=== PATIENT | female | born 1940 | race Caucasian/White ===

== ENCOUNTER → 2017-02-21 | Outpatient (CLI) | payer MEDICARE ==
--- NOTE | 2017-02-24 07:50 | PE ---
EXAMINATION TYPE: PET CT fusion skull to thigh DATE OF EXAM: 02/21/2017 COMPARISON: Outside chest CT dated 01/26/2017 HISTORY: Solitary pulmonary nodule TECHNIQUE: Following the intravenous administration of 15.25 mCi of F-18 FDG, whole body images are performed from the skull base to the midthigh. Images are reviewed on the computer in the coronal, a xial, and sagittal planes. Reconstructed rotating images are created on independent workstation and reviewed on the computer. A localization and attenuation correction CT is performed in conjunction with the PET scan. SCAN: First FINDINGS: MEDIASTINAL BACKGROUND: 1.5. ABDOMINAL BACKGROUND: 2.1 SKULL BASE AND NECK: FDG avid 2.0 x 1.7 cm mass within the right parapharyngeal space abuts the righ t medial pterygoid musculature and right palantine tonsil demonstrates a maximum SUV of 3.58. Focal u ptake within the superficial roof of the tongue is also noted with a maximum SUV of 3.5. There is inc reased uptake within the right posterior oropharynx narrowing the right lateral oropharynx at the lev el of the uvula with a maximum SUV of 3.27. Soft tissue prominence in the prevertebral space at this location is not hypermetabolic and thought to represent adenopathy. No hypermetabolic supraclavicular adenopathy is identified. The thyroid gland is heterogenous. CHEST, MEDIASTINUM, AND HILAR REGION: The previously seen spiculated right upper lobe pulmonary nodul e measures 1.3 x 1.1 cm with a maximum SUV of 2.17. This is superimposed on a background of mild cent rilobular pulmonary emphysema greatest at the lung apices. Additional 3 mm left upper lobe pulmonary nodule on series 3 image 79 is present in the superior segment of the left lower lobe. This is below the threshold of PET CT and does not demonstrate hypermetabolic activity. Ill-defined right hilar lymph nodes without the utilization of intravenous contrast measure up to 9 m m in short axis and demonstrate a maximal SUV of 3.04. Precarinal lymph node measures 9 mm in short a xis and demonstrates a maximum SUV of 2.48. ABDOMEN AND PELVIS: No hypermetabolic uptake. A simple appearing left hepatic cyst measures 2.2 cm. P artially exophytic right renal cyst measures 3.9 cm from the upper pole and other smaller bilateral n on hypermetabolic renal cysts are seen measuring up to 3.8 cm on the left. No hydronephrosis. The une nhanced liver, gallbladder, spleen, and pancreas are unremarkable. The left adrenal gland demonstrate s mild uniform thickening but maintains its adreniform shape and there is atrophy of the right adrena l gland. Suspected left adrenal gland hyperplasia. Numerous loops of small bowel are contained within a ventral abdominal wall hernia and a right ventra l hernia. Surgical devices from prior hernia repair are noted. Numerous degenerative calcified fibroi ds are seen within the low pelvis. No gross evidence of adenopathy within the abdomen or pelvis. OSSEOUS STRUCTURES: Degenerative changes of the glenohumeral joints displayed symmetric bilateral upt eloy. Large ossified body is seen within the left subcoracoid bursa. OTHER CT: There is mild mucosal thickening within the right maxillary sinus and rightward nasal septa l deviation. There is mild dilatation of the ascending thoracic aorta measures 4.3 cm. Mild coronary artery calcifications are noted. A large hiatal hernia is present. IMPRESSION: 1. Hypermetabolic mass within the right parapharyngeal space is suspicious for neoplasm. Consideratio ns are for adenopathy, squamous cell carcinoma, and minor salivary gland tumors. Adenopathy is possib le given the increased focal avidity at the right lateral oropharynx and tongue that could represent neoplasm such as squamous cell carcinoma. Direct visualization is recommended. Enhanced MR may demons trate additional diagnostic characteristics of the parapharyngeal space mass. 2. Right upper lobe hypermetabolic pulmonary nodule, right hilar and pretracheal hypermetabolic lymph nodes suspicious for metastasis. Findings may represent primary pulmonary carcinoma or metastasis gi areli the above findings. 3. No hypermetabolic uptake within the abdomen or pelvis. 4. Redemonstration of multiple small bowel containing ventral abdominal hernias and a partial intrath oracic stomach.
== END | disposition home or self-care (01) ==
LOC: RADPETMAIN 11:22
PROVIDERS: ATTEND Nurse Practitioner Adult Health
DX: R91.1 Solitary pulmonary nodule (principal)
CPT/HCPCS: 78815; A9552

== ENCOUNTER → 2017-03-17 | Outpatient (CLI) | payer MEDICARE ==
[2017-03-17 12:45] LABS: Blood Urea Nitrogen 20 mg/dL (7-17)
--- NOTE | 2017-03-17 14:30 | CT ---
EXAMINATION TYPE: CT soft tissue neck w con DATE OF EXAM: 03/17/2017 HISTORY: Rt parapharangeal mass COMPARISON: PET/CT dated 02/21/2017 CT DLP: 239.3 mGycm. Automated Exposure Control for Dose Reduction was Utilized. TECHNIQUE: CT scan of the neck is performed with IV Contrast, patient injected with 100 mL of Omnipa que 300, axial images are obtained, coronal and sagittal reformatted images are reviewed. FINDINGS: Airway: No gross abnormality seen. No enhancing mass is seen at the tongue base to correlate to the r egion of uptake on the recent PET/CT. Again direct visualization is recommended to exclude mass. Parotid/submandibular glands: Parotid glands and submandibular glands are symmetric. Carotid/Vascular Structures: There is an apparent right subclavian artery coursing posterior to the e sophagus without impression on the esophagus. Minimal nonhemodynamically significant calcific atherom atous plaquing is seen of the right common carotid artery. There is approximately 50% stenosis at the right carotid bulb from calcific atheromatous plaquing. Visualized portions the right internal carot id artery are patent. Minimal nonhemodynamically significant atherosclerosis is seen of the cavernous and supraclinoid portions of the internal carotid arteries. Basilar ectasia versus basilar tip aneur ysm measures 4.7 cm. Left vertebral artery is dominant. Minimal nonhemodynamically significant plaqui ng (less than 50% stenosis) is seen of the left internal carotid artery just distal to the carotid bu lb. Of note the previously described prevertebral soft tissue prominence identified on the PET/CT yolanda t was not hypermetabolic in question to relate to adenopathy is likely related to a medial course of the right common carotid artery. Osseous Structures: The osseous structures are intact with moderate multilevel degenerative changes o f the cervical spine. Moderate mucosal thickening is seen within the right maxillary sinus and mild m ucosal thickening within the ethmoid sinuses. There is rightward nasal septal deviation. Other: The thyroid gland is heterogenous containing multiple subcentimeter hypoattenuated nodules in bilateral dystrophic calcifications. There is redemonstration of the known right parapharyngeal space soft tissue mass abutting the right medial pterygoid musculature and right palatine tonsil. This measures 1.8 x 2.1 x 2.2 cm. No surround ing adenopathy is seen. This does not impress upon the carotid artery. There is partial visualization of the known right upper lobe spiculated pulmonary nodule measuring at least 1.4 x 1.5 cm superimposed upon mild centrilobular pulmonary emphysema. IMPRESSION: 1. There is redemonstration of the known right parapharyngeal mass measuring 1.8 x 2.1 x 2.2 cm, naya lar in measurement to the prior PET/CT dated 02/21/2017 where this measured 1.7 x 2.0 cm. Differential is unchanged from the prior PET/CT and considerations are for adenopathy, squamous cell carcinoma, a nd minor salivary gland tumor. Again as discussed on the PET/CT MR may demonstrate additional diagnos tic characteristics. 2. No new adenopathy within the head or neck. 3. Partial visualization of the known right upper lobe spiculated pulmonary nodule without hypermetab olic on PET/CT and suspicious for neoplasm. 4. Apparent course of the right subclavian artery is incidentally noted. 4. Thyroid gland is diffusely heterogenous containing multiple subcentimeter hypoattenuated nodules m ost likely relating to a thyroid goiter. 5. Approximately 50% stenosis at the right carotid bulb.
== END | disposition home or self-care (01) ==
LOC: RADCTMAIN 12:13
PROVIDERS: ATTEND Otolaryngology
DX: J39.2 Other diseases of pharynx (principal)
CPT/HCPCS: 82565; 84520; 70491; 36415; Q9967

== ENCOUNTER 2017-10-08 08:46 | Day surgery (SDC) | payer MEDICARE ==
[2017-10-08] MEDS ORDERED: ALPRAZolam 0.25 MG TAB PO ONE (09:09)
[2017-10-08 09:35] LABS: INR 1.1 (<1.2); Prothrombin Time 10.5 sec (9.0-12.0)
[2017-10-08 09:38] LABS: Mean Platelet Volume 6.4; Platelet Count 380 k/uL (150-450)
[2017-10-08] MEDS ORDERED: LORATADINE 10 MG TAB PO STA (11:25)
--- NOTE | 2017-10-08 11:40 | XR ---
EXAMINATION TYPE: XR chest 1V portable DATE OF EXAM: 10/08/2017 Comparison: 12/17/[address] 08/27/2017 Clinical History: 76-year-old female with right lung biopsy, rule out pneumothorax Findings: Heart normal size. Retrocardiac lucency compatible with underlying moderate-sized hiatal hernia. Jv gation/ectasia of the thoracic aorta. Mild diffuse interstitial prominence as a chronic appearance. A dvanced degenerative changes of both shoulders. Known pulmonary nodule/mass peripheral right upper lo be. No appreciable pneumothorax. Impression: 1. Known right upper lobe pulmonary nodule/mass without appreciable pneumothorax. 2. Interstitial changes on the right seem to correspond to tree-in-bud opacities on patient's recent CT and could represent bronchitis/bronchiolitis or atypical pneumonias. 3. Moderate-sized hiatal hernia.
--- NOTE | 2017-10-08 11:42 | CT ---
EXAMINATION TYPE: CT biopsy lung RT DATE OF EXAM: 10/08/2017 COMPARISON: 08/27/2017 HISTORY: Lung mass CT DLP: 3150 mGycm The procedure is discussed with the patient, the risks, complications, benefits and alternatives, wer e discussed and any questions were answered. Informed consent was obtained. The patient is placed p azucena on the CT table, prepped and draped in the usual sterile fashion. Utilizing a 22-gauge Chiba needle access into the right upper lobe mass was achieved with 2 passes pe rformed. Pathology confirmed adequate sample. All elements of maximal barrier technique were utiliz ed. The patient remained stable throughout the procedure with no immediate postprocedural complicati on. IMPRESSION: 1. Successful CT guided fine needle aspiration of a right upper lobe lung mass
[2017-10-08] MEDS ORDERED: PSEUDOEPHEDRINE 30 MG TAB PO ONE (11:48)
[2017-10-08 12:35] VITALS: RESP 16
--- NOTE | 2017-10-08 13:30 | XR ---
EXAMINATION TYPE: XR chest 1V DATE OF EXAM: 10/08/2017 HISTORY: Status post biopsy rule out pneumothorax COMPARISON: October 08, 2017 TECHNIQUE: Single view of the chest is submitted. FINDINGS: Demonstrated are scattered senescent parenchymal change. I do not see evidence for pneumothorax at this time. Right upper lobe pulmonary mass noted. The heart is stable. Hilar and mediastinal structures are within normal limits. Degenerative changes are seen of the dorsal spine. Degenerative changes of the shoulders with loose b odies noted. Bone infarcts also identified. IMPRESSION: 1. No evidence for pneumothorax at this time patient is status post biopsy of the right lung.
[2017-10-08 14:18] VITALS: BP 146/90; PULSE 80; TEMP 98.7
== END 2017-10-08 14:00 | disposition home or self-care (01) ==
LOC: RADPROMAIN 08:46
PROVIDERS: ATTEND Internal Medicine Gastroenterology
DX: C34.11 Malignant neoplasm of upper lobe, right bronchus or lung (principal); Z88.0 Allergy status to penicillin
CPT/HCPCS: 71045; 77012; 85049; 85610; 88173; 88305; 88341; 88342

== ENCOUNTER → 2017-10-30 | Outpatient (CLI) | payer MEDICARE ==
[2017-10-30 09:31] LABS: Basophils % (A) 0 %; Eosinophils # (A) 0.1 k/uL (0-0.7); Eosinophils % (A) 1 %; HCT 45.8 % (34.0-46.0); HGB 14.5 gm/dL (11.4-16.0); Lymphocytes % (A) 7 %; MCH 29.9 pg (25.0-35.0); MCHC 31.6 g/dL (31.0-37.0); MCV 94.6 fL (80.0-100.0); Mean Platelet Volume 6.2; Monocytes # (A) 0.6 k/uL (0-1.0); Monocytes % (A) 4 %; Neutrophils # (A) 12.7 k/uL (1.3-7.7); Neutrophils % (A) 88 %; Platelet Count 325 k/uL (150-450); RBC 4.84 m/uL (3.80-5.40); RDW 13.6 % (11.5-15.5); WBC 14.5 k/uL (3.8-10.6)
[2017-10-30 09:40] LABS: Anion Gap 8 mmol/L; Blood Urea Nitrogen 23 mg/dL (7-17); Carbon Dioxide 30 mmol/L (22-30); Chloride 100 mmol/L (98-107); Glucose 88 mg/dL (74-99); Potassium 4.7 mmol/L (3.5-5.1); Prothrombin Time 9.9 sec (9.0-12.0); Sodium 138 mmol/L (137-145)
== END | disposition home or self-care (01) ==
LOC: LABPAT 08:36
PROVIDERS: ATTEND Family Medicine
DX: Z01.818 Encounter for other preprocedural examination (principal); Z01.812 Encounter for preprocedural laboratory examination; C34.11 Malignant neoplasm of upper lobe, right bronchus or lung; E16.2 Hypoglycemia, unspecified
CPT/HCPCS: 36415; 80051; 82565; 82947; 84520; 85025; 85610; 85730; 93005

== ENCOUNTER 2017-11-12 15:36 | Inpatient (IN) | payer MEDICARE ==
[2017-11-12] MEDS ORDERED: IPRATROPIUM-ALBUTEROL 3 ML NEB INHALATION STA ×2 (15:59→17:19)
[2017-11-12] MEDS ORDERED: SODIUM CHLORIDE 0.9% 1,000 ML IV STA ×3 (15:59→17:19)
[2017-11-12] MEDS ORDERED: methylPREDNISolone SOD SUCCI 125 MG/2 ML VIAL IV STA (15:59)
[2017-11-12] MEDS ORDERED: MAGNESIUM SULFATE-D5W PMX 1 GM in DEXTROSE/WATER 1 100ML.BAG IVPB STA (15:59)
--- NOTE | 2017-11-12 16:07 | ED ---
SOB HPI - General Source: patient, family, RN notes reviewed Mode of arrival: wheelchair Limitations: no limitations - History of Present Illness MD Complaint: shortness of breath, cough <Garry Perez - Last Filed: 11/12/17 17:03> <Jad Katz - Last Filed: 11/12/17 19:15> - General Chief Complaint: Shortness of Breath Stated Complaint: Sob Time Seen by Provider: 11/12/17 15:55 - History of Present Illness Initial Comments: This is a 76-year-old female history of a 60 year smoking history who believes she has COPD who states she's had shortness of breath for the past 3-4 weeks with 3 doctor visits so far not getting much better is had a cough with clear phlegm she had she believes a low-grade fever but no chills no chest pain no nausea vomiting diarrhea palpitations or other symptoms. She just not getting better still feels very dyspneic U with exertion. (Garry Perez) - Related Data Home Medications Medication Instructions Recorded Confirmed Diltiazem HCl [Cardizem] 120 mg PO DAILY 12/17/13 11/12/17 Omeprazole [PriLOSEC] 20 mg PO AC-BRKFST 12/17/13 11/12/17 Acetaminophen Tab [Tylenol Tab] 325 mg PO Q6H PRN 10/01/17 11/12/17 Ferrous Sulfate [Feosol] 325 mg PO DAILY 10/01/17 11/12/17 Albuterol Nebulized [Ventolin 0 mg INHALATION QID PRN 10/08/17 11/12/17 Nebulized] Albuterol Inhaler [Ventolin Hfa 1 - 2 puff INHALATION QID PRN 11/05/17 11/12/17 Inhaler] predniSONE 20 mg PO BID 11/05/17 11/12/17 Sulfamethox-Tmp 800-160Mg [Bactrim 1 tab PO Q12HR 11/12/17 11/12/17 DS 800-160 mg] Allergies Allergy/AdvReac Type Severity Reaction Status Date / Time Penicillins Allergy Severe Diarrhea Verified 11/12/17 16:31 Review of Systems ROS Other: All systems not noted in ROS Statement are negative. <Garry Perez - Last Filed: 11/12/17 17:03> ROS Other: All systems not noted in ROS Statement are negative. <Jad Katz - Last Filed: 11/12/17 19:15> ROS Statement: Those systems with pertinent positive or pertinent negative responses have been documented in the HPI. Past Medical History Past Medical History: Asthma, Cancer, GERD/Reflux, Hypertension, Osteoarthritis (OA) Additional Past Medical History / Comment(s): hx palpitations, sinus infections , current URI (on current rx for), lung cancer, hx deverticulitis History of Any Multi-Drug Resistant Organisms: None Reported Past Surgical History: Adenoidectomy, Bowel Resection, Heart Catheterization, Hernia Repair, Tonsillectomy Additional Past Surgical History / Comment(s): Per patient some type of clip surgery in the heart by Dr. Akers in 2011, bowel resection with colostomy/ later reversed, D&C, long cataracts, lung biopsy Past Anesthesia/Blood Transfusion Reactions: No Reported Reaction Past Psychological History: No Psychological Hx Reported Smoking Status: Current some day smoker Past Alcohol Use History: None Reported Past Drug Use History: None Reported - Past Family History Mother Family Medical History: No Reported History Son(s) Family Medical History: No Reported History <ChrisGarry - Last Filed: 11/12/17 17:03> General Exam Limitations: no limitations General appearance: alert, anxious, in distress Head exam: Present: atraumatic, normocephalic, normal inspection Eye exam: Present: normal appearance, PERRL, EOMI. Absent: scleral icterus, conjunctival injection, periorbital swelling ENT exam: Present: normal exam, mucous membranes moist Neck exam: Present: normal inspection. Absent: tenderness, meningismus, lymphadenopathy Respiratory exam: Present: wheezes, accessory muscle use, decreased breath sounds. Absent: respiratory distress, rales, rhonchi, stridor Cardiovascular Exam: Present: regular rate, normal rhythm, normal heart sounds. Absent: systolic murmur, diastolic murmur, rubs, gallop, clicks GI/Abdominal exam: Present: soft, normal bowel sounds. Absent: distended, tenderness, guarding, rebound, rigid Extremities exam: Present: normal inspection, full ROM, normal capillary refill. Absent: tenderness, pedal edema, joint swelling, calf tenderness Back exam: Present: normal inspection Neurological exam: Present: alert, oriented X3, CN II-XII intact Psychiatric exam: Present: normal affect, normal mood Skin exam: Present: warm, dry, intact, normal color. Absent: rash <Garry Perez - Last Filed: 11/12/17 17:03> General appearance: alert, in no apparent distress Head exam: Present: atraumatic, normocephalic, normal inspection Eye exam: Present: normal appearance, PERRL, EOMI. Absent: scleral icterus, conjunctival injection, periorbital swelling ENT exam: Present: normal exam, mucous membranes moist Neck exam: Present: normal inspection. Absent: tenderness, meningismus, lymphadenopathy Respiratory exam: Present: normal lung sounds bilaterally, wheezes, accessory muscle use, decreased breath sounds. Absent: respiratory distress, rales, rhonchi, stridor Cardiovascular Exam: Present: regular rate, normal rhythm, normal heart sounds. Absent: systolic murmur, diastolic murmur, rubs, gallop, clicks GI/Abdominal exam: Present: soft, normal bowel sounds. Absent: distended, tenderness, guarding, rebound, rigid Extremities exam: Present: normal inspection, full ROM, normal capillary refill. Absent: tenderness, pedal edema, joint swelling, calf tenderness Back exam: Present: normal inspection Neurological exam: Present: alert, oriented X3, CN II-XII intact Psychiatric exam: Present: normal affect, normal mood Skin exam: Present: warm, dry, intact, normal color. Absent: rash <Jad Katz - Last Filed: 11/12/17 19:15> - General Exam Comments Initial Comments: This is a well-developed well-nourished awake alert oriented 3 female (Garry Perez) Course <Garry Perez - Last Filed: 11/12/17 17:03> <Jad Katz - Last Filed: 11/12/17 19:15> Vital Signs 11/12/17 11/12/17 11/12/17 15:43 16:30 16:38 Temperature 98.4 F Pulse Rate 96 99 96 Respiratory 22 Rate Blood Pressure 133/89 O2 Sat by Pulse 87 L Oximetry 11/12/17 11/12/17 11/12/17 16:58 17:25 17:40 Temperature Pulse Rate 97 93 94 Respiratory 18 Rate Blood Pressure 121/76 O2 Sat by Pulse 93 L Oximetry 11/12/17 19:01 Temperature Pulse Rate 100 Respiratory 18 Rate Blood Pressure 131/73 O2 Sat by Pulse 93 L Oximetry - Reevaluation(s) Reevaluation #1: 11/12/17 17:03 The patient's care is endorsed to Dr. Katz at our shift change (Garry Perez) Reevaluation #2: 11/12/17 19:15 Patient has significant improvement on second breathing treatment (Jad Katz) Medical Decision Making - Lab Data Result diagrams: 11/12/17 16:16 11/12/17 16:16 - EKG Data -: EKG Interpreted by [facility] EKG shows normal: sinus rhythm (EKG with a ventricular rate of 102 QRS 82 QT since QTC 314/49. Undetermined rhythm) <Garry Perez - Last Filed: 11/12/17 17:03> - Lab Data Result diagrams: 11/12/17 16:16 11/12/17 16:16 - Radiology Data Radiology results: report reviewed (CTA chest shows positive), image reviewed <Jad Katz - Last Filed: 11/12/17 19:15> - Medical Decision Making 76 female the ER for evaluation shortness of breath. Patient has pleural effusion, stated by asthma COPD. Patient be admitted for continued breathing treatments and evaluation by pulmonology (Jad Katz) - Lab Data Lab Results 11/12/17 11/12/17 11/12/17 Range/Units 16:16 16:16 16:16 WBC 13.4 H (3.8-10.6) k/uL RBC 5.36 (3.80-5.40) m/uL Hgb 16.0 (11.4-16.0) gm/dL Hct 49.9 H (34.0-46.0) % MCV 93.1 (80.0-100.0) fL MCH 29.9 (25.0-35.0) pg MCHC 32.1 (31.0-37.0) g/dL RDW 13.4 (11.5-15.5) % Plt Count 322 (150-450) k/uL Neutrophils % 88 % Lymphocytes % 4 % Monocytes % 7 % Eosinophils % 1 % Basophils % 0 % Neutrophils # 11.8 H (1.3-7.7) k/uL Lymphocytes # 0.5 L (1.0-4.8) k/uL Monocytes # 0.9 (0-1.0) k/uL Eosinophils # 0.1 (0-0.7) k/uL Basophils # 0.0 (0-0.2) k/uL PT (9.0-12.0) sec INR (<1.2) APTT (22.0-30.0) sec Sodium 133 L (137-145) mmol/L Potassium 5.9 H (3.5-5.1) mmol/L Chloride 99 (98-107) mmol/L Carbon Dioxide 24 (22-30) mmol/L Anion Gap 10 mmol/L BUN 42 H (7-17) mg/dL Creatinine 0.52 (0.52-1.04) mg/dL Est GFR (CKD-EPI)AfAm >90 (>60 ml/min/1.73 sqM) Est GFR (CKD-EPI)NonAf >90 (>60 ml/min/1.73 sqM) Glucose 117 H (74-99) mg/dL Calcium 9.2 (8.4-10.2) mg/dL Magnesium 2.3 (1.6-2.3) mg/dL Total Bilirubin 1.0 (0.2-1.3) mg/dL AST 25 (14-36) U/L ALT 22 (9-52) U/L Alkaline Phosphatase 63 (38-126) U/L Total Creatine Kinase 32 (30-135) U/L CK-MB (CK-2) 2.4 (0.0-2.4) ng/mL CK-MB (CK-2) Rel Index 7.5 Troponin I 0.046 H* (0.000-0.034) ng/mL NT-Pro-B Natriuret Pep pg/mL Total Protein 6.6 (6.3-8.2) g/dL Albumin 3.8 (3.5-5.0) g/dL 11/12/17 11/12/17 Range/Units 16:16 16:16 WBC (3.8-10.6) k/uL RBC (3.80-5.40) m/uL Hgb (11.4-16.0) gm/dL Hct (34.0-46.0) % MCV (80.0-100.0) fL MCH (25.0-35.0) pg MCHC (31.0-37.0) g/dL RDW (11.5-15.5) % Plt Count (150-450) k/uL Neutrophils % % Lymphocytes % % Monocytes % % Eosinophils % % Basophils % % Neutrophils # (1.3-7.7) k/uL Lymphocytes # (1.0-4.8) k/uL Monocytes # (0-1.0) k/uL Eosinophils # (0-0.7) k/uL Basophils # (0-0.2) k/uL PT 10.2 (9.0-12.0) sec INR 1.0 (<1.2) APTT 20.6 L (22.0-30.0) sec Sodium (137-145) mmol/L Potassium (3.5-5.1) mmol/L Chloride (98-107) mmol/L Carbon Dioxide (22-30) mmol/L Anion Gap mmol/L BUN (7-17) mg/dL Creatinine (0.52-1.04) mg/dL Est GFR (CKD-EPI)AfAm (>60 ml/min/1.73 sqM) Est GFR (CKD-EPI)NonAf (>60 ml/min/1.73 sqM) Glucose (74-99) mg/dL Calcium (8.4-10.2) mg/dL Magnesium (1.6-2.3) mg/dL Total Bilirubin (0.2-1.3) mg/dL AST (14-36) U/L ALT (9-52) U/L Alkaline Phosphatase (38-126) U/L Total Creatine Kinase (30-135) U/L CK-MB (CK-2) (0.0-2.4) ng/mL CK-MB (CK-2) Rel Index Troponin I (0.000-0.034) ng/mL NT-Pro-B Natriuret Pep 2100 pg/mL Total Protein (6.3-8.2) g/dL Albumin (3.5-5.0) g/dL Critical Care Time Critical Care Time: Yes Total Critical Care Time: 31 <Jad Katz - Last Filed: 11/12/17 19:15> Disposition <Garry Perez - Last Filed: 11/12/17 17:03> Is patient prescribed a controlled substance at d/c from ED?: No <Jad Katz - Last Filed: 11/12/17 19:15> Clinical Impression: Acute exacerbation of chronic obstructive airways disease, Pleural effusion, Hypoxia Disposition: ADMITTED IP TO THIS HOSP Condition: Fair Referrals: Rekha Baptiste MD [Primary Care Provider] - 1-2 days
[2017-11-12 16:33] LABS: Basophils % (A) 0 %; Eosinophils # (A) 0.1 k/uL (0-0.7); Eosinophils % (A) 1 %; HCT 49.9 % (34.0-46.0); Lymphocytes # (A) 0.5 k/uL (1.0-4.8); Lymphocytes % (A) 4 %; MCH 29.9 pg (25.0-35.0); MCHC 32.1 g/dL (31.0-37.0); MCV 93.1 fL (80.0-100.0); Mean Platelet Volume 6.8; Monocytes # (A) 0.9 k/uL (0-1.0); Monocytes % (A) 7 %; Neutrophils # (A) 11.8 k/uL (1.3-7.7); Neutrophils % (A) 88 %; Platelet Count 322 k/uL (150-450); RBC 5.36 m/uL (3.80-5.40); RDW 13.4 % (11.5-15.5); WBC 13.4 k/uL (3.8-10.6)
[2017-11-12 16:47] LABS: Prothrombin Time 10.2 sec (9.0-12.0)
[2017-11-12 16:49] LABS: Albumin 3.8 g/dL (3.5-5.0); Anion Gap 10 mmol/L; Blood Urea Nitrogen 42 mg/dL (7-17); Calcium 9.2 mg/dL (8.4-10.2); Carbon Dioxide 24 mmol/L (22-30); Chloride 99 mmol/L (98-107); Glucose 117 mg/dL (74-99); Magnesium 2.3 mg/dL (1.6-2.3); Sodium 133 mmol/L (137-145); Total Protein 6.6 g/dL (6.3-8.2)
[2017-11-12 16:50] LABS: Partial Thromboplastin Time 20.6 sec (22.0-30.0)
[2017-11-12 16:54] LABS: AST 25 U/L (14-36); Potassium 5.9 mmol/L (3.5-5.1)
[2017-11-12 16:55] LABS: ALT 22 U/L (9-52); Alkaline Phosphatase 63 U/L (38-126)
--- NOTE | 2017-11-12 16:58 | XR ---
EXAMINATION TYPE: XR chest 2V DATE OF EXAM: 11/12/2017 COMPARISON: 10/08/2017 HISTORY: Right lung biopsy TECHNIQUE: Frontal and lateral views of the chest are obtained. FINDINGS: There is right pleural effusion. there is extensive consolidation in the right lower lobe. I see no pneumothorax. Left lung is fairly clear. There is no heart failure. There are chest leads. There is significant arthritic change in the shoulder joints. Thoracic aorta i s atheromatous. IMPRESSION: Extensive airspace consolidation and pleural fluid in the right lung increased compared to last exam. Right pleural effusion is increased or new.
[2017-11-12 17:00] LABS: Creatine Kinase MB 2.4 ng/mL (0.0-2.4)
[2017-11-12 17:05] LABS: Troponin I 0.046 ng/mL (0.000-0.034)
--- NOTE | 2017-11-12 18:23 | CT ---
EXAMINATION TYPE: CT angio chest DATE OF EXAM: 11/12/2017 6:07 PM COMPARISON: HISTORY: Shortness of breath. CT DLP: 245.3 mGycm Automated exposure control for dose reduction was used. CONTRAST: CTA scan of the thorax is performed with IV Contrast, patient injected with 61 mL of Isovue 370, pulm onary embolism protocol. There are 3-D post processed images.. FINDINGS: There is a large right pleural effusion. There is consolidation and atelectasis in the anterior right upper lobe. There is no left-sided pleural effusion. Left lung is clear of infiltrate. There is normal contrast opacification of the pulmonary arteries. I see no filling defects. There is no evidence of thoracic aortic dissection. BSN aorta measures 4.1 cm. There is small pericardial effu chau. There is 2.2 cm hypodense area in the anterior right lobe of the liver consistent with a cyst u nchanged compared to CT scan 01/26/2017. There is a large hiatal hernia. There is 2.2 cm area of roun ded consolidation in the lateral right upper lobe adjacent to the pleural fluid. There is no mediasti nal adenopathy. IMPRESSION: THERE IS NEW LARGE RIGHT PLEURAL EFFUSION COMPARED TO 08/27/2017. NO EVIDENCE OF PULMONARY EMBOLISM. N EW RIGHT UPPER LOBE CONSOLIDATION AND ATELECTASIS. RIGHT UPPER LOBE MASS UNCHANGED COMPARED TO 018. MILD THORACIC AORTIC ANEURYSM. SMALL PERICARDIAL EFFUSION.
[2017-11-12] MEDS: IPRATROPIUM-ALBUTEROL 3 ML NEB INHALATION SCH (20:14)
[2017-11-12] MEDS: SODIUM CHLORIDE 0.9% 1,000 ML IV SCH (20:59)
[2017-11-12] MEDS: methylPREDNISolone SOD SUCCI 125 MG/2 ML VIAL IV SCH (23:43)
[2017-11-13] MEDS: methylPREDNISolone SOD SUCCI 125 MG/2 ML VIAL IV SCH ×3 (06:12→17:05)
[2017-11-13] MEDS: IPRATROPIUM-ALBUTEROL 3 ML NEB INHALATION SCH ×4 (09:25→19:23)
--- NOTE | 2017-11-13 10:02 | P.HPIM ---
History of Present Illness H&P Date: 11/13/17 This is a 76-year-old female patient of Dr. Baptiste. Patient presented to the emergency room with complaints of increased shortness of breath. Patient states she has been treated outpatient for the past 4 weeks without improvement. Patient also states she's recently diagnosed with lung cancer and was supposed to undergo a biopsy of nodules in her right upper lobe with Dr. Bustamante yesterday but had to cancel due to increased shortness of breath. Patient states she has not seen an oncologist or has initiated any treatment. Per patient was awaiting biopsy results for further plan of care. Patient's medical history occluded 60 year plus smoker, asthma, GERD, hypertension, osteoarthritis, heart catheterization in bowel resection. Chest x-ray completed emergency room showing extensive airspace consolidation and pleural fluid in the right lung increased compared to last exam. Right pleural effusion increased or new. Chest CTA completed showing new large right pleural effusion compared to 2017. No evidence of pulmonary embolism. Right upper lobe consolidation and atelectasis. Right upper lobe mass unchanged compared to 08/27/2017. Mild thoracic aortic aneurysm. Small pericardial effusion. EKG completed showing undetermined rhythm. Dr. Armstrong per pulmonary services have been consulted. Patient started on DuoNeb breathing treatments and Solu- Medrol 60 mg every 6 hours. Troponin also slightly elevated at 0.046. Serial cardiac enzymes ordered.g and cardiac monitoring ordered for patient. Potassium also high at 5.9. Repeat labs have been ordered. At this time patient complains of shortness of breath. Patient denies chest pain. Patient denies nausea vomiting or diarrhea. Patient denies any urinary burning or frequency Review of Systems Please refer to HPI otherwise unremarkable Past Medical History Past Medical History: Asthma, Cancer, GERD/Reflux, Hypertension, Osteoarthritis (OA), Pneumonia Additional Past Medical History / Comment(s): hx palpitations, hemorroids , sinus infections, current URI (on current rx for), "lung cancer dx 3-4 weeks ago -no tx as of yet stated needs more bx done", hx diverticulitis, occ stress incont, shingles 2013, past sbo,hernia (sx) History of Any Multi-Drug Resistant Organisms: None Reported Past Surgical History: Adenoidectomy, Bowel Resection, Heart Catheterization, Hernia Repair, Tonsillectomy Additional Past Surgical History / Comment(s): Per patient some type of clip surgery in the heart by Dr. Akers in 2012, bowel resection with colostomy/ later reversed, D&C,1 ovary removed, long cataracts, "lung biopsy,pt stated still needs more bx" Past Anesthesia/Blood Transfusion Reactions: No Reported Reaction Smoking Status: Current every day smoker - Past Family History Mother Family Medical History: No Reported History Additional Family Medical History / Comment(s): heart problems, heart failure age 88 Father Family Medical History: Myocardial Infarction ([place]) Additional Family Medical History / Comment(s): tb when young, from [place] Son(s) Family Medical History: No Reported History Medications and Allergies Home Medications Medication Instructions Recorded Confirmed Type Diltiazem HCl [Cardizem] 120 mg PO DAILY 12/17/13 11/12/17 History Omeprazole [PriLOSEC] 20 mg PO AC-BRKFST 12/17/13 11/12/17 History Acetaminophen Tab [Tylenol Tab] 325 mg PO Q6H PRN 10/01/17 11/12/17 History Ferrous Sulfate [Feosol] 325 mg PO DAILY 10/01/17 11/12/17 History Albuterol Nebulized [Ventolin 0 mg INHALATION QID PRN 10/08/17 11/12/17 History Nebulized] Albuterol Inhaler [Ventolin Hfa 1 - 2 puff INHALATION QID PRN 11/05/17 11/12/17 History Inhaler] predniSONE 20 mg PO BID 11/05/17 11/12/17 History Sulfamethox-Tmp 800-160Mg [Bactrim 1 tab PO Q12HR 11/12/17 11/12/17 History DS 800-160 mg] Allergies Allergy/AdvReac Type Severity Reaction Status Date / Time Penicillins Allergy Severe Diarrhea Verified 11/12/17 16:31 Physical Exam Vitals: Vital Signs Temp Pulse Pulse Resp BP BP Pulse Ox 11/13/17 09:35 98 11/13/17 09:25 98 18 11/13/17 05:00 98.3 F 97 16 130/71 93 L 11/12/17 21:27 98.6 F 103 H 15 119/77 93 L 11/12/17 20:17 89 11/12/17 20:07 97.9 F 111 H 18 139/74 98 11/12/17 19:01 100 18 131/73 93 L 11/12/17 17:40 94 11/12/17 17:25 93 11/12/17 16:58 97 18 121/76 93 L 11/12/17 16:38 96 11/12/17 16:30 99 11/12/17 15:43 98.4 F 96 22 133/89 87 L Intake and Output 11/12/17 11/13/17 11/13/17 22:59 06:59 14:59 Intake Total 400 Balance 400 Intake: Intake, IV Titration 160 Amount Sodium Chloride 0.9% 1, 160 000 ml @ 20 mls/hr IV . Q24H [facility] Rx#:[id number] Oral 240 Other: Voiding Method Toilet Diaper Incontinent # Voids 2 Weight 63.503 kg Head normocephalic Neck supple Lungs bilateral expiratory wheezing. Diminished throughout Heart regular rate and rhythm S1-S2, no rub or gallop Abdomen is soft nontender nondistended positive bowel sounds no hepatosplenomegaly Extremities no edema Neuro alert and orientated to 3 Results CBC & Chem 7: 11/12/17 16:16 11/12/17 16:16 Labs: Abnormal Lab Results - Last 24 Hours (Table) 11/12/17 11/12/17 11/12/17 Range/Units 16:16 16:16 16:16 WBC 13.4 H (3.8-10.6) k/uL Hct 49.9 H (34.0-46.0) % Neutrophils # 11.8 H (1.3-7.7) k/uL Lymphocytes # 0.5 L (1.0-4.8) k/uL APTT (22.0-30.0) sec Sodium 133 L (137-145) mmol/L Potassium 5.9 H (3.5-5.1) mmol/L BUN 42 H (7-17) mg/dL Glucose 117 H (74-99) mg/dL Troponin I 0.046 H* (0.000-0.034) ng/mL 11/12/17 Range/Units 16:16 WBC (3.8-10.6) k/uL Hct (34.0-46.0) % Neutrophils # (1.3-7.7) k/uL Lymphocytes # (1.0-4.8) k/uL APTT 20.6 L (22.0-30.0) sec Sodium (137-145) mmol/L Potassium (3.5-5.1) mmol/L BUN (7-17) mg/dL Glucose (74-99) mg/dL Troponin I (0.000-0.034) ng/mL Thrombosis Risk Factor Assmnt - Choose All That Apply Each Risk Factor Represents 2 Points: Age 61-74 years Other congenital or acquired thrombophilia - If yes, enter type in comment: No Thrombosis Risk Factor Assessment Total Risk Factor Score: 2 Thrombosis Risk Factor Assessment Level: Low Risk Assessment and Plan Assessment: 1. Dyspnea. Chest x-ray completed showing extensive airspace consolidation and pleural fluid in the right lung increased compared to last exam. Right pleural effusion is increased or new. CTA completed showing new large right pleural effusion compared to 08/27/2017. No evidence of pulmonary embolism. Right upper lobe consolidation and atelectasis. Right upper lobe mass unchanged compared to 08/26/2017. Mild thoracic aortic aneurysm. Small pericardial effusion. Pulmonary services have been consulted. Patient started on Solu-Medrol 60 mg every 6 hours. 2. Recent diagnosis of lung cancer. Patient was supposed to undergo right upper lobe nodule biopsy with Dr. Bustamante yesterday but had to cancel due to increased shortness of breath. Patient has not started treatment or has been seen by oncologist. 3. Nicotine dependence. Patient has a 60+ year smoking history. Nicotine patches been ordered. Patient educated greater than 3 minutes on smoking sensation 4. History of asthma 5. History of iron deficiency anemia. Continue ferrous sulfate 6. History of essential hypertension 7. History of GERD 8. Elevated troponin. Troponin 0.046. Serial cardiac enzymes have been ordered. Patient placed on telemetry 9. Hyperkalemia. Initial potassium 5.9. Repeat lab has been ordered DVT prophylaxis Lovenox. GI prophylaxis Protonix Time with Patient: Greater than 30 (Greater than 60% of the total time spent in counseling and coordination of care. I performed an examination of the patient and discussed their management with the Nurse Practitioner. I have reviewed the Nurse Practitioner's notes and agree with the documented findings and plan of care)
[2017-11-13 10:33] LABS: Basophils % (A) 0 %; Eosinophils # (A) 0.1 k/uL (0-0.7); Eosinophils % (A) 1 %; HCT 46.6 % (34.0-46.0); HGB 14.9 gm/dL (11.4-16.0); Lymphocytes # (A) 0.3 k/uL (1.0-4.8); Lymphocytes % (A) 3 %; MCH 29.7 pg (25.0-35.0); MCHC 31.8 g/dL (31.0-37.0); MCV 93.2 fL (80.0-100.0); Mean Platelet Volume 6.7; Monocytes # (A) 0.3 k/uL (0-1.0); Monocytes % (A) 3 %; Neutrophils # (A) 8.1 k/uL (1.3-7.7); Neutrophils % (A) 92 %; Platelet Count 265 k/uL (150-450); RDW 13.5 % (11.5-15.5); WBC 8.8 k/uL (3.8-10.6)
[2017-11-13 10:41] LABS: ALT 23 U/L (9-52); AST 17 U/L (14-36); Albumin 3.4 g/dL (3.5-5.0); Alkaline Phosphatase 59 U/L (38-126); Anion Gap 7 mmol/L; Blood Urea Nitrogen 31 mg/dL (7-17); Carbon Dioxide 24 mmol/L (22-30); Chloride 104 mmol/L (98-107); Glucose 120 mg/dL (74-99); Sodium 135 mmol/L (137-145); Total Bilirubin 0.5 mg/dL (0.2-1.3); Total Protein 5.8 g/dL (6.3-8.2)
[2017-11-13 10:48] LABS: Appearance,Urine Clear (Clear); Bilirubin,Urine Negative (Negative); Blood,Urine Negative (Negative); Color,Urine Yellow; Glucose,Urine (UA) 3+ (Negative); Ketones,Urine Negative (Negative); Leukocyte Esterase,Urine Negative (Negative); Nitrite,Urine Negative (Negative); PH, Urine 5.5 (5.0-8.0); Protein,Urine Trace (Negative); Specific Gravity,Urine 1.034 (1.001-1.035); Urobilinogen,Urine <2.0 mg/dL (<2.0)
[2017-11-13] MEDS: ENOXAPARIN 40 MG/0.4 ML SYRINGE SQ SCH (11:07)
[2017-11-13 11:43] LABS: Glucose,Whole Blood 123 mg/dL (75-99)
--- NOTE | 2017-11-13 13:05 | P.CONS ---
History of Present Illness - Reason for Consult Consult date: 11/13/17 Lung Mass Requesting physician: Jo-Ann Garcia - Chief Complaint SOB, Hypoxia - History of Present Illness Ms. Cervantes is a 76-year-old female patient who originally presented to the emergency room with complaints of increased and persistent shortness of breath. Patient states she has been treated outpatient for the past 4 weeks without improvement. It appears she originally was found to have adenopathy and a parapharyngeal mass in February of this year. Under PET scan which revealed PET avid lesions. Next diagnostics through [facility] are not until September of this year. , she underwent CT FN biopsy which revealed positive adenocarcinoma consistent with pulmonary etiology, she was referred to Dr. Bustamante Cardiothoracic surgery and the plan was to biopsy the adeopathy which was revealed PET avid on PET to identify if metastatic or not, if was not deemed metastatic then possibilty of lobectomy was an option. She was scheduled for this procedural biopsy, although with her increased and persistent SOB she presented to the ED instead. She has not seen Medical Oncology until now. Imaging performed on arrival revealed right pleural effusion. Review of Systems A 14 point review of systems assessed and completed and all neg except HPI Past Medical History Past Medical History: Asthma, Cancer, GERD/Reflux, Hypertension, Osteoarthritis (OA), Pneumonia Additional Past Medical History / Comment(s): hx palpitations, hemorroids , sinus infections, current URI (on current rx for), "lung cancer dx 3-4 weeks ago -no tx as of yet stated needs more bx done", hx diverticulitis, occ stress incont, shingles 2013, past sbo,hernia (sx) History of Any Multi-Drug Resistant Organisms: None Reported Past Surgical History: Adenoidectomy, Bowel Resection, Heart Catheterization, Hernia Repair, Tonsillectomy Additional Past Surgical History / Comment(s): Per patient some type of clip surgery in the heart by Dr. Akers in 2011, bowel resection with colostomy/ later reversed, D&C,1 ovary removed, long cataracts, "lung biopsy,pt stated still needs more bx" Past Anesthesia/Blood Transfusion Reactions: No Reported Reaction Smoking Status: Current every day smoker - Past Family History Mother Family Medical History: No Reported History Additional Family Medical History / Comment(s): heart problems, heart failure age 88 Father Family Medical History: Myocardial Infarction ([place]) Additional Family Medical History / Comment(s): tb when young, from [place] Son(s) Family Medical History: No Reported History Medications and Allergies Home Medications Medication Instructions Recorded Confirmed Type Diltiazem HCl [Cardizem] 120 mg PO DAILY 12/17/13 11/12/17 History Omeprazole [PriLOSEC] 20 mg PO AC-BRKFST 12/17/13 11/12/17 History Acetaminophen Tab [Tylenol Tab] 325 mg PO Q6H PRN 10/01/17 11/12/17 History Ferrous Sulfate [Feosol] 325 mg PO DAILY 10/01/17 11/12/17 History Albuterol Nebulized [Ventolin 0 mg INHALATION QID PRN 10/08/17 11/12/17 History Nebulized] Albuterol Inhaler [Ventolin Hfa 1 - 2 puff INHALATION QID PRN 11/05/17 11/12/17 History Inhaler] predniSONE 20 mg PO BID 11/05/17 11/12/17 History Sulfamethox-Tmp 800-160Mg [Bactrim 1 tab PO Q12HR 11/12/17 11/12/17 History DS 800-160 mg] Allergies Allergy/AdvReac Type Severity Reaction Status Date / Time Penicillins Allergy Severe Diarrhea Verified 11/12/17 16:31 Physical Exam Vitals: Vital Signs Temp Pulse Pulse Resp BP BP Pulse Ox 11/13/17 12:19 92 11/13/17 12:09 92 18 11/13/17 12:03 98.6 F 104 H 20 140/83 91 L 11/13/17 09:35 98 11/13/17 09:25 98 18 11/13/17 08:00 97 18 11/13/17 05:00 98.3 F 97 16 130/71 93 L 11/12/17 21:27 98.6 F 103 H 15 119/77 93 L 11/12/17 20:17 89 11/12/17 20:07 97.9 F 111 H 18 139/74 98 11/12/17 19:01 100 18 131/73 93 L 11/12/17 17:40 94 11/12/17 17:25 93 11/12/17 16:58 97 18 121/76 93 L 11/12/17 16:38 96 11/12/17 16:30 99 11/12/17 15:43 98.4 F 96 22 133/89 87 L Intake and Output 11/12/17 11/13/17 11/13/17 22:59 06:59 14:59 Intake Total 400 Balance 400 Intake: Intake, IV Titration 160 Amount Sodium Chloride 0.9% 1, 160 000 ml @ 20 mls/hr IV . Q24H [facility] Rx#:[id number] Oral 240 Other: Voiding Method Toilet Toilet Diaper Diaper Incontinent Incontinent # Voids 2 Weight 63.503 kg Results CBC & Chem 7: 11/13/17 10:08 11/13/17 10:08 Labs: Abnormal Lab Results - Last 24 Hours (Table) 11/12/17 11/12/17 11/12/17 Range/Units 16:16 16:16 16:16 WBC 13.4 H (3.8-10.6) k/uL Hct 49.9 H (34.0-46.0) % Neutrophils # 11.8 H (1.3-7.7) k/uL Lymphocytes # 0.5 L (1.0-4.8) k/uL APTT (22.0-30.0) sec Sodium 133 L (137-145) mmol/L Potassium 5.9 H (3.5-5.1) mmol/L BUN 42 H (7-17) mg/dL Creatinine (0.52-1.04) mg/dL Glucose 117 H (74-99) mg/dL POC Glucose (mg/dL) (75-99) mg/dL Troponin I 0.046 H* (0.000-0.034) ng/mL Total Protein (6.3-8.2) g/dL Albumin (3.5-5.0) g/dL Urine Protein (Negative) Urine Glucose (UA) (Negative) 11/12/17 11/13/17 11/13/17 Range/Units 16:16 10:08 10:08 WBC (3.8-10.6) k/uL Hct 46.6 H (34.0-46.0) % Neutrophils # 8.1 H (1.3-7.7) k/uL Lymphocytes # 0.3 L (1.0-4.8) k/uL APTT 20.6 L (22.0-30.0) sec Sodium 135 L (137-145) mmol/L Potassium (3.5-5.1) mmol/L BUN 31 H (7-17) mg/dL Creatinine 0.47 L (0.52-1.04) mg/dL Glucose 120 H (74-99) mg/dL POC Glucose (mg/dL) (75-99) mg/dL Troponin I (0.000-0.034) ng/mL Total Protein 5.8 L (6.3-8.2) g/dL Albumin 3.4 L (3.5-5.0) g/dL Urine Protein (Negative) Urine Glucose (UA) (Negative) 11/13/17 11/13/17 11/13/17 Range/Units 10:08 10:25 11:42 WBC (3.8-10.6) k/uL Hct (34.0-46.0) % Neutrophils # (1.3-7.7) k/uL Lymphocytes # (1.0-4.8) k/uL APTT (22.0-30.0) sec Sodium (137-145) mmol/L Potassium (3.5-5.1) mmol/L BUN (7-17) mg/dL Creatinine (0.52-1.04) mg/dL Glucose (74-99) mg/dL POC Glucose (mg/dL) 123 H (75-99) mg/dL Troponin I 0.036 H* (0.000-0.034) ng/mL Total Protein (6.3-8.2) g/dL Albumin (3.5-5.0) g/dL Urine Protein Trace H (Negative) Urine Glucose (UA) 3+ H (Negative) Assessment and Plan Plan: Assessment and Recommendations: 1. New Diagnosis Pulmonary Adenocarcinoma: - Original full staging scans back in February, please restage with CT Neck, Abdomen and Pelvis - Will send Tissue Biospy for PDL1, ALk, ROS, RET, EGFR, BRAF, TMB - Will be made a follow-up appointment after discharge for systemic treatment options - Dr. Bustamante was scheduled to Biopsy adenopathy for possibility of patient being a surgical candidate 2. Right Pleural Effusion: - Thoracentesis please obtain fluid for cytology
--- NOTE | 2017-11-13 13:13 | XR ---
EXAMINATION TYPE: XR chest 1V portable DATE OF EXAM: 11/13/2017 COMPARISON: 11/12/2017 HISTORY: Difficulty breathing TECHNIQUE: Single frontal view of the chest is obtained. FINDINGS: Right-sided consolidation and small effusion is improved. Arthropathy of the shoulders. No pneumothorax. Calcifications in the left axilla could been the basis of calcified lymph nodes or syn ovial chondromatosis. Sclerotic change to the humeral head may been the basis of previous bone infarc t. Metastatic lesion less likely. Subsegmental changes at the left lung base is stable. Mild prominen ce of the thoracic aorta. Atherosclerotic change of the aorta noted. IMPRESSION: 1. Small right effusion with right-sided area of consolidation noted. There is interval reduction in amount pleural fluid with no pneumothorax post thoracentesis.
[2017-11-13] MEDS: IOPAMIDOL-300 CONTRAST 30 ML VIAL (ORAL USE) PO PRN ×2 (13:40→15:14)
[2017-11-13 13:45] LABS: Total Protein 5.8 g/dL (6.3-8.2)
[2017-11-13] MEDS: INSULIN ASPART 100 UNIT/ML 1 ML 10 ML VIAL SQ SCH ×3 (13:47→20:41)
--- NOTE | 2017-11-13 13:57 | P.CNPUL ---
History of Present Illness Consult date: 11/13/17 Reason for consult: dyspnea, COPD, pleural effusion History of present illness: 76-year-old female patient who presented to the hospital because of worsening shortness of breath. The patient is known to have COPD and she has seen us in the office also for COPD and a right upper lobe pulmonary nodule that was quite small. With this. Would some hilar and mediastinal lymphadenopathy. Within the workup on outpatient basis. This initially came to our attention back in February 2017. A PET scan that was done at that time showed uptake within the right parapharyngeal soft tissue, uptake within the right upper lobe lesion, and there was also uptake within the mediastinum specifically in the right hilar and paratracheal area. At that time, the patient was referred to ENT and ultimately the patient was seen at [facility] and the parapharyngeal abnormality was labeled to be benign. Subsequently she came in to us back in the office in September 2017 Time a fine-needle aspirate of the right upper lobe lesion was done and it showed adenocarcinoma of the lung. The patient was referred to oncology and subsequently she was referred to thoracic surgery for surgical evaluation. The patient was seen by Dr. Miguel Ángel Bustamante who recommended mediastinoscopy essentially for staging reasons. At that point, the patient was getting ready to undergo another medicine endoscopy, but, because of complicated by respiratory checked infection/pneumonia. I'm not aware of the details of this treatments however the patient felt that she has been treated with a round of antibiotics to her primary care physician without much improvement. She came into the hospital because of worsening shortness of breath and failed outpatient treatment and a CAT scan of the chest showed a large right-sided pleural effusion and is a new finding without evidence of any pulmonary embolism. No right upper lobe consolidation atelectatic changes were also seen. There was a small pericardial effusion. I met this patient in the oncology unit and I immediately performed a thoracentesis for a total of 1.5 L of pleural fluid was aspirated from the right lung successfully without any complications. A repeat CAT scan of the chest abdomen and pelvis is to follow. She felt better following the procedure. Review of Systems Constitutional: Reports fatigue, Reports poor appetite, Reports weakness, Reports weight loss Eyes: denies blurred vision, denies bulging eye, denies decreased vision Ears: deny: decreased hearing, ear discharge, earache, tinnitus Ears, nose, mouth and throat: Reports hoarseness, Reports voice changes Cardiovascular: Reports decreased exercise tolerance, Reports dyspnea on exertion Respiratory: Reports cough, Reports dyspnea, Reports wheezing Gastrointestinal: Denies abdominal pain, Denies diarrhea, Denies nausea, Denies vomiting Genitourinary: Reports as per HPI Menstruation: Reports as per HPI Musculoskeletal: Reports as per HPI Musculoskeletal: absent: ankle pain, ankle stiffness, ankle swelling Integumentary: Reports as per HPI Neurological: Reports as per HPI Psychiatric: Reports as per HPI Endocrine: Reports as per HPI Hematologic/Lymphatic: Reports as per HPI Allergic/Immunologic: Reports as per HPI Past Medical History Past Medical History: Cancer, COPD, GERD/Reflux, Hypertension, Osteoarthritis ( OA), Pneumonia Additional Past Medical History / Comment(s): Adenocarcinoma of the right upper lobe, COPD, chronic sinus infections, recent pneumonia treated on outpatient basis, diverticulosis/diverticulitis, stress urinary incontinence, history of shingles, history of bowel obstruction, History of Any Multi-Drug Resistant Organisms: None Reported Past Surgical History: Adenoidectomy, Bowel Resection, Heart Catheterization, Hernia Repair, Tonsillectomy Additional Past Surgical History / Comment(s): Per patient some type of clip surgery in the heart by Dr. Akers in 2012, bowel resection with colostomy/ later reversed, D&C,1 ovary removed, long cataracts, fine-needle aspirate of the right upper lobe Past Anesthesia/Blood Transfusion Reactions: No Reported Reaction Smoking Status: Current every day smoker - Past Family History Mother Family Medical History: No Reported History Additional Family Medical History / Comment(s): heart problems, heart failure age 88 Father Family Medical History: Myocardial Infarction ([place]) Additional Family Medical History / Comment(s): tb when young, from [place] Son(s) Family Medical History: No Reported History Medications and Allergies Home Medications Medication Instructions Recorded Confirmed Type Diltiazem HCl [Cardizem] 120 mg PO DAILY 12/17/13 11/12/17 History Omeprazole [PriLOSEC] 20 mg PO AC-BRKFST 12/17/13 11/12/17 History Acetaminophen Tab [Tylenol Tab] 325 mg PO Q6H PRN 10/01/17 11/12/17 History Ferrous Sulfate [Feosol] 325 mg PO DAILY 10/01/17 11/12/17 History Albuterol Nebulized [Ventolin 0 mg INHALATION QID PRN 10/08/17 11/12/17 History Nebulized] Albuterol Inhaler [Ventolin Hfa 1 - 2 puff INHALATION QID PRN 11/05/17 11/12/17 History Inhaler] predniSONE 20 mg PO BID 11/05/17 11/12/17 History Sulfamethox-Tmp 800-160Mg [Bactrim 1 tab PO Q12HR 11/12/17 11/12/17 History DS 800-160 mg] Allergies Allergy/AdvReac Type Severity Reaction Status Date / Time Penicillins Allergy Severe Diarrhea Verified 11/12/17 16:31 Physical Exam Vitals: Vital Signs Temp Pulse Pulse Resp BP BP Pulse Ox 11/13/17 12:19 92 11/13/17 12:09 92 18 11/13/17 12:03 98.6 F 104 H 20 140/83 91 L 11/13/17 09:35 98 11/13/17 09:25 98 18 11/13/17 08:00 97 18 11/13/17 05:00 98.3 F 97 16 130/71 93 L 11/12/17 21:27 98.6 F 103 H 15 119/77 93 L 11/12/17 20:17 89 11/12/17 20:07 97.9 F 111 H 18 139/74 98 11/12/17 19:01 100 18 131/73 93 L 11/12/17 17:40 94 11/12/17 17:25 93 11/12/17 16:58 97 18 121/76 93 L 11/12/17 16:38 96 11/12/17 16:30 99 11/12/17 15:43 98.4 F 96 22 133/89 87 L Intake and Output 11/12/17 11/13/17 11/13/17 22:59 06:59 14:59 Intake Total 400 Balance 400 Intake: Intake, IV Titration 160 Amount Sodium Chloride 0.9% 1, 160 000 ml @ 20 mls/hr IV . Q24H [facility] Rx#:[id number] Oral 240 Other: Voiding Method Toilet Toilet Diaper Diaper Incontinent Incontinent # Voids 2 Weight 63.503 kg Gen. appearance she is calm and comfortable likely distress Head exam was generally normal. There was no scleral icterus or corneal arcus. Mucous membranes were moist. Neck was supple and without jugular venous distension, thyromegaly, or carotid bruits. Carotids were easily palpable bilaterally. There was no adenopathy. Lungs sounds reveal marked diminished breath sounds in the right lung base along with dullness to percussion. Cardiac exam revealed the PMI to be normally situated and sized. The rhythm was regular and no extrasystoles were noted during several minutes of auscultation. The first and second heart sounds were normal and physiologic splitting of the second heart sound was noted. There were no murmurs, rubs, clicks, or gallops. Abdominal exam revealed normal bowel sounds. The abdomen was soft, non-tender, and without masses, organomegaly, or appreciable enlargement of the abdominal aorta. Examination of the extremities revealed easily palpable radial, femoral and pedal pulses. There was no cyanosis, clubbing or edema. Examination of the skin revealed no evidence of significant rashes, suspicious appearing nevi or other concerning lesions. Neurologically the patient is awake and alert 3 and the patient has no focal neurological deficits. Results - Laboratory Findings CBC and BMP: 11/13/17 10:11/13/17 10:08 PT/INR, D-dimer PT 10.2 sec (9.0-12.0) 11/12/17 16:16 INR 1.0 (<1.2) 11/12/17 16:16 Abnormal lab findings: Abnormal Labs 11/12/17 11/12/17 11/12/17 16:16 16:16 16:16 WBC 13.4 H Hct 49.9 H Neutrophils # 11.8 H Lymphocytes # 0.5 L APTT Sodium 133 L Potassium 5.9 H BUN 42 H Creatinine Glucose 117 H POC Glucose (mg/dL) Troponin I 0.046 H* Total Protein Albumin Urine Protein Urine Glucose (UA) 11/12/17 11/13/17 11/13/17 16:16 10:08 10:08 WBC Hct 46.6 H Neutrophils # 8.1 H Lymphocytes # 0.3 L APTT 20.6 L Sodium 135 L Potassium BUN 31 H Creatinine 0.47 L Glucose 120 H POC Glucose (mg/dL) Troponin I Total Protein 5.8 L Albumin 3.4 L Urine Protein Urine Glucose (UA) 11/13/17 11/13/17 11/13/17 10:08 10:25 11:42 WBC Hct Neutrophils # Lymphocytes # APTT Sodium Potassium BUN Creatinine Glucose POC Glucose (mg/dL) 123 H Troponin I 0.036 H* Total Protein Albumin Urine Protein Trace H Urine Glucose (UA) 3+ H - Diagnostic Findings CT scan - chest: image reviewed Assessment and Plan Plan: Assessment 1 large right-sided pleural effusion, along with a right upper lobe consolidation. Possibilities include right lung pneumonia with parapneumonic effusion. Cannot rule out malignant pleural effusion special with a recent history of adenocarcinoma of the right upper lobe 2 acute hypoxic respiratory failure secondary to above 3 COPD 4 non-small cell lung cancer. The patient presented with a right upper lobe lesion/nodule and fine-needle aspirate confirmed the diagnosis of adenocarcinoma. PET scan showed mediastinal involvement and the patient was supposed to have an outpatient with endoscopy for further staging purposes. 5 recurrent pneumonias 6 ex-smoker 7 hypertension 8 comorbidities all listed earlier in the medical records Plan A diagnostic and therapeutic thoracentesis of the right lung was done during which a total of 1.5 L of pleural fluid was aspirated from the right lung. The patient tolerated the procedure well without any complications. A follow-up CAT scan of the chest abdomen and pelvis will be done to assess the progression of her lung cancer. The pleural fluid will be sent for analysis including LDH protein and cytology. We'll continue to follow make further recommendations based on her progress. The patient will be seen by cardiothoracic surgery. COPD will be optimized by combination of bronchodilators and steroids. Smoking cessation counseling was done and nicotine patch was applied. We'll continue to follow.
--- NOTE | 2017-11-13 15:11 | PCN ---
PROCEDURE NOTE PROCEDURE PERFORMED: Right sided thoracentesis. INDICATION: Pleural effusion. PREOP DIAGNOSIS: Right-sided pleural effusion. POSTOP DIAGNOSIS: Right sided pleural effusion. A time-out was completed verifying correct patient, procedure, site, positioning , and implant (s) or special equipment if applicable. Ultrasound guidance was/was not used and appropriate fluid pocket was identified and marked. Patient was positioned, prepped and draped in usual sterile fashion. Lidocaine was used to anesthetize the area. A Thoracentesis catheter was introduced into the pleural space and fluid was removed. Blood loss was none. A chest x-ray was ordered to evaluate for pneumothorax. Total Fluid Removed 1.5 L Color of Fluid Turbid dark yellowish in color. Fluid @@was/was not sent for appropriate laboratory tests. Patient tolerated the procedure well and there were no complications. A chest x-ray to follow. CT scan of the chest to follow. MMODL / IJN: [id number] /
--- NOTE | 2017-11-13 16:05 | CT ---
EXAMINATION TYPE: CT ChestAbdPelvis w con DATE OF EXAM: 11/13/2017 COMPARISON: PET/CT dated 02/21/[address] soft tissue neck dated 03/17/2017 HISTORY: Lung CA CT DLP: 1119.1 mGycm. Automated Exposure Control for Dose Reduction was Utilized. CONTRAST: CT scan of the thorax, abdomen and pelvis is performed with IV Contrast, patient injected with 100 mL of Isovue 300. FINDINGS: LUNGS: The right upper lobe 1.3 x 1.1 cm mass identified on the PET/CT of 02/21/2017 has grown in the interim now measuring 2.2 x 1.8 cm. There is thickening along the interlobar fissure and extending to wards the hilum of peribronchial cuffing/thickening. There is also new segmental right middle lobe at electasis, possibly postobstructive. There is a small right pleural effusion, markedly decreased from the exam of 11/12/2017 therefore likely status post thoracentesis. Adjacent to the primary mass there is interlobular septal thickening radiating from the farheen that could represent fluid overload, less likely lymphangitic carcinoma ptosis, and more likely post radiation change if there has been prior r adiation. No new pulmonary masses seen. MEDIASTINUM: There is a normal variant aberrant right subclavian impressing upon the esophagus. This can create dysphasia [place]. Mediastinal adenopathy is present in the subcarinal space measuring 1.2 cm in short axis, in the right hilar region also measuring 1.2 cm in short axis, within the precarin al region measuring 1.0 cm in short axis, and medial to the aorticopulmonary window measuring 1.1 cm in short axis. Prominent right axillary lymph nodes are seen that are not greater than 1 cm short axi s. Small pericardial effusion is seen. There is a partial intrathoracic stomach. OTHER: There is advanced glenohumeral arthropathy bilaterally and numerous loose bodies that are part ially calcified on the left. LIVER/GB: Again there is a simple appearing hepatic cyst measuring approximately 2.2 cm. No new appre ciable hepatic lesions are seen. Gallbladder is surgically absent. PANCREAS: No significant abnormality is seen. SPLEEN: No significant abnormality is seen. ADRENALS: As seen on the prior PET/CT the left adrenal gland demonstrates uniform thickening, likely related to adrenal gland hyperplasia. KIDNEYS: There are numerous bilateral renal cysts redemonstrated. BOWEL: Bowel contained within the ventral hernia as described below. No dilated bowel. There appears to be a partial left hemicolectomy. GENITAL ORGANS: The uterus contains numerous dystrophic calcifications likely related to degenerative uterine leiomyomas. LYMPH NODES: No greater than 1cm abdominal or pelvic lymph nodes are appreciated. Scattered shotty me senteric lymph nodes are seen however these are nonenlarged. Attention on follow-up exams. OSSEOUS STRUCTURES: There are multilevel degenerative changes of the spine and advanced arthropathy o f shoulders as described above. OTHER: There is a wide necked ventral hernia with a neck measuring 4 cm however this contains numerou s loops of small bowel. Prior hernia repair is evident. No dilated loops of bowel to suggest current obstruction/incarceration.. IMPRESSION: 1. Interval enlargement of the right upper lobe pulmonary nodule nearly doubling in long axis in comp arison to the prior PET/CT of 02/21/2017. Adjacent interlobular septal thickening could represent sequ parker of post radiation treatment if radiation has been performed. Alternatively this could represent f luid overload or much less likely lymphangitic carcinomatosis in the setting of no prior radiation th erapy. 2. Near complete interval resolution of the right pleural effusion. 3. Segmental right middle lobe atelectasis, likely postobstructive. 4. Similar mediastinal adenopathy. 5. Small pericardial effusion, partial intrathoracic stomach, widening ventral hernia containing nume bonita loops of nondilated small bowel, simple appearing renal cysts and hepatic cysts, and probable le ft adrenal gland hyperplasia are stable from the prior.
--- NOTE | 2017-11-13 16:13 | CT ---
EXAMINATION TYPE: CT soft tissue neck w con DATE OF EXAM: 11/13/2017 HISTORY: Lung CA COMPARISON: PET/CT dated 02/21/[address] soft tissue neck dated 03/17/2017 CT DLP: 1119.1 mGycm. Automated Exposure Control for Dose Reduction was Utilized. TECHNIQUE: CT scan of the neck is performed with IV Contrast, patient injected with 100 mL of Isovue 300, axial images are obtained, coronal and sagittal reformatted images are reviewed. FINDINGS: No hypermetabolic supraclavicular adenopathy is identified. The thyroid gland is heterogenous. Airway: No gross abnormality seen. Parotid/submandibular glands: No gross abnormality seen. 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 Also redemonstrated is approximately 50% stenosis of the right carotid bulb from calcific atheromatous change. There is a lso medial course of the right common carotid artery posterior to the oropharynx. Osseous Structures: Visualized severe glenohumeral arthropathy and left loose joint bodies are better described on the CT chest abdomen pelvis dictation of the same date. There are moderate multilevel d egenerative changes of the cervical spine. Rightward nasal septal deviation is incidentally seen. Other: There is redemonstration of diffuse heterogeneity of the thyroid gland. Mild mucosal thickenin g is seen within the sphenoid sinus and ethmoid sinuses. There is a similar size of the known right parapharyngeal homogeneous mass measuring proximally 1.8 x 2.0 cm and previously measuring approximately 1.8 x 2.1 cm. Again this could represent adenopathy, s quamous cell carcinoma, or minor salivary gland tumor. Nonenlarged with prominent right supraclavicul ar lymph node measures 7 mm on series 2 image 37. The known pulmonary carcinoma is described on the CT chest, abdomen, and pelvis dictation of the same date. 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 No new adenopathy within the neck.
[2017-11-13 16:58] LABS: Glucose,Whole Blood 110 mg/dL (75-99)
[2017-11-13] MEDS: ACETAMINOPHEN TAB 325 MG TAB PO PRN ×2 (17:04→22:47)
[2017-11-13 20:31] LABS: Glucose,Whole Blood 119 mg/dL (75-99)
[2017-11-14] MEDS: methylPREDNISolone SOD SUCCI 125 MG/2 ML VIAL IV SCH ×4 (04:21→18:19)
[2017-11-14] MEDS: SODIUM CHLORIDE 0.9% 1,000 ML IV SCH ×2 (04:57→20:44)
[2017-11-14 07:44] LABS: Glucose,Whole Blood 132 mg/dL (75-99)
[2017-11-14] MEDS: INSULIN ASPART 100 UNIT/ML 1 ML 10 ML VIAL SQ SCH ×4 (08:04→20:46)
[2017-11-14] MEDS: ACETAMINOPHEN TAB 325 MG TAB PO PRN (08:14)
[2017-11-14] MEDS: NICOTINE 14MG/24HR PATCH TRANSDERM SCH (08:15)
[2017-11-14] MEDS: FERROUS SULFATE 325 MG TAB PO SCH (08:15)
[2017-11-14] MEDS: DILTIAZEM CD 120 MG CAP.ER.24H PO SCH (08:15)
[2017-11-14] MEDS: PANTOPRAZOLE 40 MG TABLET PO SCH (08:15)
[2017-11-14] MEDS: ENOXAPARIN 40 MG/0.4 ML SYRINGE SQ SCH (08:15)
[2017-11-14 08:31] LABS: Basophils % (A) 0 %; Eosinophils % (A) 0 %; HGB 14.4 gm/dL (11.4-16.0); Lymphocytes # (A) 0.2 k/uL (1.0-4.8); Lymphocytes % (A) 2 %; MCH 30.6 pg (25.0-35.0); MCHC 32.7 g/dL (31.0-37.0); MCV 93.7 fL (80.0-100.0); Mean Platelet Volume 6.5; Monocytes # (A) 0.3 k/uL (0-1.0); Monocytes % (A) 3 %; Neutrophils # (A) 8.9 k/uL (1.3-7.7); Neutrophils % (A) 94 %; Platelet Count 242 k/uL (150-450); RDW 13.4 % (11.5-15.5); WBC 9.4 k/uL (3.8-10.6)
[2017-11-14 08:46] LABS: ALT 19 U/L (9-52); AST 19 U/L (14-36); Albumin 2.9 g/dL (3.5-5.0); Alkaline Phosphatase 51 U/L (38-126); Anion Gap 8 mmol/L; Blood Urea Nitrogen 29 mg/dL (7-17); Calcium 8.5 mg/dL (8.4-10.2); Carbon Dioxide 25 mmol/L (22-30); Chloride 103 mmol/L (98-107); Glucose 133 mg/dL (74-99); Potassium 4.9 mmol/L (3.5-5.1); Sodium 136 mmol/L (137-145); Total Bilirubin 0.6 mg/dL (0.2-1.3); Total Protein 5.3 g/dL (6.3-8.2)
[2017-11-14] MEDS: IPRATROPIUM-ALBUTEROL 3 ML NEB INHALATION SCH ×4 (08:59→18:50)
--- NOTE | 2017-11-14 11:18 | P.GSCN ---
<René Craig - Last Filed: 11/14/17 10:43> History of Present Illness Consult date: 11/14/17 Reason for Consult: No one to the cardiothoracic service, scheduled for mediastinoscopy on 2017 to be performed by Dr. Miguel Ángel Bustamante. Requesting physician: Bipin Quintana History of present illness: This is a 76-year-old female patient who is followed by Dr. Rekha Smalls on an outpatient basis. She has a past medical history significant for asthma, COPD, right upper lobe pulmonary nodule with some hilar and mediastinal lymphadenopathy, tobacco dependence, history of recent fine needle aspirate of her right upper lobe lesion which showed pulmonary adenocarcinoma, GERD, hypertension, osteoarthritis, diverticulosis with history of bowel resection with colostomy which was later reversed stress urinary incontinence, history of shingles and pneumonia. Patient has a history of a right upper lobe lung mass which was initially discovered in February 2017. She underwent a PET scan on which showed a spiculated right upper lobe pulmonary nodule measuring 1.3 x 1.1 cm which was positive for uptake with a maximum SUV of 2.17. The PET scan also demonstrated uptake in the right hilum and in the right pretracheal node. For further evaluation the patient underwent a CT guided lung biopsy on 10/08/2017 with the pathology showing pulmonary adenocarcinoma. She was subsequently referred to Dr. Miguel Ángel Bustamante for further evaluation and treatment recommendations. A mediastinal endoscopy was scheduled for 11/19/2017 to be performed by Dr. Bustamante for staging purpose. The patient presented to the emergency department here at [facility] with complaints of progressive shortness of breath. She reports that she has undergone treatment with oral antibiotic and oral steroids on an outpatient basis over the last 2-3 weeks, which was prescribed by her primary care physician. She denies any fever, chills, nausea or vomiting, pain or home oxygen use. A chest x-ray was completed in the emergency department which showed a right pleural effusion. For further evaluation a CTA scan of her chest was completed which demonstrated a large right pleural effusion with no evidence of pulmonary embolism. It also demonstrated a right upper lobe mass unchanged compared to her 08/27/2017 study. She was seen by Dr. Blas from pulmonary medicine who performed a right thoracentesis on the patient yesterday 11/13/2017 with 1.5 L of turbid dark yellowish fluid drained. Review of Systems A 14 point review of systems was completed and was negative except as mentioned in the HPI. Past Medical History Past Medical History: Asthma, Cancer, GERD/Reflux, Hypertension, Osteoarthritis (OA), Pneumonia Additional Past Medical History / Comment(s): hx palpitations, hemorroids , sinus infections, current URI (on current rx for), "lung cancer dx 3-4 weeks ago -no tx as of yet stated needs more bx done", hx diverticulitis, occ stress incont, shingles 2013, past sbo,hernia (sx) History of Any Multi-Drug Resistant Organisms: None Reported Past Surgical History: Adenoidectomy, Bowel Resection, Heart Catheterization, Hernia Repair, Tonsillectomy Additional Past Surgical History / Comment(s): Per patient some type of clip surgery in the heart by Dr. Akers in 2011, bowel resection with colostomy/ later reversed, D&C,1 ovary removed, long cataracts, "lung biopsy,pt stated still needs more bx" Past Anesthesia/Blood Transfusion Reactions: No Reported Reaction Past Psychological History: No Psychological Hx Reported Smoking Status: Current every day smoker Past Alcohol Use History: None Reported Past Drug Use History: None Reported - Past Family History Mother Family Medical History: Congestive Heart Failure (CHF) Additional Family Medical History / Comment(s): heart problems, heart failure age 88 Father Family Medical History: Myocardial Infarction (AR) Additional Family Medical History / Comment(s): tb when young, from [place] Son(s) Family Medical History: No Reported History Medications and Allergies Home Medications Medication Instructions Recorded Confirmed Type Diltiazem HCl [Cardizem] 120 mg PO DAILY 12/17/13 11/12/17 History Omeprazole [PriLOSEC] 20 mg PO AC-BRKFST 12/17/13 11/12/17 History Acetaminophen Tab [Tylenol Tab] 325 mg PO Q6H PRN 10/01/17 11/12/17 History Ferrous Sulfate [Feosol] 325 mg PO DAILY 10/01/17 11/12/17 History Albuterol Nebulized [Ventolin 0 mg INHALATION QID PRN 10/08/17 11/12/17 History Nebulized] Albuterol Inhaler [Ventolin Hfa 1 - 2 puff INHALATION QID PRN 11/05/17 11/12/17 History Inhaler] predniSONE 20 mg PO BID 11/05/17 11/12/17 History Sulfamethox-Tmp 800-160Mg [Bactrim 1 tab PO Q12HR 11/12/17 11/12/17 History DS 800-160 mg] Allergies Allergy/AdvReac Type Severity Reaction Status Date / Time Penicillins Allergy Severe Diarrhea Verified 11/12/17 16:31 Surgical - Exam Vital Signs Temp Pulse Resp BP Pulse Ox 98.4 F 96 22 133/89 87 L 11/12/17 15:43 11/12/17 15:43 11/12/17 15:43 11/12/17 15:43 11/12/17 15:43 - General well developed, well nourished, no distress, no pain, chronically ill - Eyes PERRL, normal ocular movement - ENT normal pinna, normal nares, normal mucosa, no hearing loss, no congestion, poor custodial, dentures (Upper plate) - Neck Neck is supple no lymphadenopathy. no masses, no bruits, trachea midline, no venous distension - Respiratory Lung sounds with expiratory wheezes throughout, diminished bilateral bases. Respirations are symmetrical and nonlabored. Oxygen saturation are 93% on room air. - Cardiovascular Regular rhythm and tachycardic rate. S1 and S2 present, negative for S3, gallop or murmur. Remote telemetry showing sinus tachycardia heart rate 118. No edema present. - Abdomen No guarding or rigidity. No organomegaly. Abdomen: soft, non tender, bowel sounds (Active to all 4 abdominal quadrants.) - Genitourinary Deferred - Rectum Deferred - Integumentary no rash, no growths, no abnormal pigmentation - Neurologic normal coordination, normal sensation - Musculoskeletal normal gait, normal posture - Psychiatric oriented to time, oriented to person, oriented to place, speech is normal, memory intact Results - Labs 11/14/17 07:35 11/14/17 07:35 Abnormal Lab Results - Last 24 Hours (Table) 11/13/17 11/13/17 11/13/17 Range/Units 10:08 10:08 10:08 Hct 46.6 H (34.0-46.0) % Neutrophils # 8.1 H (1.3-7.7) k/uL Lymphocytes # 0.3 L (1.0-4.8) k/uL Sodium (137-145) mmol/L BUN (7-17) mg/dL Creatinine (0.52-1.04) mg/dL Glucose (74-99) mg/dL POC Glucose (mg/dL) (75-99) mg/dL Troponin I 0.036 H* (0.000-0.034) ng/mL Total Protein 5.8 L (6.3-8.2) g/dL Albumin (3.5-5.0) g/dL Urine Protein (Negative) Urine Glucose (UA) (Negative) 11/13/17 11/13/17 11/13/17 Range/Units 10:25 11:42 16:32 Hct (34.0-46.0) % Neutrophils # (1.3-7.7) k/uL Lymphocytes # (1.0-4.8) k/uL Sodium (137-145) mmol/L BUN (7-17) mg/dL Creatinine (0.52-1.04) mg/dL Glucose (74-99) mg/dL POC Glucose (mg/dL) 123 H (75-99) mg/dL Troponin I 0.041 H* (0.000-0.034) ng/mL Total Protein (6.3-8.2) g/dL Albumin (3.5-5.0) g/dL Urine Protein Trace H (Negative) Urine Glucose (UA) 3+ H (Negative) 11/13/17 11/13/17 11/13/17 Range/Units 16:55 20:24 21:56 Hct (34.0-46.0) % Neutrophils # (1.3-7.7) k/uL Lymphocytes # (1.0-4.8) k/uL Sodium (137-145) mmol/L BUN (7-17) mg/dL Creatinine (0.52-1.04) mg/dL Glucose (74-99) mg/dL POC Glucose (mg/dL) 110 H 119 H (75-99) mg/dL Troponin I 0.040 H* (0.000-0.034) ng/mL Total Protein (6.3-8.2) g/dL Albumin (3.5-5.0) g/dL Urine Protein (Negative) Urine Glucose (UA) (Negative) 11/14/17 11/14/17 11/14/17 Range/Units 07:35 07:35 07:42 Hct (34.0-46.0) % Neutrophils # 8.9 H (1.3-7.7) k/uL Lymphocytes # 0.2 L (1.0-4.8) k/uL Sodium 136 L (137-145) mmol/L BUN 29 H (7-17) mg/dL Creatinine 0.45 L (0.52-1.04) mg/dL Glucose 133 H (74-99) mg/dL POC Glucose (mg/dL) 132 H (75-99) mg/dL Troponin I (0.000-0.034) ng/mL Total Protein 5.3 L (6.3-8.2) g/dL Albumin 2.9 L (3.5-5.0) g/dL Urine Protein (Negative) Urine Glucose (UA) (Negative) Microbiology - Last 24 Hours (Table) 11/12/17 16:16 Blood Culture - Preliminary Blood No Growth after 24 hours Diabetes panel 11/13/17 11/14/17 Range/Units 10:08 07:35 Sodium 136 L (137-145) mmol/L Potassium 4.9 (3.5-5.1) mmol/L Chloride 103 (98-107) mmol/L Carbon Dioxide 25 (22-30) mmol/L BUN 29 H (7-17) mg/dL Creatinine 0.45 L (0.52-1.04) mg/dL Glucose 133 H (74-99) mg/dL Calcium 8.5 (8.4-10.2) mg/dL AST 19 (14-36) U/L ALT 19 (9-52) U/L Alkaline Phosphatase 51 (38-126) U/L Total Protein 5.8 L 5.3 L (6.3-8.2) g/dL Albumin 2.9 L (3.5-5.0) g/dL Calcium panel 11/14/17 Range/Units 07:35 Calcium 8.5 (8.4-10.2) mg/dL Albumin 2.9 L (3.5-5.0) g/dL Pituitary panel 11/14/17 Range/Units 07:35 Sodium 136 L (137-145) mmol/L Potassium 4.9 (3.5-5.1) mmol/L Chloride 103 (98-107) mmol/L Carbon Dioxide 25 (22-30) mmol/L BUN 29 H (7-17) mg/dL Creatinine 0.45 L (0.52-1.04) mg/dL Glucose 133 H (74-99) mg/dL Calcium 8.5 (8.4-10.2) mg/dL Adrenal panel 11/13/17 11/14/17 Range/Units 10:08 07:35 Sodium 136 L (137-145) mmol/L Potassium 4.9 (3.5-5.1) mmol/L Chloride 103 (98-107) mmol/L Carbon Dioxide 25 (22-30) mmol/L BUN 29 H (7-17) mg/dL Creatinine 0.45 L (0.52-1.04) mg/dL Glucose 133 H (74-99) mg/dL Calcium 8.5 (8.4-10.2) mg/dL Total Bilirubin 0.6 (0.2-1.3) mg/dL AST 19 (14-36) U/L ALT 19 (9-52) U/L Alkaline Phosphatase 51 (38-126) U/L Total Protein 5.8 L 5.3 L (6.3-8.2) g/dL Albumin 2.9 L (3.5-5.0) g/dL - Imaging Chest x-ray: report reviewed, image reviewed CT scan - chest: report reviewed, image reviewed Assessment and Plan (1) Tobacco dependence Current Visit: Yes Status: Acute Code(s): F17.200 - NICOTINE DEPENDENCE, UNSPECIFIED, UNCOMPLICATED SNOMED Code(s): 86163726 (2) Hypertension Current Visit: Yes Status: Acute Code(s): I10 - ESSENTIAL (PRIMARY) HYPERTENSION SNOMED Code(s): 74780987 (3) Sinus tachycardia Current Visit: Yes Status: Acute Code(s): R00.0 - TACHYCARDIA, UNSPECIFIED SNOMED Code(s): 80344984 (4) Recurrent pneumonia Current Visit: Yes Status: Acute Code(s): J18.9 - PNEUMONIA, UNSPECIFIED ORGANISM SNOMED Code(s): 159803365 (5) Acute exacerbation of chronic obstructive airways disease Current Visit: Yes Status: Acute Code(s): J44.1 - CHRONIC OBSTRUCTIVE PULMONARY DISEASE W (ACUTE) EXACERBATION SNOMED Code(s): 541564229 (6) Hypoxia Current Visit: Yes Status: Acute Code(s): R09.02 - HYPOXEMIA SNOMED Code(s ): 435869486 (7) Pleural effusion Current Visit: Yes Status: Acute Code(s): J90 - PLEURAL EFFUSION, NOT ELSEWHERE CLASSIFIED SNOMED Code(s): 46626289 Plan: Patient was seen and examined. Her chart diagnostics were reviewed. Her case was discussed with Dr. Birmingham from cardiothoracic surgery. The patient underwent a right thoracentesis performed by Dr. Blas yesterday 11/13/2017. We will await the cytology results of the pleural fluid drained, if a diagnosis can be made from the pleural fluid a mediastinoscopy procedural will be unnecessary. Medical management per Dr. Quintana's recommendations. GI and DVT prophylaxis. Pulmonary management per Dr. Blas's recommendations. Thank you Dr. Quintana for this consult and we look forward to working with you in the care of your patient. Time with Patient: Greater than 30 <Anthony Birmingham - Last Filed: 11/16/17 12:09> Surgical - Exam Vital Signs Temp Pulse Resp BP Pulse Ox 98.4 F 96 22 133/89 87 L 11/12/17 15:43 11/12/17 15:43 11/12/17 15:43 11/12/17 15:43 11/12/17 15:43 Results - Labs 11/16/17 08:36 11/16/17 08:36 Abnormal Lab Results - Last 24 Hours (Table) 11/15/17 11/16/17 11/16/17 Range/Units 20:09 07:18 08:36 Neutrophils # 9.3 H (1.3-7.7) k/uL Lymphocytes # 0.3 L (1.0-4.8) k/uL BUN (7-17) mg/dL Creatinine (0.52-1.04) mg/dL Glucose (74-99) mg/dL POC Glucose (mg/dL) 134 H 112 H (75-99) mg/dL Total Protein (6.3-8.2) g/dL Albumin (3.5-5.0) g/dL TSH (0.465-4.680) mIU/L 1011/16/17 11/16/17 Range/Units 08:36 08:36 11:32 Neutrophils # (1.3-7.7) k/uL Lymphocytes # (1.0-4.8) k/uL BUN 25 H (7-17) mg/dL Creatinine 0.42 L (0.52-1.04) mg/dL Glucose 152 H (74-99) mg/dL POC Glucose (mg/dL) 115 H (75-99) mg/dL Total Protein 5.2 L (6.3-8.2) g/dL Albumin 3.0 L (3.5-5.0) g/dL TSH <0.015 L (0.465-4.680) mIU/L Microbiology - Last 24 Hours (Table) 11/13/17 12:46 Body Fluid Culture - Preliminary Pleural Fluid 11/12/17 16:16 Blood Culture - Preliminary Blood No Growth after 72 hours Diabetes panel 11/16/17 Range/Units 08:36 Sodium 137 (137-145) mmol/L Potassium 3.6 (3.5-5.1) mmol/L Chloride 102 (98-107) mmol/L Carbon Dioxide 25 (22-30) mmol/L BUN 25 H (7-17) mg/dL Creatinine 0.42 L (0.52-1.04) mg/dL Glucose 152 H (74-99) mg/dL Calcium 8.7 (8.4-10.2) mg/dL AST 22 (14-36) U/L ALT 19 (9-52) U/L Alkaline Phosphatase 50 (38-126) U/L Total Protein 5.2 L (6.3-8.2) g/dL Albumin 3.0 L (3.5-5.0) g/dL Thyroid panel 11/16/17 Range/Units 08:36 TSH <0.015 L (0.465-4.680) mIU/L Calcium panel 11/16/17 Range/Units 08:36 Calcium 8.7 (8.4-10.2) mg/dL Albumin 3.0 L (3.5-5.0) g/dL Pituitary panel 11/16/17 11/16/17 Range/Units 08:36 08:36 Sodium 137 (137-145) mmol/L Potassium 3.6 (3.5-5.1) mmol/L Chloride 102 (98-107) mmol/L Carbon Dioxide 25 (22-30) mmol/L BUN 25 H (7-17) mg/dL Creatinine 0.42 L (0.52-1.04) mg/dL Glucose 152 H (74-99) mg/dL Calcium 8.7 (8.4-10.2) mg/dL TSH <0.015 L (0.465-4.680) mIU/L Adrenal panel 11/16/17 Range/Units 08:36 Sodium 137 (137-145) mmol/L Potassium 3.6 (3.5-5.1) mmol/L Chloride 102 (98-107) mmol/L Carbon Dioxide 25 (22-30) mmol/L BUN 25 H (7-17) mg/dL Creatinine 0.42 L (0.52-1.04) mg/dL Glucose 152 H (74-99) mg/dL Calcium 8.7 (8.4-10.2) mg/dL Total Bilirubin 0.6 (0.2-1.3) mg/dL AST 22 (14-36) U/L ALT 19 (9-52) U/L Alkaline Phosphatase 50 (38-126) U/L Total Protein 5.2 L (6.3-8.2) g/dL Albumin 3.0 L (3.5-5.0) g/dL Assessment and Plan Plan: The patient's history and imaging studies were reviewed. I agree with the above assessment and plan. The patient has biopsy-proven adenocarcinoma of the lung. Her imaging studies reveal mediastinal lymphadenopathy along with a right pleural effusion which is new. Right-sided thoracentesis was performed by Dr. Blas yesterday. Cytology results are pending at this time. Additional recommendations regarding need for surgery versus chemotherapy/ radiation therapy will be based on results of these studies.
[2017-11-14 11:19] LABS: Glucose,Whole Blood 114 mg/dL (75-99)
--- NOTE | 2017-11-14 15:01 | P.PN ---
Subjective Progress Note Date: 11/14/17 This is a 76-year-old female patient of Dr. Baptiste. Patient presented to the emergency room with complaints of increased shortness of breath. Patient states she has been treated outpatient for the past 4 weeks without improvement. Patient also states she's recently diagnosed with lung cancer and was supposed to undergo a biopsy of nodules in her right upper lobe with Dr. Bustamante yesterday but had to cancel due to increased shortness of breath. Patient states she has not seen an oncologist or has initiated any treatment. Per patient was awaiting biopsy results for further plan of care. Patient's medical history occluded 60 year plus smoker, asthma, GERD, hypertension, osteoarthritis, heart catheterization in bowel resection. Chest x-ray completed emergency room showing extensive airspace consolidation and pleural fluid in the right lung increased compared to last exam. Right pleural effusion increased or new. Chest CTA completed showing new large right pleural effusion compared to 2017. No evidence of pulmonary embolism. Right upper lobe consolidation and atelectasis. Right upper lobe mass unchanged compared to 08/27/2017. Mild thoracic aortic aneurysm. Small pericardial effusion. EKG completed showing undetermined rhythm. Dr. Armstrong per pulmonary services have been consulted. Patient started on DuoNeb breathing treatments and Solu- Medrol 60 mg every 6 hours. Troponin also slightly elevated at 0.046. Serial cardiac enzymes ordered.g and cardiac monitoring ordered for patient. Potassium also high at 5.9. Repeat labs have been ordered. At this time patient complains of shortness of breath. Patient denies chest pain. Patient denies nausea vomiting or diarrhea. Patient denies any urinary burning or frequency On 11/14/2017 patient was seen and examined she is alert and oriented 3 in no apparent distress, she denies any pain or discomfort she has mild shortness of breath with activity otherwise no complaints of chest pain no nausea or vomiting no abdominal pain no constipation no urinary symptoms. She is scheduled for echocardiogram this afternoon. Objective - Vital Signs Vital signs: Vital Signs Temp 98.3 F 11/14/17 13:03 Pulse 110 H 11/14/17 13:03 Resp 20 11/14/17 13:03 BP 138/91 11/14/17 13:03 Pulse Ox 93 L 11/14/17 13:03 Intake & Output 11/13/17 11/14/17 11/14/17 18:59 06:59 18:59 Intake Total 240 Balance 240 Weight 63.503 kg Intake: Oral 240 Other: Voiding Method Toilet Toilet Toilet Diaper Incontinent # Voids 2 2 - Exam Head normocephalic and atraumatic Neck supple no JVD no goiter Lungs bilateral expiratory wheezing. Diminished throughout Heart regular rate and rhythm S1-S2, no rub or gallop Abdomen is soft nontender nondistended positive bowel sounds no hepatosplenomegaly Extremities no edema no cyanosis or clubbing Neuro alert and orientated to 3 - Labs CBC & Chem 7: 11/14/17 07:35 11/14/17 07:35 Labs: Abnormal Lab Results - Last 24 Hours (Table) 11/13/17 11/13/17 11/13/17 Range/Units 16:32 16:55 20:24 Neutrophils # (1.3-7.7) k/uL Lymphocytes # (1.0-4.8) k/uL Sodium (137-145) mmol/L BUN (7-17) mg/dL Creatinine (0.52-1.04) mg/dL Glucose (74-99) mg/dL POC Glucose (mg/dL) 110 H 119 H (75-99) mg/dL Troponin I 0.041 H* (0.000-0.034) ng/mL Total Protein (6.3-8.2) g/dL Albumin (3.5-5.0) g/dL 11/13/17 11/14/17 11/14/17 Range/Units 21:56 07:35 07:35 Neutrophils # 8.9 H (1.3-7.7) k/uL Lymphocytes # 0.2 L (1.0-4.8) k/uL Sodium 136 L (137-145) mmol/L BUN 29 H (7-17) mg/dL Creatinine 0.45 L (0.52-1.04) mg/dL Glucose 133 H (74-99) mg/dL POC Glucose (mg/dL) (75-99) mg/dL Troponin I 0.040 H* (0.000-0.034) ng/mL Total Protein 5.3 L (6.3-8.2) g/dL Albumin 2.9 L (3.5-5.0) g/dL 11/14/17 11/14/17 Range/Units 07:42 11:18 Neutrophils # (1.3-7.7) k/uL Lymphocytes # (1.0-4.8) k/uL Sodium (137-145) mmol/L BUN (7-17) mg/dL Creatinine (0.52-1.04) mg/dL Glucose (74-99) mg/dL POC Glucose (mg/dL) 132 H 114 H (75-99) mg/dL Troponin I (0.000-0.034) ng/mL Total Protein (6.3-8.2) g/dL Albumin (3.5-5.0) g/dL Microbiology - Last 24 Hours (Table) 11/12/17 16:16 Blood Culture - Preliminary Blood No Growth after 24 hours Assessment and Plan Plan: 1. Dyspnea. Chest x-ray completed showing extensive airspace consolidation and pleural fluid in the right lung increased compared to last exam. Right pleural effusion is increased or new. CTA completed showing new large right pleural effusion compared to 08/27/2017. No evidence of pulmonary embolism. Right upper lobe consolidation and atelectasis. Right upper lobe mass unchanged compared to 08/26/2017. Mild thoracic aortic aneurysm. Small pericardial effusion. Pulmonary services have been consulted. Patient started on Solu-Medrol 60 mg every 6 hours. 2. Recent diagnosis of lung cancer. Patient was supposed to undergo right upper lobe nodule biopsy with Dr. Bustamante yesterday but had to cancel due to increased shortness of breath. Patient has not started treatment or has been seen by oncologist. 3. Nicotine dependence. Patient has a 60+ year smoking history. Nicotine patches been ordered. Patient educated greater than 3 minutes on smoking sensation 4. History of asthma 5. History of iron deficiency anemia. Continue ferrous sulfate 6. History of essential hypertension 7. History of GERD 8. Elevated troponin. Troponin 0.046. Serial cardiac enzymes have been ordered. Patient placed on telemetry 9. Hyperkalemia. Initial potassium 5.9. Repeat lab has been ordered DVT prophylaxis Lovenox. GI prophylaxis Protonix Medication and labs were reviewed at this time awaiting echocardiogram continue was current regimen
--- NOTE | 2017-11-14 16:29 | P.PN ---
Subjective Progress Note Date: 11/14/17 76-year-old female patient who presented to the hospital because of worsening shortness of breath. The patient is known to have COPD and she has seen us in the office also for COPD and a right upper lobe pulmonary nodule that was quite small. With this. Would some hilar and mediastinal lymphadenopathy. Within the workup on outpatient basis. This initially came to our attention back in February 2017. A PET scan that was done at that time showed uptake within the right parapharyngeal soft tissue, uptake within the right upper lobe lesion, and there was also uptake within the mediastinum specifically in the right hilar and paratracheal area. At that time, the patient was referred to ENT and ultimately the patient was seen at [facility] and the parapharyngeal abnormality was labeled to be benign. Subsequently she came in to us back in the office in September 2017 Time a fine-needle aspirate of the right upper lobe lesion was done and it showed adenocarcinoma of the lung. The patient was referred to oncology and subsequently she was referred to thoracic surgery for surgical evaluation. The patient was seen by Dr. Miguel Ángel Bustamante who recommended mediastinoscopy essentially for staging reasons. At that point, the patient was getting ready to undergo another medicine endoscopy, but, because of complicated by respiratory checked infection/pneumonia. I'm not aware of the details of this treatments however the patient felt that she has been treated with a round of antibiotics to her primary care physician without much improvement. She came into the hospital because of worsening shortness of breath and failed outpatient treatment and a CAT scan of the chest showed a large right-sided pleural effusion and is a new finding without evidence of any pulmonary embolism. No right upper lobe consolidation atelectatic changes were also seen. There was a small pericardial effusion. I met this patient in the oncology unit and I immediately performed a thoracentesis for a total of 1.5 L of pleural fluid was aspirated from the right lung successfully without any complications. A repeat CAT scan of the chest abdomen and pelvis is to follow. She felt better following the procedure. On today's evaluation of 11/14/2017, the patient is feeling better and she is not having as much short of breath compared to yesterday. I performed a successful thoracentesis yesterday. Following that the patient a CAT scan of the chest and abdomen and pelvis and the CAT scan showed near completely interval resolution of the previously described pleural effusion. There is however interval enlargement of the right upper lobe pulmonary nodule which is currently measuring 2.2 cm in size and there is also adjacent intralobular septal thickening that could potentially indicate lymphangitic carcinomatosis. There is also mediastinal lymphadenopathy that his been unchanged and the patient also has a segmental right middle lobe atelectasis probably an area of pneumonia which resulted in to a right-sided pleural effusion. The possibility of a malignant pleural effusion cannot be completely excluded. The patient had also 2.2 cm hepatic cyst that was again visualized. Abdominal structures were all within normal limits. The CAT scan of the neck showed a stable right parapharyngeal space mass/adenopathy. Objective - Vital Signs Vital signs: Vital Signs Temp 98.3 F 11/14/17 13:03 Pulse 102 H 11/14/17 15:34 Resp 20 11/14/17 13:03 BP 138/91 11/14/17 13:03 Pulse Ox 93 L 11/14/17 13:03 Intake & Output 11/13/17 11/14/17 11/14/17 18:59 06:59 18:59 Intake Total 240 Balance 240 Weight 63.503 kg Intake: Oral 240 Other: Voiding Method Toilet Toilet Toilet Diaper Incontinent # Voids 2 2 - Exam Gen. appearance she is calm and comfortable likely distress Head exam was generally normal. There was no scleral icterus or corneal arcus. Mucous membranes were moist. Neck was supple and without jugular venous distension, thyromegaly, or carotid bruits. Carotids were easily palpable bilaterally. There was no adenopathy. Lungs showed improved aeration of the right lung postthoracentesis. Breath sounds are equal and symmetrical although some diminished and the breath sounds in still present on the right side. Cardiac exam revealed the PMI to be normally situated and sized. The rhythm was regular and no extrasystoles were noted during several minutes of auscultation. The first and second heart sounds were normal and physiologic splitting of the second heart sound was noted. There were no murmurs, rubs, clicks, or gallops. Abdominal exam revealed normal bowel sounds. The abdomen was soft, non-tender, and without masses, organomegaly, or appreciable enlargement of the abdominal aorta. Examination of the extremities revealed easily palpable radial, femoral and pedal pulses. There was no cyanosis, clubbing or edema. Examination of the skin revealed no evidence of significant rashes, suspicious appearing nevi or other concerning lesions. Neurologically the patient is awake and alert 3 and the patient has no focal neurological deficits. - Labs CBC & Chem 7: 11/14/17 07:35 11/14/17 07:35 Labs: Abnormal Lab Results - Last 24 Hours (Table) 11/13/17 11/13/17 11/13/17 Range/Units 16:32 16:55 20:24 Neutrophils # (1.3-7.7) k/uL Lymphocytes # (1.0-4.8) k/uL Sodium (137-145) mmol/L BUN (7-17) mg/dL Creatinine (0.52-1.04) mg/dL Glucose (74-99) mg/dL POC Glucose (mg/dL) 110 H 119 H (75-99) mg/dL Troponin I 0.041 H* (0.000-0.034) ng/mL Total Protein (6.3-8.2) g/dL Albumin (3.5-5.0) g/dL 11/13/17 11/14/17 11/14/17 Range/Units 21:56 07:35 07:35 Neutrophils # 8.9 H (1.3-7.7) k/uL Lymphocytes # 0.2 L (1.0-4.8) k/uL Sodium 136 L (137-145) mmol/L BUN 29 H (7-17) mg/dL Creatinine 0.45 L (0.52-1.04) mg/dL Glucose 133 H (74-99) mg/dL POC Glucose (mg/dL) (75-99) mg/dL Troponin I 0.040 H* (0.000-0.034) ng/mL Total Protein 5.3 L (6.3-8.2) g/dL Albumin 2.9 L (3.5-5.0) g/dL 11/14/17 11/14/17 Range/Units 07:42 11:18 Neutrophils # (1.3-7.7) k/uL Lymphocytes # (1.0-4.8) k/uL Sodium (137-145) mmol/L BUN (7-17) mg/dL Creatinine (0.52-1.04) mg/dL Glucose (74-99) mg/dL POC Glucose (mg/dL) 132 H 114 H (75-99) mg/dL Troponin I (0.000-0.034) ng/mL Total Protein (6.3-8.2) g/dL Albumin (3.5-5.0) g/dL Microbiology - Last 24 Hours (Table) 11/12/17 16:16 Blood Culture - Preliminary Blood No Growth after 24 hours Assessment and Plan Plan: Assessment 1 large right-sided pleural effusion, along with a right upper lobe consolidation. The patient underwent a right-sided thoracentesis with complete evacuation of the right-sided pleural effusion. Awaiting pleural fluid cytology. Rule out malignant pleural effusion. Rule out parapneumonic effusion. Meanwhile clinically the patient is feeling better and less short of breath after evacuation of the right-sided pleural effusion. 2 acute hypoxic respiratory failure secondary to above management improved following the above 3 COPD 4 non-small cell lung cancer. The follow-up CAT scan of the chest shows interval enlargement in the right upper lobe pulmonary nodule and currently the various is measuring up to 2.2 cm in size. Is also evidence of mediastinal lymphadenopathy. 5 suspect right middle lobe pneumonia 6 ex-smoker 7 hypertension 8 right parapharyngeal space lymph node that has been biopsied at [facility] without indication for any malignancy. 9 comorbidities all listed earlier in the medical records Plan Will be awaiting for pleural fluid cytology. If the cytology is positive for malignancy the patient was declared herself as being stage IV and at that point there will be no need for mediastinoscopy. Meanwhile, the patient is still being treated with a combination of bronchodilators and steroids regarding her COPD. Echocardiogram is in progress. Thoracic surgery is on the case. Medicines on the case. We'll consult oncology. We'll continue to follow. She is not on any antibiotics for now. DVT prophylaxis.
[2017-11-14 17:28] LABS: Glucose,Whole Blood 126 mg/dL (75-99)
[2017-11-14 20:47] LABS: Glucose,Whole Blood 146 mg/dL (75-99)
--- NOTE | 2017-11-14 21:41 | CONS ---
CONSULTATION CHIEF COMPLAINT: Elevated troponin. eLeann is a 76-year-old lady with history of COPD and right upper lobe nodule and hilar and mediastinal lymphadenopathy, presents to hospital complaining of worsening shortness of breath and a troponin that was done came back mildly elevated for which Cardiology had been consulted. The patient denies any chest pain. She has adenocarcinoma of the lung and she is to undergo thoracoscopy. PAST MEDICAL HISTORY: Significant for COPD, GERD, hypertension, osteoarthritis, adenocarcinoma of the lung. PAST SURGICAL HISTORY: Significant for hernia repair, tonsillectomy, adenoidectomy. History of SVT status post ablation. FAMILY HISTORY: Negative. SOCIAL HISTORY: Negative for smoking. MEDICATIONS: At home included Cardizem 120 daily, Prilosec, iron, albuterol, prednisone, and SULFA. ALLERGIES: ALLERGIC TO PENICILLIN. FAMILY HISTORY: Family history is negative for premature coronary artery disease. SOCIAL HISTORY: Negative for current smoking, EtOH abuse or drug abuse. REVIEW OF SYSTEMS: HEENT is unremarkable. Cardiac as described above. Respiratory as described above. GI negative. : Negative. Allergy/Immunology: Negative. Skin negative. Musculoskeletal significant for arthritis. Psychosocial negative. Endocrine negative. Neurological negative. Oncological significant for cancer. The rest of the system review is not relevant. EXAM: Comfortable at rest. Heart rate is 110 beats per minute. Blood pressure is 138/90, respirations 18 per minute. Chest exam reveals diminished air entry at the right base with occasional rhonchi. Heart exam reveals first and second heart sounds. No gallop. No murmur. Exam of the extremities did not reveal any edema. Peripheral pulses are palpable. LAB: Show a hemoglobin of 14.4, platelet count is 240, creatinine is 0.45. Troponin is 0.04, 03 and 04. EKG shows sinus rhythm with an episode of atrial tachycardia. ASSESSMENT: 1. Elevated troponin of unclear clinical significance. 2. Adenocarcinoma of the lung. 3. History of supraventricular tachycardia status post ablation. PLAN: The patient will continue the Cardizem that she is on. I will obtain a 2D echo to evaluate LV function. Elevated troponin does not require any further workup at this time. MMODL / IJN: [id number] /
[2017-11-15] MEDS: ACETAMINOPHEN TAB 325 MG TAB PO PRN ×3 (02:05→20:16)
[2017-11-15] MEDS: methylPREDNISolone SOD SUCCI 125 MG/2 ML VIAL IV SCH ×5 (02:11→23:42)
[2017-11-15] MEDS: IPRATROPIUM-ALBUTEROL 3 ML NEB INHALATION SCH ×4 (07:38→19:13)
[2017-11-15 07:46] LABS: Glucose,Whole Blood 139 mg/dL (75-99)
[2017-11-15 08:13] LABS: ALT 17 U/L (9-52); AST 23 U/L (14-36); Albumin 3.2 g/dL (3.5-5.0); Alkaline Phosphatase 54 U/L (38-126); Anion Gap 9 mmol/L; Blood Urea Nitrogen 33 mg/dL (7-17); Calcium 9.1 mg/dL (8.4-10.2); Carbon Dioxide 26 mmol/L (22-30); Chloride 103 mmol/L (98-107); Glucose 128 mg/dL (74-99); Potassium 5.4 mmol/L (3.5-5.1); Sodium 138 mmol/L (137-145); Total Bilirubin 0.6 mg/dL (0.2-1.3); Total Protein 5.6 g/dL (6.3-8.2)
[2017-11-15 08:22] LABS: Basophils % (A) 0 %; Eosinophils % (A) 0 %; HCT 42.8 % (34.0-46.0); HGB 14.6 gm/dL (11.4-16.0); Lymphocytes # (A) 0.3 k/uL (1.0-4.8); Lymphocytes % (A) 3 %; MCH 31.7 pg (25.0-35.0); MCHC 34.2 g/dL (31.0-37.0); MCV 92.7 fL (80.0-100.0); Mean Platelet Volume 6.9; Monocytes # (A) 0.4 k/uL (0-1.0); Monocytes % (A) 3 %; Neutrophils # (A) 10.1 k/uL (1.3-7.7); Neutrophils % (A) 93 %; Platelet Count 238 k/uL (150-450); RBC 4.61 m/uL (3.80-5.40); RDW 13.3 % (11.5-15.5); WBC 10.8 k/uL (3.8-10.6)
[2017-11-15] MEDS: INSULIN ASPART 100 UNIT/ML 1 ML 10 ML VIAL SQ SCH ×4 (08:43→20:13)
--- NOTE | 2017-11-15 09:02 | P.PN ---
Subjective Progress Note Date: 11/15/17 This is a 76-year-old female patient of Dr. Baptiste. Patient presented to the emergency room with complaints of increased shortness of breath. Patient states she has been treated outpatient for the past 4 weeks without improvement. Patient also states she's recently diagnosed with lung cancer and was supposed to undergo a biopsy of nodules in her right upper lobe with Dr. Bustamante yesterday but had to cancel due to increased shortness of breath. Patient states she has not seen an oncologist or has initiated any treatment. Per patient was awaiting biopsy results for further plan of care. Patient's medical history occluded 60 year plus smoker, asthma, GERD, hypertension, osteoarthritis, heart catheterization in bowel resection. Chest x-ray completed emergency room showing extensive airspace consolidation and pleural fluid in the right lung increased compared to last exam. Right pleural effusion increased or new. Chest CTA completed showing new large right pleural effusion compared to 2017. No evidence of pulmonary embolism. Right upper lobe consolidation and atelectasis. Right upper lobe mass unchanged compared to 08/27/2017. Mild thoracic aortic aneurysm. Small pericardial effusion. EKG completed showing undetermined rhythm. Dr. Armstrong per pulmonary services have been consulted. Patient started on DuoNeb breathing treatments and Solu- Medrol 60 mg every 6 hours. Troponin also slightly elevated at 0.046. Serial cardiac enzymes ordered.g and cardiac monitoring ordered for patient. Potassium also high at 5.9. Repeat labs have been ordered. At this time patient complains of shortness of breath. Patient denies chest pain. Patient denies nausea vomiting or diarrhea. Patient denies any urinary burning or frequency On 11/14/2017 patient was seen and examined she is alert and oriented 3 in no apparent distress, she denies any pain or discomfort she has mild shortness of breath with activity otherwise no complaints of chest pain no nausea or vomiting no abdominal pain no constipation no urinary symptoms. She is scheduled for echocardiogram this afternoon. On 11/15/2017 patient was seen and examined she is alert and oriented 3 in no apparent distress she has mild shortness of breath with activity otherwise she denies any complaints at this time there is no chest pain no nausea or vomiting no abdominal pain no diarrhea and no urinary symptoms, echocardiogram not done yet, potassium level is elevated at 5.4, patient will be given a dose of Kayexalate, will recheck labs and x-ray in a.m. Objective - Vital Signs Vital signs: Vital Signs Temp 97.6 F 11/15/17 05:00 Pulse 92 11/15/17 07:49 Resp 16 11/15/17 05:00 BP 149/80 11/15/17 05:00 Pulse Ox 93 L 11/15/17 07:38 Intake & Output 11/14/17 11/15/17 11/15/17 18:59 06:59 18:59 Weight 63.503 kg Other: Voiding Method Toilet Toilet # Voids 2 2 - Exam Head normocephalic and atraumatic Neck supple no JVD no goiter Lungs bilateral expiratory wheezing. Diminished throughout Heart regular rate and rhythm S1-S2, no rub or gallop Abdomen is soft nontender nondistended positive bowel sounds no hepatosplenomegaly Extremities no edema no cyanosis or clubbing Neuro alert and orientated to 3 - Labs CBC & Chem 7: 11/15/17 07:19 11/15/17 07:19 Labs: Abnormal Lab Results - Last 24 Hours (Table) 11/14/17 11/14/17 11/14/17 Range/Units 11:18 17:26 20:45 WBC (3.8-10.6) k/uL Neutrophils # (1.3-7.7) k/uL Lymphocytes # (1.0-4.8) k/uL Potassium (3.5-5.1) mmol/L BUN (7-17) mg/dL Creatinine (0.52-1.04) mg/dL Glucose (74-99) mg/dL POC Glucose (mg/dL) 114 H 126 H 146 H (75-99) mg/dL Total Protein (6.3-8.2) g/dL Albumin (3.5-5.0) g/dL 11/15/17 11/15/17 11/15/17 Range/Units 07:19 07:19 07:45 WBC 10.8 H (3.8-10.6) k/uL Neutrophils # 10.1 H (1.3-7.7) k/uL Lymphocytes # 0.3 L (1.0-4.8) k/uL Potassium 5.4 H (3.5-5.1) mmol/L BUN 33 H (7-17) mg/dL Creatinine 0.49 L (0.52-1.04) mg/dL Glucose 128 H (74-99) mg/dL POC Glucose (mg/dL) 139 H (75-99) mg/dL Total Protein 5.6 L (6.3-8.2) g/dL Albumin 3.2 L (3.5-5.0) g/dL Microbiology - Last 24 Hours (Table) 11/12/17 16:16 Blood Culture - Preliminary Blood No Growth after 48 hours Assessment and Plan Plan: 1. Dyspnea. Chest x-ray completed showing extensive airspace consolidation and pleural fluid in the right lung increased compared to last exam. Right pleural effusion is increased or new. CTA completed showing new large right pleural effusion compared to 08/27/2017. No evidence of pulmonary embolism. Right upper lobe consolidation and atelectasis. Right upper lobe mass unchanged compared to 08/26/2017. Mild thoracic aortic aneurysm. Small pericardial effusion. Pulmonary services have been consulted. Patient started on Solu-Medrol 60 mg every 6 hours. 2. Recent diagnosis of lung cancer. Patient was supposed to undergo right upper lobe nodule biopsy with Dr. Bustamante yesterday but had to cancel due to increased shortness of breath. Patient has not started treatment or has been seen by oncologist. 3. Nicotine dependence. Patient has a 60+ year smoking history. Nicotine patches been ordered. Patient educated greater than 3 minutes on smoking sensation 4. History of asthma 5. History of iron deficiency anemia. Continue ferrous sulfate 6. History of essential hypertension 7. History of GERD 8. Elevated troponin. Troponin 0.046. Serial cardiac enzymes have been ordered. Patient placed on telemetry 9. Hyperkalemia. Initial potassium 5.9. Repeat lab has been ordered DVT prophylaxis Lovenox. GI prophylaxis Protonix Medication and labs were reviewed at this time awaiting echocardiogram continue was current regimen
[2017-11-15] MEDS ORDERED: SODIUM POLYSTYRENE SULFONATE 15 GM/60 ML BOTTLE PO ONE (09:15)
[2017-11-15] MEDS: ENOXAPARIN 40 MG/0.4 ML SYRINGE SQ SCH (10:39)
[2017-11-15] MEDS: FERROUS SULFATE 325 MG TAB PO SCH (10:39)
[2017-11-15] MEDS: DILTIAZEM CD 120 MG CAP.ER.24H PO SCH (10:39)
[2017-11-15] MEDS: NICOTINE 14MG/24HR PATCH TRANSDERM SCH (10:39)
[2017-11-15] MEDS: PANTOPRAZOLE 40 MG TABLET PO SCH (10:39)
[2017-11-15 11:58] LABS: Glucose,Whole Blood 112 mg/dL (75-99)
--- NOTE | 2017-11-15 13:55 | PN ---
PROGRESS NOTE Leeann is a 76-year-old lady with history of adenocarcinoma, who is admitted to hospital with worsening shortness of breath and mildly elevated troponins. Cardiology has been consulted for the same. I ordered an echo on her yesterday and that has not been done. The patient had an episode of atrial fibrillation that started around 4 o'clock this morning and she just converted back to sinus rhythm. She does not have any symptoms. The patient has metastatic lung cancer and she is to undergo a mediastinoscopy with biopsy. The patient is currently on Cardizem CD, which I am going to continue. I will review the echo once it is done. If she has further episodes of atrial fibrillation, we will consider starting her on anticoagulant. EXAM: Comfortable at rest. Heart rate is 90 beats per minute. Blood pressure is 149/82, respiratory rate is 20. Chest exam reveals diminished air entry at the bases. Heart exam reveals first and second heart sounds. No gallop. Exam of extremities did not reveal any edema. Peripheral pulses are felt. LABS: Show a hemoglobin of 14.6, platelet count is 238. Creatinine is 0.4. ASSESSMENT: 1. Paroxysmal atrial fibrillation. 2. Adenocarcinoma of the lung. PLAN: Continue Cardizem CD. Review the echo results. Consider anticoagulants if she has further episodes of atrial fibrillation. MMODL / IJN: [id number] /
--- NOTE | 2017-11-15 14:52 | P.PN ---
Subjective Progress Note Date: 11/15/17 76-year-old female patient who presented to the hospital because of worsening shortness of breath. The patient is known to have COPD and she has seen us in the office also for COPD and a right upper lobe pulmonary nodule that was quite small. With this. Would some hilar and mediastinal lymphadenopathy. Within the workup on outpatient basis. This initially came to our attention back in February 2017. A PET scan that was done at that time showed uptake within the right parapharyngeal soft tissue, uptake within the right upper lobe lesion, and there was also uptake within the mediastinum specifically in the right hilar and paratracheal area. At that time, the patient was referred to ENT and ultimately the patient was seen at [facility] and the parapharyngeal abnormality was labeled to be benign. Subsequently she came in to us back in the office in September 2017 Time a fine-needle aspirate of the right upper lobe lesion was done and it showed adenocarcinoma of the lung. The patient was referred to oncology and subsequently she was referred to thoracic surgery for surgical evaluation. The patient was seen by Dr. Miguel Ángel Bustamante who recommended mediastinoscopy essentially for staging reasons. At that point, the patient was getting ready to undergo another medicine endoscopy, but, because of complicated by respiratory checked infection/pneumonia. I'm not aware of the details of this treatments however the patient felt that she has been treated with a round of antibiotics to her primary care physician without much improvement. She came into the hospital because of worsening shortness of breath and failed outpatient treatment and a CAT scan of the chest showed a large right-sided pleural effusion and is a new finding without evidence of any pulmonary embolism. No right upper lobe consolidation atelectatic changes were also seen. There was a small pericardial effusion. I met this patient in the oncology unit and I immediately performed a thoracentesis for a total of 1.5 L of pleural fluid was aspirated from the right lung successfully without any complications. A repeat CAT scan of the chest abdomen and pelvis is to follow. She felt better following the procedure. On today's evaluation of 11/14/2017, the patient is feeling better and she is not having as much short of breath compared to yesterday. I performed a successful thoracentesis yesterday. Following that the patient a CAT scan of the chest and abdomen and pelvis and the CAT scan showed near completely interval resolution of the previously described pleural effusion. There is however interval enlargement of the right upper lobe pulmonary nodule which is currently measuring 2.2 cm in size and there is also adjacent intralobular septal thickening that could potentially indicate lymphangitic carcinomatosis. There is also mediastinal lymphadenopathy that his been unchanged and the patient also has a segmental right middle lobe atelectasis probably an area of pneumonia which resulted in to a right-sided pleural effusion. The possibility of a malignant pleural effusion cannot be completely excluded. The patient had also 2.2 cm hepatic cyst that was again visualized. Abdominal structures were all within normal limits. The CAT scan of the neck showed a stable right parapharyngeal space mass/adenopathy. On 11/15/2017, the patient is doing extremely well. No respiratory difficulties. No cough sputum production chest tightness or wheezing. As mentioned earlier if right-sided thoracentesis was done and the pleural fluid was evacuated without any major complications. Nevertheless, the fluid cytology still pending for now. No other new complaints in terms of her breathing. The patient is still covered with bronchodilators and systemic steroids. No antibiotics on board. Objective - Vital Signs Vital signs: Vital Signs Temp 98.2 F 11/15/17 13:45 Pulse 104 H 11/15/17 13:45 Resp 20 11/15/17 13:45 BP 142/84 11/15/17 13:45 Pulse Ox 92 L 11/15/17 13:45 Intake & Output 11/14/17 11/15/17 11/15/17 18:59 06:59 18:59 Weight 63.503 kg Other: Voiding Method Toilet Toilet # Voids 2 2 2 - Exam Gen. appearance she is calm and comfortable likely distress Head exam was generally normal. There was no scleral icterus or corneal arcus. Mucous membranes were moist. Neck was supple and without jugular venous distension, thyromegaly, or carotid bruits. Carotids were easily palpable bilaterally. There was no adenopathy. Lungs showed improved aeration of the right lung postthoracentesis. Breath sounds are equal and symmetrical although some diminished and the breath sounds in still present on the right side. Cardiac exam revealed the PMI to be normally situated and sized. The rhythm was regular and no extrasystoles were noted during several minutes of auscultation. The first and second heart sounds were normal and physiologic splitting of the second heart sound was noted. There were no murmurs, rubs, clicks, or gallops. Abdominal exam revealed normal bowel sounds. The abdomen was soft, non-tender, and without masses, organomegaly, or appreciable enlargement of the abdominal aorta. Examination of the extremities revealed easily palpable radial, femoral and pedal pulses. There was no cyanosis, clubbing or edema. Examination of the skin revealed no evidence of significant rashes, suspicious appearing nevi or other concerning lesions. Neurologically the patient is awake and alert 3 and the patient has no focal neurological deficits. - Labs CBC & Chem 7: 11/15/17 07:19 11/15/17 07:19 Labs: Abnormal Lab Results - Last 24 Hours (Table) 11/14/17 11/14/17 11/15/17 Range/Units 17:26 20:45 07:19 WBC 10.8 H (3.8-10.6) k/uL Neutrophils # 10.1 H (1.3-7.7) k/uL Lymphocytes # 0.3 L (1.0-4.8) k/uL Potassium (3.5-5.1) mmol/L BUN (7-17) mg/dL Creatinine (0.52-1.04) mg/dL Glucose (74-99) mg/dL POC Glucose (mg/dL) 126 H 146 H (75-99) mg/dL Total Protein (6.3-8.2) g/dL Albumin (3.5-5.0) g/dL 11/15/17 11/15/17 11/15/17 Range/Units 07:19 07:45 11:57 WBC (3.8-10.6) k/uL Neutrophils # (1.3-7.7) k/uL Lymphocytes # (1.0-4.8) k/uL Potassium 5.4 H (3.5-5.1) mmol/L BUN 33 H (7-17) mg/dL Creatinine 0.49 L (0.52-1.04) mg/dL Glucose 128 H (74-99) mg/dL POC Glucose (mg/dL) 139 H 112 H (75-99) mg/dL Total Protein 5.6 L (6.3-8.2) g/dL Albumin 3.2 L (3.5-5.0) g/dL Microbiology - Last 24 Hours (Table) 11/12/17 16:16 Blood Culture - Preliminary Blood No Growth after 48 hours Assessment and Plan Plan: Assessment 1 large right-sided pleural effusion, along with a right upper lobe consolidation. The patient underwent a right-sided thoracentesis with complete evacuation of the right-sided pleural effusion. Awaiting pleural fluid cytology. Rule out malignant pleural effusion. Rule out parapneumonic effusion. Meanwhile clinically the patient is feeling better and less short of breath after evacuation of the right-sided pleural effusion. 2 acute hypoxic respiratory failure secondary to above management improved following the above, improving 3 COPD, stable 4 non-small cell lung cancer. The follow-up CAT scan of the chest shows interval enlargement in the right upper lobe pulmonary nodule and currently the various is measuring up to 2.2 cm in size. Is also evidence of mediastinal lymphadenopathy. 5 suspect right middle lobe pneumonia 6 ex-smoker 7 hypertension 8 right parapharyngeal space lymph node that has been biopsied at [facility] without indication for any malignancy. 9 comorbidities all listed earlier in the medical records Plan We'll suggest to continue the DuoNeb nebulized treatments around the clock and IV Solu-Medrol and start tapering steroids as of tomorrow. No need for antibiotics. We'll continue with the supportive care. We are going to check the pleural fluid cytology within next 24 hours and if the fluid comes back positive for malignancy the patient with a clearance of a stage III non-small cell lung cancer and at that point no further staging workup is needed. If not , may consider mediastinoscopy at a later stage. Ambulate. Continue using incentive spirometer. Smoking cessation counseling. Nicotine patch. We'll continue to follow.
[2017-11-15 20:11] LABS: Glucose,Whole Blood 134 mg/dL (75-99)
[2017-11-15] MEDS: SODIUM CHLORIDE 0.9% 1,000 ML IV SCH (20:18)
[2017-11-16] MEDS: methylPREDNISolone SOD SUCCI 125 MG/2 ML VIAL IV SCH ×2 (06:09→13:11)
[2017-11-16 07:19] LABS: Glucose,Whole Blood 112 mg/dL (75-99)
--- NOTE | 2017-11-16 07:32 | XR ---
EXAMINATION TYPE: XR chest 2V DATE OF EXAM: 11/16/2017 COMPARISON: 518 HISTORY: Lung cancer. Pleural effusion. Shortness of breath. Follow-up exam. TECHNIQUE: Frontal and lateral views of the chest are obtained. FINDINGS: Patchy opacity seen in the right upper lobe in the region of the patient's known pulmonary carcinoma. Interlobular septal thickening is seen on the right. Trace pleural effusions blunt the co stophrenic angles. Right hemithorax volume loss is seen. Heart is mildly enlarged. Extensive degenera tive changes of the glenohumeral joints are noted. IMPRESSION: Findings in the patient's known right-sided pulmonary carcinoma, right hemithorax volume loss, trace pleural effusions and findings suggestive of either unilateral pulmonary fibrosis or lym phangitic carcinomatosis.
[2017-11-16] MEDS: IPRATROPIUM-ALBUTEROL 3 ML NEB INHALATION SCH ×3 (08:54→20:05)
[2017-11-16] MEDS: INSULIN ASPART 100 UNIT/ML 1 ML 10 ML VIAL SQ SCH ×4 (08:57→21:01)
[2017-11-16] MEDS: PANTOPRAZOLE 40 MG TABLET PO SCH (09:05)
[2017-11-16] MEDS: DILTIAZEM CD 120 MG CAP.ER.24H PO SCH (09:06)
[2017-11-16] MEDS: ENOXAPARIN 40 MG/0.4 ML SYRINGE SQ SCH (09:06)
[2017-11-16] MEDS: NICOTINE 14MG/24HR PATCH TRANSDERM SCH (09:06)
[2017-11-16] MEDS: FERROUS SULFATE 325 MG TAB PO SCH ×2 (09:07)
[2017-11-16 09:15] LABS: Basophils % (A) 0 %; Eosinophils # (A) 0.1 k/uL (0-0.7); Eosinophils % (A) 1 %; HCT 42.8 % (34.0-46.0); HGB 14.4 gm/dL (11.4-16.0); Lymphocytes # (A) 0.3 k/uL (1.0-4.8); Lymphocytes % (A) 3 %; MCH 30.4 pg (25.0-35.0); MCHC 33.6 g/dL (31.0-37.0); MCV 90.5 fL (80.0-100.0); Mean Platelet Volume 6.7; Monocytes # (A) 0.2 k/uL (0-1.0); Monocytes % (A) 2 %; Neutrophils # (A) 9.3 k/uL (1.3-7.7); Neutrophils % (A) 94 %; Platelet Count 240 k/uL (150-450); RBC 4.73 m/uL (3.80-5.40); RDW 13.2 % (11.5-15.5); WBC 9.9 k/uL (3.8-10.6)
[2017-11-16 09:25] LABS: ALT 19 U/L (9-52); AST 22 U/L (14-36); Alkaline Phosphatase 50 U/L (38-126); Anion Gap 10 mmol/L; Blood Urea Nitrogen 25 mg/dL (7-17); Calcium 8.7 mg/dL (8.4-10.2); Carbon Dioxide 25 mmol/L (22-30); Chloride 102 mmol/L (98-107); Glucose 152 mg/dL (74-99); Potassium 3.6 mmol/L (3.5-5.1); Sodium 137 mmol/L (137-145); Total Bilirubin 0.6 mg/dL (0.2-1.3); Total Protein 5.2 g/dL (6.3-8.2)
--- NOTE | 2017-11-16 10:52 | P.PN ---
Subjective Mrs. Cervantes is seen and examined sitting up in bed receiving a breathing treatment. She has a history of adenocarcinoma. She underwent thoracentesis 11/13 per pulmonary. Awaiting cytology report. If positive for malignancy no mediatinoscopy will be be needed. She has had reccurent episodes of paroxysmal atrial fibrillation since admission. Last night telemetry tracings indicate a 14 beat run of ventricular tachycardia. She denies chest pain, palpitations or dizziness. She states her breathing has improved since admission but still short on breath at times. Maintained on cardizem 120 mg daily. Echo pending. Blood pressure 150/89 heart rate 89. Currently maintaining sinus mechanism. Laboratory data reviewed, hgb 14.4, plt 240, sodium 137, potassium 3.6 creatinine 0.42. Repeat chest xray this morning indicates known right sided pulmonary carcinoma, trace pleural effusion and either unilateral pulmonary fibrosis or lymphangitic carcinoma. Objective - Vital Signs Vital signs: Vital Signs Temp 97.7 F 11/16/17 05:00 Pulse 89 11/16/17 09:04 Resp 20 11/16/17 05:00 BP 150/89 11/16/17 05:00 Pulse Ox 98 11/16/17 05:00 Intake & Output 11/15/17 11/16/17 11/16/17 18:59 06:59 18:59 Intake Total 590 Balance 590 Intake: Oral 590 Other: Voiding Method Toilet # Voids 2 2 # Bowel Movements 1 - Exam GENERAL: Well-appearing, well-nourished and in no acute distress. NECK: Supple without JVD or thyromegaly. LUNGS: Course rhonchi throughout worse on the right. No wheezes or rales. Respiration equal and unlabored. HEART: Regular rate and rhythm without murmurs, rubs or gallops. S1 and S2 heard. EXTREMITIES: Normal range of motion, no edema. No clubbing or cyanosis. Peripheral pulses intact. - Labs CBC & Chem 7: 11/16/17 08:36 11/16/17 08:36 Labs: Abnormal Lab Results - Last 24 Hours (Table) 11/15/17 11/15/17 11/16/17 Range/Units 11:57 20:09 07:18 Neutrophils # (1.3-7.7) k/uL Lymphocytes # (1.0-4.8) k/uL BUN (7-17) mg/dL Creatinine (0.52-1.04) mg/dL Glucose (74-99) mg/dL POC Glucose (mg/dL) 112 H 134 H 112 H (75-99) mg/dL Total Protein (6.3-8.2) g/dL Albumin (3.5-5.0) g/dL 11/16/17 11/16/17 Range/Units 08:36 08:36 Neutrophils # 9.3 H (1.3-7.7) k/uL Lymphocytes # 0.3 L (1.0-4.8) k/uL BUN 25 H (7-17) mg/dL Creatinine 0.42 L (0.52-1.04) mg/dL Glucose 152 H (74-99) mg/dL POC Glucose (mg/dL) (75-99) mg/dL Total Protein 5.2 L (6.3-8.2) g/dL Albumin 3.0 L (3.5-5.0) g/dL Microbiology - Last 24 Hours (Table) 11/12/17 16:16 Blood Culture - Preliminary Blood No Growth after 72 hours Assessment and Plan Assessment: ASSESSMENT Paroxysmal atrial fibrillation, currently maintaining sinus mechanism History of SVT s/p ablation 2010 COPD Right lung adenocarcinoma Hypertension Chronic nicotine dependence PLAN Check TSH and magnesium level. Echo to be obtained today and will be reviewed. Anti-coagulation pending cytology and need for further biopsies. Ongoing telemetry monitoring. Nurse Practitioner note has been reviewed, I agree with a documented findings and plan of care. Patient was seen and examined.
[2017-11-16 11:03] LABS: Magnesium 1.9 mg/dL (1.6-2.3)
--- NOTE | 2017-11-16 11:21 | P.PN ---
Subjective Progress Note Date: 11/16/17 This is a 76-year-old female patient of Dr. Baptiste. Patient presented to the emergency room with complaints of increased shortness of breath. Patient states she has been treated outpatient for the past 4 weeks without improvement. Patient also states she's recently diagnosed with lung cancer and was supposed to undergo a biopsy of nodules in her right upper lobe with Dr. Bustamante yesterday but had to cancel due to increased shortness of breath. Patient states she has not seen an oncologist or has initiated any treatment. Per patient was awaiting biopsy results for further plan of care. Patient's medical history occluded 60 year plus smoker, asthma, GERD, hypertension, osteoarthritis, heart catheterization in bowel resection. Chest x-ray completed emergency room showing extensive airspace consolidation and pleural fluid in the right lung increased compared to last exam. Right pleural effusion increased or new. Chest CTA completed showing new large right pleural effusion compared to 2017. No evidence of pulmonary embolism. Right upper lobe consolidation and atelectasis. Right upper lobe mass unchanged compared to 08/27/2017. Mild thoracic aortic aneurysm. Small pericardial effusion. EKG completed showing undetermined rhythm. Dr. Armstrong per pulmonary services have been consulted. Patient started on DuoNeb breathing treatments and Solu- Medrol 60 mg every 6 hours. Troponin also slightly elevated at 0.046. Serial cardiac enzymes ordered.g and cardiac monitoring ordered for patient. Potassium also high at 5.9. Repeat labs have been ordered. At this time patient complains of shortness of breath. Patient denies chest pain. Patient denies nausea vomiting or diarrhea. Patient denies any urinary burning or frequency On 11/14/2017 patient was seen and examined she is alert and oriented 3 in no apparent distress, she denies any pain or discomfort she has mild shortness of breath with activity otherwise no complaints of chest pain no nausea or vomiting no abdominal pain no constipation no urinary symptoms. She is scheduled for echocardiogram this afternoon. On 11/15/2017 patient was seen and examined she is alert and oriented 3 in no apparent distress she has mild shortness of breath with activity otherwise she denies any complaints at this time there is no chest pain no nausea or vomiting no abdominal pain no diarrhea and no urinary symptoms, echocardiogram not done yet, potassium level is elevated at 5.4, patient will be given a dose of Kayexalate, will recheck labs and x-ray in a.m. on 11/16/2017 patient is alert and oriented 3. Patient states she feels much improved since thoracentesis. Patient denies chest pain. Patient denies shortness breath. Patient denies any urinary burning or frequency. 2-D echo has been ordered. Objective - Vital Signs Vital signs: Vital Signs Temp 97.7 F 11/16/17 05:00 Pulse 89 11/16/17 09:04 Resp 20 11/16/17 05:00 BP 150/89 11/16/17 05:00 Pulse Ox 98 11/16/17 05:00 Intake & Output 11/15/17 11/16/17 11/16/17 18:59 06:59 18:59 Intake Total 590 Balance 590 Intake: Oral 590 Other: Voiding Method Toilet # Voids 2 2 # Bowel Movements 1 - Exam Head normocephalic Neck supple Lungs clear to auscultation bilaterally no wheezing or crackles Heart regular rate and rhythm S1-S2, no rub or gallop Abdomen is soft nontender nondistended positive bowel sounds no hepatosplenomegaly Extremities no edema Neuro alert and orientated to 3 - Labs CBC & Chem 7: 11/16/17 08:36 11/16/17 08:36 Labs: Abnormal Lab Results - Last 24 Hours (Table) 11/15/17 11/15/17 11/16/17 Range/Units 11:57 20:09 07:18 Neutrophils # (1.3-7.7) k/uL Lymphocytes # (1.0-4.8) k/uL BUN (7-17) mg/dL Creatinine (0.52-1.04) mg/dL Glucose (74-99) mg/dL POC Glucose (mg/dL) 112 H 134 H 112 H (75-99) mg/dL Total Protein (6.3-8.2) g/dL Albumin (3.5-5.0) g/dL 11/16/17 11/16/17 Range/Units 08:36 08:36 Neutrophils # 9.3 H (1.3-7.7) k/uL Lymphocytes # 0.3 L (1.0-4.8) k/uL BUN 25 H (7-17) mg/dL Creatinine 0.42 L (0.52-1.04) mg/dL Glucose 152 H (74-99) mg/dL POC Glucose (mg/dL) (75-99) mg/dL Total Protein 5.2 L (6.3-8.2) g/dL Albumin 3.0 L (3.5-5.0) g/dL Microbiology - Last 24 Hours (Table) 11/12/17 16:16 Blood Culture - Preliminary Blood No Growth after 72 hours Assessment and Plan Assessment: 1. Dyspnea. Chest x-ray completed showing extensive airspace consolidation and pleural fluid in the right lung increased compared to last exam. Right pleural effusion is increased or new. CTA completed showing new large right pleural effusion compared to 08/27/2017. No evidence of pulmonary embolism. Right upper lobe consolidation and atelectasis. Right upper lobe mass unchanged compared to 08/26/2017. Mild thoracic aortic aneurysm. Small pericardial effusion. Pulmonary services have been consulted. Patient started on Solu-Medrol 60 mg every 6 hours. patient underwent right-sided thoracentesis on 11/13. patient had 1.5 L of fluid removed at this time. Cytology still pending. repeat chest x-ray showing known right-sided pulmonary carcinoma, right pneumothorax volume loss., Trace pleural effusions and findings suggestive of either unilateral pulmonary fibrosis or lymphangitic carcinomatois. 2. Recent diagnosis of lung cancer with pathology showing pulmonary adenocarcinoma. Patient was supposed to undergo right upper lobe nodule biopsy with Dr. Bustamante yesterday but had to cancel due to increased shortness of breath. Patient has not started treatment or has been seen by oncologist. CT of the soft tissue neck ordered per oncology showing stable right parapharyngeal space mass likely representing malignant metastases adenopathy continue patient's primary pulmonary carcinoma. Oncology services are following per cardiothoracic surgery will await the cytology results of the pleural fluid drained the diagnosis to be made from the pleural fluid then mediastinoscopy procedure will be unnecessary. cytology from pleural fluid pending. 3. Nicotine dependence. Patient has a 60+ year smoking history. Nicotine patches been ordered. Patient educated greater than 3 minutes on smoking sensation 4. History of asthma 5. History of iron deficiency anemia. Continue ferrous sulfate 6. History of essential hypertension 7. History of GERD 8. Elevated troponin. Troponin 0.046, and 0.040. cardiology service is consulted. 9. Hyperkalemia. Initial potassium 5.9. Repeat lab has been ordered. Potassium 5.4 Kayexalate given. Repeat potassium 3.6 10. Paroxsymal atrial fibrillation. she had episode of atrial fibrillation last night. Patient currently maintaining sinus mechanism. Cardiology services are following per cardiology will check TSH and magnesium level. 2-D echo has been ordered. Anticoagulation pending cytology and need for further biopsies. Patient remains on telemetry. DVT prophylaxis Lovenox. GI prophylaxis Protonix I performed an examination of the patient and discussed their management with the Nurse Practitioner. I have reviewed the Nurse Practitioner's notes and agree with the documented findings and plan of care
[2017-11-16 11:34] LABS: Glucose,Whole Blood 115 mg/dL (75-99)
--- NOTE | 2017-11-16 12:56 | P.PN ---
Subjective Progress Note Date: 11/16/17 Principal diagnosis: Acute hypoxic respiratory failure secondary to a large right-sided pleural effusion along with the right upper lobe consolidation, rule out malignant pleural effusion versus parapneumonic effusion 76-year-old female patient who presented to the hospital because of worsening shortness of breath. The patient is known to have COPD and she has seen us in the office also for COPD and a right upper lobe pulmonary nodule that was quite small. With this. Would some hilar and mediastinal lymphadenopathy. Within the workup on outpatient basis. This initially came to our attention back in February 2017. A PET scan that was done at that time showed uptake within the right parapharyngeal soft tissue, uptake within the right upper lobe lesion, and there was also uptake within the mediastinum specifically in the right hilar and paratracheal area. At that time, the patient was referred to ENT and ultimately the patient was seen at [facility] and the parapharyngeal abnormality was labeled to be benign. Subsequently she came in to us back in the office in September 2017 Time a fine-needle aspirate of the right upper lobe lesion was done and it showed adenocarcinoma of the lung. The patient was referred to oncology and subsequently she was referred to thoracic surgery for surgical evaluation. The patient was seen by Dr. Miguel Ángel Bustamante who recommended mediastinoscopy essentially for staging reasons. At that point, the patient was getting ready to undergo another medicine endoscopy, but, because of complicated by respiratory checked infection/pneumonia. I'm not aware of the details of this treatments however the patient felt that she has been treated with a round of antibiotics to her primary care physician without much improvement. She came into the hospital because of worsening shortness of breath and failed outpatient treatment and a CAT scan of the chest showed a large right-sided pleural effusion and is a new finding without evidence of any pulmonary embolism. No right upper lobe consolidation atelectatic changes were also seen. There was a small pericardial effusion. I met this patient in the oncology unit and I immediately performed a thoracentesis for a total of 1.5 L of pleural fluid was aspirated from the right lung successfully without any complications. A repeat CAT scan of the chest abdomen and pelvis is to follow. She felt better following the procedure. On today's evaluation of 11/14/2017, the patient is feeling better and she is not having as much short of breath compared to yesterday. I performed a successful thoracentesis yesterday. Following that the patient a CAT scan of the chest and abdomen and pelvis and the CAT scan showed near completely interval resolution of the previously described pleural effusion. There is however interval enlargement of the right upper lobe pulmonary nodule which is currently measuring 2.2 cm in size and there is also adjacent intralobular septal thickening that could potentially indicate lymphangitic carcinomatosis. There is also mediastinal lymphadenopathy that his been unchanged and the patient also has a segmental right middle lobe atelectasis probably an area of pneumonia which resulted in to a right-sided pleural effusion. The possibility of a malignant pleural effusion cannot be completely excluded. The patient had also 2.2 cm hepatic cyst that was again visualized. Abdominal structures were all within normal limits. The CAT scan of the neck showed a stable right parapharyngeal space mass/adenopathy. On 11/15/2017, the patient is doing extremely well. No respiratory difficulties. No cough sputum production chest tightness or wheezing. As mentioned earlier if right-sided thoracentesis was done and the pleural fluid was evacuated without any major complications. Nevertheless, the fluid cytology still pending for now. No other new complaints in terms of her breathing. The patient is still covered with bronchodilators and systemic steroids. No antibiotics on board. On 11/16/2017 patient seen in follow-up on medical surgical floor. Still awaiting the results of the pleural fluid cytology. Patient still he comes and dyspneic with exertion, overall is breathing better, room air pulse ox is 90%, she is afebrile, hemodynamically stable, blood culture and pleural fluid culture is pending, WBC is 9.9, hemoglobin is 14.4, electrolytes are within normal limits, BUN is 25 creatinine 0.42. Lung sounds reveal a few rales at the bilateral bases. Patient remains on Solu-Medrol at 60 mg every 6 hours, currently not on any antibiotics, no fever or chills. No wheezing or rhonchi. Objective - Vital Signs Vital signs: Vital Signs Temp 97.7 F 11/16/17 12:46 Pulse 112 H 11/16/17 12:46 Resp 18 11/16/17 12:46 BP 166/98 11/16/17 12:46 Pulse Ox 90 L 11/16/17 12:46 Intake & Output 11/15/17 11/16/17 11/16/17 18:59 06:59 18:59 Intake Total 590 Balance 590 Intake: Oral 590 Other: Voiding Method Toilet # Voids 2 2 # Bowel Movements 1 - Exam Gen. appearance she is calm and comfortable likely distress Head exam was generally normal. There was no scleral icterus or corneal arcus. Mucous membranes were moist. Neck was supple and without jugular venous distension, thyromegaly, or carotid bruits. Carotids were easily palpable bilaterally. There was no adenopathy. Lungs showed improved aeration of the right lung postthoracentesis. Breath sounds are positive for bibasilar crackles, equal breath sounds bilaterally, diminished at the bases Cardiac exam revealed the PMI to be normally situated and sized. The rhythm was regular and no extrasystoles were noted during several minutes of auscultation. The first and second heart sounds were normal and physiologic splitting of the second heart sound was noted. There were no murmurs, rubs, clicks, or gallops. Abdominal exam revealed normal bowel sounds. The abdomen was soft, non-tender, and without masses, organomegaly, or appreciable enlargement of the abdominal aorta. Examination of the extremities revealed easily palpable radial, femoral and pedal pulses. There was no cyanosis, clubbing or edema. Examination of the skin revealed no evidence of significant rashes, suspicious appearing nevi or other concerning lesions. Neurologically the patient is awake and alert 3 and the patient has no focal neurological deficits. - Labs CBC & Chem 7: 11/16/17 08:36 11/16/17 08:36 Labs: Abnormal Lab Results - Last 24 Hours (Table) 11/15/17 11/16/17 11/16/17 Range/Units 20:09 07:18 08:36 Neutrophils # 9.3 H (1.3-7.7) k/uL Lymphocytes # 0.3 L (1.0-4.8) k/uL BUN (7-17) mg/dL Creatinine (0.52-1.04) mg/dL Glucose (74-99) mg/dL POC Glucose (mg/dL) 134 H 112 H (75-99) mg/dL Total Protein (6.3-8.2) g/dL Albumin (3.5-5.0) g/dL TSH (0.465-4.680) mIU/L 11/16/17 11/16/17 11/16/17 Range/Units 08:36 08:36 11:32 Neutrophils # (1.3-7.7) k/uL Lymphocytes # (1.0-4.8) k/uL BUN 25 H (7-17) mg/dL Creatinine 0.42 L (0.52-1.04) mg/dL Glucose 152 H (74-99) mg/dL POC Glucose (mg/dL) 115 H (75-99) mg/dL Total Protein 5.2 L (6.3-8.2) g/dL Albumin 3.0 L (3.5-5.0) g/dL TSH <0.015 L (0.465-4.680) mIU/L Microbiology - Last 24 Hours (Table) 11/13/17 12:46 Body Fluid Culture - Preliminary Pleural Fluid 11/12/17 16:16 Blood Culture - Preliminary Blood No Growth after 72 hours Assessment and Plan Plan: 1 large right-sided pleural effusion, along with a right upper lobe consolidation. The patient underwent a right-sided thoracentesis with complete evacuation of the right-sided pleural effusion. Awaiting pleural fluid cytology. Rule out malignant pleural effusion. Rule out parapneumonic effusion. Meanwhile clinically the patient is feeling better and less short of breath after evacuation of the right-sided pleural effusion. 2 acute hypoxic respiratory failure secondary to above management improved following the above, improving 3 COPD, stable 4 non-small cell lung cancer. The follow-up CAT scan of the chest shows interval enlargement in the right upper lobe pulmonary nodule and currently the various is measuring up to 2.2 cm in size. Is also evidence of mediastinal lymphadenopathy. 5 suspect right middle lobe pneumonia 6 ex-smoker 7 hypertension 8 right parapharyngeal space lymph node that has been biopsied at [facility] without indication for any malignancy. 9 comorbidities all listed earlier in the medical records Plan: Continue current medical treatment, continue nebulized bronchodilators, we will taper the dose of Solu-Medrol down to 40 mg every 8 hours. Still awaiting the results of the pleural fluid cytology, blood cultures remain negative. No fever or chills, increase activity as tolerated. I performed a history & physical examination of the patient and discussed their management with my nurse practitioner, Johanny Stack. I reviewed the nurse practitioner's note and agree with the documented findings and plan of care. Lung sounds are positive for bibasilar crackles, diminished breath sounds at the bases. The findings and the impression was discussed with the patient. I attest to the documentation by the nurse practitioner. Time with Patient: Less than 30
[2017-11-16 13:10] LABS: T4, Free (Free Thyroxine) 1.05 ng/dL (0.78-2.19)
--- NOTE | 2017-11-16 13:37 | ECHOF ---
Referral Reason:tropo MEASUREMENTS -------- HEIGHT: 160.0 cm WEIGHT: 63.5 kg BP: 152/82 IVSd: 1.2 cm (0.6 - 1.1) LVIDd: 3.2 cm (3.9 - 5.3) LVPWd: 0.9 cm (0.6 - 1.1) IVSs: 1.6 cm LVIDs: 1.4 cm LVPWs: 1.5 cm Ao Diam: 3.8 cm (2.0 - 3.7) AV Cusp: 1.5 cm (1.5 - 2.6) LA Diam: 3.3 cm (2.7 - 3.8) MV EXCURSION: 10.412 mm (> 18.000) MV EF SLOPE: 54 mm/s (70 - 150) EPSS: 0.3 cm MV E Saroj: 0.52 m/s MV DecT: 280 ms MV A Saroj: 0.67 m/s MV E/A Ratio: 0.78 AR PHT: 128 ms RAP: 5.00 mmHg RVSP: 18.76 mmHg FINDINGS -------- Resting tachycardia (HR>100bpm). This was a technically adequate study. The left ventricular size is normal. Left ventricular wall thickness is normal. Overall left vent ricular systolic function is normal with, an EF between 60 - 65 %. The right ventricle is normal in size and function. The left atrium is normal in size. The right atrium is normal in size. The aortic valve is trileaflet and appears structurally normal. Mild mitral regurgitation is present. Mild tricuspid regurgitation present. The right ventricular systolic pressure, as measured by Doppl er, is 18.76mmHg. Trace/mild (physiologic) pulmonic regurgitation. The aortic root is mildy dilated. There is a trivial pericardial effusion present. CONCLUSIONS -------- 1. Resting tachycardia (HR>100bpm). 2. This was a technically adequate study. 3. The left ventricular size is normal. 4. Left ventricular wall thickness is normal. 5. Overall left ventricular systolic function is normal with, an EF between 60 - 65 %. 6. The right ventricle is normal in size and function. 7. The left atrium is normal in size. 8. The right atrium is normal in size. 9. The aortic valve is trileaflet and appears structurally normal. 10. Mild mitral regurgitation is present. 11. Mild tricuspid regurgitation present. 12. The right ventricular systolic pressure, as measured by Doppler, is 18.76mmHg. 13. Trace/mild (physiologic) pulmonic regurgitation. 14. The aortic root is mildy dilated. 15. There is a trivial pericardial effusion present. PBX REPAIRER: Diann Langford RDCS
[2017-11-16 15:04] LABS: RBC, Body Fluid 300 /uL
[2017-11-16 15:05] LABS: Appearance,BF Hazy
[2017-11-16 15:10] LABS: Nucleated Cells, Body Fluid 1700 /uL
[2017-11-16 15:20] LABS: Mononuclear WBC,Body Fluid 100 %; Total Cells Counted,Body Fluid 100
[2017-11-16 17:01] LABS: Glucose,Whole Blood 136 mg/dL (75-99)
[2017-11-16] MEDS: methylPREDNISolone SOD SUCCI 40 MG/ML 1 ML VIAL IV SCH (17:28)
[2017-11-16 20:16] LABS: Glucose,Whole Blood 126 mg/dL (75-99)
[2017-11-16] MEDS: SODIUM CHLORIDE 0.9% 1,000 ML IV SCH (21:01)
[2017-11-17] MEDS: methylPREDNISolone SOD SUCCI 40 MG/ML 1 ML VIAL IV SCH ×2 (00:38→08:06)
[2017-11-17 07:06] LABS: Glucose,Whole Blood 130 mg/dL (75-99)
[2017-11-17] MEDS: INSULIN ASPART 100 UNIT/ML 1 ML 10 ML VIAL SQ SCH ×2 (08:05→13:31)
[2017-11-17] MEDS: FERROUS SULFATE 325 MG TAB PO SCH (08:06)
[2017-11-17] MEDS: ENOXAPARIN 40 MG/0.4 ML SYRINGE SQ SCH (08:06)
[2017-11-17] MEDS: PANTOPRAZOLE 40 MG TABLET PO SCH (08:07)
[2017-11-17] MEDS: NICOTINE 14MG/24HR PATCH TRANSDERM SCH (08:07)
[2017-11-17] MEDS: DILTIAZEM CD 120 MG CAP.ER.24H PO SCH (08:07)
[2017-11-17 08:33] LABS: Basophils # (A) 0.1 k/uL (0-0.2); Basophils % (A) 0 %; Eosinophils # (A) 0.1 k/uL (0-0.7); Eosinophils % (A) 1 %; HCT 46.7 % (34.0-46.0); HGB 15.4 gm/dL (11.4-16.0); Lymphocytes # (A) 0.3 k/uL (1.0-4.8); Lymphocytes % (A) 3 %; MCV 91.1 fL (80.0-100.0); Mean Platelet Volume 6.7; Monocytes # (A) 0.3 k/uL (0-1.0); Monocytes % (A) 3 %; Neutrophils % (A) 93 %; Platelet Count 265 k/uL (150-450); RBC 5.12 m/uL (3.80-5.40); RDW 13.1 % (11.5-15.5); WBC 11.9 k/uL (3.8-10.6)
[2017-11-17 08:43] LABS: ALT 27 U/L (9-52); AST 25 U/L (14-36); Albumin 3.2 g/dL (3.5-5.0); Alkaline Phosphatase 54 U/L (38-126); Anion Gap 10 mmol/L; Blood Urea Nitrogen 30 mg/dL (7-17); Carbon Dioxide 24 mmol/L (22-30); Chloride 103 mmol/L (98-107); Glucose 129 mg/dL (74-99); Potassium 3.7 mmol/L (3.5-5.1); Sodium 137 mmol/L (137-145); Total Bilirubin 0.5 mg/dL (0.2-1.3); Total Protein 5.6 g/dL (6.3-8.2)
[2017-11-17] MEDS ORDERED: DILTIAZEM CD 180 MG CAP.ER.24H PO SCH (09:00)
[2017-11-17] MEDS: IPRATROPIUM-ALBUTEROL 3 ML NEB INHALATION SCH ×2 (09:11→14:16)
--- NOTE | 2017-11-17 10:25 | P.PN ---
Subjective Mrs. Cervantes is seen and examined sitting up in bed receiving a breathing treatment. She has a history of adenocarcinoma. She underwent thoracentesis 11/13 per pulmonary. Awaiting cytology report. If positive for malignancy no mediatinoscopy will be be needed. She has had reccurent episodes of paroxysmal atrial fibrillation since admission. Around 0300 last night she went into a-fib again and converted back to sinus mechanism. TSH obtained yesterday less then 0.015, free T4 1.05, free T3 1.9, WBC 11.9, hemoglobin 15.4, platelets 265, sodium 137, potassium 3.7, creatinine 0.46, magnesium 2.0. She denies chest pain , palpitations, shortness of breath or dizziness. Echocardiogram obtained reveals preserved LV systolic function with EF 60-65%. Blood pressure 129/88 heart rate 84 afebrile pulse ox level 91% on room air. Objective - Vital Signs Vital signs: Vital Signs Temp 98.2 F 11/17/17 05:00 Pulse 88 11/17/17 09:31 Resp 16 11/17/17 05:00 BP 129/88 11/17/17 05:00 Pulse Ox 91 L 11/17/17 05:00 Intake & Output 11/16/17 11/17/17 11/17/17 18:59 06:59 18:59 Intake Total 160 840 Balance 160 840 Intake: Intake, IV Titration 160 Amount Sodium Chloride 0.9% 1, 160 000 ml @ 20 mls/hr IV . Q24H ADRIANA Rx#:[id number] Oral 840 Other: Voiding Method Toilet # Voids 2 # Bowel Movements 1 - Exam GENERAL: Well-appearing, well-nourished and in no acute distress. NECK: Supple without JVD or thyromegaly. LUNGS: Improved since yesterday with ongoing rhonchi throughout worse on the right. No wheezes or rales. Respiration equal and unlabored. HEART: Regular rate and rhythm without murmurs, rubs or gallops. S1 and S2 heard. EXTREMITIES: Normal range of motion, no edema. No clubbing or cyanosis. Peripheral pulses intact. - Labs CBC & Chem 7: 11/17/17 08:13 11/17/17 08:13 Labs: Abnormal Lab Results - Last 24 Hours (Table) 11/16/17 11/16/17 11/16/17 Range/Units 08:36 11:32 17:00 WBC (3.8-10.6) k/uL Hct (34.0-46.0) % Neutrophils # (1.3-7.7) k/uL Lymphocytes # (1.0-4.8) k/uL BUN (7-17) mg/dL Creatinine (0.52-1.04) mg/dL Glucose (74-99) mg/dL POC Glucose (mg/dL) 115 H 136 H (75-99) mg/dL Total Protein (6.3-8.2) g/dL Albumin (3.5-5.0) g/dL TSH <0.015 L (0.465-4.680) mIU/L Free T3 pg/mL (2.8-5.3) pg/ml 11/16/17 11/17/17 11/17/17 Range/Units 20:14 07:05 08:13 WBC 11.9 H (3.8-10.6) k/uL Hct 46.7 H (34.0-46.0) % Neutrophils # 11.0 H (1.3-7.7) k/uL Lymphocytes # 0.3 L (1.0-4.8) k/uL BUN (7-17) mg/dL Creatinine (0.52-1.04) mg/dL Glucose (74-99) mg/dL POC Glucose (mg/dL) 126 H 130 H (75-99) mg/dL Total Protein (6.3-8.2) g/dL Albumin (3.5-5.0) g/dL TSH (0.465-4.680) mIU/L Free T3 pg/mL (2.8-5.3) pg/ml 11/17/17 11/17/17 Range/Units 08:13 08:13 WBC (3.8-10.6) k/uL Hct (34.0-46.0) % Neutrophils # (1.3-7.7) k/uL Lymphocytes # (1.0-4.8) k/uL BUN 30 H (7-17) mg/dL Creatinine 0.46 L (0.52-1.04) mg/dL Glucose 129 H (74-99) mg/dL POC Glucose (mg/dL) (75-99) mg/dL Total Protein 5.6 L (6.3-8.2) g/dL Albumin 3.2 L (3.5-5.0) g/dL TSH (0.465-4.680) mIU/L Free T3 pg/mL 1.9 L (2.8-5.3) pg/ml Microbiology - Last 24 Hours (Table) 11/13/17 12:46 Gram Stain - Preliminary Pleural Fluid Body Fluid Culture - Preliminary 11/12/17 16:16 Blood Culture - Preliminary Blood No Growth after 96 hours Assessment and Plan Assessment: ASSESSMENT Paroxysmal atrial fibrillation, currently maintaining sinus mechanism. No anticoagulation at this time secondary to possibility of biopsy required. This can be discussed with Dr. Akers as an outpatient. History of SVT s/p ablation 2010 COPD Right lung adenocarcinoma Hypertension Chronic nicotine dependence PLAN Increase cardizem 180 mg daily Anti-coagulation pending cytology and need for further biopsies. Can be addressed with Dr. Akers as an outpatient. Ongoing medical management. We will continue to follow as needed, please call with further questions or concerns. Appointment has been made with Dr. Akers in office. Nurse Practitioner note has been reviewed, I agree with a documented findings and plan of care. Patient was seen and examined.
--- NOTE | 2017-11-17 10:40 | P.PN ---
Subjective Progress Note Date: 11/17/17 Principal diagnosis: Acute hypoxic respiratory failure secondary to large right-sided pleural effusion along with a right upper lobe consolidation, rule out malignant pleural effusion versus parapneumonic effusion. 76-year-old female patient who presented to the hospital because of worsening shortness of breath. The patient is known to have COPD and she has seen us in the office also for COPD and a right upper lobe pulmonary nodule that was quite small. With this. Would some hilar and mediastinal lymphadenopathy. Within the workup on outpatient basis. This initially came to our attention back in February 2017. A PET scan that was done at that time showed uptake within the right parapharyngeal soft tissue, uptake within the right upper lobe lesion, and there was also uptake within the mediastinum specifically in the right hilar and paratracheal area. At that time, the patient was referred to ENT and ultimately the patient was seen at [facility] and the parapharyngeal abnormality was labeled to be benign. Subsequently she came in to us back in the office in September 2017 Time a fine-needle aspirate of the right upper lobe lesion was done and it showed adenocarcinoma of the lung. The patient was referred to oncology and subsequently she was referred to thoracic surgery for surgical evaluation. The patient was seen by Dr. Miguel Ángel Bustamante who recommended mediastinoscopy essentially for staging reasons. At that point, the patient was getting ready to undergo another medicine endoscopy, but, because of complicated by respiratory checked infection/pneumonia. I'm not aware of the details of this treatments however the patient felt that she has been treated with a round of antibiotics to her primary care physician without much improvement. She came into the hospital because of worsening shortness of breath and failed outpatient treatment and a CAT scan of the chest showed a large right-sided pleural effusion and is a new finding without evidence of any pulmonary embolism. No right upper lobe consolidation atelectatic changes were also seen. There was a small pericardial effusion. I met this patient in the oncology unit and I immediately performed a thoracentesis for a total of 1.5 L of pleural fluid was aspirated from the right lung successfully without any complications. A repeat CAT scan of the chest abdomen and pelvis is to follow. She felt better following the procedure. On today's evaluation of 11/14/2017, the patient is feeling better and she is not having as much short of breath compared to yesterday. I performed a successful thoracentesis yesterday. Following that the patient a CAT scan of the chest and abdomen and pelvis and the CAT scan showed near completely interval resolution of the previously described pleural effusion. There is however interval enlargement of the right upper lobe pulmonary nodule which is currently measuring 2.2 cm in size and there is also adjacent intralobular septal thickening that could potentially indicate lymphangitic carcinomatosis. There is also mediastinal lymphadenopathy that his been unchanged and the patient also has a segmental right middle lobe atelectasis probably an area of pneumonia which resulted in to a right-sided pleural effusion. The possibility of a malignant pleural effusion cannot be completely excluded. The patient had also 2.2 cm hepatic cyst that was again visualized. Abdominal structures were all within normal limits. The CAT scan of the neck showed a stable right parapharyngeal space mass/adenopathy. On 11/15/2017, the patient is doing extremely well. No respiratory difficulties. No cough sputum production chest tightness or wheezing. As mentioned earlier if right-sided thoracentesis was done and the pleural fluid was evacuated without any major complications. Nevertheless, the fluid cytology still pending for now. No other new complaints in terms of her breathing. The patient is still covered with bronchodilators and systemic steroids. No antibiotics on board. On 11/16/2017 patient seen in follow-up on medical surgical floor. Still awaiting the results of the pleural fluid cytology. Patient still he comes and dyspneic with exertion, overall is breathing better, room air pulse ox is 90%, she is afebrile, hemodynamically stable, blood culture and pleural fluid culture is pending, WBC is 9.9, hemoglobin is 14.4, electrolytes are within normal limits, BUN is 25 creatinine 0.42. Lung sounds reveal a few rales at the bilateral bases. Patient remains on Solu-Medrol at 60 mg every 6 hours, currently not on any antibiotics, no fever or chills. No wheezing or rhonchi. The patient is seen again today 11/17/2017 in follow-up on the oncology floor. She is awake and alert in no acute distress. She is quite anxious to go home. She denies any worsening shortness of breath, cough or congestion. No chills or night sweats. Blood and pleural fluid reveals no growth. Pathology is pending. Chest x-ray reveals suspected right-sided pulmonary carcinoma, right hemithorax volume loss, trace pleural effusions and findings suggestive of either unilateral pulmonary fibrosis or lymphangitic carcinomatosis. White count 11.9. Hemoglobin 15.4. Creatinine 0.46. Objective - Vital Signs Vital signs: Vital Signs Temp 98.2 F 11/17/17 05:00 Pulse 88 11/17/17 09:31 Resp 16 11/17/17 05:00 BP 129/88 11/17/17 05:00 Pulse Ox 91 L 11/17/17 05:00 Intake & Output 11/16/17 11/17/17 11/17/17 18:59 06:59 18:59 Intake Total 160 840 Balance 160 840 Intake: Intake, IV Titration 160 Amount Sodium Chloride 0.9% 1, 160 000 ml @ 20 mls/hr IV . Q24H ADRIANA Rx#:[id number] Oral 840 Other: Voiding Method Toilet # Voids 2 # Bowel Movements 1 - Exam Gen. appearance she is calm and comfortable, no acute distress, on room air. Head exam was generally normal. There was no scleral icterus or corneal arcus. Mucous membranes were moist. Neck was supple and without jugular venous distension, thyromegaly, or carotid bruits. Carotids were easily palpable bilaterally. There was no adenopathy. Lungs showed improved aeration of the right lung postthoracentesis. Breath sounds are positive for bibasilar crackles, equal breath sounds bilaterally, diminished at the bases Cardiac exam revealed the PMI to be normally situated and sized. The rhythm was regular and no extrasystoles were noted during several minutes of auscultation. The first and second heart sounds were normal and physiologic splitting of the second heart sound was noted. There were no murmurs, rubs, clicks, or gallops. Abdominal exam revealed normal bowel sounds. The abdomen was soft, non-tender, and without masses, organomegaly, or appreciable enlargement of the abdominal aorta. Examination of the extremities revealed easily palpable radial, femoral and pedal pulses. There was no cyanosis, clubbing or edema. Examination of the skin revealed no evidence of significant rashes, suspicious appearing nevi or other concerning lesions. Neurologically the patient is awake and alert 3 and the patient has no focal neurological deficits. - Labs CBC & Chem 7: 11/17/17 08:13 11/17/17 08:13 Labs: Abnormal Lab Results - Last 24 Hours (Table) 11/16/17 11/16/17 11/16/17 Range/Units 08:36 11:32 17:00 WBC (3.8-10.6) k/uL Hct (34.0-46.0) % Neutrophils # (1.3-7.7) k/uL Lymphocytes # (1.0-4.8) k/uL BUN (7-17) mg/dL Creatinine (0.52-1.04) mg/dL Glucose (74-99) mg/dL POC Glucose (mg/dL) 115 H 136 H (75-99) mg/dL Total Protein (6.3-8.2) g/dL Albumin (3.5-5.0) g/dL TSH <0.015 L (0.465-4.680) mIU/L Free T3 pg/mL (2.8-5.3) pg/ml 11/16/17 11/17/17 11/17/17 Range/Units 20:14 07:05 08:13 WBC 11.9 H (3.8-10.6) k/uL Hct 46.7 H (34.0-46.0) % Neutrophils # 11.0 H (1.3-7.7) k/uL Lymphocytes # 0.3 L (1.0-4.8) k/uL BUN (7-17) mg/dL Creatinine (0.52-1.04) mg/dL Glucose (74-99) mg/dL POC Glucose (mg/dL) 126 H 130 H (75-99) mg/dL Total Protein (6.3-8.2) g/dL Albumin (3.5-5.0) g/dL TSH (0.465-4.680) mIU/L Free T3 pg/mL (2.8-5.3) pg/ml 11/17/17 11/17/17 Range/Units 08:13 08:13 WBC (3.8-10.6) k/uL Hct (34.0-46.0) % Neutrophils # (1.3-7.7) k/uL Lymphocytes # (1.0-4.8) k/uL BUN 30 H (7-17) mg/dL Creatinine 0.46 L (0.52-1.04) mg/dL Glucose 129 H (74-99) mg/dL POC Glucose (mg/dL) (75-99) mg/dL Total Protein 5.6 L (6.3-8.2) g/dL Albumin 3.2 L (3.5-5.0) g/dL TSH (0.465-4.680) mIU/L Free T3 pg/mL 1.9 L (2.8-5.3) pg/ml Microbiology - Last 24 Hours (Table) 11/13/17 12:46 Gram Stain - Preliminary Pleural Fluid Body Fluid Culture - Preliminary 11/12/17 16:16 Blood Culture - Preliminary Blood No Growth after 96 hours Assessment and Plan Assessment: 1 large right-sided pleural effusion, along with a right upper lobe consolidation. The patient underwent a right-sided thoracentesis with complete evacuation of the right-sided pleural effusion. Awaiting pleural fluid cytology. Rule out malignant pleural effusion. Rule out parapneumonic effusion. 2 acute hypoxic respiratory failure secondary to above management improved following the above, improving 3 COPD, stable 4 non-small cell lung cancer. The follow-up CAT scan of the chest shows interval enlargement in the right upper lobe pulmonary nodule and currently the various is measuring up to 2.2 cm in size. Is also evidence of mediastinal lymphadenopathy. 5 suspect right middle lobe pneumonia 6 ex-smoker 7 hypertension 8 right parapharyngeal space lymph node that has been biopsied at [facility] without indication for any malignancy. 9 comorbidities all listed earlier in the medical records Plan: The patient was seen and evaluated by Dr. Keller. She is cleared for discharge from the pulmonary standpoint. Complete a prednisone taper. She will follow-up in our office in 1 week's time. We'll repeat a chest x-ray then. Pathology is still pending from the pleural fluid. If negative she may still need a mediastinoscopy with biopsy. She is also being followed by cardiothoracic surgery. I, the cosigning physician, performed a history & physical examination of the patient. Lungs sounds are bilateral rhonchi more so on the right Maintaining good O2 saturations in the 90s on room air. I discussed the assessment and plan of care with my nurse practitioner, Dinah Maldonado. I attest to the above note as dictated by her.
[2017-11-17 11:21] LABS: Glucose,Whole Blood 141 mg/dL (75-99)
--- NOTE | 2017-11-17 11:46 | P.DS ---
Providers Date of admission: 11/12/17 18:57 Expected date of discharge: 11/17/17 Attending physician: Bipin Quintana Consults: 11/12/17 18:57 Consult Physician Routine Consulting Provider: Shayy Blas Consult Reason/Comments: known Do you want consulting provider notified?: Yes 11/13/17 10:20 Consult Physician Routine Consulting Provider: Osvaldo Wong Consult Reason/Comments: new diagnosis of lung Ca Do you want consulting provider notified?: Yes 11/13/17 13:20 Consult Physician Routine Consulting Provider: Miguel Ángel Bustamante Consult Reason/Comments: scheduled for biopys Do you want consulting provider notified?: Yes 11/13/17 18:05 Consult Physician Routine Consulting Provider: Aminah Torres Consult Reason/Comments: high troponin Do you want consulting provider notified?: Yes Primary care physician: Rekha Baptitse [facility] Course: Discharge diagnosis 1. Dyspnea. Chest x-ray completed showing extensive airspace consolidation and pleural fluid in the right lung increased compared to last exam. Right pleural effusion is increased or new. CTA completed showing new large right pleural effusion compared to 08/27/2017. No evidence of pulmonary embolism. Right upper lobe consolidation and atelectasis. Right upper lobe mass unchanged compared to 08/26/2017. Mild thoracic aortic aneurysm. Small pericardial effusion. Pulmonary services have been consulted. Patient started on Solu-Medrol 60 mg every 6 hours. patient underwent right-sided thoracentesis on 11/13. patient had 1.5 L of fluid removed at this time. Cytology still pending. repeat chest x-ray showing known right-sided pulmonary carcinoma, right pneumothorax volume loss., Trace pleural effusions and findings suggestive of either unilateral pulmonary fibrosis or lymphangitic carcinomatois. Pulmonary services have clear patient for discharge. Patient will be discharged on prednisone taper. Patient to follow-up outpatient with pulmonary services 2. Recent diagnosis of lung cancer with pathology showing pulmonary adenocarcinoma. Patient was supposed to undergo right upper lobe nodule biopsy with Dr. Bustamante yesterday but had to cancel due to increased shortness of breath. Patient has not started treatment or has been seen by oncologist. CT of the soft tissue neck ordered per oncology showing stable right parapharyngeal space mass likely representing malignant metastases adenopathy continue patient's primary pulmonary carcinoma. Oncology services are following per cardiothoracic surgery will await the cytology results of the pleural fluid drained the diagnosis to be made from the pleural fluid then mediastinoscopy procedure will be unnecessary. cytology from pleural fluid pending. Patient to follow-up outpatient for further need for biopsies depending upon pathology cytology 3. Nicotine dependence. Patient has a 60+ year smoking history. Nicotine patches been ordered. Patient educated greater than 3 minutes on smoking sensation 4. History of asthma 5. History of iron deficiency anemia. Continue ferrous sulfate 6. History of essential hypertension 7. History of GERD 8. Elevated troponin. Troponin 0.046, and 0.040. cardiology service is consulted. 9. Hyperkalemia. Initial potassium 5.9. Repeat lab has been ordered. Potassium 5.4 Kayexalate given. Repeat potassium 3.7 10. Paroxsymal atrial fibrillation. she had episode of atrial fibrillation last night. Patient currently maintaining sinus mechanism. 2-D echo showing EF of 60-65%. Discussed case with kenna MUNSON per cardiology. Patient will not be discharged on anticoagulation per cardiology. Patient to follow-up outpatient with Dr. Akers outpatient and will address anticoagulation depending upon cytology and further need for biopsies at that time. Cardizem has been increased to 180 mg daily per cardiology 11. TSH is low at 0.015. T4 normal at 1.04 and T3 low at 1.9. Patient to follow-up with [facility] Dr. Diego outpatient for further workup Hospital course This is a 76-year-old female patient of Dr. Baptiste. Patient presented to the emergency room with complaints of increased shortness of breath. Patient states she has been treated outpatient for the past 4 weeks without improvement. Patient also states she's recently diagnosed with lung cancer and was supposed to undergo a biopsy of nodules in her right upper lobe with Dr. Bustamante yesterday but had to cancel due to increased shortness of breath. Patient states she has not seen an oncologist or has initiated any treatment. Per patient was awaiting biopsy results for further plan of care. Patient's medical history occluded 60 year plus smoker, asthma, GERD, hypertension, osteoarthritis, heart catheterization in bowel resection. Chest x-ray completed emergency room showing extensive airspace consolidation and pleural fluid in the right lung increased compared to last exam. Right pleural effusion increased or new. Chest CTA completed showing new large right pleural effusion compared to 2017. No evidence of pulmonary embolism. Right upper lobe consolidation and atelectasis. Right upper lobe mass unchanged compared to 08/27/2017. Mild thoracic aortic aneurysm. Small pericardial effusion. EKG completed showing undetermined rhythm. Dr. Armstrong per pulmonary services have been consulted. Patient started on DuoNeb breathing treatments and Solu- Medrol 60 mg every 6 hours. Troponin also slightly elevated at 0.046. Serial cardiac enzymes ordered.g and cardiac monitoring ordered for patient. Potassium also high at 5.9. Repeat labs have been ordered. At this time patient complains of shortness of breath. Patient denies chest pain. Patient denies nausea vomiting or diarrhea. Patient denies any urinary burning or frequency On 11/14/2017 patient was seen and examined she is alert and oriented 3 in no apparent distress, she denies any pain or discomfort she has mild shortness of breath with activity otherwise no complaints of chest pain no nausea or vomiting no abdominal pain no constipation no urinary symptoms. She is scheduled for echocardiogram this afternoon. On 11/15/2017 patient was seen and examined she is alert and oriented 3 in no apparent distress she has mild shortness of breath with activity otherwise she denies any complaints at this time there is no chest pain no nausea or vomiting no abdominal pain no diarrhea and no urinary symptoms, echocardiogram not done yet, potassium level is elevated at 5.4, patient will be given a dose of Kayexalate, will recheck labs and x-ray in a.m. on 11/16/2017 patient is alert and oriented 3. Patient states she feels much improved since thoracentesis. Patient denies chest pain. Patient denies shortness breath. Patient denies any urinary burning or frequency. 2-D echo has been ordered. On 11/17/2017 patient is alert and oriented 3. Patient is very eager to go home. Patient has been cleared for discharge from consulting providers. Discussed case with cardiology [employer]. Patient will not be discharged on anticoagulation for atrial fibrillation due to possibility of biopsy depending upon cytology findings. Patient is to follow-up outpatient with Dr. Beckford for further evaluation for anticoagulation. Patient also had low TSH at 0.015. T4 normal and low T3 at 1.9. Patient follow-up outpatient with Dr. Diego for endocrinology for further workup. Patient will also be DC'd home on prednisone taper per pulmonary services. This time patient denies chest pain or shortness breath. Patient denies any urinary burning or frequency. Patient denies nausea vomiting or diarrhea. I performed an examination of the patient and discussed their management with the Nurse Practitioner. I have reviewed the Nurse Practitioner's notes and agree with the documented findings and plan of care Patient Condition at Discharge: Stable Plan - Discharge Summary Discharge Rx Participant: Yes New Discharge Prescriptions: New Diltiazem Cd [Cardizem CD] 180 mg PO DAILY #30 cap.er.24h predniSONE 10 mg PO DIRECTED #30 tab Continue Omeprazole [PriLOSEC] 20 mg PO AC-BRKFST Ferrous Sulfate [Iron (65 MG Elemental)] 325 mg PO DAILY Acetaminophen Tab [Tylenol] 325 mg PO Q6H PRN PRN Reason: Pain Albuterol Nebulized [Ventolin Nebulized] 0 mg INHALATION QID PRN PRN Reason: Shortness Of Breath Albuterol Inhaler [Ventolin Hfa Inhaler] 1 - 2 puff INHALATION QID PRN PRN Reason: sob Discontinued Diltiazem HCl [Cardizem] 120 mg PO DAILY predniSONE 20 mg PO BID Sulfamethox-Tmp 800-160Mg [Bactrim DS 800-160 mg] 1 tab PO Q12HR Discharge Medication List Omeprazole [PriLOSEC] 20 mg PO AC-BRKFST 12/17/13 [History] Acetaminophen Tab [Tylenol] 325 mg PO Q6H PRN 10/01/17 [History] Ferrous Sulfate [Iron (65 MG Elemental)] 325 mg PO DAILY 10/01/17 [History] Albuterol Nebulized [Ventolin Nebulized] 0 mg INHALATION QID PRN 10/08/17 [ History] Albuterol Inhaler [Ventolin Hfa Inhaler] 1 - 2 puff INHALATION QID PRN 11/05/17 [History] Diltiazem Cd [Cardizem CD] 180 mg PO DAILY #30 cap.er.24h 11/17/17 [Rx] predniSONE 10 mg PO DIRECTED #30 tab 11/17/17 [Rx] Follow up Appointment(s)/Referral(s): Robbie Akers MD [STAFF PHYSICIAN] - 12/02/17 9:45 am Rekha Baptiste MD [Primary Care Provider] - 1-2 days Miguel Ángel Bustamante MD [STAFF PHYSICIAN] - 1 Week Yeny Diego MD [STAFF PHYSICIAN] - 1 Week Niesha Arellano MD [STAFF PHYSICIAN] - 11/27/17 4:45 pm Dinah Maldonado NPC [Nurse Practitioner] - 1 Week Activity/Diet/Wound Care/Special Instructions: Activity as tolerated Diet regular Discharge Disposition: HOME SELF-CARE
[2017-11-17 11:57] VITALS: BP 120/80; PULSE 100; RESP 18; TEMP 97.5
--- NOTE | 2017-11-17 14:15 | P.PN ---
Subjective Progress Note Date: 11/17/17 Principal diagnosis: COPD exacerbation, pleural effusion, NSCLC Pt seen today in f/u, she is feeling better and wants to go home. Cough is decreased, she is able to expectorate, no hemoptysis, fever, appetite is good, no nausea, chest pain, diarrhea or pain, she is independently ambulatory. Objective - Vital Signs Vital signs: Vital Signs Temp 97.5 F L 11/17/17 11:57 Pulse 100 11/17/17 11:57 Resp 18 11/17/17 11:57 BP 120/80 11/17/17 11:57 Pulse Ox 95 11/17/17 11:57 Intake & Output 11/16/17 11/17/17 11/17/17 18:59 06:59 18:59 Intake Total 160 840 Balance 160 840 Intake: Intake, IV Titration 160 Amount Sodium Chloride 0.9% 1, 160 000 ml @ 20 mls/hr IV . Q24H ADRIANA Rx#:[id number] Oral 840 Other: Voiding Method Toilet # Voids 2 # Bowel Movements 1 - Exam WDWN, laying in bed flat, NAD, congested cough, no O2 in use, no respiratory distress, pt moves independently without assistance. - Constitutional General appearance: Present: average body habitus, cooperative, no acute distress - Labs CBC & Chem 7: 11/17/17 08:13 11/17/17 08:13 Labs: Abnormal Lab Results - Last 24 Hours (Table) 11/16/17 11/16/17 11/17/17 Range/Units 17:00 20:14 07:05 WBC (3.8-10.6) k/uL Hct (34.0-46.0) % Neutrophils # (1.3-7.7) k/uL Lymphocytes # (1.0-4.8) k/uL BUN (7-17) mg/dL Creatinine (0.52-1.04) mg/dL Glucose (74-99) mg/dL POC Glucose (mg/dL) 136 H 126 H 130 H (75-99) mg/dL Total Protein (6.3-8.2) g/dL Albumin (3.5-5.0) g/dL Free T3 pg/mL (2.8-5.3) pg/ml 11/17/17 11/17/1718 Range/Units 08:13 08:13 08:13 WBC 11.9 H (3.8-10.6) k/uL Hct 46.7 H (34.0-46.0) % Neutrophils # 11.0 H (1.3-7.7) k/uL Lymphocytes # 0.3 L (1.0-4.8) k/uL BUN 30 H (7-17) mg/dL Creatinine 0.46 L (0.52-1.04) mg/dL Glucose 129 H (74-99) mg/dL POC Glucose (mg/dL) (75-99) mg/dL Total Protein 5.6 L (6.3-8.2) g/dL Albumin 3.2 L (3.5-5.0) g/dL Free T3 pg/mL 1.9 L (2.8-5.3) pg/ml 11/17/17 Range/Units 11:20 WBC (3.8-10.6) k/uL Hct (34.0-46.0) % Neutrophils # (1.3-7.7) k/uL Lymphocytes # (1.0-4.8) k/uL BUN (7-17) mg/dL Creatinine (0.52-1.04) mg/dL Glucose (74-99) mg/dL POC Glucose (mg/dL) 141 H (75-99) mg/dL Total Protein (6.3-8.2) g/dL Albumin (3.5-5.0) g/dL Free T3 pg/mL (2.8-5.3) pg/ml Microbiology - Last 24 Hours (Table) 11/13/17 12:46 Gram Stain - Preliminary Pleural Fluid Body Fluid Culture - Preliminary 11/12/17 16:16 Blood Culture - Preliminary Blood No Growth after 96 hours Assessment and Plan (1) Primary lung adenocarcinoma Narrative/Plan: Diagnosed earlier this year with no intervention. Pleural fluid pending, if positive pt would not be a surgical candidate, if negative then re-staging imaging would need to be done prior to being evaluated by surgery. Pt understands plan, she has f/u next week with Dr. Arellano to review pleural fluid results. Current Visit: Yes Status: Acute Priority: High Code(s): C34.90 - MALIGNANT NEOPLASM OF UNSP PART OF UNSP BRONCHUS OR LUNG SNOMED Code(s): 619748962
== END 2017-11-17 14:15 | disposition home or self-care (01) | DRG 180 ==
LOC: EC 15:36 → 5ONC 18:57
PROVIDERS: ADMIT Internal Medicine; ATTEND Internal Medicine
PROC: 0W993ZX Drainage of Right Pleural Cavity, Percutaneous Approach, Diagnostic (ICD-10-PCS; principal; 2017-11-14)
DX: C34.11 Malignant neoplasm of upper lobe, right bronchus or lung (principal); J96.01 Acute respiratory failure with hypoxia; C77.1 Secondary and unspecified malignant neoplasm of intrathoracic lymph nodes; J91.0 Malignant pleural effusion; I31.3 Pericardial effusion (noninflammatory); I47.2 Ventricular tachycardia; J44.1 Chronic obstructive pulmonary disease with (acute) exacerbation; J93.9 Pneumothorax, unspecified; J98.11 Atelectasis; F17.210 Nicotine dependence, cigarettes, uncomplicated; E87.5 Hyperkalemia; I10 Essential (primary) hypertension; I48.0 Paroxysmal atrial fibrillation; I71.2 Thoracic aortic aneurysm, without rupture; K21.9 Gastro-esophageal reflux disease without esophagitis; K76.89 Other specified diseases of liver; Z82.49 Family history of ischemic heart disease and other diseases of the circulatory system; Z87.01 Personal history of pneumonia (recurrent); Z90.49 Acquired absence of other specified parts of digestive tract; M19.90 Unspecified osteoarthritis, unspecified site; N39.3 Stress incontinence (female) (male); Z79.52 Long term (current) use of systemic steroids; Z79.899 Other long term (current) drug therapy; Z71.6 Tobacco abuse counseling; Z53.09 Procedure and treatment not carried out because of other contraindication; R94.6 Abnormal results of thyroid function studies; Z90.721 Acquired absence of ovaries, unilateral; D50.9 Iron deficiency anemia, unspecified; R74.8 Abnormal levels of other serum enzymes; Z98.42 Cataract extraction status, left eye; Z98.41 Cataract extraction status, right eye; Z88.0 Allergy status to penicillin
CPT/HCPCS: 36415; 70491; 71045; 71046; 71260; 71275; 74177; 80053; 81003; 82550; 82553; 82945; 83615; 83735; 83880; 84155; 84157; 84439; 84443; 84481; 84484; 85025; 85610; 85730; 87040; 87070; 87205; 88108; 88305; 88341; 88342; 89050; 93005; 93306; 94640; 94760; 96361; 96365; 96375; 99291

== ENCOUNTER 2017-11-23 06:18 | Inpatient (IN) | payer MEDICARE ==
[2017-11-23] MEDS ORDERED: IPRATROPIUM-ALBUTEROL 3 ML NEB INHALATION STA (06:30)
[2017-11-23] MEDS ORDERED: predniSONE 20 MG TAB PO STA (06:30)
--- NOTE | 2017-11-23 07:19 | XR ---
EXAMINATION TYPE: XR chest 2V DATE OF EXAM: 11/23/2017 COMPARISON: 11/16/2017 HISTORY: 76 year-old female shortness of breath, difficulty breathing TECHNIQUE: AP and lateral views FINDINGS: Heart mildly enlarged. Mild elongation/ectasia of the thoracic aorta is unchanged. Increasing now sma ll to moderate right pleural effusion with patchy mid and lower lung opacity on the right. End-stage degenerative change of both shoulders with large loose bodies especially on the left. IMPRESSION: Increasing, now [id number] sized right pleural effusion with adjacent atelectasis and/or conso lidation. Some patchy changes in the right midlung probably relates to the patient's known underlying malignancy.
[2017-11-23 07:30] LABS: Basophils % (A) 0 %; Eosinophils # (A) 0.1 k/uL (0-0.7); Eosinophils % (A) 1 %; HCT 43.9 % (34.0-46.0); HGB 14.3 gm/dL (11.4-16.0); Lymphocytes # (A) 0.7 k/uL (1.0-4.8); Lymphocytes % (A) 5 %; MCH 30.7 pg (25.0-35.0); MCHC 32.5 g/dL (31.0-37.0); MCV 94.4 fL (80.0-100.0); Mean Platelet Volume 6.5; Monocytes # (A) 0.6 k/uL (0-1.0); Monocytes % (A) 4 %; Neutrophils % (A) 89 %; Platelet Count 161 k/uL (150-450); RBC 4.65 m/uL (3.80-5.40); RDW 13.4 % (11.5-15.5); WBC 14.6 k/uL (3.8-10.6)
[2017-11-23 07:36] LABS: ALT 34 U/L (9-52); AST 21 U/L (14-36); Albumin 2.9 g/dL (3.5-5.0); Alkaline Phosphatase 58 U/L (38-126); Anion Gap 3 mmol/L; Blood Urea Nitrogen 29 mg/dL (7-17); Calcium 8.5 mg/dL (8.4-10.2); Carbon Dioxide 32 mmol/L (22-30); Chloride 105 mmol/L (98-107); Glucose 96 mg/dL (74-99); Potassium 4.3 mmol/L (3.5-5.1); Sodium 140 mmol/L (137-145); Total Bilirubin 0.6 mg/dL (0.2-1.3); Total Protein 5.2 g/dL (6.3-8.2)
--- NOTE | 2017-11-23 07:37 | ED ---
General Adult HPI - General Chief complaint: Shortness of Breath Stated complaint: ZHANG Time Seen by Provider: 11/23/17 06:23 Source: patient, family, EMS Mode of arrival: EMS Limitations: no limitations - History of Present Illness Initial comments: Leeann is a 76-year-old female with recently diagnosed right-sided lung cancer with likely metastases who was admitted to our hospital last week, had a thoracentesis and was subsequently discharged home. Patient reports that since discharge a week ago she's had progressively worsening shortness of breath. She reports that she has followed her discharge instructions, been using her nebulizer every 4 hours without improvement in her shortness of breath. Patient reports that since about midnight last night she has been experiencing profound shortness of breath, patient reports that she has been so short of breath and fatigue she's been unable to get out of bed. She reports that she can even call 911 because she couldn't get to her phone. She states she had wait until her son woke to check on her this morning at which time he decided to call 911 due to her respiratory distress. EMS reports they found her sitting in bed, tachypneic, tachycardic, working to breathe, oxygen saturation saturations in the mid 80s. She was placed on a nonrebreather mask and transferred to our facility. Patient reports that she is so fatigued she can barely walk from her bed to her restroom. She states she has multiple doctors appointment lined up in the next week for follow-up however she doesn't feel that she has the energy or capability to attend to these doctors appointments. - Related Data Home Medications Medication Instructions Recorded Confirmed Omeprazole [PriLOSEC] 20 mg PO AC-BRKFST 12/17/13 11/23/17 Acetaminophen Tab [Tylenol] 325 mg PO Q6H PRN 10/01/17 11/23/17 Albuterol Inhaler [Ventolin Hfa 1 - 2 puff INHALATION QID PRN 11/05/17 11/23/17 Inhaler] Albuterol Nebulized [Ventolin 2.5 mg INHALATION RT-Q6H 11/23/17 11/23/17 Nebulized] predniSONE See Taper PO DIRECTED 11/23/17 11/23/17 Previous Rx's Medication Instructions Recorded Diltiazem Cd [Cardizem CD] 180 mg PO DAILY #30 cap.er.24h 10/09/18 Allergies Allergy/AdvReac Type Severity Reaction Status Date / Time Penicillins Allergy Severe Diarrhea Verified 11/23/17 06:30 Review of Systems ROS Statement: Those systems with pertinent positive or pertinent negative responses have been documented in the HPI. ROS Other: All systems not noted in ROS Statement are negative. Past Medical History Past Medical History: Asthma, Cancer, GERD/Reflux, Hypertension, Osteoarthritis (OA), Pneumonia Additional Past Medical History / Comment(s): hx palpitations, hemorroids , sinus infections, current URI (on current rx for), "lung cancer dx 3-4 weeks ago -no tx as of yet stated needs more bx done", hx diverticulitis, occ stress incont, shingles 2013, past sbo,hernia (sx) History of Any Multi-Drug Resistant Organisms: None Reported Past Surgical History: Adenoidectomy, Bowel Resection, Heart Catheterization, Hernia Repair, Tonsillectomy Additional Past Surgical History / Comment(s): Per patient some type of clip surgery in the heart by Dr. Akers in 2011, bowel resection with colostomy/ later reversed, D&C,1 ovary removed, long cataracts, "lung biopsy,pt stated still needs more bx" Past Anesthesia/Blood Transfusion Reactions: No Reported Reaction Past Psychological History: No Psychological Hx Reported Smoking Status: Current every day smoker Past Alcohol Use History: None Reported Past Drug Use History: None Reported - Past Family History Mother Family Medical History: Congestive Heart Failure (CHF) Additional Family Medical History / Comment(s): heart problems, heart failure age 88 Father Family Medical History: Myocardial Infarction ([place]) Additional Family Medical History / Comment(s): tb when young, from [place] Son(s) Family Medical History: No Reported History General Exam - General Exam Comments Initial Comments: Physical Exam GENERAL: Chronically ill-appearing female in moderate respiratory distress HENT: Normocephalic, Atraumatic. EYES: PERRL, EOMI PULMONARY: Wheezing in all lung hector, decreased breath sounds in the right base CARDIOVASCULAR: Tachycardia, irregular ABDOMEN: Soft and nontender with normal bowel sounds. SKIN: Skin changes consistent with long-term tobacco abuse : Deferred NEUROLOGIC: Patient is alert and oriented x3. Moving all extremities spontaneously MUSCULOSKELETAL: Normal extremities with adequate strength and full range of motion. No lower extremity swelling or edema. No calf tenderness. PSYCHIATRIC: Normal psychiatric evaluation. Limitations: no limitations Limitations: no limitations Course Vital Signs 11/23/17 11/23/17 11/23/17 06:28 07:00 07:10 Temperature 98.2 F Pulse Rate 78 Respiratory 22 22 Rate Blood Pressure 139/90 136/84 136/84 O2 Sat by Pulse 97 93 L Oximetry 11/23/17 07:13 Temperature Pulse Rate Respiratory 22 Rate Blood Pressure O2 Sat by Pulse Oximetry EKG Findings - EKG Comments: EKG Findings:: EKG obtained at 641, rate is 86, rhythm sinus, there is a normal axis, normal intervals, ME 138, QRS 82, QTc 4. There is no acute ST elevations or depressions there is no evidence of acute ischemia or infarction. There is noted to be some PACs Medical Decision Making - Medical Decision Making Patient was seen and evaluated, history is obtained from the patient and review of medical record This is a 76-year-old lady with a very long history of tobacco abuse, recently diagnosed adenocarcinoma of the lung with possible metastases. Currently has not undergone definitive biopsy or developed any treatment plan. Patient did have a thoracentesis for a right-sided pleural effusion last week. Reports that since discharge she has had progressively worsening shortness of breath and fatigue. Does appear to be having a COPD exacerbation, her oxygen saturations are in the low 90s on 3 L nasal cannula, patient is not on supplementary oxygen at home Labs and imaging were ordered X-ray reveals a recurrence of the right-sided pleural effusion Labs with leukocytosis is likely secondary to steroid use Patient care was discussed with Dr. Quintana who is familiar with the patient, he accepts admission for COPD exacerbation, dyspnea, hypoxia, recurrent malignant pleural effusion - Lab Data Result diagrams: 11/23/17 07:09 11/23/17 07:09 Lab Results 11/23/17 11/23/17 11/23/17 Range/Units 07:09 07:09 07:09 WBC 14.6 H (3.8-10.6) k/uL RBC 4.65 (3.80-5.40) m/uL Hgb 14.3 (11.4-16.0) gm/dL Hct 43.9 (34.0-46.0) % MCV 94.4 (80.0-100.0) fL MCH 30.7 (25.0-35.0) pg MCHC 32.5 (31.0-37.0) g/dL RDW 13.4 (11.5-15.5) % Plt Count 161 (150-450) k/uL Neutrophils % 89 % Lymphocytes % 5 % Monocytes % 4 % Eosinophils % 1 % Basophils % 0 % Neutrophils # 13.0 H (1.3-7.7) k/uL Lymphocytes # 0.7 L (1.0-4.8) k/uL Monocytes # 0.6 (0-1.0) k/uL Eosinophils # 0.1 (0-0.7) k/uL Basophils # 0.0 (0-0.2) k/uL PT 9.9 (9.0-12.0) sec INR 1.0 (<1.2) APTT 20.1 L (22.0-30.0) sec Sodium 140 (137-145) mmol/L Potassium 4.3 (3.5-5.1) mmol/L Chloride 105 (98-107) mmol/L Carbon Dioxide 32 H (22-30) mmol/L Anion Gap 3 mmol/L BUN 29 H (7-17) mg/dL Creatinine 0.46 L (0.52-1.04) mg/dL Est GFR (CKD-EPI)AfAm >90 (>60 ml/min/1.73 sqM) Est GFR (CKD-EPI)NonAf >90 (>60 ml/min/1.73 sqM) Glucose 96 (74-99) mg/dL Calcium 8.5 (8.4-10.2) mg/dL Total Bilirubin 0.6 (0.2-1.3) mg/dL AST 21 (14-36) U/L ALT 34 (9-52) U/L Alkaline Phosphatase 58 (38-126) U/L NT-Pro-B Natriuret Pep pg/mL Total Protein 5.2 L (6.3-8.2) g/dL Albumin 2.9 L (3.5-5.0) g/dL 11/23/17 Range/Units 07:09 WBC (3.8-10.6) k/uL RBC (3.80-5.40) m/uL Hgb (11.4-16.0) gm/dL Hct (34.0-46.0) % MCV (80.0-100.0) fL MCH (25.0-35.0) pg MCHC (31.0-37.0) g/dL RDW (11.5-15.5) % Plt Count (150-450) k/uL Neutrophils % % Lymphocytes % % Monocytes % % Eosinophils % % Basophils % % Neutrophils # (1.3-7.7) k/uL Lymphocytes # (1.0-4.8) k/uL Monocytes # (0-1.0) k/uL Eosinophils # (0-0.7) k/uL Basophils # (0-0.2) k/uL PT (9.0-12.0) sec INR (<1.2) APTT (22.0-30.0) sec Sodium (137-145) mmol/L Potassium (3.5-5.1) mmol/L Chloride (98-107) mmol/L Carbon Dioxide (22-30) mmol/L Anion Gap mmol/L BUN (7-17) mg/dL Creatinine (0.52-1.04) mg/dL Est GFR (CKD-EPI)AfAm (>60 ml/min/1.73 sqM) Est GFR (CKD-EPI)NonAf (>60 ml/min/1.73 sqM) Glucose (74-99) mg/dL Calcium (8.4-10.2) mg/dL Total Bilirubin (0.2-1.3) mg/dL AST (14-36) U/L ALT (9-52) U/L Alkaline Phosphatase (38-126) U/L NT-Pro-B Natriuret Pep 884 pg/mL Total Protein (6.3-8.2) g/dL Albumin (3.5-5.0) g/dL Disposition Clinical Impression: Primary lung adenocarcinoma, Acute exacerbation of chronic obstructive airways disease, Pleural effusion, Hypoxia, Tobacco dependence Disposition: ADMITTED IP TO THIS HOSP Referrals: Rekha Baptiste MD [Primary Care Provider] - 1-2 days
[2017-11-23 07:49] LABS: Prothrombin Time 9.9 sec (9.0-12.0)
[2017-11-23 07:53] LABS: Partial Thromboplastin Time 20.1 sec (22.0-30.0)
[2017-11-23] MEDS ORDERED: ACETAMINOPHEN TAB 325 MG TAB PO PRN (12:38)
[2017-11-23] MEDS: IPRATROPIUM-ALBUTEROL 3 ML NEB INHALATION PRN ×2 (13:42→20:49)
--- NOTE | 2017-11-23 14:07 | P.HPIM ---
History of Present Illness H&P Date: 11/23/17 Chief Complaint: Increased shortness of breath This is 76-year-old female patient of Dr. Baptiste. Patient presented to the emergency room with complaints of increasing shortness of breath that has been increasing over the past few days. Patient recently discharged on 11/17/2017. At that time patient was DC'd home with steroid Dosepak. During admission patient also received thoracentesis per pulmonary services. Patient has had a recent diagnosis of pulmonary adenocarcinoma. Pleural fluid cytology from thoracentesis showing essentially identical to those observed in the patient's previous right lung mass aspiration and are consistent with adenocarcinoma of the primary lung origin. Patient has not started treatment for her lung cancer. Additional medical history includes asthma, GERD, hypertension, osteoarthritis and smoker. Chest x-ray completed emergency room showing increasing, non-small to moderate sized right pleural effusion with adjacent atelectasis and/or consolidation. Some patchy changes in the right midlung probably related to patient's known underlying malignancy. Patient was given 60 mg of prednisone upon arrival to emergency room. Home dose of prednisone [address] Darnell consulted for pulmonary services. Dr. Wong consulted for oncology. Patient also history of atrial fibrillation during last admission. Patient was not started on anticoagulation at that time due to possible biopsy procedure. EKG completed emergency room showing sinus rhythm with premature supraventricular complexes and nonspecific T-wave abnormality. Cardiology services have been consulted. Patient currently on albuterol breathing treatments. At this time patient states shortness of breath has significantly improved. Patient denies chest pain. Patient denies nausea vomiting or diarrhea. Patient denies any urinary burning or frequency. Review of Systems Please refer to HPI otherwise unremarkable Past Medical History Past Medical History: Asthma, Cancer, GERD/Reflux, Hypertension, Osteoarthritis (OA), Pneumonia Additional Past Medical History / Comment(s): hx palpitations, hemorroids , sinus infections, current URI (on current rx for), "lung cancer dx 3-4 weeks ago -no tx as of yet stated needs more bx done", hx diverticulitis, occ stress incont, shingles 2013, past sbo,hernia (sx) History of Any Multi-Drug Resistant Organisms: None Reported Past Surgical History: Adenoidectomy, Bowel Resection, Heart Catheterization, Hernia Repair, Tonsillectomy Additional Past Surgical History / Comment(s): Per patient some type of clip surgery in the heart by Dr. Akers in 2012, bowel resection with colostomy/ later reversed, D&C,1 ovary removed, long cataracts, "lung biopsy,pt stated still needs more bx" Past Anesthesia/Blood Transfusion Reactions: No Reported Reaction Past Psychological History: No Psychological Hx Reported Smoking Status: Current every day smoker Past Alcohol Use History: None Reported Past Drug Use History: None Reported - Past Family History Mother Family Medical History: Congestive Heart Failure (CHF) Additional Family Medical History / Comment(s): heart problems, heart failure age 88 Father Family Medical History: Myocardial Infarction ([place]) Additional Family Medical History / Comment(s): tb when young, from [place] Son(s) Family Medical History: No Reported History Medications and Allergies Home Medications Medication Instructions Recorded Confirmed Type Omeprazole [PriLOSEC] 20 mg PO AC-BRKFST 12/17/13 11/23/17 History Acetaminophen Tab [Tylenol] 325 mg PO Q6H PRN 10/01/17 11/23/17 History Albuterol Inhaler [Ventolin Hfa 1 - 2 puff INHALATION QID PRN 11/05/17 11/23/17 History Inhaler] Diltiazem Cd [Cardizem CD] 180 mg PO DAILY #30 cap.er.24h 11/17/17 11/23/17 Rx Albuterol Nebulized [Ventolin 2.5 mg INHALATION RT-Q6H 11/23/17 11/23/17 History Nebulized] predniSONE See Taper PO DIRECTED 11/23/17 11/23/17 History Allergies Allergy/AdvReac Type Severity Reaction Status Date / Time Penicillins Allergy Severe Diarrhea Verified 11/23/17 06:30 Physical Exam Vitals: Vital Signs Temp Pulse Resp BP Pulse Ox 11/23/17 13:42 94 11/23/17 11:00 90 34 H 136/84 11/23/17 10:50 85 19 136/84 11/23/17 10:40 85 21 136/84 11/23/17 10:30 90 35 H 136/84 11/23/17 10:20 93 25 H 136/84 11/23/17 10:10 93 18 136/84 95 11/23/17 10:00 95 23 136/84 96 11/23/17 09:50 94 24 136/84 94 L 10/15/18 09:40 93 32 H 136/84 93 L 11/23/17 09:30 93 39 H 95 11/23/17 09:20 91 14 136/84 94 L 11/23/17 09:10 93 16 136/84 93 L 11/23/17 09:00 91 24 136/84 93 L 11/23/17 08:50 89 10 L 136/84 95 11/23/17 08:46 89 11/23/17 08:40 93 16 136/84 93 L 11/23/17 08:30 33 H 136/84 96 11/23/17 08:25 92 11/23/17 08:20 86 19 136/84 89 L 11/23/17 08:10 90 22 136/84 91 L 11/23/17 08:00 88 18 136/84 96 11/23/17 07:50 87 19 136/84 95 11/23/17 07:40 87 25 H 136/84 94 L 11/23/17 07:30 87 21 136/84 96 11/23/17 07:20 87 25 H 136/84 96 11/23/17 07:13 22 11/23/17 07:10 22 136/84 93 L 11/23/17 07:00 136/84 11/23/17 06:28 98.2 F 78 22 139/90 97 Intake and Output 11/22/17 11/23/17 11/23/17 22:59 06:59 14:59 Other: Weight 65 kg Head normocephalic Neck supple Lungs diminished throughout Heart regular rate and rhythm S1-S2, no rub or gallop Abdomen is soft nontender nondistended positive bowel sounds no hepatosplenomegaly Extremities +1 peripheral edema Neuro alert and orientated to 3 Results CBC & Chem 7: 11/23/17 07:09 11/23/17 07:09 Labs: Abnormal Lab Results - Last 24 Hours (Table) 11/23/17 11/23/17 11/23/17 Range/Units 07:09 07:09 07:09 WBC 14.6 H (3.8-10.6) k/uL Neutrophils # 13.0 H (1.3-7.7) k/uL Lymphocytes # 0.7 L (1.0-4.8) k/uL APTT 20.1 L (22.0-30.0) sec Carbon Dioxide 32 H (22-30) mmol/L BUN 29 H (7-17) mg/dL Creatinine 0.46 L (0.52-1.04) mg/dL Total Protein 5.2 L (6.3-8.2) g/dL Albumin 2.9 L (3.5-5.0) g/dL Assessment and Plan Assessment: 1. Dyspnea. Patient has recent diagnosis of pulmonary adenocarcinoma. Cytology from pleural fluid showing essentially identical to those observed in the patient's previous right lung mass aspirate, and are consistent with adenocarcinoma of the primary lung origin. Chest x-ray completed showing increasing, [id number]-moderate size right pleural effusion with adjacent atelectasis and/or consolidation. Some patchy changes of the right midlung probably relates the patient's known underlying malignancy. Dr. Darnell consulted for pulmonary services. Dr. wong consulted for oncology. 2. Nicotine dependence. Patient has a 60+ year smoking history nicotine patches have been ordered. Patient educated greater than 3 minutes on smoking cessation 3. History of asthma 4. History of paroxysmal atrial fibrillation. EKG completed in emergency room showing sinus rhythm with premature supple ventricular complexes. Nonspecific T -wave abnormality. Patient was to follow-up outpatient with cardiology services to evaluate for possible anticoagulation. Patient was unable to make it to follow-up appointment. Cardiology services have been consulted 5. History of essential hypertension 6. History of GERD 7. History of osteoarthritis DVT prophylaxis Lovenox. GI prophylaxis Protonix Time with Patient: Greater than 30 (Greater than 60% of the total time spent in counseling and coordination of care. I performed an examination of the patient and discussed their management with the Nurse Practitioner. I have reviewed the Nurse Practitioner's notes and agree with the documented findings and plan of care)
[2017-11-24] MEDS: IPRATROPIUM-ALBUTEROL 3 ML NEB INHALATION PRN ×3 (06:04→19:16)
[2017-11-24 07:56] LABS: Basophils % (A) 0 %; Eosinophils % (A) 0 %; HCT 45.2 % (34.0-46.0); HGB 14.2 gm/dL (11.4-16.0); Lymphocytes # (A) 0.8 k/uL (1.0-4.8); Lymphocytes % (A) 7 %; MCHC 31.5 g/dL (31.0-37.0); MCV 95.2 fL (80.0-100.0); Mean Platelet Volume 6.8; Monocytes # (A) 0.6 k/uL (0-1.0); Monocytes % (A) 5 %; Neutrophils # (A) 10.4 k/uL (1.3-7.7); Neutrophils % (A) 88 %; Platelet Count 161 k/uL (150-450); RBC 4.75 m/uL (3.80-5.40); RDW 13.3 % (11.5-15.5); WBC 11.8 k/uL (3.8-10.6)
[2017-11-24] MEDS: DILTIAZEM CD 180 MG CAP.ER.24H PO SCH (08:04)
[2017-11-24] MEDS: predniSONE 20 MG TAB PO SCH (08:04)
[2017-11-24] MEDS: PANTOPRAZOLE 40 MG TABLET PO SCH (08:04)
[2017-11-24] MEDS: NICOTINE 14MG/24HR PATCH TRANSDERM SCH (08:04)
[2017-11-24 08:08] LABS: ALT 35 U/L (9-52); AST 19 U/L (14-36); Albumin 2.9 g/dL (3.5-5.0); Alkaline Phosphatase 60 U/L (38-126); Anion Gap 4 mmol/L; Blood Urea Nitrogen 29 mg/dL (7-17); Calcium 8.5 mg/dL (8.4-10.2); Carbon Dioxide 33 mmol/L (22-30); Chloride 104 mmol/L (98-107); Glucose 90 mg/dL (74-99); Potassium 4.1 mmol/L (3.5-5.1); Sodium 141 mmol/L (137-145); Total Bilirubin 0.5 mg/dL (0.2-1.3); Total Protein 5.1 g/dL (6.3-8.2)
[2017-11-24] MEDS ORDERED: ENOXAPARIN 40 MG/0.4 ML SYRINGE SQ SCH (09:00)
[2017-11-24] MEDS ORDERED: RX INFO: IV CONTRAST WAS GIVEN 1 EACH MISC MISCELLANE PRN (09:00)
--- NOTE | 2017-11-24 09:43 | P.CONS ---
History of Present Illness - Reason for Consult Consult date: 11/24/17 lung adenocarcinoma Requesting physician: Jo-Ann Garcia - Chief Complaint ZHANG,cough - History of Present Illness Mrs. Cervantes is a very pleasant female pt of Dr. Arellano with newly diagnosed metastatic adenocarcinoma of the lung. She was found to have adenopathy and a parapharyngeal mass in February of this year. PET revealed avid lesions and pt states that she was told that this would be "watched" with follow up in 6 months or so. There is a soft tissue neck CT scan that discusses RUL spiculated nodule and paraesophageal mass. 10/08/17 FN biopsy path positive adenocarcinoma consistent with pulmonary etiology. She was referred to Dr. Bustamante Cardiothoracic surgery for biopsy of the suspicious adenopathy to determine if disease was metastatic, if it was not metastatic then surgery would be an option. She was scheduled for the biopsy but ended up being admitted to [facility] with SOB, she had right pleural effusion that was drained 11/13/17, unfortunately positive for adenocarcinoma, fluid has been sent for biomarker testing, results pending, f/u with Dr. Arellano this Thursday for discussion about treatment options. Pt was at home, she had progressive cough and SOB which has brought her back to the hospital for treatment. CXR is showing increasing pleural effusion on the right, rather rapid recurrence. Denied fever, vomiting, hemoptysis, acute changes in bowel or bladder habits, swelling, or pain. Review of Systems 14 point ROS is negative except as stated in HPI Past Medical History Past Medical History: Asthma, Cancer, GERD/Reflux, Hypertension, Osteoarthritis (OA), Pneumonia Additional Past Medical History / Comment(s): hx palpitations, hemorroids , sinus infections, current URI (on current rx for), hx diverticulitis, occ stress incont, shingles 2013, past sbo, "several abd hernia (sx). History of Any Multi-Drug Resistant Organisms: None Reported Past Surgical History: Adenoidectomy, Bowel Resection, Heart Catheterization, Hernia Repair, Tonsillectomy Additional Past Surgical History / Comment(s): Per patient some type of clip surgery in the heart by Dr. Akers in 2011, bowel resection with colostomy/ later reversed, D&C,1 ovary removed, long cataracts, "lung biopsy,pt stated still needs more bx" Past Anesthesia/Blood Transfusion Reactions: No Reported Reaction Additional Past Anesthesia/Blood Transfusion Reaction / Comm: blood transfusion inpast- no reaction to it Past Psychological History: No Psychological Hx Reported Smoking Status: Current every day smoker Past Alcohol Use History: Unable to Obtain Past Drug Use History: None Reported - Past Family History Mother Family Medical History: Congestive Heart Failure (CHF) Additional Family Medical History / Comment(s): heart problems, heart failure age 88 Father Family Medical History: Myocardial Infarction ([place]) Additional Family Medical History / Comment(s): tb when young, from [place] Son(s) Family Medical History: No Reported History Medications and Allergies Home Medications Medication Instructions Recorded Confirmed Type Omeprazole [PriLOSEC] 20 mg PO AC-BRKFST 12/17/13 11/23/17 History Acetaminophen Tab [Tylenol] 325 mg PO Q6H PRN 10/01/17 11/23/17 History Albuterol Inhaler [Ventolin Hfa 1 - 2 puff INHALATION QID PRN 11/05/17 11/23/17 History Inhaler] Diltiazem Cd [Cardizem CD] 180 mg PO DAILY #30 cap.er.24h 11/17/17 11/23/17 Rx Albuterol Nebulized [Ventolin 2.5 mg INHALATION RT-Q6H 11/23/17 11/23/17 History Nebulized] predniSONE See Taper PO DIRECTED 11/23/17 11/23/17 History Allergies Allergy/AdvReac Type Severity Reaction Status Date / Time Penicillins Allergy Severe Diarrhea Verified 11/23/17 06:30 Physical Exam Vitals: Vital Signs Temp Pulse Pulse Resp BP BP Pulse Ox 11/24/17 07:26 104 H 17 11/24/17 07:22 98.2 F 104 H 17 147/82 95 11/24/17 06:17 96 11/24/17 06:04 88 11/24/17 05:00 97.6 F 101 H 16 149/92 90 L 11/24/17 00:00 16 11/23/17 21:05 90 11/23/17 21:00 98.2 F 86 16 135/85 91 L 11/23/17 20:49 92 95 11/23/17 18:12 98.2 F 82 22 142/91 91 L 11/23/17 17:00 101 H 15 158/94 11/23/17 16:00 98 22 145/101 93 L 11/23/17 15:00 96 10 L 145/99 94 L 11/23/17 14:00 96 20 143/78 96 11/23/17 13:57 93 11/23/17 13:42 94 11/23/17 11:00 90 34 H 136/84 11/23/17 10:50 85 19 136/84 11/23/17 10:40 85 21 136/84 11/23/17 10:30 90 35 H 136/84 11/23/17 10:20 93 25 H 136/84 11/23/17 10:10 93 18 136/84 95 11/23/17 10:00 95 23 136/84 96 11/23/17 09:50 94 24 136/84 94 L 11/23/17 09:40 93 32 H 136/84 93 L 11/23/17 09:30 93 39 H 95 11/23/17 09:20 91 14 136/84 94 L Intake and Output 11/23/17 11/24/17 11/24/17 22:59 06:59 14:59 Intake Total 480 590 Balance 480 590 Intake: Oral 480 590 Other: Voiding Method Toilet # Voids 1 3 Weight 65 kg - Constitutional General appearance: average body habitus, cooperative, mild distress - EENT Eyes: anicteric sclerae, EOMI, normal appearance ENT: hearing grossly normal, normal oropharynx - Neck Neck: no lymphadenopathy - Respiratory Respiratory: bilateral: rhonchi - Cardiovascular Rhythm: regular Heart sounds: normal: S1, S2 Abnormal Heart Sounds: no systolic murmur, no diastolic murmur, no rub, no S3 Gallop, no S4 Gallop, no click, no other leg Peripheral Edema: bilateral: None - Gastrointestinal General gastrointestinal: no absent bowel sounds, no decreased bowel sounds, no distended, no hepatomegaly, no hyperactive bowel sounds, normal bowel sounds, no organomegaly, no rigid, no scaphoid, soft, no splenomegaly, no tenderness, no umbilical hernia, no ventral hernia - Integumentary Integumentary: normal - Neurologic Neurologic: CNII-XII intact - Musculoskeletal Musculoskeletal: generalized weakness, strength equal bilaterally - Psychiatric Psychiatric: A&O x's 3, appropriate affect, intact judgment & insight Results CBC & Chem 7: 11/24/17 07:01 11/24/17 07:01 Labs: Abnormal Lab Results - Last 24 Hours (Table) 11/24/17 11/24/17 Range/Units 07:01 07:01 WBC 11.8 H (3.8-10.6) k/uL Neutrophils # 10.4 H (1.3-7.7) k/uL Lymphocytes # 0.8 L (1.0-4.8) k/uL Carbon Dioxide 33 H (22-30) mmol/L BUN 29 H (7-17) mg/dL Creatinine 0.49 L (0.52-1.04) mg/dL Total Protein 5.1 L (6.3-8.2) g/dL Albumin 2.9 L (3.5-5.0) g/dL Chest x-ray: report reviewed Assessment and Plan (1) Primary lung adenocarcinoma Narrative/Plan: Dr. Wong reviewed with pt diagnosis of metastatic lung cancer, stage IV, the disease is not curable but treatable. Surgery is not an option with spread disease as it does not improve survival or outcomes. All of pt questions were answered. Biomarker testing is pending for targeted agents and immunotherapy options. CT brain ordered to complete staging F/U appt in chart Current Visit: Yes Status: Acute Priority: High Code(s): C34.90 - MALIGNANT NEOPLASM OF UNSP PART OF UNSP BRONCHUS OR LUNG SNOMED Code(s): 654841973 (2) Malignant pleural effusion Narrative/Plan: Pulmonary following. Until pt starts some type of therapy her effusion will persist. She did have rather rapid recurrence-last thoracentesis was 6 days ago. Option could be for a temporary pleurex drain for management until treatment can be started and reduce disease burden and fluid collection. Will defer to Pulmonary for evaluation and await their recommendations. Current Visit: Yes Status: Acute Priority: High Code(s): J91.0 - MALIGNANT PLEURAL EFFUSION SNOMED Code(s): 24538629 Plan: Attests: I have performed H&P and developed impression and plan of patient , discussed with dictator. I agree with dictated note, documented as a scribe.
--- NOTE | 2017-11-24 10:27 | P.CNPUL ---
History of Present Illness Consult date: 11/24/17 Reason for consult: dyspnea, cough, chest pain, COPD, hypoxemia, pleural effusion, abnormal CXR/CT Chief complaint: Shortness of breath History of present illness: Pulmonary consult dated 11/24/2017 76-year-old female with a diagnosis of advanced non-small cell lung cancer. She has adenocarcinoma. She had a recent thoracentesis tomorrow my partner which was positive for adenocarcinoma. The patient is being seen by number physicians including oncology. The patient has a recurrent right-sided effusion and came to the hospital with complaints of shortness of breath. Going on for a couple days prior to admission. It is not responding to breathing treatments. For that reason, she was evaluated and admitted. When asked thoracic surgery to see her and consider placing a Pleurx catheter. I think this would be appropriate and better than therapeutic thoracentesis down the road. The patient will be able to manage the Pleurx catheter. Again her primary complaint is shortness of breath. It's better at rest and worse with exertion. In addition to stage IV adenocarcinoma of the lung, the patient has a history of COPD/asthma, gastroesophageal reflux disease, hypertension, pneumonia, and osteoarthritis. The patient is coughing up some phlegm and likely would benefit some from some oral antibiotic. Review of Systems A 14 point review of system is positive for shortness of breath and cough with phlegm production. No significant pain is appreciated by the patient. No fever or chills. Not coughing up any blood. Past Medical History Past Medical History: Asthma, Cancer, GERD/Reflux, Hypertension, Osteoarthritis (OA), Pneumonia Additional Past Medical History / Comment(s): hx palpitations, hemorroids , sinus infections, current URI (on current rx for), hx diverticulitis, occ stress incont, shingles 2013, past sbo, "several abd hernia (sx). History of Any Multi-Drug Resistant Organisms: None Reported Past Surgical History: Adenoidectomy, Bowel Resection, Heart Catheterization, Hernia Repair, Tonsillectomy Additional Past Surgical History / Comment(s): Per patient some type of clip surgery in the heart by Dr. Akers in 2011, bowel resection with colostomy/ later reversed, D&C,1 ovary removed, long cataracts, "lung biopsy,pt stated still needs more bx" Past Anesthesia/Blood Transfusion Reactions: No Reported Reaction Additional Past Anesthesia/Blood Transfusion Reaction / Comment(s): blood transfusion inpast- no reaction to it Past Psychological History: No Psychological Hx Reported Smoking Status: Current every day smoker Past Alcohol Use History: Unable to Obtain Past Drug Use History: None Reported - Past Family History Mother Family Medical History: Congestive Heart Failure (CHF) Additional Family Medical History / Comment(s): heart problems, heart failure age 88 Father Family Medical History: Myocardial Infarction ([place]) Additional Family Medical History / Comment(s): tb when young, from [place] Son(s) Family Medical History: No Reported History Medications and Allergies Home Medications Medication Instructions Recorded Confirmed Type Omeprazole [PriLOSEC] 20 mg PO AC-BRKFST 12/17/13 11/23/17 History Acetaminophen Tab [Tylenol] 325 mg PO Q6H PRN 10/01/17 11/23/17 History Albuterol Inhaler [Ventolin Hfa 1 - 2 puff INHALATION QID PRN 11/05/17 11/23/17 History Inhaler] Diltiazem Cd [Cardizem CD] 180 mg PO DAILY #30 cap.er.24h 11/17/17 11/23/17 Rx Albuterol Nebulized [Ventolin 2.5 mg INHALATION RT-Q6H 11/23/17 11/23/17 History Nebulized] predniSONE See Taper PO DIRECTED 11/23/17 11/23/17 History Allergies Allergy/AdvReac Type Severity Reaction Status Date / Time Penicillins Allergy Severe Diarrhea Verified 11/23/17 06:30 Physical Exam Osteopathic Statement: *. No significant issues noted on an osteopathic structural exam other than those noted in the History and Physical/Consult. Vitals: Vital Signs Temp Pulse Pulse Resp BP BP Pulse Ox 11/24/17 07:26 104 H 17 11/24/17 07:22 98.2 F 104 H 17 147/82 95 11/24/17 06:17 96 11/24/17 06:04 88 11/24/17 05:00 97.6 F 101 H 16 149/92 90 L 11/24/17 00:00 16 11/23/17 21:05 90 11/23/17 21:00 98.2 F 86 16 135/85 91 L 11/23/17 20:49 92 95 11/23/17 18:12 98.2 F 82 22 142/91 91 L 11/23/17 17:00 101 H 15 158/94 11/23/17 16:00 98 22 145/101 93 L 11/23/17 15:00 96 10 L 145/99 94 L 11/23/17 14:00 96 20 143/78 96 11/23/17 13:57 93 11/23/17 13:42 94 11/23/17 11:00 90 34 H 136/84 11/23/17 10:50 85 19 136/84 11/23/17 10:40 85 21 136/84 11/23/17 10:30 90 35 H 136/84 11/23/17 10:20 93 25 H 136/84 Intake and Output 11/23/17 11/24/17 11/24/17 22:59 06:59 14:59 Intake Total 480 590 Balance 480 590 Intake: Oral 480 590 Other: Voiding Method Toilet # Voids 1 3 Weight 65 kg No acute distress, oriented 3. No jean pierre respiratory distress. HEENT examination is grossly unremarkable. Mucous membranes are moist. No oral lesions. Neck supple. Full range of motion. No adenopathy thyromegaly or neck vein distention. Cardiovascular examination reveals regular rhythm rate. S1-S2 normal. No S3 or S4. No discernible murmur noted. Lungs reveal coarse bilateral rhonchi. There are some expiratory wheezes. Breath sounds diminished at the right base. There is some dullness at the right base. There is prolongation on forced maneuver. Abdomen soft bowel sounds are heard. No masses or tenderness. Extremities are intact. No cyanosis clubbing or edema. Skin is without rash or lesion. Neurologic examination is brief but nonfocal. Results - Laboratory Findings CBC and BMP: 11/24/17 07:01 11/24/17 07:01 PT/INR, D-dimer PT 9.9 sec (9.0-12.0) 11/23/17 07:09 INR 1.0 (<1.2) 11/23/17 07:09 Abnormal lab findings: Abnormal Labs 11/23/17 11/23/17 11/23/17 07:09 07:09 07:09 WBC 14.6 H Neutrophils # 13.0 H Lymphocytes # 0.7 L APTT 20.1 L Carbon Dioxide 32 H BUN 29 H Creatinine 0.46 L Total Protein 5.2 L Albumin 2.9 L 11/24/17 11/24/17 07:01 07:01 WBC 11.8 H Neutrophils # 10.4 H Lymphocytes # 0.8 L APTT Carbon Dioxide 33 H BUN 29 H Creatinine 0.49 L Total Protein 5.1 L Albumin 2.9 L - Diagnostic Findings Chest x-ray: report reviewed, image reviewed (Chest x-ray, labs and medications are reviewed.) Assessment and Plan Assessment: Assessment Stage IV non-small cell lung cancer/adenocarcinoma, with recurrent malignant pleural effusion and recent previous thoracentesis History of COPD Gastroesophageal reflux disease by history History of hypertension Previous history of pneumonia History of osteoarthritis. Plan: Plan dated 11/24/2017 X-rays, medications and labs are reviewed. The patient be placed on bronchodilators. In addition we'll give her some antibiotics. We will consult thoracic surgery for consideration of placement of a Pleurx catheter to manage her malignant recurrent right-sided effusion. Oncology has seen her. Genetic markers will be ordered to see if she'll be a candidate for targeted or immune therapy for her lung cancer. Overall prognosis remains guarded. We'll continue to follow. We explained to the patient today the benefit of Pleurx catheter placement versus repeated thoracentesis. She understands and would be able to take care of the catheter. Time with Patient: Greater than 30
[2017-11-24] MEDS: ACETAMINOPHEN TAB 325 MG TAB PO PRN (10:45)
--- NOTE | 2017-11-24 10:57 | P.PN ---
Subjective Progress Note Date: 11/24/17 This is 76-year-old female patient of Dr. Baptiste. Patient presented to the emergency room with complaints of increasing shortness of breath that has been increasing over the past few days. Patient recently discharged on 11/17/2017. At that time patient was DC'd home with steroid Dosepak. During admission patient also received thoracentesis per pulmonary services. Patient has had a recent diagnosis of pulmonary adenocarcinoma. Pleural fluid cytology from thoracentesis showing essentially identical to those observed in the patient's previous right lung mass aspiration and are consistent with adenocarcinoma of the primary lung origin. Patient has not started treatment for her lung cancer. Additional medical history includes asthma, GERD, hypertension, osteoarthritis and smoker. Chest x-ray completed emergency room showing increasing, non-small to moderate sized right pleural effusion with adjacent atelectasis and/or consolidation. Some patchy changes in the right midlung probably related to patient's known underlying malignancy. Patient was given 60 mg of prednisone upon arrival to emergency room. Home dose of prednisone [address] Darnell consulted for pulmonary services. Dr. Wong consulted for oncology. Patient also history of atrial fibrillation during last admission. Patient was not started on anticoagulation at that time due to possible biopsy procedure. EKG completed emergency room showing sinus rhythm with premature supraventricular complexes and nonspecific T-wave abnormality. Cardiology services have been consulted. Patient currently on albuterol breathing treatments. At this time patient states shortness of breath has significantly improved. Patient denies chest pain. Patient denies nausea vomiting or diarrhea. Patient denies any urinary burning or frequency. On 11/24/2017 patient is currently alert and oriented 3. Patient is currently resting comfortably in bed. Patient does complain of some shortness of breath. Patient denies chest pain. Patient denies any urinary burning or frequency. Patient denies nausea vomiting or diarrhea. Objective - Vital Signs Vital signs: Vital Signs Temp 98.2 F 11/24/17 07:22 Pulse 104 H 11/24/17 07:26 Resp 17 11/24/17 07:26 BP 147/82 11/24/17 07:22 Pulse Ox 95 11/24/17 07:22 Intake & Output 11/23/17 11/24/17 11/24/17 18:59 06:59 18:59 Intake Total 1070 Balance 1070 Weight 65 kg Intake: Oral 1070 Other: Voiding Method Toilet # Voids 3 - Exam Head normocephalic Neck supple Lungs diminished throughout Heart regular rate and rhythm S1-S2, no rub or gallop Abdomen is soft nontender nondistended positive bowel sounds no hepatosplenomegaly Extremities +1 peripheral edema Neuro alert and orientated to 3 - Labs CBC & Chem 7: 11/24/17 07:01 11/24/17 07:01 Labs: Abnormal Lab Results - Last 24 Hours (Table) 11/24/17 11/24/17 Range/Units 07:01 07:01 WBC 11.8 H (3.8-10.6) k/uL Neutrophils # 10.4 H (1.3-7.7) k/uL Lymphocytes # 0.8 L (1.0-4.8) k/uL Carbon Dioxide 33 H (22-30) mmol/L BUN 29 H (7-17) mg/dL Creatinine 0.49 L (0.52-1.04) mg/dL Total Protein 5.1 L (6.3-8.2) g/dL Albumin 2.9 L (3.5-5.0) g/dL Assessment and Plan Assessment: 1. Dyspnea. Patient has recent diagnosis of pulmonary adenocarcinoma. Cytology from pleural fluid showing essentially identical to those observed in the patient's previous right lung mass aspirate, and are consistent with adenocarcinoma of the primary lung origin. Chest x-ray completed showing increasing, [id number]-moderate size right pleural effusion with adjacent atelectasis and/or consolidation. Some patchy changes of the right midlung probably relates the patient's known underlying malignancy. Per pulmonary services patient started on bronchodilators along with antibiotics. Thoracic surgery consulted for consideration of placement of a Pleurx catheter to manage her malignant recurrent right-sided effusion. Patient started on Bactrim. Sputum culture ordered. 2. Stage IV non-small cell Lung adenocarcinoma. Biomarker testing is pending. CT of brain has been ordered to complete staging. patient to follow- up outpatient with oncology services. 3. Nicotine dependence. Patient has a 60+ year smoking history nicotine patches have been ordered. Patient educated greater than 3 minutes on smoking cessation 4. History of asthma 5. History of paroxysmal atrial fibrillation. EKG completed in emergency room showing sinus rhythm with premature supple ventricular complexes. Nonspecific T -wave abnormality. Patient was to follow-up outpatient with cardiology services to evaluate for possible anticoagulation. Patient was unable to make it to follow-up appointment. Cardiology services have been consulted. Orders for cardiac telemetry monitoring 6. History of essential hypertension 7. History of GERD 8. History of osteoarthritis 9. History of COPD DVT prophylaxis SCDs. Lovenox has been discontinued due to chest tube placement per pulmonary team. GI prophylaxis Protonix I performed an examination of the patient and discussed their management with the Nurse Practitioner. I have reviewed the Nurse Practitioner's notes and agree with the documented findings and plan of care
--- NOTE | 2017-11-24 12:24 | CT ---
EXAMINATION TYPE: CT brain w con DATE OF EXAM: 11/24/2017 COMPARISON: None HISTORY: Mets CT DLP: 1082 mGycm Automated exposure control for dose reduction was used. Helical imaging through the brain following i ntravenous contrast. CONTRAST: CT scan of the head is performed with IV Contrast, patient injected with 100 mL of Isovue 300. FINDINGS: There is no abnormal enhancing mass or midline shift identified. Periventricular white matter shows patchy low attenuation. Cortical atrophy is likely age-related. The ventricles and sulci are within n ormal limits in size. The globes are intact and the visualized sinuses are clear. IMPRESSION: Age-related atrophy and chronic small vessel ischemic changes. No evident mass.
--- NOTE | 2017-11-24 14:15 | P.CRDCN ---
History of Present Illness History of present illness: Mrs. Cervantes is a pleasant 76-year-old female past medical history significant for adenocarcinoma, paroxysmal atrial fibrillation diagnosed on previous admission not initiated on fdc anticoagulation secondary to needed a lung biopsy, COPD, history of SVT s/p ablation 2010, hypertension and GERD. She follows with Dr. Akers in the office. We have been asked to see her in consultation for history of atrial fibrillation. On previous admission earlier this month she was going in and out of atrial fibrillation. Anti- coagulation was deferred at that time to be handled as an outpatient due to the fact there was a question regarding her requiring further biopsies. She didn't have a biopsy however she had a thoracentesis and fluid was send for pathology and was positive for adenocarcinoma. She came to the hospital yesterday with complaints of increasing shortness of breath since being discharged home. Her shortness of breath is constant with exertion and with rest. She also discusses multiple stressful situations at home that are causing her anxiety and stress. She denies chest pain, palpitations or dizziness. Chest xray on admission shows again increasing small-moderate right pleural effusion with atelectasis and consolidation with patchy changes in the right mid-lung related to underlying malignancy. She has been seen by pulmonary services and they are recommended CT surgery consult for placement of Pleurx drainage system. She is also feeling weak and is considering rehab placement upon discharge. EKG and telemetry tracings indicate sinus mechanism with no arrhythmia or abnormality noted. Laboratory data reviewed, WBC 11.8, hemoglobin 14.2, platelets 161, sodium 141, potassium 4.1, creatinine 0.49, cardiac enzymes negative 1, NT proBNP 884. Current cardiac medications include diltiazem 180 mg daily. Most recent echocardiogram 11/16 reveals preserved left ventricular systolic function with ejection fraction 60-65%, mild MR and mild TR. At the time of my exam: CONSTITUTIONAL: Denies fever. Denies chills. EYES: Denies blurred vision. Denies vision changes. Denies eye pain. EARS, NOSE, MOUTH & THROAT: Denies headache. Denies sore throat. Denies ear pain. CARDIOVASCULAR: Denies chest pain. Complains of shortness of breath. Denies orthopnea. Denies PND. Denies palpitations. RESPIRATORY: Complains of cough. GASTROINTESTINAL: Denies abdominal pain. Denies diarrhea. Denies constipation. Denies nausea. Denies vomiting. MUSCULOSKELETAL: Denies myalgias. INTEGUMENTARY: Denies pruitis. Denies rash. NEUROLOGIC: Denies numbness. Denies tingling. Denies weakness. PSYCHIATRIC: Denies anxiety. Denies depression. ENDOCRINE: Denies fatigue. Denies weight change. Denies polydipsia. Denies polyurina. GENITOURINARY: Denies burning, hematuria or urgency with micturation. HEMATOLOGIC: Denies history of anemia. Denies bleeding. Blood pressure 122/74 heart rate 88 afebrile maintaining oxygen saturation on nasal cannula GENERAL: This is a 76-year-old female in no apparent distress at the time of my examination. HEENT: Head is atraumatic, normocephalic. Pupils are equal, round. Sclerae anicteric. Conjunctivae are clear. Mucous membranes of the mouth are moist. Neck is supple. There is no jugular venous distention. No carotid bruit is heard. LUNGS: Coarse rhonchi worse on the right with faint expiratory wheeze noted intermittently, no rales. No chest wall tenderness is noted on palpation or with deep breathing. HEART: Regular rate and rhythm without murmurs, rubs or gallops. S1 and S2 heard. ABDOMEN: Soft, nontender. Bowel sounds are heard. No organomegaly noted. EXTREMITIES: No evidence of peripheral edema and no calf tenderness noted. VASCULAR: Radial and dorsalis pedis pulses palpated, no evidence of clubbing. NEUROLOGIC: Patient is awake, alert and oriented x3. ASSESSMENT Stage IV non-small cell lung cancer/adenocarcinoma with recurrent malignant pleural effusion and recent thoracentesis Paroxysmal atrial fibrillation not on tank terminal gauger anticoagulation currently maintaining sinus mechanism COPD Hypertension PLAN We will continue to defer anticoagulation at this time due to possibility of Pleurx catheter placement. Once procedure is complete and she remains hemodynamically stable Eliquis 5 mg BID can be started. Follow up with Dr. Akers upon discharge. Nurse Practitioner note has been reviewed, I agree with a documented findings and plan of care. Patient was seen and examined. Past Medical History Past Medical History: Asthma, Cancer, GERD/Reflux, Hypertension, Osteoarthritis (OA), Pneumonia Additional Past Medical History / Comment(s): hx palpitations, hemorroids , sinus infections, current URI (on current rx for), hx diverticulitis, occ stress incont, shingles 2014, past sbo, "several abd hernia (sx). History of Any Multi-Drug Resistant Organisms: None Reported Past Surgical History: Adenoidectomy, Bowel Resection, Heart Catheterization, Hernia Repair, Tonsillectomy Additional Past Surgical History / Comment(s): Per patient some type of clip surgery in the heart by Dr. Akers in 2012, bowel resection with colostomy/ later reversed, D&C,1 ovary removed, long cataracts, "lung biopsy,pt stated still needs more bx" Past Anesthesia/Blood Transfusion Reactions: No Reported Reaction Additional Past Anesthesia/Blood Transfusion Reaction / Comment(s): blood transfusion inpast- no reaction to it Past Psychological History: No Psychological Hx Reported Smoking Status: Current every day smoker Past Alcohol Use History: Unable to Obtain Past Drug Use History: None Reported - Past Family History Mother Family Medical History: Congestive Heart Failure (CHF) Additional Family Medical History / Comment(s): heart problems, heart failure age 88 Father Family Medical History: Myocardial Infarction ([place]) Additional Family Medical History / Comment(s): tb when young, from [place] Son(s) Family Medical History: No Reported History Medications and Allergies Home Medications Medication Instructions Recorded Confirmed Type Omeprazole [PriLOSEC] 20 mg PO AC-BRKFST 12/17/13 11/23/17 History Acetaminophen Tab [Tylenol] 325 mg PO Q6H PRN 10/01/17 11/23/17 History Albuterol Inhaler [Ventolin Hfa 1 - 2 puff INHALATION QID PRN 11/05/17 11/23/17 History Inhaler] Diltiazem Cd [Cardizem CD] 180 mg PO DAILY #30 cap.er.24h 11/17/17 11/23/17 Rx Albuterol Nebulized [Ventolin 2.5 mg INHALATION RT-Q6H 11/23/17 11/23/17 History Nebulized] predniSONE See Taper PO DIRECTED 11/23/17 11/23/17 History Allergies Allergy/AdvReac Type Severity Reaction Status Date / Time Penicillins Allergy Severe Diarrhea Verified 11/23/17 06:30 Physical Exam Vitals: Vital Signs Temp Pulse Pulse Resp BP BP Pulse Ox 11/24/17 12:14 98.3 F 88 18 122/74 95 11/24/17 12:10 88 16 10/16/18 11:57 85 16 11/24/17 11:29 98.3 F 88 18 11/24/17 07:26 104 H 17 11/24/17 07:22 98.2 F 104 H 17 147/82 95 11/24/17 06:17 96 11/24/17 06:04 88 11/24/17 05:00 97.6 F 101 H 16 149/92 90 L 11/24/17 00:00 16 11/23/17 21:05 90 11/23/17 21:00 98.2 F 86 16 135/85 91 L 11/23/17 20:49 92 95 11/23/17 18:12 98.2 F 82 22 142/91 91 L 11/23/17 17:00 101 H 15 158/94 11/23/17 16:00 98 22 145/101 93 L 11/23/17 15:00 96 10 L 145/99 94 L 11/23/17 14:00 96 20 143/78 96 11/23/17 13:57 93 11/23/17 13:42 94 Intake and Output 11/23/17 11/24/17 11/24/17 22:59 06:59 14:59 Intake Total 480 590 Balance 480 590 Intake: Oral 480 590 Other: Voiding Method Toilet # Voids 1 3 Weight 65 kg Results 11/24/17 07:01 11/24/17 07:01 Cardiac Enzymes 11/24/17 Range/Units 07:01 AST 19 (14-36) U/L CBC 11/24/17 Range/Units 07:01 WBC 11.8 H (3.8-10.6) k/uL RBC 4.75 (3.80-5.40) m/uL Hgb 14.2 (11.4-16.0) gm/dL Hct 45.2 (34.0-46.0) % Plt Count 161 (150-450) k/uL Comprehensive Metabolic Panel 11/24/17 Range/Units 07:01 Sodium 141 (137-145) mmol/L Potassium 4.1 (3.5-5.1) mmol/L Chloride 104 (98-107) mmol/L Carbon Dioxide 33 H (22-30) mmol/L BUN 29 H (7-17) mg/dL Creatinine 0.49 L (0.52-1.04) mg/dL Glucose 90 (74-99) mg/dL Calcium 8.5 (8.4-10.2) mg/dL AST 19 (14-36) U/L ALT 35 (9-52) U/L Alkaline Phosphatase 60 (38-126) U/L Total Protein 5.1 L (6.3-8.2) g/dL Albumin 2.9 L (3.5-5.0) g/dL Current Medications Generic Name Dose Route Start Last Admin Trade Name Freq PRN Reason Stop Dose Admin Acetaminophen 650 mg 11/24/17 09:51 11/24/17 10:45 Tylenol Tab PO 650 mg Q6HR PRN Administration Fever and/ or Pain Albuterol/Ipratropium 3 ml 11/23/17 08:17 11/24/17 11:57 Duoneb 0.5 Mg-3 Mg/3 Ml Soln INHALATION 3 ml RT-Q4H PRN Administration Shortness Of Breath Or Wheezing Budesonide/Formoterol Fumarate 2 puff 11/24/17 20:00 Symbicort 160-4.5 Mcg Inhaler INHALATION RT-BID ADRIANA Diltiazem HCl 180 mg 11/24/17 09:00 11/24/17 08:04 Cardizem Cd PO 180 mg DAILY ADRIANA Administration Miscellaneous Information 1 each 11/24/17 09:00 Rx Info: Iv Contrast Was Given MISCELLANE 11/26/17 09:01 DAILY PRN Per Protocol Nicotine 1 patch 11/24/17 09:00 11/24/17 08:04 Habitrol 14mg/24hr Patch TRANSDERM 1 patch DAILY ADRIANA Administration Pantoprazole Sodium 40 mg 11/24/17 07:30 11/24/17 08:04 Protonix PO 40 mg AC-BRKFST ADRIANA Administration Prednisone 40 mg 11/24/17 09:00 11/24/17 08:04 PO 40 mg DAILY ADRIANA Administration Trimethoprim/Sulfamethoxazole 1 each 11/24/17 21:00 Bactrim Ds PO BID ADRIANA Intake and Output 11/23/17 11/24/17 11/24/17 22:59 06:59 14:59 Intake Total 480 590 Balance 480 590 Intake: Oral 480 590 Other: Voiding Method Toilet # Voids 1 3 Weight 65 kg 11/24/17 07:01 11/24/17 07:01
--- NOTE | 2017-11-24 16:19 | P.GSCN ---
History of Present Illness Consult date: 11/24/17 Reason for Consult: recurrentright pleural effusion, consultation for Pleurx catheter placement. Requesting physician: Garry Darnell History of present illness: this is a 76-year-old female patient who is followed by Dr. Ann alonso on an outpatient basis. Her past medical history is significant for asthma, COPD, right upper lobe pulmonarynodule with some hilar and mediastinal lymphadenopathy , current tobacco dependence, history of recent fine needle aspirate of her right upper lobe lesion which showed pulmonary adenocarcinoma, recent right pleural effusion with her thoracentesis fluid showing a positive result for metastatic adenocarcinoma of the lung, GERD, hypertension, osteoarthritis, diverticulosis with history of bowel resection with colostomy which was later reversed, stress urinary incontinence, history of shingles and pneumonia. The patient was recently hospitalized for progressive shortness of breath and was found to have a right pleural effusion. She underwent a right thoracentesis and as mentioned above the fluid was positive for adenocarcinoma non-small cell lung cancer. Subsequently she recovered and was discharged home. Over the last couple of days the patient has had complaints of progressive shortness of breath and generalized weakness.she denies any complaints of nausea, vomiting, pain, diarrhea, fever or chills. Subsequently the patient presented to the emergency department here at [facility]. A 12-lead EKG was completed which showed normal sinus rhythm heart rate 86. She also underwent a chest x-ray which demonstrated an increasing small to moderate-sized right pleural effusion with adjacent atelectasis and/or consolidation. due to the patient's recent diagnosis of metastatic adenocarcinoma of the lung and rapid recurrence of her right pleural effusion a consult was placed to cardiothoracic surgery for recommendations on possible Pleurx catheter placement. Review of Systems A 14 point review of systems was completed and was negative except as mentioned in HPI. Past Medical History Past Medical History: Asthma, Cancer, GERD/Reflux, Hypertension, Osteoarthritis (OA), Pneumonia Additional Past Medical History / Comment(s): hx palpitations, hemorroids , sinus infections, current URI (on current rx for), hx diverticulitis, occ stress incont, shingles 2013, past sbo, "several abd hernia (sx). History of Any Multi-Drug Resistant Organisms: None Reported Past Surgical History: Adenoidectomy, Bowel Resection, Heart Catheterization, Hernia Repair, Tonsillectomy Additional Past Surgical History / Comment(s): Per patient some type of clip surgery in the heart by Dr. Akers in 2012, bowel resection with colostomy/ later reversed, D&C,1 ovary removed, long cataracts, "lung biopsy,pt stated still needs more bx", right thoracentesis on 11/13/2017 with 1.5 L of fluid removed. Past Anesthesia/Blood Transfusion Reactions: No Reported Reaction Additional Past Anesthesia/Blood Transfusion Reaction / Comm: blood transfusion inpast- no reaction to it Past Psychological History: No Psychological Hx Reported Smoking Status: Current every day smoker Past Alcohol Use History: None Reported Past Drug Use History: None Reported - Past Family History Mother Family Medical History: Congestive Heart Failure (CHF) Additional Family Medical History / Comment(s): heart problems, heart failure age 88 Father Family Medical History: Myocardial Infarction ([place]) Additional Family Medical History / Comment(s): tb when young, from [place] Son(s) Family Medical History: No Reported History Medications and Allergies Home Medications Medication Instructions Recorded Confirmed Type Omeprazole [PriLOSEC] 20 mg PO AC-BRKFST 12/17/13 11/23/17 History Acetaminophen Tab [Tylenol] 325 mg PO Q6H PRN 10/01/17 11/23/17 History Albuterol Inhaler [Ventolin Hfa 1 - 2 puff INHALATION QID PRN 11/05/17 11/23/17 History Inhaler] Diltiazem Cd [Cardizem CD] 180 mg PO DAILY #30 cap.er.24h 11/17/17 11/23/17 Rx Albuterol Nebulized [Ventolin 2.5 mg INHALATION RT-Q6H 11/23/17 11/23/17 History Nebulized] predniSONE See Taper PO DIRECTED 11/23/17 11/23/17 History Allergies Allergy/AdvReac Type Severity Reaction Status Date / Time Penicillins Allergy Severe Diarrhea Verified 11/23/17 06:30 Surgical - Exam Vital Signs Temp Pulse Resp BP Pulse Ox 98.2 F 78 22 139/90 97 11/23/17 06:28 11/23/17 06:28 11/23/17 06:28 11/23/17 06:28 11/23/17 06:28 - General well developed, well nourished, no distress, no pain, chronically ill, obese - Eyes PERRL, normal ocular movement - ENT normal pinna, normal nares, normal mucosa, no hearing loss, no congestion, poor fci, dentures (Upper plate) - Neck Neck is supple, no lymphadenopathy. no masses, no bruits, trachea midline, no venous distension - Respiratory Lung sounds with expiratory wheezes throughout, diminished her bilateral bases right greater than left. Respirations are symmetrical and nonlabored. Oxygen saturation 95% on 2 L nasal cannula. Productive cough with tenacious yellow sputum. - Cardiovascular Regular rhythm and rate. S1 and S2 present, negative for S3, gallop or murmur. No edema present. - Abdomen Abdomen is soft, nontender and nondistended. Active bowel sounds all 4 abdominal quadrants. No organomegaly. No guarding or rigidity. - Genitourinary Deferred - Rectum Deferred - Integumentary no rash, no growths, no abnormal pigmentation - Neurologic normal coordination, normal sensation - Musculoskeletal Generalized weakness. normal gait, normal posture - Psychiatric oriented to time, oriented to person, oriented to place, speech is normal, memory intact Results - Labs 11/24/17 07:01 11/24/17 07:01 Abnormal Lab Results - Last 24 Hours (Table) 11/24/17 11/24/17 Range/Units 07:01 07:01 WBC 11.8 H (3.8-10.6) k/uL Neutrophils # 10.4 H (1.3-7.7) k/uL Lymphocytes # 0.8 L (1.0-4.8) k/uL Carbon Dioxide 33 H (22-30) mmol/L BUN 29 H (7-17) mg/dL Creatinine 0.49 L (0.52-1.04) mg/dL Total Protein 5.1 L (6.3-8.2) g/dL Albumin 2.9 L (3.5-5.0) g/dL Diabetes panel 11/24/17 Range/Units 07:01 Sodium 141 (137-145) mmol/L Potassium 4.1 (3.5-5.1) mmol/L Chloride 104 (98-107) mmol/L Carbon Dioxide 33 H (22-30) mmol/L BUN 29 H (7-17) mg/dL Creatinine 0.49 L (0.52-1.04) mg/dL Glucose 90 (74-99) mg/dL Calcium 8.5 (8.4-10.2) mg/dL AST 19 (14-36) U/L ALT 35 (9-52) U/L Alkaline Phosphatase 60 (38-126) U/L Total Protein 5.1 L (6.3-8.2) g/dL Albumin 2.9 L (3.5-5.0) g/dL Calcium panel 11/24/17 Range/Units 07:01 Calcium 8.5 (8.4-10.2) mg/dL Albumin 2.9 L (3.5-5.0) g/dL Pituitary panel 11/24/17 Range/Units 07:01 Sodium 141 (137-145) mmol/L Potassium 4.1 (3.5-5.1) mmol/L Chloride 104 (98-107) mmol/L Carbon Dioxide 33 H (22-30) mmol/L BUN 29 H (7-17) mg/dL Creatinine 0.49 L (0.52-1.04) mg/dL Glucose 90 (74-99) mg/dL Calcium 8.5 (8.4-10.2) mg/dL Adrenal panel 11/24/17 Range/Units 07:01 Sodium 141 (137-145) mmol/L Potassium 4.1 (3.5-5.1) mmol/L Chloride 104 (98-107) mmol/L Carbon Dioxide 33 H (22-30) mmol/L BUN 29 H (7-17) mg/dL Creatinine 0.49 L (0.52-1.04) mg/dL Glucose 90 (74-99) mg/dL Calcium 8.5 (8.4-10.2) mg/dL Total Bilirubin 0.5 (0.2-1.3) mg/dL AST 19 (14-36) U/L ALT 35 (9-52) U/L Alkaline Phosphatase 60 (38-126) U/L Total Protein 5.1 L (6.3-8.2) g/dL Albumin 2.9 L (3.5-5.0) g/dL - Imaging Chest x-ray: report reviewed, image reviewed EKG: image reviewed Assessment and Plan (1) COPD (chronic obstructive pulmonary disease) Current Visit: Yes Status: Acute Code(s): J44.9 - CHRONIC OBSTRUCTIVE PULMONARY DISEASE, UNSPECIFIED SNOMED Code(s): 89178226 (2) GERD (gastroesophageal reflux disease) Current Visit: Yes Status: Acute Code(s): K21.9 - GASTRO-ESOPHAGEAL REFLUX DISEASE WITHOUT ESOPHAGITIS SNOMED Code(s): 249647501 (3) History of osteoarthritis Current Visit: Yes Status: Acute Code(s): Z87.39 - PERSONAL HISTORY OF DISEASES OF THE MS SYS AND CONN TISS SNOMED Code(s): 165759828 (4) History of pneumonia Current Visit: Yes Status: Acute Code(s): Z87.01 - PERSONAL HISTORY OF PNEUMONIA (RECURRENT) SNOMED Code(s): 535473105 (5) Non-small cell lung cancer with metastasis Current Visit: Yes Status: Acute Code(s): C34.90 - MALIGNANT NEOPLASM OF UNSP PART OF UNSP BRONCHUS OR LUNG SNOMED Code(s): 251171949 (6) Hypoxia Current Visit: Yes Status: Acute Code(s): R09.02 - HYPOXEMIA SNOMED Code(s ): 133563423 (7) Malignant pleural effusion Current Visit: Yes Status: Acute Priority: High Code(s): J91.0 - MALIGNANT PLEURAL EFFUSION SNOMED Code(s): 20920359 (8) Pleural effusion Current Visit: Yes Status: Acute Code(s): J90 - PLEURAL EFFUSION, NOT ELSEWHERE CLASSIFIED SNOMED Code(s): 30456342 (9) Primary lung adenocarcinoma Current Visit: Yes Status: Acute Priority: High Code(s): C34.90 - MALIGNANT NEOPLASM OF UNSP PART OF UNSP BRONCHUS OR LUNG SNOMED Code(s): 187033047 (10) Tobacco dependence Current Visit: Yes Status: Acute Code(s): F17.200 - NICOTINE DEPENDENCE, UNSPECIFIED, UNCOMPLICATED SNOMED Code(s): 14831126 (11) Hypertension Current Visit: No Status: Acute Code(s): I10 - ESSENTIAL (PRIMARY) HYPERTENSION SNOMED Code(s): 41802619 Plan: The patient was seen and examined. Her chart and diagnostics were reviewed. Her case was discussed with Dr. Marcus from cardiothoracic surgery. Dr. Marcus feels that there is not sufficient enough pleural fluid to place a Pleurx catheter at this time. We will follow closely along with the patient and if her right pleural effusion progresses we will schedule the patient for a Pleurx catheter insertion. Dr. Marcus discussed this with Dr. Darnell from pulmonary medicine, Dr. Darnell will schedule the patient for an ultrasound-guided thoracentesis tomorrow 11/25/2017. Continue DVT and GI prophylaxis. Continue use of her incentive spirometry every hour while awake. Thank you Dr. Darnell for this consult and we'll look for to working with you in the care of your patient. Time with Patient: Greater than 30
[2017-11-24] MEDS: SYMBICORT 160-4.5 MCG INHALER INHALATION SCH (19:16)
[2017-11-24] MEDS: SULFAMETHOX-TMP 800-160MG 1 EACH TAB PO SCH (20:54)
[2017-11-25] MEDS: IPRATROPIUM-ALBUTEROL 3 ML NEB INHALATION PRN ×5 (03:01→20:44)
--- NOTE | 2017-11-25 07:03 | XR ---
EXAMINATION TYPE: XR chest 1V portable DATE OF EXAM: 11/25/2017 CLINICAL HISTORY: Difficulty breathing a right-sided pleural effusion progress study. TECHNIQUE: Single AP portable upright view of the chest is obtained. COMPARISON: Chest x-ray from 2 days earlier and older studies. CT from November 13, 2017 FINDINGS: Osseous structures remain demineralized. Advanced degenerative change bilateral glenohumer al joints is again seen. Cardiac silhouette size is stable and prominent but no significant cardiomeg jr is seen on recent CT, small pericardial effusion is noted. There is ectatic and atherosclerotic t horacic aorta. Retrocardiac opacity consistent with moderate size hiatal hernia is present. There is background chronic parenchymal change with worsening right hilar opacity. Left lung remains clear. IMPRESSION: Chronic parenchymal change with persistent small right pleural effusion and worsening rig ht mid and lower lung infiltrate and/or atelectasis.
[2017-11-25 07:58] LABS: Basophils % (A) 0 %; Eosinophils # (A) 0.1 k/uL (0-0.7); Eosinophils % (A) 1 %; HCT 45.5 % (34.0-46.0); HGB 14.8 gm/dL (11.4-16.0); Lymphocytes # (A) 0.7 k/uL (1.0-4.8); Lymphocytes % (A) 6 %; MCH 30.7 pg (25.0-35.0); MCHC 32.5 g/dL (31.0-37.0); MCV 94.3 fL (80.0-100.0); Monocytes # (A) 0.5 k/uL (0-1.0); Monocytes % (A) 4 %; Neutrophils # (A) 10.9 k/uL (1.3-7.7); Neutrophils % (A) 89 %; Platelet Count 157 k/uL (150-450); RBC 4.83 m/uL (3.80-5.40); RDW 13.4 % (11.5-15.5); WBC 12.3 k/uL (3.8-10.6)
[2017-11-25] MEDS: SYMBICORT 160-4.5 MCG INHALER INHALATION SCH ×2 (08:14→20:44)
[2017-11-25 08:15] LABS: ALT 33 U/L (9-52); AST 19 U/L (14-36); Albumin 3.1 g/dL (3.5-5.0); Alkaline Phosphatase 63 U/L (38-126); Anion Gap 8 mmol/L; Blood Urea Nitrogen 25 mg/dL (7-17); Calcium 8.6 mg/dL (8.4-10.2); Carbon Dioxide 30 mmol/L (22-30); Chloride 102 mmol/L (98-107); Glucose 96 mg/dL (74-99); Potassium 4.4 mmol/L (3.5-5.1); Sodium 140 mmol/L (137-145); Total Bilirubin 0.6 mg/dL (0.2-1.3); Total Protein 5.5 g/dL (6.3-8.2)
--- NOTE | 2017-11-25 08:57 | P.PN ---
Subjective Progress Note Date: 11/25/17 The patient reports increased shortness of breath for the night. She feels somewhat better this morning and is concerned that she is "filling up again". No fever/chills/nausea/vomiting. Objective - Vital Signs Vital signs: Vital Signs Temp 97.7 F 11/25/17 05:00 Pulse 94 11/25/17 08:34 Resp 16 11/25/17 07:26 BP 140/80 11/25/17 05:00 Pulse Ox 92 L 11/25/17 05:00 Intake & Output 11/24/17 11/25/17 11/25/17 18:59 06:59 18:59 Intake Total 200 Balance 200 Intake: Oral 200 Other: Voiding Method Toilet Toilet Toilet # Voids 1 - Constitutional General appearance: Present: mild distress - EENT Eyes: Present: EOMI ENT: Present: hearing grossly normal, normal oropharynx - Respiratory Respiratory: right: diminished (Lower half lung field), bilateral: wheezing - Cardiovascular Rhythm: regular Heart sounds: normal: S1, S2 - Gastrointestinal General gastrointestinal: Present: normal bowel sounds, soft - Integumentary Integumentary: Present: normal - Neurologic Neurologic: Present: CNII-XII intact - Musculoskeletal Musculoskeletal: Present: generalized weakness, strength equal bilaterally - Psychiatric Psychiatric: Present: A&O x's 3, appropriate affect - Labs CBC & Chem 7: 11/25/17 07:19 11/25/17 07:19 Labs: Abnormal Lab Results - Last 24 Hours (Table) 11/25/17 11/25/17 Range/Units 07:19 07:19 WBC 12.3 H (3.8-10.6) k/uL Neutrophils # 10.9 H (1.3-7.7) k/uL Lymphocytes # 0.7 L (1.0-4.8) k/uL BUN 25 H (7-17) mg/dL Creatinine 0.45 L (0.52-1.04) mg/dL Total Protein 5.5 L (6.3-8.2) g/dL Albumin 3.1 L (3.5-5.0) g/dL Microbiology - Last 24 Hours (Table) 11/24/17 12:45 Gram Stain - Preliminary Sputum Assessment and Plan (1) Malignant pleural effusion Narrative/Plan: The patient had some increased shortness of breath through the night. She feels slightly better this morning. The concern was for recurrent pleural effusion. While physical exam is fairly stable, chest x-ray this morning shows a small pleural effusion. Case was discussed with the CTS. At this time there are more inclined to do another thoracentesis, if needed, and hold off on a PleurX catheter placement unless the patient has rapid recurrence again. From our standpoint, it is likely to be at least 1-2 weeks, before the patient can start treatment as we are still waiting on the biomarker status. Therefore she is showing signs of rapid recurrence, from our standpoint, catheter placement would be reasonable. Current Visit: Yes Status: Acute Priority: High Code(s): J91.0 - MALIGNANT PLEURAL EFFUSION SNOMED Code(s): 35842007 (2) Acute exacerbation of chronic obstructive airways disease Narrative/Plan: The patient appears to have a different component of COPD exacerbation, as well as possible pneumonia during this admission. She is on Bactrim, as well as steroids and. Defer to pulmonary medicine for ongoing management Current Visit: Yes Status: Acute Code(s): J44.1 - CHRONIC OBSTRUCTIVE PULMONARY DISEASE W (ACUTE) EXACERBATION SNOMED Code(s): 273951324 (3) Non-small cell lung cancer with metastasis Narrative/Plan: As above. Biomarkers have been requested on the cytology specimen, and are pending. Treatment accommodations will be finalized, once those are available. If she does not have an appropriate target, then she will start chemotherapy up front. CT of the brain was performed yesterday for staging purposes, and was negative. Current Visit: Yes Status: Acute Code(s): C34.90 - MALIGNANT NEOPLASM OF UNSP PART OF UNSP BRONCHUS OR LUNG SNOMED Code(s): 822351072
[2017-11-25] MEDS: NICOTINE 14MG/24HR PATCH TRANSDERM SCH (09:51)
[2017-11-25] MEDS: predniSONE 20 MG TAB PO SCH (09:52)
[2017-11-25] MEDS: PANTOPRAZOLE 40 MG TABLET PO SCH (09:52)
[2017-11-25] MEDS: DILTIAZEM CD 180 MG CAP.ER.24H PO SCH (09:52)
[2017-11-25] MEDS: SULFAMETHOX-TMP 800-160MG 1 EACH TAB PO SCH ×2 (09:53→21:53)
--- NOTE | 2017-11-25 10:06 | US ---
EXAMINATION TYPE: US chest DATE OF EXAM: 11/25/2017 COMPARISON: Same day chest x-ray. CLINICAL HISTORY: right pleural effusion. TECHNIQUE: Targeted ultrasound of the posterior lower EXAM MEASUREMENTS: Right Pleural Effusion pocket size: 7.6 cm Right skin surface to fluid distance: 3.3 cm Right side marked for possible thoracentesis outside the dept. Pulmonologists are able to review the images in the patient?s EMR. Small to moderate-sized right pleural effusion is identified which correlates with recent chest x-ray . IMPRESSIONS: As above.
--- NOTE | 2017-11-25 11:19 | P.PN ---
Subjective Progress Note Date: 11/25/17 Principal diagnosis: Pleural effusion, metastatic lung cancer Progress note dated 11/25/2017 76-year-old female with a diagnosis of advanced stage IV non-small cell lung cancer. She has adenocarcinoma. She had a recent thoracentesis performed by my partner. The patient has recurrent right-sided pleural effusion. We asked thoracic surgery about a Pleurx catheter. They thought the effusion was too small and hence, we will do a thoracentesis today to help with her shortness of breath. She's also seeing medical oncology. Anyway, she doing relatively well today. Her birthday is today. She has a history of advanced lung cancer COPD GERD hypertension pneumonia and DJD. Objective - Vital Signs Vital signs: Vital Signs Temp 97.7 F 11/25/17 05:00 Pulse 94 11/25/17 08:34 Resp 18 11/25/17 08:00 BP 140/80 11/25/17 05:00 Pulse Ox 92 L 11/25/17 05:00 Intake & Output 11/24/17 11/25/17 11/25/17 18:59 06:59 18:59 Intake Total 200 Balance 200 Intake: Oral 200 Other: Voiding Method Toilet Toilet Toilet # Voids 1 - Exam No acute distress, oriented 3. Nasal O2 in place. HEENT examination is grossly unremarkable. Mucous membranes are moist. No oral lesions. Neck supple. Full range of motion. No adenopathy thyromegaly or neck vein distention. Cardiovascular examination reveals regular rhythm rate. S1-S2 normal. No S3 or S4. No discernible murmur noted. Lungs reveal diminished breath sounds at the right base. Some crackles at the right lung base. There are also some dullness at the right lung base. The left lung is relatively clear. Abdomen soft bowel sounds are heard. No masses or tenderness. Extremities are intact. No cyanosis clubbing or edema. Skin is without rash or lesion. Neurologic examination is brief but nonfocal. - Labs CBC & Chem 7: 11/25/17 07:19 11/25/17 07:19 Labs: Abnormal Lab Results - Last 24 Hours (Table) 11/25/17 11/25/17 Range/Units 07:19 07:19 WBC 12.3 H (3.8-10.6) k/uL Neutrophils # 10.9 H (1.3-7.7) k/uL Lymphocytes # 0.7 L (1.0-4.8) k/uL BUN 25 H (7-17) mg/dL Creatinine 0.45 L (0.52-1.04) mg/dL Total Protein 5.5 L (6.3-8.2) g/dL Albumin 3.1 L (3.5-5.0) g/dL Microbiology - Last 24 Hours (Table) 11/24/17 12:45 Gram Stain - Preliminary Sputum Assessment and Plan Assessment: Assessment Stage IV non-small cell lung cancer/adenocarcinoma, with recurrent malignant pleural effusion and recent previous thoracentesis History of COPD Gastroesophageal reflux disease by history History of hypertension Previous history of pneumonia History of osteoarthritis. Plan: Plan dated 11/24/2017 X-rays, medications and labs are reviewed. The patient be placed on bronchodilators. In addition we'll give her some antibiotics. We will consult thoracic surgery for consideration of placement of a Pleurx catheter to manage her malignant recurrent right-sided effusion. Oncology has seen her. Genetic markers will be ordered to see if she'll be a candidate for targeted or immune therapy for her lung cancer. Overall prognosis remains guarded. We'll continue to follow. We explained to the patient today the benefit of Pleurx catheter placement versus repeated thoracentesis. She understands and would be able to take care of the catheter. Plan dated 11/25/2017 We had asked thoracic surgery to consider placing a Pleurx catheter. We felt the effusion was too small. Hence, we'll do a thoracentesis today. Additional recommendations and suggestions are forthcoming. Prognosis is guarded. Genetic testing is being done on the lung cancer. She may be a candidate for targeted immunotherapy. Additional recommendations and suggestions are forthcoming. Prognosis is guarded. Time with Patient: Less than 30
[2017-11-25] MEDS ORDERED: LIDOCAINE 1% INJ 10MG/ML (20 ML MDV) INTRAPLEUR ONE (11:30)
--- NOTE | 2017-11-25 12:23 | PCN ---
PROCEDURE NOTE PROCEDURE: Right-sided thoracentesis. PREOPERATIVE DIAGNOSIS: Right pleural effusion. POSTOPERATIVE DIAGNOSIS: Right pleural effusion. A time-out was completed verifying correct patient, procedure, site, positioning, and implant or special equipment if applicable. Ultrasound guidance was used and appropriate fluid pocket was identified and marked. Patient was positioned, prepped and draped in usual sterile fashion. Lidocaine was used to anesthetize the area. A Thoracentesis catheter was introduced into the pleural space and fluid was removed. Blood loss was none. A chest x-ray was ordered to evaluate for pneumothorax. Total Fluid Removed 1 L Fluid had been previously sent, so this fluid will not be sent to the laboratory for evaluation. Patient tolerated the procedure well and there were no complications. Additional recommendations and suggestions are forthcoming. The lathe scalper operator was Dr. Darnell assisted by Ty Davis / MONO: [id number] /
--- NOTE | 2017-11-25 12:58 | XR ---
EXAMINATION TYPE: XR chest 1V portable DATE OF EXAM: 11/25/2017 CLINICAL HISTORY: Post right-sided thoracentesis. TECHNIQUE: Single AP portable upright view of the chest is obtained. COMPARISON: Chest x-ray from earlier today FINDINGS: There is interval improvement in right basilar opacity after thoracentesis. No sizable pne umothorax is identified. There is background chronic parenchymal change. Left lung remains clear. Sta ble cardiac silhouette size prominence with atherosclerotic and ectatic aorta. Advanced degenerative change bilateral shoulders is redemonstrated. IMPRESSION: Interval improvement in right-sided effusion after thoracentesis. No sizable pneumothorax . Persistent right mid and basilar infiltrate and/or atelectasis is noted.
[2017-11-25] MEDS: ACETAMINOPHEN TAB 325 MG TAB PO PRN (13:28)
--- NOTE | 2017-11-25 14:09 | P.PN ---
Subjective Progress Note Date: 11/25/17 This is 76-year-old female patient of Dr. Batpiste. Patient presented to the emergency room with complaints of increasing shortness of breath that has been increasing over the past few days. Patient recently discharged on 11/17/2017. At that time patient was DC'd home with steroid Dosepak. During admission patient also received thoracentesis per pulmonary services. Patient has had a recent diagnosis of pulmonary adenocarcinoma. Pleural fluid cytology from thoracentesis showing essentially identical to those observed in the patient's previous right lung mass aspiration and are consistent with adenocarcinoma of the primary lung origin. Patient has not started treatment for her lung cancer. Additional medical history includes asthma, GERD, hypertension, osteoarthritis and smoker. Chest x-ray completed emergency room showing increasing, non-small to moderate sized right pleural effusion with adjacent atelectasis and/or consolidation. Some patchy changes in the right midlung probably related to patient's known underlying malignancy. Patient was given 60 mg of prednisone upon arrival to emergency room. Home dose of prednisone [address] Darnell consulted for pulmonary services. Dr. Wong consulted for oncology. Patient also history of atrial fibrillation during last admission. Patient was not started on anticoagulation at that time due to possible biopsy procedure. EKG completed emergency room showing sinus rhythm with premature supraventricular complexes and nonspecific T-wave abnormality. Cardiology services have been consulted. Patient currently on albuterol breathing treatments. At this time patient states shortness of breath has significantly improved. Patient denies chest pain. Patient denies nausea vomiting or diarrhea. Patient denies any urinary burning or frequency. On 11/24/2017 patient is currently alert and oriented 3. Patient is currently resting comfortably in bed. Patient does complain of some shortness of breath. Patient denies chest pain. Patient denies any urinary burning or frequency. Patient denies nausea vomiting or diarrhea. On 11/25/2017 patient is currently alert and oriented 3. Patient to have paracentesis today per pulmonary services. At this time patient still complaining of shortness breath. She denies chest pain. Patient denies any urinary burning or frequency. Patient denies nausea vomiting or diarrhea. Objective - Vital Signs Vital signs: Vital Signs Temp 97.8 F 11/25/17 11:46 Pulse 90 11/25/17 12:36 Resp 17 11/25/17 11:46 BP 140/90 11/25/17 11:46 Pulse Ox 94 L 11/25/17 11:46 Intake & Output 11/24/17 11/25/17 11/25/17 18:59 06:59 18:59 Intake Total 200 Balance 200 Intake: Oral 200 Other: Voiding Method Toilet Toilet Toilet # Voids 1 - Exam Head normocephalic Neck supple Lungs diminished throughout Heart regular rate and rhythm S1-S2, no rub or gallop Abdomen is soft nontender nondistended positive bowel sounds no hepatosplenomegaly Extremities +1 peripheral edema Neuro alert and orientated to 3 - Labs CBC & Chem 7: 11/25/17 07:19 11/25/17 07:19 Labs: Abnormal Lab Results - Last 24 Hours (Table) 11/25/17 11/25/17 Range/Units 07:19 07:19 WBC 12.3 H (3.8-10.6) k/uL Neutrophils # 10.9 H (1.3-7.7) k/uL Lymphocytes # 0.7 L (1.0-4.8) k/uL BUN 25 H (7-17) mg/dL Creatinine 0.45 L (0.52-1.04) mg/dL Total Protein 5.5 L (6.3-8.2) g/dL Albumin 3.1 L (3.5-5.0) g/dL Microbiology - Last 24 Hours (Table) 11/24/17 12:45 Gram Stain - Preliminary Sputum Assessment and Plan Assessment: 1. Dyspnea. Patient has recent diagnosis of pulmonary adenocarcinoma. Cytology from pleural fluid showing essentially identical to those observed in the patient's previous right lung mass aspirate, and are consistent with adenocarcinoma of the primary lung origin. Chest x-ray completed showing increasing, hul-sonpo-py-moderate size right pleural effusion with adjacent atelectasis and/or consolidation. Some patchy changes of the right midlung probably relates the patient's known underlying malignancy. Per pulmonary services patient started on bronchodilators along with antibiotics. Thoracic surgery consulted for consideration of placement of a Pleurx catheter to manage her malignant recurrent right-sided effusion. Patient started on Bactrim. Sputum culture ordered. Per cardio thoracic surgery there is not sufficient enough pleural fluid to place a Pleurx catheter at this time. Patient underwent right-sided thoracentesis with pulmonary services removing 1 L of fluid. 2. Stage IV non-small cell Lung adenocarcinoma. Biomarker testing is pending. CT of brain has been ordered to complete staging. patient to follow- up outpatient with oncology services. 3. Nicotine dependence. Patient has a 60+ year smoking history. nicotine patches have been ordered. Patient educated greater than 3 minutes on smoking cessation 4. History of asthma 5. History of paroxysmal atrial fibrillation. EKG completed in emergency room showing sinus rhythm with premature supple ventricular complexes. Nonspecific T -wave abnormality. Patient was to follow-up outpatient with cardiology services to evaluate for possible anticoagulation. Patient was unable to make it to follow-up appointment. Cardiology services have been consulted. Orders for cardiac telemetry monitoring. Per cardiology services was procedures are completed and patient remains hemodynamically stable eliquis 5 mg twice a day to be started 6. History of essential hypertension 7. History of GERD 8. History of osteoarthritis 9. History of COPD DVT prophylaxis SCDs. Lovenox has been discontinued due to thoracentesis per pulmonary team. GI prophylaxis Protonix I performed an examination of the patient and discussed their management with the Nurse Practitioner. I have reviewed the Nurse Practitioner's notes and agree with the documented findings and plan of care
--- NOTE | 2017-11-25 15:06 | CDI ---
Last Revision, January 2017 Documentation Clarification Form Date: 11/25/17 From: Elena Paiz RN Admit Date: 11/23/2017 8:17:00 AM Patient Name: Leeann Cervantes Visit Number: [id number] ATTENTION: The Clinical Documentation Specialists (CDI) and [facility] Coding Staff appreciate your assistance in clarifying documentation. Please respond to the clarification below the line at the bottom and electronically sign. The CDI & [facility] Coding staff will review the response and follow-up if needed. Please note: Queries are made part of the Legal Health Record. If you have any questions, please contact the author of this message via ITS. Garry Dawson DO, Pneumonia was documented in your notes on 11/25 Pt. admitted with shortness of breath, acute exacerbation of COPD, pleural effusion, hypoxia, smoker History/Risk Factors: asthma, lung cancer, GERD, HTN, OA, pneumonia, palpitations, hemorrhoids, sinus infections, smoker Clinical Indicators: WBC on admission: 14.6 X-ray: Chronic parenchymal change with persistent small right pleural effusion and worsening right mid and lower lung infiltrate and/or Lung/Breathing assessment: ED note: wheezing in all lung hector. H&P: Lungs diminished throughout Treatment: Antibiotics: Bactrim DS PO O2 Breathing Tx: Duoneb, Symbicort In order to capture the severity of condition, please clarify if the condition signifies and you are treating for: Aspiration Pneumonia, identify if: Due to solids or liquids Bacterial Pneumonia, specify causal organism (if known) Gram Negative Pneumonia Other bacteria (please specify) Viral Pneumonia, specify casual organism (if known) Healthcare Acquired Pneumonia/Pneumonia, unspecified Other, please specify Unable to determine No suspicion for pneumonia, patient's symptoms of shortness of breath are related to recurrent malignant right-sided pleural effusion MTDD
[2017-11-26] MEDS: IPRATROPIUM-ALBUTEROL 3 ML NEB INHALATION PRN ×4 (08:20→20:45)
[2017-11-26] MEDS: SYMBICORT 160-4.5 MCG INHALER INHALATION SCH ×2 (08:20→20:45)
[2017-11-26] MEDS: predniSONE 20 MG TAB PO SCH (08:26)
[2017-11-26] MEDS: PANTOPRAZOLE 40 MG TABLET PO SCH (08:26)
[2017-11-26] MEDS: NICOTINE 14MG/24HR PATCH TRANSDERM SCH (08:26)
[2017-11-26] MEDS: DILTIAZEM CD 180 MG CAP.ER.24H PO SCH (08:26)
[2017-11-26] MEDS: SULFAMETHOX-TMP 800-160MG 1 EACH TAB PO SCH ×2 (08:26→19:49)
[2017-11-26 09:32] LABS: Basophils % (A) 0 %; Eosinophils # (A) 0.1 k/uL (0-0.7); Eosinophils % (A) 1 %; HCT 45.4 % (34.0-46.0); Lymphocytes # (A) 0.6 k/uL (1.0-4.8); Lymphocytes % (A) 5 %; MCH 31.2 pg (25.0-35.0); MCHC 33.1 g/dL (31.0-37.0); MCV 94.2 fL (80.0-100.0); Mean Platelet Volume 7.2; Monocytes # (A) 0.4 k/uL (0-1.0); Monocytes % (A) 4 %; Neutrophils # (A) 11.4 k/uL (1.3-7.7); Neutrophils % (A) 90 %; Platelet Count 142 k/uL (150-450); RBC 4.82 m/uL (3.80-5.40); RDW 13.6 % (11.5-15.5); WBC 12.6 k/uL (3.8-10.6)
[2017-11-26 09:45] LABS: ALT 29 U/L (9-52); AST 21 U/L (14-36); Albumin 3.3 g/dL (3.5-5.0); Alkaline Phosphatase 62 U/L (38-126); Anion Gap 6 mmol/L; Blood Urea Nitrogen 30 mg/dL (7-17); Calcium 8.9 mg/dL (8.4-10.2); Carbon Dioxide 29 mmol/L (22-30); Chloride 102 mmol/L (98-107); Glucose 98 mg/dL (74-99); Potassium 5.2 mmol/L (3.5-5.1); Sodium 137 mmol/L (137-145); Total Bilirubin 0.6 mg/dL (0.2-1.3); Total Protein 5.7 g/dL (6.3-8.2)
[2017-11-26] MEDS ORDERED: SODIUM POLYSTYRENE SULFONATE 15 GM/60 ML BOTTLE PO STA (12:57)
--- NOTE | 2017-11-26 13:03 | P.PN ---
Subjective Progress Note Date: 11/26/17 This is 76-year-old female patient of Dr. Baptiste. Patient presented to the emergency room with complaints of increasing shortness of breath that has been increasing over the past few days. Patient recently discharged on 11/17/2017. At that time patient was DC'd home with steroid Dosepak. During admission patient also received thoracentesis per pulmonary services. Patient has had a recent diagnosis of pulmonary adenocarcinoma. Pleural fluid cytology from thoracentesis showing essentially identical to those observed in the patient's previous right lung mass aspiration and are consistent with adenocarcinoma of the primary lung origin. Patient has not started treatment for her lung cancer. Additional medical history includes asthma, GERD, hypertension, osteoarthritis and smoker. Chest x-ray completed emergency room showing increasing, non-small to moderate sized right pleural effusion with adjacent atelectasis and/or consolidation. Some patchy changes in the right midlung probably related to patient's known underlying malignancy. Patient was given 60 mg of prednisone upon arrival to emergency room. Home dose of prednisone [address] Darnell consulted for pulmonary services. Dr. Wong consulted for oncology. Patient also history of atrial fibrillation during last admission. Patient was not started on anticoagulation at that time due to possible biopsy procedure. EKG completed emergency room showing sinus rhythm with premature supraventricular complexes and nonspecific T-wave abnormality. Cardiology services have been consulted. Patient currently on albuterol breathing treatments. At this time patient states shortness of breath has significantly improved. Patient denies chest pain. Patient denies nausea vomiting or diarrhea. Patient denies any urinary burning or frequency. On 11/24/2017 patient is currently alert and oriented 3. Patient is currently resting comfortably in bed. Patient does complain of some shortness of breath. Patient denies chest pain. Patient denies any urinary burning or frequency. Patient denies nausea vomiting or diarrhea. On 11/25/2017 patient is currently alert and oriented 3. Patient to have Thoracentesis today per pulmonary services. At this time patient still complaining of shortness breath. She denies chest pain. Patient denies any urinary burning or frequency. Patient denies nausea vomiting or diarrhea. On 11/26/2017 patient is alert and oriented x 3. Patient underwent thoracentesis yesterday with pulmonary services and had 1 L of pleural fluid removed. Patient states her breathing is much improved today. Patient planning to go to [facility] upon discharge. Discussed case with cardiology services patient does have a history of atrial fibrillation and has not been started on anticoagulation due to possible pleurex catheter placement. At this time no plans for Pleurx catheter to be placed. Okay to start eliquis per pulmonary team. Patient denies chest pain. Patient denies nausea vomiting or diarrhea. Patient denies any urinary burning or frequency Objective - Vital Signs Vital signs: Vital Signs Temp 98.0 F 11/26/17 12:06 Pulse 91 11/26/17 12:06 Resp 20 11/26/17 12:06 BP 113/76 11/26/17 12:06 Pulse Ox 94 L 11/26/17 12:06 Intake & Output 11/25/17 11/26/17 11/26/17 18:59 06:59 18:59 Intake Total 100 Balance 100 Intake: Oral 100 Other: Voiding Method Toilet Toilet Toilet # Voids 1 1 1 - Exam Head normocephalic Neck supple Lungs diminished throughout Heart regular rate and rhythm S1-S2, no rub or gallop Abdomen is soft nontender nondistended positive bowel sounds no hepatosplenomegaly Extremities +1 peripheral edema Neuro alert and orientated to 3 - Labs CBC & Chem 7: 11/26/17 08:39 11/26/17 08:39 Labs: Abnormal Lab Results - Last 24 Hours (Table) 11/26/17 11/26/17 Range/Units 08:39 08:39 WBC 12.6 H (3.8-10.6) k/uL Plt Count 142 L (150-450) k/uL Neutrophils # 11.4 H (1.3-7.7) k/uL Lymphocytes # 0.6 L (1.0-4.8) k/uL Potassium 5.2 H (3.5-5.1) mmol/L BUN 30 H (7-17) mg/dL Creatinine 0.48 L (0.52-1.04) mg/dL Total Protein 5.7 L (6.3-8.2) g/dL Albumin 3.3 L (3.5-5.0) g/dL Assessment and Plan Assessment: 1. Dyspnea. Patient has recent diagnosis of pulmonary adenocarcinoma. Cytology from pleural fluid showing essentially identical to those observed in the patient's previous right lung mass aspirate, and are consistent with adenocarcinoma of the primary lung origin. Chest x-ray completed showing increasing, mwb-hzfkv-rc-moderate size right pleural effusion with adjacent atelectasis and/or consolidation. Some patchy changes of the right midlung probably relates the patient's known underlying malignancy. Per pulmonary services patient started on bronchodilators along with antibiotics. Thoracic surgery consulted for consideration of placement of a Pleurx catheter to manage her malignant recurrent right-sided effusion. Patient started on Bactrim. Sputum culture ordered. Per cardio thoracic surgery there is not sufficient enough pleural fluid to place a Pleurx catheter at this time. Patient underwent right-sided thoracentesis with pulmonary services removing 1 L of fluid. 2. Stage IV non-small cell Lung adenocarcinoma. Biomarker testing is pending. CT of brain has been ordered to complete staging. patient to follow- up outpatient with oncology services. 3. Nicotine dependence. Patient has a 60+ year smoking history. nicotine patches have been ordered. Patient educated greater than 3 minutes on smoking cessation 4. History of asthma 5. History of paroxysmal atrial fibrillation. EKG completed in emergency room showing sinus rhythm with premature supple ventricular complexes. Nonspecific T -wave abnormality. Patient was to follow-up outpatient with cardiology services to evaluate for possible anticoagulation. Patient was unable to make it to follow-up appointment. Cardiology services have been consulted. Orders for cardiac telemetry monitoring. Per cardiology services was procedures are completed and patient remains hemodynamically stable eliquis 5 mg twice a day to be started. Discussed case with pulmonary team. Okay to start eliquis postthoracentesis. Discussed with cardiology will start patient on eliquis 5 mg twice a day per cardiology recommendation. 6. History of essential hypertension 7. History of GERD 8. History of osteoarthritis 9. History of COPD DVT prophylaxis SCDs. Lovenox has been discontinued due to thoracentesis per pulmonary team. GI prophylaxis Protonix I performed an examination of the patient and discussed their management with the Nurse Practitioner. I have reviewed the Nurse Practitioner's notes and agree with the documented findings and plan of care
--- NOTE | 2017-11-26 13:13 | P.PN ---
Subjective Progress Note Date: 11/26/17 Principal diagnosis: Pleural effusion, metastatic lung cancer Progress note dated 11/25/2017 76-year-old female with a diagnosis of advanced stage IV non-small cell lung cancer. She has adenocarcinoma. She had a recent thoracentesis performed by my partner. The patient has recurrent right-sided pleural effusion. We asked thoracic surgery about a Pleurx catheter. They thought the effusion was too small and hence, we will do a thoracentesis today to help with her shortness of breath. She's also seeing medical oncology. Anyway, she doing relatively well today. Her birthday is today. She has a history of advanced lung cancer COPD GERD hypertension pneumonia and DJD. Progress note dated 11/26/2017 77-year-old female who was seen yesterday. The patient has a history of stage IV non-small cell lung cancer. It is adenocarcinoma. She has not had any treatment that is far. She had a recent thoracentesis by my partner. She returns with a recurrent right-sided pleural effusion. Yesterday, I removed 1000 mL from the right pleural space with thoracentesis. We should we had initially asked [facility] to do a Pleurx catheter placement but they thought the fluid was not significant enough at this time. Anyway, the patient has not had any treatment for her disease as far. In addition, she has a history of COPD, GERD, hypertension pneumonia and DJD. She states that she is feeling better after the thoracentesis yesterday. 1 L was removed from the right pleural space. Objective - Vital Signs Vital signs: Vital Signs Temp 98.0 F 11/26/17 12:06 Pulse 91 11/26/17 12:06 Resp 20 11/26/17 12:06 BP 113/76 11/26/17 12:06 Pulse Ox 94 L 11/26/17 12:06 Intake & Output 11/25/17 11/26/17 11/26/17 18:59 06:59 18:59 Intake Total 100 Balance 100 Intake: Oral 100 Other: Voiding Method Toilet Toilet Toilet # Voids 1 1 1 - Exam No acute distress, oriented 3. Nasal O2 in place. HEENT examination is grossly unremarkable. Mucous membranes are moist. No oral lesions. Neck supple. Full range of motion. No adenopathy thyromegaly or neck vein distention. Cardiovascular examination reveals regular rhythm rate. S1-S2 normal. No S3 or S4. No discernible murmur noted. Lungs reveal improved but still diminished breath sounds at the right lung base. A few crackles at the right lung base. No rhonchi or wheezes. Left lung is clear. Abdomen soft bowel sounds are heard. No masses or tenderness. Extremities are intact. No cyanosis clubbing or edema. Skin is without rash or lesion. Neurologic examination is brief but nonfocal. - Labs CBC & Chem 7: 11/26/17 08:39 11/26/17 08:39 Labs: Abnormal Lab Results - Last 24 Hours (Table) 11/26/17 11/26/17 Range/Units 08:39 08:39 WBC 12.6 H (3.8-10.6) k/uL Plt Count 142 L (150-450) k/uL Neutrophils # 11.4 H (1.3-7.7) k/uL Lymphocytes # 0.6 L (1.0-4.8) k/uL Potassium 5.2 H (3.5-5.1) mmol/L BUN 30 H (7-17) mg/dL Creatinine 0.48 L (0.52-1.04) mg/dL Total Protein 5.7 L (6.3-8.2) g/dL Albumin 3.3 L (3.5-5.0) g/dL Assessment and Plan Assessment: Assessment Stage IV non-small cell lung cancer/adenocarcinoma, with recurrent malignant pleural effusion and recent previous thoracentesis Current right-sided pleural effusion, malignant, status post thoracentesis on November 25. History of COPD Gastroesophageal reflux disease by history History of hypertension Previous history of pneumonia History of osteoarthritis. Plan: Plan dated 11/24/2017 X-rays, medications and labs are reviewed. The patient be placed on bronchodilators. In addition we'll give her some antibiotics. We will consult thoracic surgery for consideration of placement of a Pleurx catheter to manage her malignant recurrent right-sided effusion. Oncology has seen her. Genetic markers will be ordered to see if she'll be a candidate for targeted or immune therapy for her lung cancer. Overall prognosis remains guarded. We'll continue to follow. We explained to the patient today the benefit of Pleurx catheter placement versus repeated thoracentesis. She understands and would be able to take care of the catheter. Plan dated 11/25/2017 We had asked thoracic surgery to consider placing a Pleurx catheter. We felt the effusion was too small. Hence, we'll do a thoracentesis today. Additional recommendations and suggestions are forthcoming. Prognosis is guarded. Genetic testing is being done on the lung cancer. She may be a candidate for targeted immunotherapy. Additional recommendations and suggestions are forthcoming. Prognosis is guarded. Plan dated 11/26/2017 The patient may be discharged tomorrow may be to rehab. She mentioned going to [facility]. Yesterday, we removed 1 L fluid from the right pleural space. She tolerated the patient procedure well. The patient's breathing is much improved. She's doing well. So far, she's had no treatment for her lung cancer that needs to be initiated DONNA. We will continue to follow. She'll follow-up with Dr. Maldonado's in the office. Time with Patient: Less than 30
--- NOTE | 2017-11-26 19:37 | P.PN ---
Subjective Progress Note Date: 11/26/17 Principal diagnosis: NSCLC Pt seen in f/u, her son is at bedside. Pt is doing better, breathing stable, O2 requirements stable, her cough is improving, expectorating some thick mostly clear suptus, no fevers, appetite decent, no chest pain, abd pain, changes in bowel or bladder, no bleeding or pain. Objective - Vital Signs Vital signs: Vital Signs Temp 98.0 F 11/26/17 12:06 Pulse 84 11/26/17 17:17 Resp 20 11/26/17 12:06 BP 113/76 11/26/17 12:06 Pulse Ox 94 L 11/26/17 12:06 Intake & Output 11/26/17 11/26/17 11/27/17 06:59 18:59 06:59 Other: Voiding Method Toilet Toilet # Voids 1 1 - Constitutional General appearance: Present: average body habitus, cooperative, no acute distress - EENT Eyes: Present: anicteric sclerae, EOMI ENT: Present: hearing grossly normal - Respiratory Respiratory: bilateral: diminished, wheezing (few scattered) - Cardiovascular Heart sounds: normal: S1, S2 - Peripheral edema leg Peripheral Edema: bilateral: None - Gastrointestinal General gastrointestinal: Present: normal bowel sounds, soft - Neurologic Neurologic: Present: CNII-XII intact - Musculoskeletal Musculoskeletal: Present: generalized weakness - Psychiatric Psychiatric: Present: A&O x's 3, appropriate affect, intact judgment & insight - Labs CBC & Chem 7: 11/26/17 08:39 11/26/17 08:39 Labs: Abnormal Lab Results - Last 24 Hours (Table) 11/26/17 11/26/17 Range/Units 08:39 08:39 WBC 12.6 H (3.8-10.6) k/uL Plt Count 142 L (150-450) k/uL Neutrophils # 11.4 H (1.3-7.7) k/uL Lymphocytes # 0.6 L (1.0-4.8) k/uL Potassium 5.2 H (3.5-5.1) mmol/L BUN 30 H (7-17) mg/dL Creatinine 0.48 L (0.52-1.04) mg/dL Total Protein 5.7 L (6.3-8.2) g/dL Albumin 3.3 L (3.5-5.0) g/dL Microbiology - Last 24 Hours (Table) 11/24/17 12:45 Gram Stain - Preliminary Sputum Sputum Culture - Preliminary Haemophilus species Assessment and Plan (1) Primary lung adenocarcinoma Current Visit: Yes Status: Acute Priority: High Code(s): C34.90 - MALIGNANT NEOPLASM OF UNSP PART OF UNSP BRONCHUS OR LUNG SNOMED Code(s): 675186235 (2) Malignant pleural effusion Current Visit: Yes Status: Acute Priority: High Code(s): J91.0 - MALIGNANT PLEURAL EFFUSION SNOMED Code(s): 57498522 Plan: Discussed case with Pulmonary. They will follow pt in rehab adn monitor for need for thoracentesis Pt is anxious to start rehab, she want sot get stronger so she can return to her home indpendently Biomarkers are pending and these will implace prognosis and treatment. Pt will f/u in 2 weeks for plan. We can begin insurance process for treatment and have everything in place for pt when seen so treatment can begin. Pt understands plan All was discussed with son who pt gave permission for us to contact.
[2017-11-26] MEDS: APIXABAN 5 MG TAB PO SCH (19:49)
[2017-11-27 05:13] VITALS: RESP 18
--- NOTE | 2017-11-27 07:52 | XR ---
EXAMINATION TYPE: XR chest 2V DATE OF EXAM: 11/27/2017 COMPARISON: 11/25/2017 HISTORY: Status post thoracentesis. TECHNIQUE: Frontal and lateral views of the chest are obtained. FINDINGS: Trace residual right pleural effusion blunts the costophrenic angle on the lateral image o nly. Flattening of the diaphragms and pulmonary hyperinflation with biapical lucency relates underlyi ng COPD. Calcific biapical pleural plaques are also seen. Extensive bilateral glenohumeral arthropathy and left glenohumeral loose bodies are seen. There is os seous demineralization and mild multilevel degenerative changes of the spine. Cardia mediastinal silh ouette is stable. There remains patchy right perihilar and infrahilar airspace disease, similar to the prior. No pneumo thorax is appreciated. No left pleural effusion. IMPRESSION: Similar-appearing right-sided airspace disease that may represent pneumonia or residual atelectasis from trapped lung status post thoracentesis. No pneumothorax.
[2017-11-27] MEDS: IPRATROPIUM-ALBUTEROL 3 ML NEB INHALATION PRN ×3 (07:59→15:53)
[2017-11-27] MEDS: SYMBICORT 160-4.5 MCG INHALER INHALATION SCH (08:01)
[2017-11-27 08:58] LABS: Basophils % (A) 0 %; Eosinophils # (A) 0.1 k/uL (0-0.7); Eosinophils % (A) 1 %; HCT 43.7 % (34.0-46.0); HGB 14.3 gm/dL (11.4-16.0); Lymphocytes # (A) 0.7 k/uL (1.0-4.8); Lymphocytes % (A) 6 %; MCH 30.7 pg (25.0-35.0); MCHC 32.7 g/dL (31.0-37.0); MCV 93.9 fL (80.0-100.0); Mean Platelet Volume 6.9; Monocytes # (A) 0.4 k/uL (0-1.0); Monocytes % (A) 4 %; Neutrophils % (A) 88 %; Platelet Count 129 k/uL (150-450); RBC 4.66 m/uL (3.80-5.40); RDW 13.6 % (11.5-15.5); WBC 11.3 k/uL (3.8-10.6)
--- NOTE | 2017-11-27 09:20 | P.PN ---
Subjective Progress Note Date: 11/27/17 Principal diagnosis: Pleural effusion, metastatic lung cancer Progress note dated 11/25/2017 76-year-old female with a diagnosis of advanced stage IV non-small cell lung cancer. She has adenocarcinoma. She had a recent thoracentesis performed by my partner. The patient has recurrent right-sided pleural effusion. We asked thoracic surgery about a Pleurx catheter. They thought the effusion was too small and hence, we will do a thoracentesis today to help with her shortness of breath. She's also seeing medical oncology. Anyway, she doing relatively well today. Her birthday is today. She has a history of advanced lung cancer COPD GERD hypertension pneumonia and DJD. Progress note dated 11/26/2017 77-year-old female who was seen yesterday. The patient has a history of stage IV non-small cell lung cancer. It is adenocarcinoma. She has not had any treatment that is far. She had a recent thoracentesis by my partner. She returns with a recurrent right-sided pleural effusion. Yesterday, I removed 1000 mL from the right pleural space with thoracentesis. We should we had initially asked [facility] to do a Pleurx catheter placement but they thought the fluid was not significant enough at this time. Anyway, the patient has not had any treatment for her disease as far. In addition, she has a history of COPD, GERD, hypertension pneumonia and DJD. She states that she is feeling better after the thoracentesis yesterday. 1 L was removed from the right pleural space. Progress note dated 11/27/2017 77-year-old female recently diagnosed with lung cancer. She has stage IV non- small cell lung cancer. It is adenocarcinoma. Up to this point, she's not receiving any treatment thus far. According to the medical oncologist, genetic testing was to be done on the tumor to see if she might be a candidate for targeted immune therapy. More recently, she's had a thoracentesis done by my partner in one done by me on the . I removed a liter of fluid from the right pleural space. We originally ask cardiothoracic surgery to consider a Pleurx catheter but they felt like the fluid was not enough and quantity to justify the catheter insertion. She does have a history of COPD, GERD, hypertension, pneumonia and DJD. There is some consideration that she may be discharged to one of the nursing homes today. I'm sure the fluid will go back up and she will need a more definitive procedure such as a Pleurx catheter. Objective - Vital Signs Vital signs: Vital Signs Temp 97.4 F L 11/27/17 05:00 Pulse 86 11/27/17 08:30 Resp 18 11/27/17 08:30 BP 125/63 11/27/17 08:20 Pulse Ox 91 L 11/27/17 05:00 Intake & Output 11/26/17 11/27/17 11/27/17 18:59 06:59 18:59 Weight 65 kg Other: Voiding Method Toilet Toilet Toilet # Voids 1 2 - Exam No acute distress, oriented 3. Nasal O2 in place. She appears in no acute distress. HEENT examination is grossly unremarkable. Mucous membranes are moist. No oral lesions. Neck supple. Full range of motion. No adenopathy thyromegaly or neck vein distention. Cardiovascular examination reveals regular rhythm rate. S1-S2 normal. No S3 or S4. No discernible murmur noted. Lungs reveal improved but still diminished breath sounds at the right lung base. A few crackles at the right lung base. No rhonchi or wheezes. Left lung is clear. Abdomen soft bowel sounds are heard. No masses or tenderness. Extremities are intact. No cyanosis clubbing or edema. Skin is without rash or lesion. Neurologic examination is brief but nonfocal. - Labs CBC & Chem 7: 11/27/17 08:13 11/26/17 08:39 Labs: Abnormal Lab Results - Last 24 Hours (Table) 11/26/17 11/26/17 11/27/17 Range/Units 08:39 08:39 08:13 WBC 12.6 H 11.3 H (3.8-10.6) k/uL Plt Count 142 L 129 L (150-450) k/uL Neutrophils # 11.4 H 10.0 H (1.3-7.7) k/uL Lymphocytes # 0.6 L 0.7 L (1.0-4.8) k/uL Potassium 5.2 H (3.5-5.1) mmol/L BUN 30 H (7-17) mg/dL Creatinine 0.48 L (0.52-1.04) mg/dL Total Protein 5.7 L (6.3-8.2) g/dL Albumin 3.3 L (3.5-5.0) g/dL Microbiology - Last 24 Hours (Table) 11/24/17 12:45 Gram Stain - Preliminary Sputum Sputum Culture - Preliminary Haemophilus species Assessment and Plan Assessment: Assessment Stage IV non-small cell lung cancer/adenocarcinoma, with recurrent malignant pleural effusion and recent previous thoracentesis Current right-sided pleural effusion, malignant, status post thoracentesis on November 25. History of COPD Gastroesophageal reflux disease by history History of hypertension Previous history of pneumonia History of osteoarthritis. Plan: Plan dated 11/24/2017 X-rays, medications and labs are reviewed. The patient be placed on bronchodilators. In addition we'll give her some antibiotics. We will consult thoracic surgery for consideration of placement of a Pleurx catheter to manage her malignant recurrent right-sided effusion. Oncology has seen her. Genetic markers will be ordered to see if she'll be a candidate for targeted or immune therapy for her lung cancer. Overall prognosis remains guarded. We'll continue to follow. We explained to the patient today the benefit of Pleurx catheter placement versus repeated thoracentesis. She understands and would be able to take care of the catheter. Plan dated 11/25/2017 We had asked thoracic surgery to consider placing a Pleurx catheter. We felt the effusion was too small. Hence, we'll do a thoracentesis today. Additional recommendations and suggestions are forthcoming. Prognosis is guarded. Genetic testing is being done on the lung cancer. She may be a candidate for targeted immunotherapy. Additional recommendations and suggestions are forthcoming. Prognosis is guarded. Plan dated 11/26/2017 The patient may be discharged tomorrow may be to rehab. She mentioned going to [facility]. Yesterday, we removed 1 L fluid from the right pleural space. She tolerated the patient procedure well. The patient's breathing is much improved. She's doing well. So far, she's had no treatment for her lung cancer that needs to be initiated DONNA. We will continue to follow. She'll follow-up with Dr. Maldonado's in the office. Plan dated 11/27/2017 The patient may be discharged to [facility] later today. I'm not sure about that. Currently, chest x-ray shows small amount of fluid in the right pleural space. I'm sure the fluid will back off and she will need either another thoracentesis or a Pleurx catheter. The patient otherwise is doing reasonably well. She's not particularly short of breath. She is wearing oxygen therapy. Labs today include a white count of 11.3 hemoglobin 14.3 hematocrit 43.7 and platelet count 129,000. Sputum reveals Haemophilus influenzae. This is likely very sensitive to almost any antibiotic. She is currently on Bactrim DS as well as prednisone 40 mg updraft with DuoNeb and Symbicort. Time with Patient: Less than 30
[2017-11-27 09:25] LABS: ALT 35 U/L (9-52); AST 20 U/L (14-36); Albumin 3.2 g/dL (3.5-5.0); Alkaline Phosphatase 56 U/L (38-126); Anion Gap 7 mmol/L; Blood Urea Nitrogen 33 mg/dL (7-17); Calcium 8.8 mg/dL (8.4-10.2); Carbon Dioxide 27 mmol/L (22-30); Chloride 104 mmol/L (98-107); Glucose 115 mg/dL (74-99); Potassium 4.9 mmol/L (3.5-5.1); Sodium 138 mmol/L (137-145); Total Bilirubin 0.6 mg/dL (0.2-1.3); Total Protein 5.6 g/dL (6.3-8.2)
[2017-11-27] MEDS: PANTOPRAZOLE 40 MG TABLET PO SCH (09:46)
[2017-11-27] MEDS: APIXABAN 5 MG TAB PO SCH (09:46)
[2017-11-27] MEDS: predniSONE 20 MG TAB PO SCH (09:47)
[2017-11-27] MEDS: DILTIAZEM CD 180 MG CAP.ER.24H PO SCH (09:47)
[2017-11-27] MEDS: SULFAMETHOX-TMP 800-160MG 1 EACH TAB PO SCH (09:48)
[2017-11-27] MEDS: NICOTINE 14MG/24HR PATCH TRANSDERM SCH (10:37)
[2017-11-27 12:14] VITALS: BP 119/70; TEMP 96.8
--- NOTE | 2017-11-27 13:35 | P.DS ---
Providers Date of admission: 11/23/17 08:17 Expected date of discharge: 11/27/17 Attending physician: Bipin Quintana Consults: 11/23/17 08:17 Consult Physician Routine Consulting Provider: Shayy Blas Consult Reason/Comments: COPD, hypoxia Do you want consulting provider notified?: Yes 11/23/17 12:37 Consult Physician Routine Consulting Provider: Osvaldo Wong Consult Reason/Comments: recent lung cancer Do you want consulting provider notified?: Yes 11/23/17 13:49 Consult Physician Routine Consulting Provider: Aminah Torres Consult Reason/Comments: history of atrial fibrillation Do you want consulting provider notified?: Yes 11/24/17 09:29 Consult Physician Routine Consulting Provider: Christian Giles Consult Reason/Comments: recurrent pleural effusion Do you want consulting provider notified?: Yes Primary care physician: Rekha Baptiste Hospital Course: Discharge diagnosis 1. Dyspnea. Patient has recent diagnosis of pulmonary adenocarcinoma. Cytology from pleural fluid showing essentially identical to those observed in the patient's previous right lung mass aspirate, and are consistent with adenocarcinoma of the primary lung origin. Chest x-ray completed showing increasing, [id number]-moderate size right pleural effusion with adjacent atelectasis and/or consolidation. Some patchy changes of the right midlung probably relates the patient's known underlying malignancy. Per pulmonary services patient started on bronchodilators along with antibiotics. Thoracic surgery consulted for consideration of placement of a Pleurx catheter to manage her malignant recurrent right-sided effusion. Patient started on Bactrim. Sputum culture ordered. Per cardio thoracic surgery there is not sufficient enough pleural fluid to place a Pleurx catheter at this time. Patient underwent right-sided thoracentesis with pulmonary services removing 1 L of fluid. Sputum culture growing hemophilia's influenza. Discussed case with pulmonary services. Pulmonary has cleared patient for discharge. Patient will be discharged home on Bactrim antibiotic and prednisone taper. 2. Stage IV non-small cell Lung adenocarcinoma. Biomarker testing is pending. CT of brain has been ordered to complete staging. patient to follow- up outpatient with oncology services. 3. Nicotine dependence. Patient has a 60+ year smoking history. nicotine patches have been ordered. Patient educated greater than 3 minutes on smoking cessation 4. History of asthma 5. History of paroxysmal atrial fibrillation. EKG completed in emergency room showing sinus rhythm with premature supple ventricular complexes. Nonspecific T -wave abnormality. Patient was to follow-up outpatient with cardiology services to evaluate for possible anticoagulation. Patient was unable to make it to follow-up appointment. Cardiology services have been consulted. Orders for cardiac telemetry monitoring. Per cardiology services was procedures are completed and patient remains hemodynamically stable eliquis 5 mg twice a day to be started. Discussed case with pulmonary team. Okay to start eliquis postthoracentesis. Discussed with cardiology will start patient on eliquis 5 mg twice a day per cardiology recommendation. 6. History of essential hypertension 7. History of GERD 8. History of osteoarthritis 9. History of COPD Hospital course This is 76-year-old female patient of Dr. Baptiste. Patient presented to the emergency room with complaints of increasing shortness of breath that has been increasing over the past few days. Patient recently discharged on 11/17/2017. At that time patient was DC'd home with steroid Dosepak. During admission patient also received thoracentesis per pulmonary services. Patient has had a recent diagnosis of pulmonary adenocarcinoma. Pleural fluid cytology from thoracentesis showing essentially identical to those observed in the patient's previous right lung mass aspiration and are consistent with adenocarcinoma of the primary lung origin. Patient has not started treatment for her lung cancer. Additional medical history includes asthma, GERD, hypertension, osteoarthritis and smoker. Chest x-ray completed emergency room showing increasing, non-small to moderate sized right pleural effusion with adjacent atelectasis and/or consolidation. Some patchy changes in the right midlung probably related to patient's known underlying malignancy. Patient was given 60 mg of prednisone upon arrival to emergency room. Home dose of prednisone [address] Darnell consulted for pulmonary services. Dr. Wong consulted for oncology. Patient also history of atrial fibrillation during last admission. Patient was not started on anticoagulation at that time due to possible biopsy procedure. EKG completed emergency room showing sinus rhythm with premature supraventricular complexes and nonspecific T-wave abnormality. Cardiology services have been consulted. Patient currently on albuterol breathing treatments. At this time patient states shortness of breath has significantly improved. Patient denies chest pain. Patient denies nausea vomiting or diarrhea. Patient denies any urinary burning or frequency. On 11/24/2017 patient is currently alert and oriented 3. Patient is currently resting comfortably in bed. Patient does complain of some shortness of breath. Patient denies chest pain. Patient denies any urinary burning or frequency. Patient denies nausea vomiting or diarrhea. On 11/25/2017 patient is currently alert and oriented 3. Patient to have Thoracentesis today per pulmonary services. At this time patient still complaining of shortness breath. She denies chest pain. Patient denies any urinary burning or frequency. Patient denies nausea vomiting or diarrhea. On 11/26/2017 patient is alert and oriented x 3. Patient underwent thoracentesis yesterday with pulmonary services and had 1 L of pleural fluid removed. Patient states her breathing is much improved today. Patient planning to go to [facility] upon discharge. Discussed case with cardiology services patient does have a history of atrial fibrillation and has not been started on anticoagulation due to possible pleurex catheter placement. At this time no plans for Pleurx catheter to be placed. Okay to start eliquis per pulmonary team. Patient denies chest pain. Patient denies nausea vomiting or diarrhea. Patient denies any urinary burning or frequency On 11/27/2017 patient is alert and oriented 3 patient states she is feeling much improved from yesterday. Patient remains on 2 L nasal cannula. Patient here to be transferred to [facility] for rehab. Patient has been started on eliquis for atrial fibrillation. Discussed case with pulmonary team. Patient has been cleared for discharge. Patient will be transferred to [facility] for rehab. Patient to be followed by Dr. Quintana. Patient to wear 2 L home O2. CBC and CMP has been ordered for 2 days. I performed an examination of the patient and discussed their management with the Nurse Practitioner. I have reviewed the Nurse Practitioner's notes and agree with the documented findings and plan of care Patient Condition at Discharge: Stable Plan - Discharge Summary Discharge Rx Participant: No New Discharge Prescriptions: New Apixaban [Eliquis] 5 mg PO BID #60 tab Nicotine 14Mg/24Hr Patch [Habitrol] 1 patch TRANSDERM DAILY #30 patch Sulfamethox-Tmp 800-160Mg [Bactrim DS 800-160 mg] 1 each PO BID 7 Days #14 tab predniSONE 10 mg PO DIRECTED #30 tab Continue Omeprazole [PriLOSEC] 20 mg PO AC-BRKFST Acetaminophen Tab [Tylenol] 325 mg PO Q6H PRN PRN Reason: Pain Albuterol Inhaler [Ventolin Hfa Inhaler] 1 - 2 puff INHALATION QID PRN PRN Reason: sob Diltiazem Cd [Cardizem CD] 180 mg PO DAILY #30 cap.er.24h Albuterol Nebulized [Ventolin Nebulized] 2.5 mg INHALATION RT-Q6H Discontinued predniSONE See Taper PO DIRECTED Discharge Medication List Omeprazole [PriLOSEC] 20 mg PO AC-BRKFST 12/17/13 [History] Acetaminophen Tab [Tylenol] 325 mg PO Q6H PRN 10/01/17 [History] Albuterol Inhaler [Ventolin Hfa Inhaler] 1 - 2 puff INHALATION QID PRN 11/05/17 [History] Diltiazem Cd [Cardizem CD] 180 mg PO DAILY #30 cap.er.24h 11/17/17 [Rx] Albuterol Nebulized [Ventolin Nebulized] 2.5 mg INHALATION RT-Q6H 11/23/17 [ History] Apixaban [Eliquis] 5 mg PO BID #60 tab 11/27/17 [Rx] Nicotine 14Mg/24Hr Patch [Habitrol] 1 patch TRANSDERM DAILY #30 patch 11/27/17 [ Rx] Sulfamethox-Tmp 800-160Mg [Bactrim DS 800-160 mg] 1 each PO BID 7 Days #14 tab 11/27/17 [Rx] predniSONE 10 mg PO DIRECTED #30 tab 11/27/17 [Rx] Follow up Appointment(s)/Referral(s): Robbie Akers MD [STAFF PHYSICIAN] - 3 Weeks Rekha Baptiste MD [Primary Care Provider] - 1-2 days Niesha Arellano MD [STAFF PHYSICIAN] - 12/04/17 4:45 pm Ambulatory/Diagnostic Orders: Complete Blood Count w/diff [LAB.AMB] Time Frame: 2 Days, Location: None Selected Complete Blood Count w/diff [LAB.AMB] Time Frame: 2 Days, Location: None Selected Comprehensive Metabolic Panel [LAB.AMB] Time Frame: 2 Days, Location: None Selected Activity/Diet/Wound Care/Special Instructions: Diet heart healthy Activity as tolerated Patient will require 2 L home O2. Discharge Disposition: TRANSFER TO SNF/ECF
[2017-11-27 16:01] VITALS: PULSE 84
== END 2017-11-27 17:10 | DRG 181 ==
LOC: EC 06:18 → 4MS4W 08:17 → 3NMEDONC 17:24
PROVIDERS: ADMIT Internal Medicine; ATTEND Internal Medicine
PROC: 0W993ZZ Drainage of Right Pleural Cavity, Percutaneous Approach (ICD-10-PCS; principal; 2017-11-25)
DX: C34.91 Malignant neoplasm of unspecified part of right bronchus or lung (principal); J91.0 Malignant pleural effusion; J98.11 Atelectasis; F17.200 Nicotine dependence, unspecified, uncomplicated; Z71.6 Tobacco abuse counseling; F41.9 Anxiety disorder, unspecified; I10 Essential (primary) hypertension; I48.0 Paroxysmal atrial fibrillation; I49.1 Atrial premature depolarization; K21.9 Gastro-esophageal reflux disease without esophagitis; R09.02 Hypoxemia; T38.0X5A Adverse effect of glucocorticoids and synthetic analogues, initial encounter; Z79.01 Long term (current) use of anticoagulants; Z82.49 Family history of ischemic heart disease and other diseases of the circulatory system; Z86.19 Personal history of other infectious and parasitic diseases; Z87.01 Personal history of pneumonia (recurrent); Z90.49 Acquired absence of other specified parts of digestive tract; Z93.3 Colostomy status; Z88.0 Allergy status to penicillin; J44.9 Chronic obstructive pulmonary disease, unspecified
CPT/HCPCS: 36415; 70460; 71045; 71046; 76604; 80053; 83880; 84484; 85025; 85610; 85730; 87070; 87205; 93005; 94640; 94760; 99285

== ENCOUNTER 2017-12-15 15:54 | Inpatient (IN) | payer MEDICARE ==
[2017-12-15] MEDS ORDERED: IPRATROPIUM-ALBUTEROL 3 ML NEB INHALATION STA (16:18)
[2017-12-15] MEDS ORDERED: methylPREDNISolone SOD SUCCI 125 MG/2 ML VIAL IV STA (16:18)
--- NOTE | 2017-12-15 16:21 | ED ---
SOB HPI - General Chief Complaint: Shortness of Breath Stated Complaint: SOB Time Seen by Provider: 12/15/17 16:00 Source: patient, EMS, RN notes reviewed Mode of arrival: EMS Limitations: no limitations - History of Present Illness Initial Comments: This is a 77-year-old female history of COPD pleural effusions lung cancer who presents by EMS with complaints of shortness of breath which started this morning. She was recently admitted to the hospital she did have pleural effusions. She states she's yet to see a cancer doctor. She denies any chest pain fevers chills sweats or other symptoms MD Complaint: shortness of breath - Related Data Home Medications Medication Instructions Recorded Confirmed Omeprazole [PriLOSEC] 20 mg PO AC-BRKFST 12/17/13 12/15/17 Acetaminophen Tab [Tylenol] 650 mg PO Q6H PRN 10/01/17 12/15/17 Albuterol Inhaler [Ventolin Hfa 1 puff INHALATION RT-QID PRN 11/05/17 12/15/17 Inhaler] Albuterol Nebulized [Ventolin 2.5 mg INHALATION RT-Q6H 11/23/17 12/15/17 Nebulized] Furosemide [Lasix] 20 mg PO BID 12/15/17 12/15/17 Previous Rx's Medication Instructions Recorded Diltiazem Cd [Cardizem CD] 180 mg PO DAILY #30 cap.er.24h 11/17/17 Apixaban [Eliquis] 5 mg PO BID #60 tab 11/27/17 Nicotine 14Mg/24Hr Patch [Habitrol] 1 patch TRANSDERM DAILY #30 patch 11/27/17 Allergies Allergy/AdvReac Type Severity Reaction Status Date / Time Penicillins AdvReac Severe Diarrhea Verified 12/15/17 16:04 Review of Systems ROS Statement: Those systems with pertinent positive or pertinent negative responses have been documented in the HPI. ROS Other: All systems not noted in ROS Statement are negative. Past Medical History Past Medical History: Asthma, Cancer, GERD/Reflux, Hypertension, Osteoarthritis (OA), Pneumonia Additional Past Medical History / Comment(s): hx palpitations, hemorroids , sinus infections, current URI (on current rx for), hx diverticulitis, occ stress incont, shingles 2013, past sbo, "several abd hernia (sx). History of Any Multi-Drug Resistant Organisms: None Reported Past Surgical History: Adenoidectomy, Bowel Resection, Heart Catheterization, Hernia Repair, Tonsillectomy Additional Past Surgical History / Comment(s): Per patient some type of clip surgery in the heart by Dr. Akers in 2011, bowel resection with colostomy/ later reversed, D&C,1 ovary removed, long cataracts, "lung biopsy,pt stated still needs more bx", right thoracentesis on 11/13/2017 with 1.5 L of fluid removed. Past Anesthesia/Blood Transfusion Reactions: No Reported Reaction Additional Past Anesthesia/Blood Transfusion Reaction / Comment(s): blood transfusion inpast- no reaction to it Past Psychological History: No Psychological Hx Reported Smoking Status: Former smoker Past Alcohol Use History: None Reported Past Drug Use History: None Reported - Past Family History Mother Family Medical History: Congestive Heart Failure (CHF) Additional Family Medical History / Comment(s): heart problems, heart failure age 88 Father Family Medical History: Myocardial Infarction (CO) Additional Family Medical History / Comment(s): tb when young, from [place] Son(s) Family Medical History: No Reported History General Exam - General Exam Comments Initial Comments: This a well-developed well-nourished awake alert oriented 3 female there is some audible wheezing with cough Limitations: no limitations General appearance: alert, anxious, in distress Head exam: Present: atraumatic, normocephalic, normal inspection Eye exam: Present: normal appearance, PERRL, EOMI. Absent: scleral icterus, conjunctival injection, periorbital swelling ENT exam: Present: mucous membranes dry Neck exam: Present: normal inspection. Absent: tenderness, meningismus, lymphadenopathy Respiratory exam: Present: wheezes, accessory muscle use, decreased breath sounds. Absent: respiratory distress, rales, rhonchi, stridor Cardiovascular Exam: Present: regular rate, normal rhythm, normal heart sounds. Absent: systolic murmur, diastolic murmur, rubs, gallop, clicks GI/Abdominal exam: Present: soft, normal bowel sounds. Absent: distended, tenderness, guarding, rebound, rigid Extremities exam: Present: normal inspection, full ROM, normal capillary refill , pedal edema. Absent: tenderness, joint swelling, calf tenderness Back exam: Present: normal inspection Neurological exam: Present: alert, oriented X3, CN II-XII intact Psychiatric exam: Present: normal affect, normal mood Skin exam: Present: warm, dry, intact, normal color. Absent: rash Course Vital Signs 12/15/17 12/15/17 12/15/17 15:56 16:42 16:50 Temperature 98 F Pulse Rate 99 93 92 Respiratory 20 Rate Blood Pressure 103/77 O2 Sat by Pulse 92 L Oximetry 12/15/17 12/15/17 17:13 18:37 Temperature Pulse Rate 93 92 Respiratory 16 18 Rate Blood Pressure 104/71 108/84 O2 Sat by Pulse 95 95 Oximetry - Reevaluation(s) Reevaluation #1: 12/15/17 16:58 The DuoNeb treatment the patient states she is feeling improved she has some increased aeration still demonstrating accessory muscle use and wheezing. Reevaluation #2: 12/15/17 18:04 Patient states she is breathing better at this time I did discuss the findings with her and her son. Patient be admitted with consultation by Dr. Arellano as well as Dr. Darnell x-rays do show evidence of a white out of the right lung CT with contrast is recommended which will be ordered. Medical Decision Making - Medical Decision Making I did discuss findings the patient and her family as well as with Dr. Quintana. Patient will be admitted with consultation by both pulmonary as well as oncology. - Lab Data Result diagrams: 12/15/17 16:04 12/15/17 16:04 Lab Results 12/15/17 12/15/17 12/15/17 Range/Units 16:04 16:04 16:04 WBC 8.2 (3.8-10.6) k/uL RBC 4.21 (3.80-5.40) m/uL Hgb 12.5 (11.4-16.0) gm/dL Hct 39.1 (34.0-46.0) % MCV 92.9 (80.0-100.0) fL MCH 29.6 (25.0-35.0) pg MCHC 31.9 (31.0-37.0) g/dL RDW 14.9 (11.5-15.5) % Plt Count 256 (150-450) k/uL Neutrophils % 77 % Lymphocytes % 11 % Monocytes % 9 % Eosinophils % 0 % Basophils % 0 % Neutrophils # 6.3 (1.3-7.7) k/uL Lymphocytes # 0.9 L (1.0-4.8) k/uL Monocytes # 0.7 (0-1.0) k/uL Eosinophils # 0.0 (0-0.7) k/uL Basophils # 0.0 (0-0.2) k/uL PT (9.0-12.0) sec INR (<1.2) APTT (22.0-30.0) sec Sodium 136 L (137-145) mmol/L Potassium 3.3 L (3.5-5.1) mmol/L Chloride 97 L (98-107) mmol/L Carbon Dioxide 34 H (22-30) mmol/L Anion Gap 5 mmol/L BUN 28 H (7-17) mg/dL Creatinine 0.47 L (0.52-1.04) mg/dL Est GFR (CKD-EPI)AfAm >90 (>60 ml/min/1.73 sqM) Est GFR (CKD-EPI)NonAf >90 (>60 ml/min/1.73 sqM) Glucose 106 H (74-99) mg/dL Calcium 8.5 (8.4-10.2) mg/dL Magnesium 1.6 (1.6-2.3) mg/dL Total Bilirubin 0.8 (0.2-1.3) mg/dL AST 28 (14-36) U/L ALT 46 (9-52) U/L Alkaline Phosphatase 61 (38-126) U/L Total Creatine Kinase 33 (30-135) U/L CK-MB (CK-2) 3.5 H (0.0-2.4) ng/mL CK-MB (CK-2) Rel Index 10.6 Troponin I 0.045 H* (0.000-0.034) ng/mL NT-Pro-B Natriuret Pep pg/mL Total Protein 5.1 L (6.3-8.2) g/dL Albumin 2.8 L (3.5-5.0) g/dL 12/15/17 12/15/17 Range/Units 16:04 16:04 WBC (3.8-10.6) k/uL RBC (3.80-5.40) m/uL Hgb (11.4-16.0) gm/dL Hct (34.0-46.0) % MCV (80.0-100.0) fL MCH (25.0-35.0) pg MCHC (31.0-37.0) g/dL RDW (11.5-15.5) % Plt Count (150-450) k/uL Neutrophils % % Lymphocytes % % Monocytes % % Eosinophils % % Basophils % % Neutrophils # (1.3-7.7) k/uL Lymphocytes # (1.0-4.8) k/uL Monocytes # (0-1.0) k/uL Eosinophils # (0-0.7) k/uL Basophils # (0-0.2) k/uL PT 10.3 (9.0-12.0) sec INR 1.0 (<1.2) APTT 23.5 (22.0-30.0) sec Sodium (137-145) mmol/L Potassium (3.5-5.1) mmol/L Chloride (98-107) mmol/L Carbon Dioxide (22-30) mmol/L Anion Gap mmol/L BUN (7-17) mg/dL Creatinine (0.52-1.04) mg/dL Est GFR (CKD-EPI)AfAm (>60 ml/min/1.73 sqM) Est GFR (CKD-EPI)NonAf (>60 ml/min/1.73 sqM) Glucose (74-99) mg/dL Calcium (8.4-10.2) mg/dL Magnesium (1.6-2.3) mg/dL Total Bilirubin (0.2-1.3) mg/dL AST (14-36) U/L ALT (9-52) U/L Alkaline Phosphatase (38-126) U/L Total Creatine Kinase (30-135) U/L CK-MB (CK-2) (0.0-2.4) ng/mL CK-MB (CK-2) Rel Index Troponin I (0.000-0.034) ng/mL NT-Pro-B Natriuret Pep 426 pg/mL Total Protein (6.3-8.2) g/dL Albumin (3.5-5.0) g/dL - EKG Data -: EKG Interpreted by Me (Sinus tachycardia rate of 108. Interval 168 QRS duration 82 QT since QTC 3) - Radiology Data Radiology results: report reviewed (Evidence of a white out of the right lung field.), image reviewed Disposition Clinical Impression: Acute exacerbation of chronic obstructive airways disease, Adult respiratory distress syndrome, Lung cancer Disposition: ADMITTED IP TO THIS HOSP Condition: Stable Referrals: Rekha Baptiste MD [Primary Care Provider] - 1-2 days
[2017-12-15 16:47] LABS: Basophils % (A) 0 %; Eosinophils % (A) 0 %; HCT 39.1 % (34.0-46.0); HGB 12.5 gm/dL (11.4-16.0); Lymphocytes # (A) 0.9 k/uL (1.0-4.8); Lymphocytes % (A) 11 %; MCH 29.6 pg (25.0-35.0); MCHC 31.9 g/dL (31.0-37.0); MCV 92.9 fL (80.0-100.0); Mean Platelet Volume 6.8; Monocytes # (A) 0.7 k/uL (0-1.0); Monocytes % (A) 9 %; Neutrophils # (A) 6.3 k/uL (1.3-7.7); Neutrophils % (A) 77 %; Platelet Count 256 k/uL (150-450); RBC 4.21 m/uL (3.80-5.40); RDW 14.9 % (11.5-15.5); WBC 8.2 k/uL (3.8-10.6)
[2017-12-15 16:53] LABS: Partial Thromboplastin Time 23.5 sec (22.0-30.0); Prothrombin Time 10.3 sec (9.0-12.0)
[2017-12-15 16:58] LABS: ALT 46 U/L (9-52); AST 28 U/L (14-36); Albumin 2.8 g/dL (3.5-5.0); Alkaline Phosphatase 61 U/L (38-126); Anion Gap 5 mmol/L; Blood Urea Nitrogen 28 mg/dL (7-17); Calcium 8.5 mg/dL (8.4-10.2); Carbon Dioxide 34 mmol/L (22-30); Chloride 97 mmol/L (98-107); Glucose 106 mg/dL (74-99); Magnesium 1.6 mg/dL (1.6-2.3); Potassium 3.3 mmol/L (3.5-5.1); Sodium 136 mmol/L (137-145); Total Bilirubin 0.8 mg/dL (0.2-1.3); Total Protein 5.1 g/dL (6.3-8.2)
[2017-12-15 17:10] LABS: Creatine Kinase MB 3.5 ng/mL (0.0-2.4)
[2017-12-15 17:12] LABS: Troponin I 0.045 ng/mL (0.000-0.034)
--- NOTE | 2017-12-15 17:25 | XR ---
EXAMINATION: XR chest 2V DATE AND TIME: 12/15/2017 5:02 PM CLINICAL INDICATION: difficulty breathing TECHNIQUE: PA and lateral COMPARISON: 11/27/2017 FINDINGS: There is a white out of the right hemithorax with mild leftward mediastinal shift. There is airlessne ss throughout the right lung parenchyma and right pleural effusion noted. CT with intravenous contras t can fully characterize these findings. The left lung is clear and the left pleural space is negativ e. The cardiac silhouette is moderately enlarged. Thoracic aortic ectasia redemonstrated. The skeletal structures and soft tissues are negative for acute findings. IMPRESSION: INTERVAL WHITE OUT OF THE RIGHT HEMITHORAX.
[2017-12-15] MEDS ORDERED: MAGNESIUM SULFATE-D5W PMX 1 GM in DEXTROSE/WATER 1 100ML.BAG IVPB ONE (17:37)
[2017-12-15] MEDS ORDERED: SODIUM CHLORIDE 0.9% 500 ML 500 ML IV STA (18:14)
[2017-12-15] MEDS ORDERED: RX INFO: IV CONTRAST WAS GIVEN 1 EACH MISC MISCELLANE PRN (18:48)
--- NOTE | 2017-12-15 18:53 | ED ---
Medical Decision Making - Lab Data Result diagrams: 12/15/17 16:04 12/15/17 16:04 Lab Results 12/15/17 12/15/17 12/15/17 Range/Units 16:04 16:04 16:04 WBC 8.2 (3.8-10.6) k/uL RBC 4.21 (3.80-5.40) m/uL Hgb 12.5 (11.4-16.0) gm/dL Hct 39.1 (34.0-46.0) % MCV 92.9 (80.0-100.0) fL MCH 29.6 (25.0-35.0) pg MCHC 31.9 (31.0-37.0) g/dL RDW 14.9 (11.5-15.5) % Plt Count 256 (150-450) k/uL Neutrophils % 77 % Lymphocytes % 11 % Monocytes % 9 % Eosinophils % 0 % Basophils % 0 % Neutrophils # 6.3 (1.3-7.7) k/uL Lymphocytes # 0.9 L (1.0-4.8) k/uL Monocytes # 0.7 (0-1.0) k/uL Eosinophils # 0.0 (0-0.7) k/uL Basophils # 0.0 (0-0.2) k/uL PT (9.0-12.0) sec INR (<1.2) APTT (22.0-30.0) sec Sodium 136 L (137-145) mmol/L Potassium 3.3 L (3.5-5.1) mmol/L Chloride 97 L (98-107) mmol/L Carbon Dioxide 34 H (22-30) mmol/L Anion Gap 5 mmol/L BUN 28 H (7-17) mg/dL Creatinine 0.47 L (0.52-1.04) mg/dL Est GFR (CKD-EPI)AfAm >90 (>60 ml/min/1.73 sqM) Est GFR (CKD-EPI)NonAf >90 (>60 ml/min/1.73 sqM) Glucose 106 H (74-99) mg/dL Calcium 8.5 (8.4-10.2) mg/dL Magnesium 1.6 (1.6-2.3) mg/dL Total Bilirubin 0.8 (0.2-1.3) mg/dL AST 28 (14-36) U/L ALT 46 (9-52) U/L Alkaline Phosphatase 61 (38-126) U/L Total Creatine Kinase 33 (30-135) U/L CK-MB (CK-2) 3.5 H (0.0-2.4) ng/mL CK-MB (CK-2) Rel Index 10.6 Troponin I 0.045 H* (0.000-0.034) ng/mL NT-Pro-B Natriuret Pep pg/mL Total Protein 5.1 L (6.3-8.2) g/dL Albumin 2.8 L (3.5-5.0) g/dL 12/15/17 12/15/17 Range/Units 16:04 16:04 WBC (3.8-10.6) k/uL RBC (3.80-5.40) m/uL Hgb (11.4-16.0) gm/dL Hct (34.0-46.0) % MCV (80.0-100.0) fL MCH (25.0-35.0) pg MCHC (31.0-37.0) g/dL RDW (11.5-15.5) % Plt Count (150-450) k/uL Neutrophils % % Lymphocytes % % Monocytes % % Eosinophils % % Basophils % % Neutrophils # (1.3-7.7) k/uL Lymphocytes # (1.0-4.8) k/uL Monocytes # (0-1.0) k/uL Eosinophils # (0-0.7) k/uL Basophils # (0-0.2) k/uL PT 10.3 (9.0-12.0) sec INR 1.0 (<1.2) APTT 23.5 (22.0-30.0) sec Sodium (137-145) mmol/L Potassium (3.5-5.1) mmol/L Chloride (98-107) mmol/L Carbon Dioxide (22-30) mmol/L Anion Gap mmol/L BUN (7-17) mg/dL Creatinine (0.52-1.04) mg/dL Est GFR (CKD-EPI)AfAm (>60 ml/min/1.73 sqM) Est GFR (CKD-EPI)NonAf (>60 ml/min/1.73 sqM) Glucose (74-99) mg/dL Calcium (8.4-10.2) mg/dL Magnesium (1.6-2.3) mg/dL Total Bilirubin (0.2-1.3) mg/dL AST (14-36) U/L ALT (9-52) U/L Alkaline Phosphatase (38-126) U/L Total Creatine Kinase (30-135) U/L CK-MB (CK-2) (0.0-2.4) ng/mL CK-MB (CK-2) Rel Index Troponin I (0.000-0.034) ng/mL NT-Pro-B Natriuret Pep 426 pg/mL Total Protein (6.3-8.2) g/dL Albumin (3.5-5.0) g/dL Critical Care Time Critical Care Time: Yes Critical Care Time: 37 minutes of critical care time which includes initial presentation with history physical labs x-rays multiple reevaluation the patient response to therapy discuss with the patient family regarding findings discussed with the main physician admission orders and documentation of the above Disposition Clinical Impression: Acute exacerbation of chronic obstructive airways disease, Adult respiratory distress syndrome, Lung cancer Disposition: ADMITTED IP TO THIS HOSP Condition: Stable Referrals: Rekha Baptiste MD [Primary Care Provider] - 1-2 days
--- NOTE | 2017-12-15 18:58 | ED ---
Medical Decision Making - Lab Data Result diagrams: 12/15/17 16:04 12/15/17 16:04 Lab Results 12/15/17 12/15/17 12/15/17 Range/Units 16:04 16:04 16:04 WBC 8.2 (3.8-10.6) k/uL RBC 4.21 (3.80-5.40) m/uL Hgb 12.5 (11.4-16.0) gm/dL Hct 39.1 (34.0-46.0) % MCV 92.9 (80.0-100.0) fL MCH 29.6 (25.0-35.0) pg MCHC 31.9 (31.0-37.0) g/dL RDW 14.9 (11.5-15.5) % Plt Count 256 (150-450) k/uL Neutrophils % 77 % Lymphocytes % 11 % Monocytes % 9 % Eosinophils % 0 % Basophils % 0 % Neutrophils # 6.3 (1.3-7.7) k/uL Lymphocytes # 0.9 L (1.0-4.8) k/uL Monocytes # 0.7 (0-1.0) k/uL Eosinophils # 0.0 (0-0.7) k/uL Basophils # 0.0 (0-0.2) k/uL PT (9.0-12.0) sec INR (<1.2) APTT (22.0-30.0) sec Sodium 136 L (137-145) mmol/L Potassium 3.3 L (3.5-5.1) mmol/L Chloride 97 L (98-107) mmol/L Carbon Dioxide 34 H (22-30) mmol/L Anion Gap 5 mmol/L BUN 28 H (7-17) mg/dL Creatinine 0.47 L (0.52-1.04) mg/dL Est GFR (CKD-EPI)AfAm >90 (>60 ml/min/1.73 sqM) Est GFR (CKD-EPI)NonAf >90 (>60 ml/min/1.73 sqM) Glucose 106 H (74-99) mg/dL Calcium 8.5 (8.4-10.2) mg/dL Magnesium 1.6 (1.6-2.3) mg/dL Total Bilirubin 0.8 (0.2-1.3) mg/dL AST 28 (14-36) U/L ALT 46 (9-52) U/L Alkaline Phosphatase 61 (38-126) U/L Total Creatine Kinase 33 (30-135) U/L CK-MB (CK-2) 3.5 H (0.0-2.4) ng/mL CK-MB (CK-2) Rel Index 10.6 Troponin I 0.045 H* (0.000-0.034) ng/mL NT-Pro-B Natriuret Pep pg/mL Total Protein 5.1 L (6.3-8.2) g/dL Albumin 2.8 L (3.5-5.0) g/dL 12/15/17 12/15/17 Range/Units 16:04 16:04 WBC (3.8-10.6) k/uL RBC (3.80-5.40) m/uL Hgb (11.4-16.0) gm/dL Hct (34.0-46.0) % MCV (80.0-100.0) fL MCH (25.0-35.0) pg MCHC (31.0-37.0) g/dL RDW (11.5-15.5) % Plt Count (150-450) k/uL Neutrophils % % Lymphocytes % % Monocytes % % Eosinophils % % Basophils % % Neutrophils # (1.3-7.7) k/uL Lymphocytes # (1.0-4.8) k/uL Monocytes # (0-1.0) k/uL Eosinophils # (0-0.7) k/uL Basophils # (0-0.2) k/uL PT 10.3 (9.0-12.0) sec INR 1.0 (<1.2) APTT 23.5 (22.0-30.0) sec Sodium (137-145) mmol/L Potassium (3.5-5.1) mmol/L Chloride (98-107) mmol/L Carbon Dioxide (22-30) mmol/L Anion Gap mmol/L BUN (7-17) mg/dL Creatinine (0.52-1.04) mg/dL Est GFR (CKD-EPI)AfAm (>60 ml/min/1.73 sqM) Est GFR (CKD-EPI)NonAf (>60 ml/min/1.73 sqM) Glucose (74-99) mg/dL Calcium (8.4-10.2) mg/dL Magnesium (1.6-2.3) mg/dL Total Bilirubin (0.2-1.3) mg/dL AST (14-36) U/L ALT (9-52) U/L Alkaline Phosphatase (38-126) U/L Total Creatine Kinase (30-135) U/L CK-MB (CK-2) (0.0-2.4) ng/mL CK-MB (CK-2) Rel Index Troponin I (0.000-0.034) ng/mL NT-Pro-B Natriuret Pep 426 pg/mL Total Protein (6.3-8.2) g/dL Albumin (3.5-5.0) g/dL Disposition Clinical Impression: Acute exacerbation of chronic obstructive airways disease, Adult respiratory distress syndrome, Lung cancer, Elevated troponin Disposition: ADMITTED IP TO THIS HOSP Condition: Stable Referrals: Rekha Baptiste MD [Primary Care Provider] - 1-2 days
[2017-12-15] MEDS: ACETAMINOPHEN TAB 325 MG TAB PO PRN (19:27)
[2017-12-15] MEDS: IPRATROPIUM-ALBUTEROL 3 ML NEB INHALATION SCH (19:31)
--- NOTE | 2017-12-15 19:55 | CT ---
EXAMINATION TYPE: CT chest w con DATE OF EXAM: 12/15/2017 COMPARISON: Chest XR 5:00 PM 12/15/2017 HISTORY: chest pain, SOB. hx of lung ca CT DLP: 333 mGycm. Automated exposure control for dose reduction was used. CONTRAST: CT scan of the chest is performed with IV Contrast, patient injected with 100 mL of Isovue 300. FINDINGS: AIRWAYS: The trachea and left bronchial tree is widely patent. There is abrupt cut off of the right m ainstem bronchus. LUNGS AND PLEURAL SPACES: There is a massive right pleural effusion which is homogeneously hypodense. There is complete atelectasis of the right lung parenchyma. The left lung parenchyma is clear and we ll expanded in the left pleural spaces negative. MEDIASTINUM: Multiplanar focal subcentimeter middle mediastinal lymph nodes are appreciated, with ass ociated low attenuation suggesting central necrosis. There is mild cardiomegaly and a small pericardi al effusion, seen on the prior study. There is dilation of the pulmonary arterial tree suggesting pul monary hypertension. There is no pulmonary arterial filling defect to suggest pulmonary emboli. Aort ic ectasia noted, with ascending aorta aneurysmal dilation caliber 4.3 cm. Superior and visualized in ferior vena cava are widely patent. 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 SKELETAL STRUCTURES: No acute process. VISUALIZED SUBDIAPHRAGMATIC STRUCTURES: No acute process; stable appearance when compared the prior study. IMPRESSION: Interval development of right hemithorax white out, with right mainstem bronchus,.
[2017-12-15] MEDS ORDERED: POTASSIUM CHLORIDE ER 20 MEQ TAB.ER PO STA (20:10)
[2017-12-15] MEDS: APIXABAN 5 MG TAB PO SCH (20:59)
[2017-12-15] MEDS: FUROSEMIDE 20 MG TAB PO SCH (21:06)
[2017-12-15] MEDS: POTASSIUM CHLORIDE ER 20 MEQ TAB.ER PO SCH ×2 (21:53→23:46)
[2017-12-15] MEDS ORDERED: HYDROmorphone 1 MG/ML 1 ML SYRINGE IVP PRN (22:06)
[2017-12-15] MEDS ORDERED: Potassium Replacement Protocol 1 EACH MISC MISCELLANE PRN (22:06)
[2017-12-15] MEDS: methylPREDNISolone SOD SUCCI 125 MG/2 ML VIAL IV SCH (23:46)
[2017-12-16] MEDS: IPRATROPIUM-ALBUTEROL 3 ML NEB INHALATION SCH ×7 (01:13→23:58)
[2017-12-16] MEDS: SODIUM CHLORIDE 0.9% 1,000 ML IV SCH ×2 (05:16→15:50)
[2017-12-16] MEDS: methylPREDNISolone SOD SUCCI 125 MG/2 ML VIAL IV SCH ×4 (05:45→23:34)
[2017-12-16 06:52] LABS: Carbon Dioxide 31 mmol/L (22-30); Chloride 102 mmol/L (98-107); Glucose 153 mg/dL (74-99); Potassium 5.4 mmol/L (3.5-5.1); Sodium 139 mmol/L (137-145)
[2017-12-16 06:53] LABS: ALT 41 U/L (9-52); AST 26 U/L (14-36); Albumin 2.8 g/dL (3.5-5.0); Alkaline Phosphatase 61 U/L (38-126); Anion Gap 6 mmol/L; Blood Urea Nitrogen 28 mg/dL (7-17); Calcium 8.8 mg/dL (8.4-10.2); Magnesium 1.9 mg/dL (1.6-2.3); Total Bilirubin 0.5 mg/dL (0.2-1.3); Total Protein 5.2 g/dL (6.3-8.2)
[2017-12-16] MEDS ORDERED: PANTOPRAZOLE 40 MG TABLET PO SCH (07:30)
[2017-12-16] MEDS: APIXABAN 5 MG TAB PO SCH (09:32)
[2017-12-16] MEDS: DILTIAZEM CD 180 MG CAP.ER.24H PO SCH (09:32)
[2017-12-16] MEDS: FUROSEMIDE 20 MG TAB PO SCH ×2 (09:32→20:25)
[2017-12-16] MEDS: NICOTINE 14MG/24HR PATCH TRANSDERM SCH (09:32)
--- NOTE | 2017-12-16 11:25 | P.HPIM ---
History of Present Illness H&P Date: 12/16/17 Chief Complaint: dyspena This is a 77-year-old female patient of Dr. Baptiste. Patient presented to the emergency room with complaints of increase difficulty in breathing. Patient is maintained at 3 L home O2. Patient states that over the past 3 days or shortness of breath has significantly increased. Patient also noted to have increased peripheral edema. Patient was recently started on Lasix twice a day for peripheral edema has decreased slightly. Patient had a recent diagnosis of stage IV non-small cell lung adenocarcinoma. Recently admitted and underwent right-sided thoracentesis with pulmonary services removing 1 L of fluid. 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 Patient currently residing at [facility] for physical therapy posthospitalization. Patient has not started any treatment for the cancer as of yet. Additional medical history includes nicotine dependence greater than 60 years, asthma, paroxysmal atrial fibrillation in which she takes eliquis, essential hypertension, GERD, osteoarthritis and COPD. Chest x-ray completed showing interval whiteout of the right hemithorax. CT completed showing interval development of right hemithorax white out, with right mainstem bronchus. Dr. Darnell for pulmonary service is consulted. Oncology service consulted. Patient received DuoNeb breathing treatments in emergency department IV Solu-Medrol. Patient states she is feeling slightly improved. At this time patient denies chest pain. Patient denies nausea vomiting or diarrhea. Patient denies any urinary burning or frequency. Review of Systems Please refer to HPI otherwise unremarkable Past Medical History Past Medical History: Asthma, Cancer, GERD/Reflux, Hypertension, Osteoarthritis (OA), Pneumonia Additional Past Medical History / Comment(s): hx palpitations, hemorroids , sinus infections, current URI (on current rx for), hx diverticulitis, occ stress incont, shingles 2013, past sbo, "several abd hernia (sx)."lung cancer" History of Any Multi-Drug Resistant Organisms: None Reported Past Surgical History: Adenoidectomy, Bowel Resection, Heart Catheterization, Hernia Repair, Tonsillectomy Additional Past Surgical History / Comment(s): Per patient some type of clip surgery in the heart by Dr. Akers in 2011, bowel resection with colostomy/ later reversed, D&C,1 ovary removed, long cataracts, "lung biopsy,pt stated still needs more bx", right thoracentesis on 11/13/2017 with 1.5 L of fluid removed. Past Anesthesia/Blood Transfusion Reactions: No Reported Reaction Additional Past Anesthesia/Blood Transfusion Reaction / Comment(s): blood transfusion inpast- no reaction to it Smoking Status: Former smoker - Past Family History Mother Family Medical History: Congestive Heart Failure (CHF) Additional Family Medical History / Comment(s): heart problems, heart failure age 88 Father Family Medical History: Myocardial Infarction ([place]) Additional Family Medical History / Comment(s): tb when young, from [place] Son(s) Family Medical History: No Reported History Medications and Allergies Home Medications Medication Instructions Recorded Confirmed Type Omeprazole [PriLOSEC] 20 mg PO AC-BRKFST 12/17/13 12/15/17 History Acetaminophen Tab [Tylenol] 650 mg PO Q6H PRN 10/01/17 12/15/17 History Albuterol Inhaler [Ventolin Hfa 1 puff INHALATION RT-QID PRN 11/05/17 12/15/17 History Inhaler] Diltiazem Cd [Cardizem CD] 180 mg PO DAILY #30 cap.er.24h 11/17/17 12/15/17 Rx Albuterol Nebulized [Ventolin 2.5 mg INHALATION RT-Q6H 11/23/17 12/15/17 History Nebulized] Apixaban [Eliquis] 5 mg PO BID #60 tab 11/27/17 12/15/17 Rx Nicotine 14Mg/24Hr Patch [Habitrol] 1 patch TRANSDERM DAILY #30 patch 11/27/17 12/15/17 Rx Furosemide [Lasix] 20 mg PO BID 12/15/17 12/15/17 History Allergies Allergy/AdvReac Type Severity Reaction Status Date / Time Penicillins AdvReac Severe Diarrhea Verified 12/15/17 16:04 Physical Exam Vitals: Vital Signs Temp Pulse Pulse Resp BP BP Pulse Ox 12/16/17 08:35 97.9 F 98 20 117/53 96 12/16/17 08:31 80 12/16/17 08:19 84 12/16/17 04:00 96 24 115/74 95 12/16/17 01:29 79 12/16/17 01:19 79 12/15/17 23:45 97.5 F L 89 28 H 115/74 96 12/15/17 20:08 97.6 F 89 18 105/71 94 L 12/15/17 20:00 97.4 F L 85 18 103/68 96 12/15/17 19:40 79 12/15/17 19:34 87 12/15/17 18:37 92 18 108/84 95 12/15/17 17:13 93 16 104/71 95 12/15/17 16:50 92 12/15/17 16:42 93 12/15/17 15:56 98 F 99 20 103/77 92 L Intake and Output 12/15/17 12/16/17 12/16/17 22:59 06:59 14:59 Intake Total 500 122 Output Total 200 Balance 500 -78 Intake: IV 2 Sodium Chloride 0.9% 1, 2 000 ml @ 100 mls/hr IV . Q10H ADRIANA Rx#:[id number] Intake, IV Titration 500 Amount Sodium Chloride 0.9% 500 500 ml 500 ml @ 999 mls/hr IV .Q31M STA Rx#:[id number] Oral 120 Output: Urine 200 Other: Voiding Method Toilet Toilet Bedside Commode # Voids 1 # Bowel Movements 1 1 Weight 61.235 kg Head normocephalic Neck supple Lungs: Decreased breath sounds. expiratory wheezes noted Heart regular rate and rhythm S1-S2, no rub or gallop Abdomen is soft nontender nondistended positive bowel sounds no hepatosplenomegaly Extremities +2 pitting pedal edema Neuro alert and orientated to 3 Results CBC & Chem 7: 12/15/17 16:04 12/16/17 06:02 Labs: Abnormal Lab Results - Last 24 Hours (Table) 12/15/17 12/15/17 12/15/17 Range/Units 16:04 16:04 16:04 Lymphocytes # 0.9 L (1.0-4.8) k/uL Sodium 136 L (137-145) mmol/L Potassium 3.3 L (3.5-5.1) mmol/L Chloride 97 L (98-107) mmol/L Carbon Dioxide 34 H (22-30) mmol/L BUN 28 H (7-17) mg/dL Creatinine 0.47 L (0.52-1.04) mg/dL Glucose 106 H (74-99) mg/dL CK-MB (CK-2) 3.5 H (0.0-2.4) ng/mL Troponin I 0.045 H* (0.000-0.034) ng/mL Total Protein 5.1 L (6.3-8.2) g/dL Albumin 2.8 L (3.5-5.0) g/dL 12/16/17 Range/Units 06:02 Lymphocytes # (1.0-4.8) k/uL Sodium (137-145) mmol/L Potassium 5.4 H (3.5-5.1) mmol/L Chloride (98-107) mmol/L Carbon Dioxide 31 H (22-30) mmol/L BUN 28 H (7-17) mg/dL Creatinine 0.46 L (0.52-1.04) mg/dL Glucose 153 H (74-99) mg/dL CK-MB (CK-2) (0.0-2.4) ng/mL Troponin I (0.000-0.034) ng/mL Total Protein 5.2 L (6.3-8.2) g/dL Albumin 2.8 L (3.5-5.0) g/dL Thrombosis Risk Factor Assmnt - Choose All That Apply Any of the Below Risk Factors Present?: Yes Each Factor Represents 1 point: Abnormal pulmonary function (COPD), Swollen legs (current) Other Risk Factors: Yes Each Risk Factor Represents 3 Points: Age 75 years or older Thrombosis Risk Factor Assessment Total Risk Factor Score: 5 Thrombosis Risk Factor Assessment Level: High Risk Assessment and Plan Assessment: 1. Dyspnea. CT of chest completed showing interval development of right hemothorax white out, right mainstem bronchus. Patient started on Solu-Medrol and bronchodilators. Patient maintained on Lasix by mouth twice a day. Pulmonary services have been consulted. 2. Stage IV non-small cell lung adenocarcinoma. Oncology service has been consulted 3. Nicotine dependence. Patient 60 + year smoking history. Nicotine patch has been ordered 4. History of asthma 5. History of proximal atrial fibrillation. Patient maintained on eliquis 6. History of essential hypertension 7. History of GERD 8. History of osteoarthritis 9. History of COPD DVT prophylaxis eliquis. GI prophylaxis Protonix Time with Patient: Greater than 30 (Greater than 60% of the total time spent in counseling and coordination of care. I performed an examination of the patient and discussed their management with the Nurse Practitioner. I have reviewed the Nurse Practitioner's notes and agree with the documented findings and plan of care)
[2017-12-16] MEDS: PANTOPRAZOLE 40 MG TABLET PO SCH (11:29)
[2017-12-16 11:43] LABS: Glucose,Whole Blood 150 mg/dL (75-99)
--- NOTE | 2017-12-16 11:54 | P.CONS ---
History of Present Illness - Reason for Consult Consult date: 12/16/17 metastatic lung cancer Requesting physician: Garry Perez - Chief Complaint ZHANG - History of Present Illness Mrs. Cervantes is a very pleasant female pt of Dr. Arellano with newly diagnosed metastatic adenocarcinoma of the lung. She was found to have adenopathy and a parapharyngeal mass in February of this year. PET revealed avid lesions and pt states that she was told that this would be "watched" with follow up in 6 months or so. There is a soft tissue neck CT scan that discusses RUL spiculated nodule and paraesophageal mass. 10/08/17 FN biopsy path positive adenocarcinoma consistent with pulmonary etiology. She was referred to Dr. Bustamante Cardiothoracic surgery for biopsy of the suspicious adenopathy to determine if disease was metastatic, if it was not metastatic then surgery would be an option. She was scheduled for the biopsy but ended up being admitted to [facility] with SOB, she had right pleural effusion that was drained 11/13/17, unfortunately positive for adenocarcinoma, biomarker testing results were reviewed today, PDL-1 60% so, pt is a candidate for pembrolizumab. Pt admitted for progressive cough, ZHANG and SOB, she again has pleural effusion on the right. Denied fever, vomiting, hemoptysis, acute changes in bowel or bladder habits, swelling, or pain, appetite is decent and pt is as active as she can tolerate. Review of Systems 14 point ROS is negative except as stated in HPI Past Medical History Past Medical History: Asthma, Cancer, GERD/Reflux, Hypertension, Osteoarthritis (OA), Pneumonia Additional Past Medical History / Comment(s): hx palpitations, hemorroids , sinus infections, current URI (on current rx for), hx diverticulitis, occ stress incont, shingles 2013, past sbo, "several abd hernia (sx)."lung cancer" History of Any Multi-Drug Resistant Organisms: None Reported Past Surgical History: Adenoidectomy, Bowel Resection, Heart Catheterization, Hernia Repair, Tonsillectomy Additional Past Surgical History / Comment(s): Per patient some type of clip surgery in the heart by Dr. Akers in 2011, bowel resection with colostomy/ later reversed, D&C,1 ovary removed, lnog cataracts, "lung biopsy,pt stated still needs more bx", right thoracentesis on 11/13/2017 with 1.5 L of fluid removed. Past Anesthesia/Blood Transfusion Reactions: No Reported Reaction Additional Past Anesthesia/Blood Transfusion Reaction / Comm: blood transfusion inpast- no reaction to it Smoking Status: Former smoker - Past Family History Mother Family Medical History: Congestive Heart Failure (CHF) Additional Family Medical History / Comment(s): heart problems, heart failure age 88 Father Family Medical History: Myocardial Infarction ([place]) Additional Family Medical History / Comment(s): tb when young, from [place] Son(s) Family Medical History: No Reported History Medications and Allergies Home Medications Medication Instructions Recorded Confirmed Type Omeprazole [PriLOSEC] 20 mg PO AC-BRKFST 12/17/13 12/15/17 History Acetaminophen Tab [Tylenol] 650 mg PO Q6H PRN 10/01/17 12/15/17 History Albuterol Inhaler [Ventolin Hfa 1 puff INHALATION RT-QID PRN 11/05/17 12/15/17 History Inhaler] Diltiazem Cd [Cardizem CD] 180 mg PO DAILY #30 cap.er.24h 11/17/17 12/15/17 Rx Albuterol Nebulized [Ventolin 2.5 mg INHALATION RT-Q6H 11/23/17 12/15/17 History Nebulized] Apixaban [Eliquis] 5 mg PO BID #60 tab 11/27/17 12/15/17 Rx Nicotine 14Mg/24Hr Patch [Habitrol] 1 patch TRANSDERM DAILY #30 patch 11/27/17 12/15/17 Rx Furosemide [Lasix] 20 mg PO BID 12/15/17 12/15/17 History Allergies Allergy/AdvReac Type Severity Reaction Status Date / Time Penicillins AdvReac Severe Diarrhea Verified 12/15/17 16:04 Physical Exam Vitals: Vital Signs Temp Pulse Pulse Resp BP BP Pulse Ox 12/16/17 11:23 98 F 98 20 115/72 93 L 12/16/17 08:35 97.9 F 98 20 117/53 96 12/16/17 08:31 80 12/16/17 08:19 84 12/16/17 04:00 96 24 115/74 95 12/16/17 01:29 79 12/16/17 01:19 79 12/15/17 23:45 97.5 F L 89 28 H 115/74 96 12/15/17 20:08 97.6 F 89 18 105/71 94 L 12/15/17 20:00 97.4 F L 85 18 103/68 96 12/15/17 19:40 79 12/15/17 19:34 87 12/15/17 18:37 92 18 108/84 95 12/15/17 17:13 93 16 104/71 95 12/15/17 16:50 92 12/15/17 16:42 93 12/15/17 15:56 98 F 99 20 103/77 92 L Intake and Output 12/15/17 12/16/17 12/16/17 22:59 06:59 14:59 Intake Total 500 122 Output Total 200 Balance 500 -78 Intake: IV 2 Sodium Chloride 0.9% 1, 2 000 ml @ 100 mls/hr IV . Q10H ADRIANA Rx#:[id number] Intake, IV Titration 500 Amount Sodium Chloride 0.9% 500 500 ml 500 ml @ 999 mls/hr IV .Q31M STA Rx#:[id number] Oral 120 Output: Urine 200 Other: Voiding Method Toilet Toilet Bedside Commode # Voids 1 # Bowel Movements 1 1 Weight 61.235 kg - Constitutional General appearance: average body habitus, cooperative, mild distress - EENT Eyes: anicteric sclerae, EOMI, normal appearance ENT: hearing grossly normal - Neck Neck: no lymphadenopathy - Respiratory Respiratory: right: other (audible congestion), left: diminished, bilateral: rhonchi, prolonged expiration - Cardiovascular Heart sounds: normal: S1, S2 leg Peripheral Edema: bilateral: None - Gastrointestinal General gastrointestinal: no absent bowel sounds, no decreased bowel sounds, distended, no hepatomegaly, no hyperactive bowel sounds, normal bowel sounds, no organomegaly, no rigid, no scaphoid, soft, no splenomegaly, no tenderness, no umbilical hernia, no ventral hernia - Neurologic Neurologic: CNII-XII intact - Musculoskeletal Musculoskeletal: generalized weakness, strength equal bilaterally - Psychiatric Psychiatric: A&O x's 3, appropriate affect, intact judgment & insight Results CBC & Chem 7: 12/15/17 16:04 12/16/17 06:02 Labs: Abnormal Lab Results - Last 24 Hours (Table) 12/15/17 12/15/1718 Range/Units 16:04 16:04 16:04 Lymphocytes # 0.9 L (1.0-4.8) k/uL Sodium 136 L (137-145) mmol/L Potassium 3.3 L (3.5-5.1) mmol/L Chloride 97 L (98-107) mmol/L Carbon Dioxide 34 H (22-30) mmol/L BUN 28 H (7-17) mg/dL Creatinine 0.47 L (0.52-1.04) mg/dL Glucose 106 H (74-99) mg/dL CK-MB (CK-2) 3.5 H (0.0-2.4) ng/mL Troponin I 0.045 H* (0.000-0.034) ng/mL Total Protein 5.1 L (6.3-8.2) g/dL Albumin 2.8 L (3.5-5.0) g/dL 12/16/17 Range/Units 06:02 Lymphocytes # (1.0-4.8) k/uL Sodium (137-145) mmol/L Potassium 5.4 H (3.5-5.1) mmol/L Chloride (98-107) mmol/L Carbon Dioxide 31 H (22-30) mmol/L BUN 28 H (7-17) mg/dL Creatinine 0.46 L (0.52-1.04) mg/dL Glucose 153 H (74-99) mg/dL CK-MB (CK-2) (0.0-2.4) ng/mL Troponin I (0.000-0.034) ng/mL Total Protein 5.2 L (6.3-8.2) g/dL Albumin 2.8 L (3.5-5.0) g/dL Chest x-ray: report reviewed CT scan - chest: image reviewed Assessment and Plan (1) Non-small cell lung cancer with metastasis Narrative/Plan: Pt has not had initiation of treatment yet, biomarkers were pending. Did get results this AM. Pt is positive for PDL1 >60%, 1st line therapy with pembrolizumab immunotherapy is an option. Did discuss this finding with pt and son, we reviewed immunotherapy SE and treatment of SE. I also informed pt and son that Primary Oncologist has not seen these results yet and that there can be a component of chemotherapy added for the more aggressive treatment effects. Results will be given to physician today and will communicate with pt and son final plans for treatment. All questions answered to the best of my ability. Current Visit: Yes Status: Acute Priority: High Code(s): C34.90 - MALIGNANT NEOPLASM OF UNSP PART OF UNSP BRONCHUS OR LUNG SNOMED Code(s): 259179564 (2) Difficulty breathing Narrative/Plan: Did discuss case briefly with Pulmonary. They will review CT as I am not able to discern if this is pleural effusion with near complete compressive atelectasis of the lung or if the main bronchus is blocked/compressed causing collapse. Agree with Pulmonary plan for pleurex catheter. Treatment with pembrolizumab can take 6-8 weeks for the effects to be appreciated and begin to see resolution of malignancy symptoms so pleurex cath will certainly provide comfort and reduce respiratory symptoms. Current Visit: Yes Status: Acute Priority: High Code(s): R06.89 - OTHER ABNORMALITIES OF BREATHING SNOMED Code(s): 018486802
--- NOTE | 2017-12-16 13:15 | P.CNPUL ---
History of Present Illness Consult date: 12/16/17 Reason for consult: dyspnea, hypoxemia, pleural effusion, lung mass, abnormal CXR/CT Chief complaint: Shortness of breath History of present illness: Pulmonary consult dated 12/16/2017 77-year-old female with a recent diagnosis of advanced non-small cell lung cancer. She has a history of adenocarcinoma. She initially had a thoracentesis performed by my partner which was positive for adenocarcinoma. More recently, in mid-November I saw her for shortness of breath and a recurrent right-sided pleural effusion. We initially asked thoracic surgery to see her for the possibility of a Pleurx catheter. At that time, they recommended a repeat thoracentesis. I performed a repeat thoracentesis and removed about a liter of fluid from the right pleural space. Subsequent to that, she went [facility] homes. She is readmitted to the hospital yesterday for increasing shortness of breath and difficulty breathing. The shortness of breath is been going on for 10 days to 2 weeks. The chest x-ray shows complete opacification of the right hemithorax. We stopped the patient's blood thinner. Recommend asked thoracic surgery again for the possibility of placing a Pleurx catheter. 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 Therefore, she is a candidate for targeted immunotherapy. The patient has a history of asthma, lung cancer, GERD, hypertension, DJD, pneumonia, palpitations, sinus infections, diverticular disease, and shingles. Review of Systems A 14 point review of system is positive for shortness of breath. It's been going on for 10 days to 2 weeks and getting progressively worse. Past Medical History Past Medical History: Asthma, Cancer, GERD/Reflux, Hypertension, Osteoarthritis (OA), Pneumonia Additional Past Medical History / Comment(s): hx palpitations, hemorroids , sinus infections, current URI (on current rx for), hx diverticulitis, occ stress incont, shingles 2013, past sbo, "several abd hernia (sx)."lung cancer" History of Any Multi-Drug Resistant Organisms: None Reported Past Surgical History: Adenoidectomy, Bowel Resection, Heart Catheterization, Hernia Repair, Tonsillectomy Additional Past Surgical History / Comment(s): Per patient some type of clip surgery in the heart by Dr. Akers in 2011, bowel resection with colostomy/ later reversed, D&C,1 ovary removed, long cataracts, "lung biopsy,pt stated still needs more bx", right thoracentesis on 11/13/2017 with 1.5 L of fluid removed. Past Anesthesia/Blood Transfusion Reactions: No Reported Reaction Additional Past Anesthesia/Blood Transfusion Reaction / Comment(s): blood transfusion inpast- no reaction to it Smoking Status: Former smoker - Past Family History Mother Family Medical History: Congestive Heart Failure (CHF) Additional Family Medical History / Comment(s): heart problems, heart failure age 88 Father Family Medical History: Myocardial Infarction ([place]) Additional Family Medical History / Comment(s): tb when young, from [place] Son(s) Family Medical History: No Reported History Medications and Allergies Home Medications Medication Instructions Recorded Confirmed Type Omeprazole [PriLOSEC] 20 mg PO AC-BRKFST 12/17/13 12/15/17 History Acetaminophen Tab [Tylenol] 650 mg PO Q6H PRN 10/01/17 12/15/17 History Albuterol Inhaler [Ventolin Hfa 1 puff INHALATION RT-QID PRN 11/05/17 12/15/17 History Inhaler] Diltiazem Cd [Cardizem CD] 180 mg PO DAILY #30 cap.er.24h 11/17/17 12/15/17 Rx Albuterol Nebulized [Ventolin 2.5 mg INHALATION RT-Q6H 11/23/17 12/15/17 History Nebulized] Apixaban [Eliquis] 5 mg PO BID #60 tab 11/27/17 12/15/17 Rx Nicotine 14Mg/24Hr Patch [Habitrol] 1 patch TRANSDERM DAILY #30 patch 11/27/17 12/15/17 Rx Furosemide [Lasix] 20 mg PO BID 12/15/17 12/15/17 History Allergies Allergy/AdvReac Type Severity Reaction Status Date / Time Penicillins AdvReac Severe Diarrhea Verified 12/15/17 16:04 Physical Exam Osteopathic Statement: *. No significant issues noted on an osteopathic structural exam other than those noted in the History and Physical/Consult. Vitals: Vital Signs Temp Pulse Pulse Resp BP BP Pulse Ox 12/16/17 12:00 80 12/16/17 11:45 80 12/16/17 11:23 98 F 98 20 115/72 93 L 12/16/17 08:35 97.9 F 98 20 117/53 96 12/16/17 08:31 80 12/16/17 08:19 84 12/16/17 04:00 96 24 115/74 95 12/16/17 01:29 79 12/16/17 01:19 79 12/15/17 23:45 97.5 F L 89 28 H 115/74 96 12/15/17 20:08 97.6 F 89 18 105/71 94 L 12/15/17 20:00 97.4 F L 85 18 103/68 96 12/15/17 19:40 79 12/15/17 19:34 87 12/15/17 18:37 92 18 108/84 95 12/15/17 17:13 93 16 104/71 95 12/15/17 16:50 92 12/15/17 16:42 93 12/15/17 15:56 98 F 99 20 103/77 92 L Intake and Output 12/15/17 12/16/17 12/16/17 22:59 06:59 14:59 Intake Total 500 122 Output Total 200 Balance 500 -78 Intake: IV 2 Sodium Chloride 0.9% 1, 2 000 ml @ 20 mls/hr IV . Q24H ADRIANA Rx#:[id number] Intake, IV Titration 500 Amount Sodium Chloride 0.9% 500 500 ml 500 ml @ 999 mls/hr IV .Q31M STA Rx#:[id number] Oral 120 Output: Urine 200 Other: Voiding Method Toilet Toilet Bedside Commode # Voids 1 1 # Bowel Movements 1 1 Weight 61.235 kg Mild dyspnea, oriented 3. HEENT examination is grossly unremarkable. Mucous membranes are moist. No oral lesions. Neck supple. Full range of motion. No adenopathy thyromegaly or neck vein distention. Cardiovascular examination reveals regular rhythm rate. S1-S2 normal. No S3 or S4. No discernible murmur noted. Heart sounds are distant. Lungs reveal clear breath sounds in the left lung and severely diminished breath sounds on the right side. There is also dullness on the right side. Abdomen soft bowel sounds are heard. No masses or tenderness. Extremities are intact. No cyanosis clubbing or edema. Skin is without rash or lesion. Neurologic examination is brief but nonfocal. Results - Laboratory Findings CBC and BMP: 12/15/17 16:04 12/16/17 06:02 PT/INR, D-dimer PT 10.3 sec (9.0-12.0) 12/15/17 16:04 INR 1.0 (<1.2) 12/15/17 16:04 Abnormal lab findings: Abnormal Labs 12/15/17 12/15/17 12/15/17 16:04 16:04 16:04 Lymphocytes # 0.9 L Sodium 136 L Potassium 3.3 L Chloride 97 L Carbon Dioxide 34 H BUN 28 H Creatinine 0.47 L Glucose 106 H POC Glucose (mg/dL) CK-MB (CK-2) 3.5 H Troponin I 0.045 H* Total Protein 5.1 L Albumin 2.8 L 12/16/17 12/16/17 06:02 11:14 Lymphocytes # Sodium Potassium 5.4 H Chloride Carbon Dioxide 31 H BUN 28 H Creatinine 0.46 L Glucose 153 H POC Glucose (mg/dL) 150 H CK-MB (CK-2) Troponin I Total Protein 5.2 L Albumin 2.8 L - Diagnostic Findings Chest x-ray: report reviewed (Chest x-ray, labs and medications are all reviewed.), image reviewed Assessment and Plan Assessment: Assessment Stage IV, non-small cell lung cancer/adenocarcinoma, with recurrent right-sided malignant pleural effusion, status post thoracentesis 2 History of COPD History of GERD History of hypertension Previous history of pneumonia History of osteoarthritis Plan: Plan dated 12/16/2017. The patient's blood thinner was held. We did do a consultation to cardiothoracic surgery for possible Pleurx catheter placement. In the meantime , the patient's on appropriate medications including bronchodilators oxygen, etc. We will continue to follow. We did find out from oncology the patient did test positive for a genetic marker, making her a candidate for targeted immunotherapy. Her overall prognosis is poor. She was with her son today. This was all explained to her and her son today. We'll continue to follow. Time with Patient: Greater than 30
[2017-12-16] MEDS ORDERED: HUMAN PROTHROMBIN COMPLX 500 UNIT/16 ML VIAL IV ONE (13:18)
--- NOTE | 2017-12-16 13:28 | P.GSCN ---
History of Present Illness Consult date: 12/16/17 Reason for Consult: Recurrent right sided malignant pleural effusion. Requesting physician: Garry Darnell History of present illness: This is a 77 -year-old female patient follows with Dr. soto on an outpatient basis. Her previous medical history is significant for metastatic adenocarcinoma of the lung with recurrent right-sided pleural effusion, status post thoracentesis on November 13 with 1.5 L fluid removed and November 25 with 1 L fluid removed, asthma, COPD, paroxysmal atrial fibrillation on Eliquis for anticoagulation, hypertension, GERD, osteoarthritis, and tobacco dependence. She was recently hospitalized with shortness of breath, she was evaluated by cardiothoracic surgery for placement of Pleurx catheter, at the time was felt she did not have enough fluid buildup for catheter placement, and pulmonology performed a thoracentesis. She was discharged to [facility] on antibiotics and prednisone taper. She has not yet seen oncology. Reported back to [facility] yesterday with complaints of significant increase in his breath again. Chest x-ray demonstrated complete white out of the right hemithorax. CT of the chest demonstrated massive right pleural effusion with complete atelectasis of the right lung parenchyma. She was again admitted for evaluation and treatment. Admission medications included DuoNeb treatments, oral Lasix, and IV Solu-Medrol. Dr. Bustamante from cardiothoracic surgery was consulted for Pleurx catheter placement. Review of Systems Review of systems was completed and was negative except as noted. - Respiratory Reports as per HPI, Reports cough, Reports dyspnea Past Medical History Past Medical History: Asthma, Cancer, GERD/Reflux, Hypertension, Osteoarthritis (OA), Pneumonia Additional Past Medical History / Comment(s): hx palpitations, hemorroids , sinus infections, current URI (on current rx for), hx diverticulitis, occ stress incont, shingles 2013, past sbo, "several abd hernia (sx)."lung cancer" History of Any Multi-Drug Resistant Organisms: None Reported Past Surgical History: Adenoidectomy, Bowel Resection, Heart Catheterization, Hernia Repair, Tonsillectomy Additional Past Surgical History / Comment(s): Per patient some type of clip surgery in the heart by Dr. Akers in 2011, bowel resection with colostomy/ later reversed, D&C,1 ovary removed, long cataracts, "lung biopsy,pt stated still needs more bx", right thoracentesis on 11/13/2017 with 1.5 L of fluid removed. Past Anesthesia/Blood Transfusion Reactions: No Reported Reaction Additional Past Anesthesia/Blood Transfusion Reaction / Comm: blood transfusion inpast- no reaction to it Smoking Status: Former smoker - Past Family History Mother Family Medical History: Congestive Heart Failure (CHF) Additional Family Medical History / Comment(s): heart problems, heart failure age 88 Father Family Medical History: Myocardial Infarction ([place]) Additional Family Medical History / Comment(s): tb when young, from [place] Son(s) Family Medical History: No Reported History Medications and Allergies Home Medications Medication Instructions Recorded Confirmed Type Omeprazole [PriLOSEC] 20 mg PO AC-BRKFST 12/17/13 12/15/17 History Acetaminophen Tab [Tylenol] 650 mg PO Q6H PRN 10/01/17 12/15/17 History Albuterol Inhaler [Ventolin Hfa 1 puff INHALATION RT-QID PRN 11/05/17 12/15/17 History Inhaler] Diltiazem Cd [Cardizem CD] 180 mg PO DAILY #30 cap.er.24h 11/17/17 12/15/17 Rx Albuterol Nebulized [Ventolin 2.5 mg INHALATION RT-Q6H 11/23/17 12/15/17 History Nebulized] Apixaban [Eliquis] 5 mg PO BID #60 tab 11/27/17 12/15/17 Rx Nicotine 14Mg/24Hr Patch [Habitrol] 1 patch TRANSDERM DAILY #30 patch 11/27/17 12/15/17 Rx Furosemide [Lasix] 20 mg PO BID 12/15/17 12/15/17 History Allergies Allergy/AdvReac Type Severity Reaction Status Date / Time Penicillins AdvReac Severe Diarrhea Verified 12/15/17 16:04 Surgical - Exam Vital Signs Temp Pulse Resp BP Pulse Ox 98 F 99 20 103/77 92 L 12/15/17 15:56 12/15/17 15:56 12/15/17 15:56 12/15/17 15:56 12/15/17 15:56 - General well developed, well nourished, no pain, chronically ill - Eyes PERRL, normal ocular movement - ENT no hearing loss - Neck no masses, no bruits, trachea midline - Respiratory Lungs sounds diminished bilaterally, right greater than left. Respirations even , nonlabored. Currently on 3 L nasal cannula with oxygen saturation 93%. - Cardiovascular S1, S2 present. Regular rate and rhythm, sinus rhythm on telemetry. Palpable peripheral pulses bilaterally. Bilateral lower extremity edema present. No calf pain or tenderness noted. - Abdomen Abdomen: soft, non tender, bowel sounds - Genitourinary Deferred - Rectum Deferred - Integumentary no rash, no growths - Neurologic normal coordination, normal sensation - Psychiatric oriented to time, oriented to person, oriented to place, speech is normal, memory intact Results - Labs 12/15/17 16:04 12/16/17 06:02 Abnormal Lab Results - Last 24 Hours (Table) 12/15/17 12/15/17 12/15/17 Range/Units 16:04 16:04 16:04 Lymphocytes # 0.9 L (1.0-4.8) k/uL Sodium 136 L (137-145) mmol/L Potassium 3.3 L (3.5-5.1) mmol/L Chloride 97 L (98-107) mmol/L Carbon Dioxide 34 H (22-30) mmol/L BUN 28 H (7-17) mg/dL Creatinine 0.47 L (0.52-1.04) mg/dL Glucose 106 H (74-99) mg/dL POC Glucose (mg/dL) (75-99) mg/dL CK-MB (CK-2) 3.5 H (0.0-2.4) ng/mL Troponin I 0.045 H* (0.000-0.034) ng/mL Total Protein 5.1 L (6.3-8.2) g/dL Albumin 2.8 L (3.5-5.0) g/dL 12/16/17 12/16/17 Range/Units 06:02 11:14 Lymphocytes # (1.0-4.8) k/uL Sodium (137-145) mmol/L Potassium 5.4 H (3.5-5.1) mmol/L Chloride (98-107) mmol/L Carbon Dioxide 31 H (22-30) mmol/L BUN 28 H (7-17) mg/dL Creatinine 0.46 L (0.52-1.04) mg/dL Glucose 153 H (74-99) mg/dL POC Glucose (mg/dL) 150 H (75-99) mg/dL CK-MB (CK-2) (0.0-2.4) ng/mL Troponin I (0.000-0.034) ng/mL Total Protein 5.2 L (6.3-8.2) g/dL Albumin 2.8 L (3.5-5.0) g/dL Diabetes panel 12/15/17 12/16/17 Range/Units 16:04 06:02 Sodium 136 L 139 (137-145) mmol/L Potassium 3.3 L 5.4 H (3.5-5.1) mmol/L Chloride 97 L 102 (98-107) mmol/L Carbon Dioxide 34 H 31 H (22-30) mmol/L BUN 28 H 28 H (7-17) mg/dL Creatinine 0.47 L 0.46 L (0.52-1.04) mg/dL Glucose 106 H 153 H (74-99) mg/dL Calcium 8.5 8.8 (8.4-10.2) mg/dL AST 28 26 (14-36) U/L ALT 46 41 (9-52) U/L Alkaline Phosphatase 61 61 (38-126) U/L Total Protein 5.1 L 5.2 L (6.3-8.2) g/dL Albumin 2.8 L 2.8 L (3.5-5.0) g/dL Calcium panel 12/15/17 12/16/17 Range/Units 16:04 06:02 Calcium 8.5 8.8 (8.4-10.2) mg/dL Albumin 2.8 L 2.8 L (3.5-5.0) g/dL Pituitary panel 12/15/17 12/16/17 Range/Units 16:04 06:02 Sodium 136 L 139 (137-145) mmol/L Potassium 3.3 L 5.4 H (3.5-5.1) mmol/L Chloride 97 L 102 (98-107) mmol/L Carbon Dioxide 34 H 31 H (22-30) mmol/L BUN 28 H 28 H (7-17) mg/dL Creatinine 0.47 L 0.46 L (0.52-1.04) mg/dL Glucose 106 H 153 H (74-99) mg/dL Calcium 8.5 8.8 (8.4-10.2) mg/dL Adrenal panel 12/15/17 12/16/17 Range/Units 16:04 06:02 Sodium 136 L 139 (137-145) mmol/L Potassium 3.3 L 5.4 H (3.5-5.1) mmol/L Chloride 97 L 102 (98-107) mmol/L Carbon Dioxide 34 H 31 H (22-30) mmol/L BUN 28 H 28 H (7-17) mg/dL Creatinine 0.47 L 0.46 L (0.52-1.04) mg/dL Glucose 106 H 153 H (74-99) mg/dL Calcium 8.5 8.8 (8.4-10.2) mg/dL Total Bilirubin 0.8 0.5 (0.2-1.3) mg/dL AST 28 26 (14-36) U/L ALT 46 41 (9-52) U/L Alkaline Phosphatase 61 61 (38-126) U/L Total Protein 5.1 L 5.2 L (6.3-8.2) g/dL Albumin 2.8 L 2.8 L (3.5-5.0) g/dL - Imaging Chest x-ray: report reviewed, image reviewed CT scan - chest: report reviewed, image reviewed Assessment and Plan (1) Acute exacerbation of chronic obstructive airways disease Current Visit: Yes Status: Acute Code(s): J44.1 - CHRONIC OBSTRUCTIVE PULMONARY DISEASE W (ACUTE) EXACERBATION SNOMED Code(s): 238191775 (2) Adult respiratory distress syndrome Current Visit: Yes Status: Acute Code(s): J80 - ACUTE RESPIRATORY DISTRESS SYNDROME SNOMED Code(s): 52540181 (3) Difficulty breathing Current Visit: Yes Status: Acute Priority: High Code(s): R06.89 - OTHER ABNORMALITIES OF BREATHING SNOMED Code(s): 556452391 (4) COPD (chronic obstructive pulmonary disease) Current Visit: Yes Status: Chronic Code(s): J44.9 - CHRONIC OBSTRUCTIVE PULMONARY DISEASE, UNSPECIFIED SNOMED Code(s): 42348623 (5) GERD (gastroesophageal reflux disease) Current Visit: Yes Status: Chronic Code(s): K21.9 - GASTRO-ESOPHAGEAL REFLUX DISEASE WITHOUT ESOPHAGITIS SNOMED Code(s): 075058873 (6) Hypertension Current Visit: Yes Status: Chronic Code(s): I10 - ESSENTIAL (PRIMARY) HYPERTENSION SNOMED Code(s): 66993476 (7) Malignant pleural effusion Current Visit: Yes Status: Acute Priority: High Code(s): J91.0 - MALIGNANT PLEURAL EFFUSION SNOMED Code(s): 21614851 (8) Primary lung adenocarcinoma Current Visit: Yes Status: Chronic Priority: High Code(s): C34.90 - MALIGNANT NEOPLASM OF UNSP PART OF UNSP BRONCHUS OR LUNG SNOMED Code(s): 972365250 (9) Tobacco dependence Current Visit: Yes Status: Chronic Code(s): F17.200 - NICOTINE DEPENDENCE, UNSPECIFIED, UNCOMPLICATED SNOMED Code(s): 45560996 Plan: The patient seen and examined at the bedside. Chart/diagnostics were reviewed. Case discussed in detail with Dr. Bustamante. Eliquis was stopped, patient did receive dose this morning. We will reverse her Eliquis with [facility]. Plan is for right-sided Pleurx catheter placement tomorrow, 12/17/2017, by Dr. Bustamante. Teaching was done with the patient and family regarding Pleurx catheters, risks and benefits were discussed in detail, all questions were answered, and the patient consented to surgery. Medical management per primary, pulmonology, oncology. Thank you Dr. Darnell for this consult. We look forward to working with you in the care of your patient. Time with Patient: Greater than 30
[2017-12-16 14:56] LABS: Hemoglobin A1C 5.9 % (4.0-6.0)
[2017-12-16] MEDS ORDERED: Kcentra PER PHARMACY 1 EACH MISC MISCELLANE PRN (14:59)
[2017-12-16] MEDS ORDERED: HUMAN PROTHROMBIN COMPLX IV ONE (15:30)
[2017-12-16 16:24] LABS: Glucose,Whole Blood 184 mg/dL (75-99)
[2017-12-16] MEDS: ACETAMINOPHEN TAB 325 MG TAB PO PRN (17:32)
[2017-12-16 21:23] LABS: Glucose,Whole Blood 189 mg/dL (75-99)
[2017-12-17] MEDS: IPRATROPIUM-ALBUTEROL 3 ML NEB INHALATION SCH ×5 (04:29→19:43)
[2017-12-17 05:49] LABS: Glucose,Whole Blood 142 mg/dL (75-99)
[2017-12-17] MEDS: methylPREDNISolone SOD SUCCI 125 MG/2 ML VIAL IV SCH ×4 (05:57→23:54)
[2017-12-17] MEDS: PANTOPRAZOLE 40 MG TABLET PO SCH (05:57)
[2017-12-17] MEDS: SODIUM CHLORIDE 0.9% 1,000 ML IV SCH ×2 (05:57→12:24)
[2017-12-17 06:24] LABS: Potassium 4.9 mmol/L (3.5-5.1)
[2017-12-17 08:42] LABS: ALT 43 U/L (9-52); AST 22 U/L (14-36); Albumin 2.8 g/dL (3.5-5.0); Alkaline Phosphatase 57 U/L (38-126); Anion Gap 3 mmol/L; Blood Urea Nitrogen 31 mg/dL (7-17); Calcium 9.4 mg/dL (8.4-10.2); Carbon Dioxide 34 mmol/L (22-30); Chloride 101 mmol/L (98-107); Glucose 153 mg/dL (74-99); Sodium 138 mmol/L (137-145); Total Bilirubin 0.4 mg/dL (0.2-1.3); Total Protein 5.2 g/dL (6.3-8.2)
[2017-12-17 08:46] LABS: Basophils % (A) 0 %; Eosinophils % (A) 0 %; HGB 11.6 gm/dL (11.4-16.0); Hypochromasia Slight; Lymphocytes # (A) 0.3 k/uL (1.0-4.8); Lymphocytes % (A) 3 %; MCHC 32.1 g/dL (31.0-37.0); MCV 96.6 fL (80.0-100.0); Mean Platelet Volume 6.8; Monocytes # (A) 0.3 k/uL (0-1.0); Monocytes % (A) 3 %; Neutrophils # (A) 9.3 k/uL (1.3-7.7); Neutrophils % (A) 93 %; Platelet Count 273 k/uL (150-450); RBC 3.72 m/uL (3.80-5.40); RDW 15.2 % (11.5-15.5)
[2017-12-17] MEDS: FUROSEMIDE 20 MG TAB PO SCH ×2 (09:12→20:55)
[2017-12-17] MEDS: NICOTINE 14MG/24HR PATCH TRANSDERM SCH (09:12)
[2017-12-17] MEDS: DILTIAZEM CD 180 MG CAP.ER.24H PO SCH (09:12)
--- NOTE | 2017-12-17 09:39 | P.PN ---
Subjective Progress Note Date: 12/17/17 This is a 77-year-old female patient of Dr. Baptiste. Patient presented to the emergency room with complaints of increase difficulty in breathing. Patient is maintained at 3 L home O2. Patient states that over the past 3 days or shortness of breath has significantly increased. Patient also noted to have increased peripheral edema. Patient was recently started on Lasix twice a day for peripheral edema has decreased slightly. Patient had a recent diagnosis of stage IV non-small cell lung adenocarcinoma. Recently admitted and underwent right-sided thoracentesis with pulmonary services removing 1 L of fluid. 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 Patient currently residing at [facility] for physical therapy posthospitalization. Patient has not started any treatment for the cancer as of yet. Additional medical history includes nicotine dependence greater than 60 years, asthma, paroxysmal atrial fibrillation in which she takes eliquis, essential hypertension, GERD, osteoarthritis and COPD. Chest x-ray completed showing interval whiteout of the right hemithorax. CT completed showing interval development of right hemithorax white out, with right mainstem bronchus. Dr. Darnell for pulmonary service is consulted. Oncology service consulted. Patient received DuoNeb breathing treatments in emergency department IV Solu-Medrol. Patient states she is feeling slightly improved. At this time patient denies chest pain. Patient denies nausea vomiting or diarrhea. Patient denies any urinary burning or frequency. On 12/17/2017 patient is currently resting comfortably in bed. Patient is alert and oriented 3. Patient states slight improvement with shortness of breath. Discussed case with Diann hope NP per cardiothoracic surgery. Planning to place Pleurx catheter today. Patient's eliquis currently on hold and vitamin K was given yesterday to reverse. At this time patient denies chest pain. Patient denies nausea vomiting or diarrhea. Patient denies any urinary burning or frequency Objective - Vital Signs Vital signs: Vital Signs Temp 98.6 F 12/17/17 07:57 Pulse 100 12/17/17 08:45 Resp 18 12/17/17 07:57 BP 118/78 12/17/17 07:57 Pulse Ox 93 L 12/17/17 07:57 Intake & Output 12/16/17 12/17/17 12/17/17 18:59 06:59 18:59 Intake Total 482 160 Output Total 750 Balance -268 160 Weight 62.3 kg Intake: IV 2 Sodium Chloride 0.9% 1, 2 000 ml @ 20 mls/hr IV . Q24H [facility] Rx#:[id number] Intake, IV Titration 160 Amount Sodium Chloride 0.9% 1, 160 000 ml @ 20 mls/hr IV . Q24H [facility] Rx#:[id number] Oral 480 Output: Urine 750 Other: Voiding Method Bedside Commode Bedside Commode # Voids 1 2 # Bowel Movements 1 - Exam Head normocephalic Neck supple Lungs diminished breath sounds on right. Wheezing noted Heart regular rate and rhythm S1-S2, no rub or gallop Abdomen is soft nontender nondistended positive bowel sounds no hepatosplenomegaly Extremities no edema Neuro alert and orientated to 3 - Labs CBC & Chem 7: 12/17/17 05:56 12/17/17 05:56 Labs: Abnormal Lab Results - Last 24 Hours (Table) 12/16/17 12/16/17 12/16/17 Range/Units 11:14 16:21 21:20 RBC (3.80-5.40) m/uL Neutrophils # (1.3-7.7) k/uL Lymphocytes # (1.0-4.8) k/uL Carbon Dioxide (22-30) mmol/L BUN (7-17) mg/dL Creatinine (0.52-1.04) mg/dL Glucose (74-99) mg/dL POC Glucose (mg/dL) 150 H 184 H 189 H (75-99) mg/dL Total Protein (6.3-8.2) g/dL Albumin (3.5-5.0) g/dL 12/17/17 12/17/17 12/17/17 Range/Units 05:46 05:56 05:56 RBC 3.72 L (3.80-5.40) m/uL Neutrophils # 9.3 H (1.3-7.7) k/uL Lymphocytes # 0.3 L (1.0-4.8) k/uL Carbon Dioxide 34 H (22-30) mmol/L BUN 31 H (7-17) mg/dL Creatinine 0.50 L (0.52-1.04) mg/dL Glucose 153 H (74-99) mg/dL POC Glucose (mg/dL) 142 H (75-99) mg/dL Total Protein 5.2 L (6.3-8.2) g/dL Albumin 2.8 L (3.5-5.0) g/dL Assessment and Plan Assessment: 1. Dyspnea related to recurring malignant pleural effusion. Patient recently underwent thoracentesis 2. CT of chest completed showing interval development of right hemothorax white out, right mainstem bronchus. Patient started on Solu -Medrol and bronchodilators. Patient maintained on Lasix by mouth twice a day. Discussed case with Diann hope [employer]ACHINE OPERATOR per cardiothoracic surgery. Planning Pleurx catheter placement today. Pulmonary services continue bronchodilators. 2. Stage IV non-small cell lung adenocarcinoma. 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 3. Nicotine dependence. Patient 60 + year smoking history. Nicotine patch has been ordered 4. History of asthma 5. History of proximal atrial fibrillation. Patient maintained on eliquis. Eliquis currently on hold per third cardiothoracic surgery for Pleurx catheter placement today. Vitamin K given for reversal 6. History of essential hypertension 7. History of GERD 8. History of osteoarthritis 9. History of COPD DVT prophylaxiix SCD eliquis currently on hold for pleurex catheter placement. GI prophylaxis Protonix I performed an examination of the patient and discussed their management with the Nurse Practitioner. I have reviewed the Nurse Practitioner's notes and agree with the documented findings and plan of care
[2017-12-17] MEDS ORDERED: IV FLUID CONTINUATION 1,000 ML IV ONE (10:29)
[2017-12-17 10:36] LABS: Glucose,Whole Blood 136 mg/dL (75-99)
[2017-12-17] MEDS ORDERED: MIDAZOLAM 2 MG/2 ML VIAL ONE (11:06)
[2017-12-17] MEDS ORDERED: PROPOFOL 10 MG/ML 20 ML VIAL IV ONE (11:06)
[2017-12-17] MEDS ORDERED: fentaNYL (PF) 50 MCG/ML 2 ML AMP ONE (11:06)
[2017-12-17] MEDS ORDERED: ACETAMINOPHEN IV (For NPO) 1,000 MG/100 ML VIAL IVPB ONE (11:54)
--- NOTE | 2017-12-17 12:02 | FL ---
EXAMINATION TYPE: FL guidance operating room DATE OF EXAM: 12/17/2017 CLINICAL HISTORY: Massive right-sided effusion. TECHNIQUE: Fluoroscopy. COMPARISON: CT chest from 2 days ago.. FINDINGS: Fluoroscopic guidance was provided during chest tube insertion procedure performed by Dr. Bustamante. A total of 5 seconds of fluoroscopic time was utilized during the procedure and one spot flu oroscopic image is acquired. Single image acquired is of the right lower thorax and upper abdomen. IMPRESSION: As Above.
[2017-12-17] MEDS: MORPHINE SULFATE 4 MG/ML SYRINGE IVP ONE ×3 (12:06→12:26)
[2017-12-17 12:21] LABS: Glucose,Whole Blood 137 mg/dL (75-99)
--- NOTE | 2017-12-17 12:48 | XR ---
EXAMINATION TYPE: XR chest 1V portable DATE OF EXAM: 12/17/2017 COMPARISON: 12/15/2017 HISTORY: Chest tube placement TECHNIQUE: Single frontal view of the chest is obtained. FINDINGS: There is near complete opacification right hemithorax which is improved. Right-sided chest tube is seen in approximate 15% right-sided pneumothorax. Left lung demonstrates left basilar consol idation and tiny effusion. Severe arthropathy of the shoulders. Heart size stable. IMPRESSION: 1. Mild improvement in the opacification of the right lung which demonstrates persistent diffuse opac ification. However, chest tube is been placed and there is interval development of a 15% right-sided pneumothorax.
[2017-12-17 16:43] LABS: Glucose,Whole Blood 147 mg/dL (75-99)
[2017-12-17 21:10] LABS: Glucose,Whole Blood 232 mg/dL (75-99)
[2017-12-18] MEDS: IPRATROPIUM-ALBUTEROL 3 ML NEB INHALATION SCH ×7 (00:33→23:27)
[2017-12-18 06:12] LABS: Glucose,Whole Blood 139 mg/dL (75-99)
[2017-12-18] MEDS: PANTOPRAZOLE 40 MG TABLET PO SCH (06:26)
[2017-12-18] MEDS: methylPREDNISolone SOD SUCCI 125 MG/2 ML VIAL IV SCH ×4 (06:26→22:35)
[2017-12-18 07:47] LABS: Basophils % (A) 0 %; Eosinophils % (A) 0 %; HGB 13.6 gm/dL (11.4-16.0); Lymphocytes # (A) 0.5 k/uL (1.0-4.8); Lymphocytes % (A) 4 %; MCH 30.1 pg (25.0-35.0); MCHC 31.5 g/dL (31.0-37.0); MCV 95.6 fL (80.0-100.0); Mean Platelet Volume 6.9; Monocytes # (A) 0.5 k/uL (0-1.0); Monocytes % (A) 4 %; Neutrophils # (A) 10.7 k/uL (1.3-7.7); Neutrophils % (A) 91 %; Platelet Count 288 k/uL (150-450); RDW 15.2 % (11.5-15.5); WBC 11.7 k/uL (3.8-10.6)
[2017-12-18] MEDS: NICOTINE 14MG/24HR PATCH TRANSDERM SCH (07:55)
[2017-12-18] MEDS: DILTIAZEM CD 180 MG CAP.ER.24H PO SCH (07:55)
[2017-12-18] MEDS: SODIUM CHLORIDE 0.9% 1,000 ML IV SCH ×2 (07:55→13:07)
[2017-12-18] MEDS: FUROSEMIDE 20 MG TAB PO SCH ×2 (07:55→22:35)
[2017-12-18 08:19] LABS: Albumin 2.7 g/dL (3.5-5.0); Calcium 9.1 mg/dL (8.4-10.2); Potassium 4.9 mmol/L (3.5-5.1); Total Bilirubin 0.6 mg/dL (0.2-1.3)
--- NOTE | 2017-12-18 10:18 | P.PN ---
Subjective Progress Note Date: 12/18/17 This is a 77-year-old female patient of Dr. Baptiste. Patient presented to the emergency room with complaints of increase difficulty in breathing. Patient is maintained at 3 L home O2. Patient states that over the past 3 days or shortness of breath has significantly increased. Patient also noted to have increased peripheral edema. Patient was recently started on Lasix twice a day for peripheral edema has decreased slightly. Patient had a recent diagnosis of stage IV non-small cell lung adenocarcinoma. Recently admitted and underwent right-sided thoracentesis with pulmonary services removing 1 L of fluid. 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 Patient currently residing at [facility] for physical therapy posthospitalization. Patient has not started any treatment for the cancer as of yet. Additional medical history includes nicotine dependence greater than 60 years, asthma, paroxysmal atrial fibrillation in which she takes eliquis, essential hypertension, GERD, osteoarthritis and COPD. Chest x-ray completed showing interval whiteout of the right hemithorax. CT completed showing interval development of right hemithorax white out, with right mainstem bronchus. Dr. Darnell for pulmonary service is consulted. Oncology service consulted. Patient received DuoNeb breathing treatments in emergency department IV Solu-Medrol. Patient states she is feeling slightly improved. At this time patient denies chest pain. Patient denies nausea vomiting or diarrhea. Patient denies any urinary burning or frequency. On 12/17/2017 patient is currently resting comfortably in bed. Patient is alert and oriented 3. Patient states slight improvement with shortness of breath. Discussed case with Diann hope NP per cardiothoracic surgery. Planning to place Pleurx catheter today. Patient's eliquis currently on hold and vitamin K was given yesterday to reverse. At this time patient denies chest pain. Patient denies nausea vomiting or diarrhea. Patient denies any urinary burning or frequency On 12/18/2017 patient is currently sleeping and resting comfortably in bed. Patient is arousable but states she is been pretty sleepy since procedure yesterday. Patient states some improvement with her shortness of breath. Patient denies chest pain denies nausea vomiting or diarrhea. Patient denies any urinary burning or frequency. Discussed case with Jesse MUNSON per cardiothoracic surgery. Recommended keeping eliquis DC'd at this time. Patient does have Pleurx cath to chest tube in place that is draining. Recommending from thoracic surgery to keep patient in continue watching drainage output. Objective - Vital Signs Vital signs: Vital Signs Temp 97.7 F 12/18/17 08:00 Pulse 100 12/18/17 09:38 Resp 19 12/18/17 08:00 BP 110/66 12/18/17 08:00 Pulse Ox 91 L 12/18/17 08:00 Intake & Output 12/17/17 12/18/17 12/18/17 18:59 06:59 18:59 Intake Total 1190 160 Output Total 901 1000 Balance 289 -840 Weight 61 kg Intake: IV 1190 Intake, IV Titration 160 Amount Sodium Chloride 0.9% 1, 160 000 ml @ 20 mls/hr IV . Q24H [facility] Rx#:[id number] Output: Chest Tube Drainage 1000 Pleural Catheter 1000 Urine 600 Pleural Fluid 300 Estimated Blood Loss 1 Other: Voiding Method Bedside Commode Bedside Commode Bedpan Bedpan # Voids 1 # Bowel Movements 0 - Exam Head normocephalic Neck supple Lungs diminished breath sounds on right. Wheezing noted Heart regular rate and rhythm S1-S2, no rub or gallop Abdomen is soft nontender nondistended positive bowel sounds no hepatosplenomegaly Extremities no edema Neuro alert and orientated to 3 - Labs CBC & Chem 7: 12/18/17 06:42 12/18/17 06:42 Labs: Abnormal Lab Results - Last 24 Hours (Table) 12/17/17 12/17/17 12/17/17 Range/Units 10:34 12:19 16:40 WBC (3.8-10.6) k/uL Neutrophils # (1.3-7.7) k/uL Lymphocytes # (1.0-4.8) k/uL Sodium (137-145) mmol/L BUN (7-17) mg/dL Glucose (74-99) mg/dL POC Glucose (mg/dL) 136 H 137 H 147 H (75-99) mg/dL Total Protein (6.3-8.2) g/dL Albumin (3.5-5.0) g/dL 12/17/17 12/18/17 12/18/17 Range/Units 21:08 06:10 06:42 WBC 11.7 H (3.8-10.6) k/uL Neutrophils # 10.7 H (1.3-7.7) k/uL Lymphocytes # 0.5 L (1.0-4.8) k/uL Sodium (137-145) mmol/L BUN (7-17) mg/dL Glucose (74-99) mg/dL POC Glucose (mg/dL) 232 H 139 H (75-99) mg/dL Total Protein (6.3-8.2) g/dL Albumin (3.5-5.0) g/dL 12/18/17 Range/Units 06:42 WBC (3.8-10.6) k/uL Neutrophils # (1.3-7.7) k/uL Lymphocytes # (1.0-4.8) k/uL Sodium 135 L (137-145) mmol/L BUN 41 H (7-17) mg/dL Glucose 145 H (74-99) mg/dL POC Glucose (mg/dL) (75-99) mg/dL Total Protein 5.0 L (6.3-8.2) g/dL Albumin 2.7 L (3.5-5.0) g/dL Assessment and Plan Assessment: 1. Dyspnea related to recurring malignant pleural effusion. Patient recently underwent thoracentesis 2. CT of chest completed showing interval development of right hemothorax white out, right mainstem bronchus. Patient started on Solu -Medrol and bronchodilators. Patient maintained on Lasix by mouth twice a day. Discussed case with Diann hope NP per cardiothoracic surgery. Planning Pleurx catheter placement today. Pulmonary services continue bronchodilators. Discussed with Jesse MUNSON per cardiothoracic surgery. Patient's Pleurx drain currently has 2 chest tube suction. We'll continue due to increased output. 2. Stage IV non-small cell lung adenocarcinoma. 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 3. Nicotine dependence. Patient 60 + year smoking history. Nicotine patch has been ordered 4. History of asthma 5. History of proximal atrial fibrillation. Patient maintained on eliquis. Eliquis currently on hold per third cardiothoracic surgery for Pleurx catheter placement today. Vitamin K given for reversal. Discussed case with Jesse MUNSON per cardiothoracic surgery recommending to keep up with on hold at this time 6. History of essential hypertension 7. History of GERD 8. History of osteoarthritis 9. History of COPD DVT prophylaxiix SCD eliquis currently on hold for pleurex catheter placement. GI prophylaxis Protonix PT has been consulted for increased weakness. Social work consulted for discharge planning. Patient ideally would like to return to her home. I performed an examination of the patient and discussed their management with the Nurse Practitioner. I have reviewed the Nurse Practitioner's notes and agree with the documented findings and plan of care
[2017-12-18 12:03] LABS: Glucose,Whole Blood 195 mg/dL (75-99)
--- NOTE | 2017-12-18 12:03 | P.PN ---
Subjective Progress Note Date: 12/18/17 Principal diagnosis: Metastatic Adenocarcinoma of Lung Patient no acute complaints overnight. Objective - Vital Signs Vital signs: Vital Signs Temp 97.7 F 12/18/17 08:00 Pulse 100 12/18/17 09:38 Resp 19 12/18/17 08:00 BP 110/66 12/18/17 08:00 Pulse Ox 91 L 12/18/17 08:00 Intake & Output 12/17/17 12/18/17 12/18/17 18:59 06:59 18:59 Intake Total 1190 160 Output Total 901 1000 400 Balance 289 -840 -400 Weight 61 kg Intake: IV 1190 Intake, IV Titration 160 Amount Sodium Chloride 0.9% 1, 160 000 ml @ 20 mls/hr IV . Q24H [facility] Rx#:[id number] Output: Chest Tube Drainage 1000 Pleural Catheter 1000 Urine 600 400 Pleural Fluid 300 Estimated Blood Loss 1 Other: Voiding Method Bedside Commode Bedside Commode Bedpan Bedpan # Voids 1 # Bowel Movements 0 - Exam - Constitutional General appearance: average body habitus, cooperative, mild distress - EENT Eyes: anicteric sclerae, EOMI, normal appearance ENT: hearing grossly normal - Neck Neck: no lymphadenopathy - Respiratory Respiratory: right: other (audible congestion), left: diminished, bilateral: rhonchi, prolonged expiration Status post pleurex catheter - Cardiovascular Heart sounds: normal: S1, S2 leg Peripheral Edema: bilateral: None - Gastrointestinal General gastrointestinal: no absent bowel sounds, no decreased bowel sounds, distended, no hepatomegaly, no hyperactive bowel sounds, normal bowel sounds, no organomegaly, no rigid, no scaphoid, soft, no splenomegaly, no tenderness, no umbilical hernia, no ventral hernia - Neurologic Neurologic: CNII-XII intact - Musculoskeletal Musculoskeletal: generalized weakness, strength equal bilaterally - Psychiatric Psychiatric: A&O x's 3, appropriate affect, intact judgment & insight - Labs CBC & Chem 7: 12/18/17 06:42 12/18/17 06:42 Labs: Abnormal Lab Results - Last 24 Hours (Table) 12/17/17 12/17/17 12/17/17 Range/Units 12:19 16:40 21:08 WBC (3.8-10.6) k/uL Neutrophils # (1.3-7.7) k/uL Lymphocytes # (1.0-4.8) k/uL Sodium (137-145) mmol/L BUN (7-17) mg/dL Glucose (74-99) mg/dL POC Glucose (mg/dL) 137 H 147 H 232 H (75-99) mg/dL Total Protein (6.3-8.2) g/dL Albumin (3.5-5.0) g/dL 12/18/17 12/18/17 12/18/17 Range/Units 06:10 06:42 06:42 WBC 11.7 H (3.8-10.6) k/uL Neutrophils # 10.7 H (1.3-7.7) k/uL Lymphocytes # 0.5 L (1.0-4.8) k/uL Sodium 135 L (137-145) mmol/L BUN 41 H (7-17) mg/dL Glucose 145 H (74-99) mg/dL POC Glucose (mg/dL) 139 H (75-99) mg/dL Total Protein 5.0 L (6.3-8.2) g/dL Albumin 2.7 L (3.5-5.0) g/dL Assessment and Plan Plan: Chest x-ray: report reviewed CT scan - chest: image reviewed Assessment and Plan (1) Non-small cell lung cancer with metastasis Narrative/Plan: - New Diagnosis - Pathology and molecular testing reveals positive for PDL1 >60%, 1st line therapy with pembrolizumab immunotherapy is an option. - Patient and Family is aware of finding. Eugenia reviewed potential treatment with immunotherapy SE and treatment of SE. I also informed pt and son that - - - Corine Alexis [employer] AD[employer]INE[employer] has reviewed findings with Primary Oncologist and will relay any additional treatment options (plus/minus chemotherapy with immunotherapy)to patient and family on Thursday if still hospitalized. - Treatment with pembrolizumab can take 6-8 weeks for the effects to be appreciated and begin to see resolution of malignancy symptoms so agree with pleurex cath as this will certainly provide comfort and reduce respiratory symptoms. - Consider Mediport Placement while patient is inpatient and anticoagulation is on hold. Current Visit: Yes Status: Acute Priority: High Code(s): C34.90 - MALIGNANT NEOPLASM OF UNSP PART OF UNSP BRONCHUS OR LUNG SNOMED Code(s): 465208307 (2) Recurrent Malignant Pleural Effusion: - Status Post Thoracentesis x2, and now status post pleurex catheter by Dr. higgins on 12/17/17 (3) Difficulty breathing Narrative/Plan: - Secondary to recurrent effusions - Status Post Pleurex Catheter. Current Visit: Yes Status: Acute Priority: High Code(s): R06.89 - OTHER ABNORMALITIES OF BREATHING SNOMED Code(s): 067529508 (4) Atrial Fibrillation: - cardiology manages as outpatient with [facility] - Was placed on hold for Pleurex catheter, will defer re-initiation to cardiothoracic surgery. Physician Attest: I have completed the full history and physical of this patient and agree with above dictation by Augustina Gagnon NP Dictated as a scribe
[2017-12-18] MEDS: ACETAMINOPHEN TAB 325 MG TAB PO PRN (13:12)
--- NOTE | 2017-12-18 13:46 | P.PN ---
Subjective Progress Note Date: 12/18/17 Principal diagnosis: Shortness of breath, malignant pleural effusion Progress note dated 12/18/2017 77-year-old female with a history of stage IV non-small cell lung cancer, status post thoracentesis 2 on the right side for malignant pleural effusion. On this admission, the patient came back into the hospital with complaints of shortness of breath. She had complete we'll write out of the right hemithorax. Rather than do another thoracentesis, were able to have a thoracic colleagues do a Pleurx catheter on her. Today she states she's not feeling very well. She is not very specific in terms of how she feels. She does mention that she is a bit short of breath with her chest x-ray has improved. In addition, she has a history of COPD, GERD, hypertension, pneumonia, and DJD. When she was here last, she was discharged one of the nursing homes. She developed severe shortness of breath or and was noted to have a large right-sided effusion which is malignant in nature. Objective - Vital Signs Vital signs: Vital Signs Temp 97.7 F 12/18/17 12:00 Pulse 112 H 12/18/17 13:11 Resp 18 12/18/17 12:00 BP 106/68 12/18/17 12:00 Pulse Ox 92 L 12/18/17 12:00 Intake & Output 12/17/17 12/18/17 12/18/17 18:59 06:59 18:59 Intake Total 1190 160 Output Total 901 1000 400 Balance 289 -840 -400 Weight 61 kg Intake: IV 1190 Intake, IV Titration 160 Amount Sodium Chloride 0.9% 1, 160 000 ml @ 20 mls/hr IV . Q24H [facility] Rx#:[id number] Output: Chest Tube Drainage 1000 Pleural Catheter 1000 Urine 600 400 Pleural Fluid 300 Estimated Blood Loss 1 Other: Voiding Method Bedside Commode Bedside Commode Bedpan Bedpan # Voids 1 # Bowel Movements 0 - Exam No acute distress, oriented 3. Nasal O2 in place HEENT examination is grossly unremarkable. Mucous membranes are moist. No oral lesions. Neck supple. Full range of motion. No adenopathy thyromegaly or neck vein distention. Cardiovascular examination reveals regular rhythm rate. S1-S2 normal. No S3 or S4. No discernible murmur noted. Heart sounds are distant. Lungs reveal severely diminished breath sounds on the right side. A few scattered crackles are noted. There is some expiratory rhonchi noted. Breath sounds on the left relatively clear. The Pleurx catheter was noted on the right chest area. Abdomen soft bowel sounds are heard. No masses or tenderness. Extremities are intact. No cyanosis clubbing or edema. Skin is without rash or lesion. Neurologic examination is brief but nonfocal. - Labs CBC & Chem 7: 12/18/17 06:42 12/18/17 06:42 Labs: Abnormal Lab Results - Last 24 Hours (Table) 12/17/17 12/17/17 12/18/17 Range/Units 16:40 21:08 06:10 WBC (3.8-10.6) k/uL Neutrophils # (1.3-7.7) k/uL Lymphocytes # (1.0-4.8) k/uL Sodium (137-145) mmol/L BUN (7-17) mg/dL Glucose (74-99) mg/dL POC Glucose (mg/dL) 147 H 232 H 139 H (75-99) mg/dL Total Protein (6.3-8.2) g/dL Albumin (3.5-5.0) g/dL 12/18/17 12/18/17 12/18/17 Range/Units 06:42 06:42 12:01 WBC 11.7 H (3.8-10.6) k/uL Neutrophils # 10.7 H (1.3-7.7) k/uL Lymphocytes # 0.5 L (1.0-4.8) k/uL Sodium 135 L (137-145) mmol/L BUN 41 H (7-17) mg/dL Glucose 145 H (74-99) mg/dL POC Glucose (mg/dL) 195 H (75-99) mg/dL Total Protein 5.0 L (6.3-8.2) g/dL Albumin 2.7 L (3.5-5.0) g/dL Assessment and Plan Assessment: Assessment Stage IV, non-small cell lung cancer/adenocarcinoma, with recurrent right-sided malignant pleural effusion, status post thoracentesis 2 Status post Pleurx catheter placement, postop day #1, with 3 L of fluid removed. History of COPD History of GERD History of hypertension Previous history of pneumonia History of osteoarthritis Plan: Plan dated 12/16/2017. The patient's blood thinner was held. We did do a consultation to cardiothoracic surgery for possible Pleurx catheter placement. In the meantime , the patient's on appropriate medications including bronchodilators oxygen, etc. We will continue to follow. We did find out from oncology the patient did test positive for a genetic marker, making her a candidate for targeted immunotherapy. Her overall prognosis is poor. She was with her son today. This was all explained to her and her son today. We'll continue to follow. Plan dated 12/18/2017 The patient has a Pleurx catheter in her right chest cavity. It was placed by cardiothoracic surgery. 3 L of fluid was removed. She was given a Pleurx catheter instructions. Hopefully we will get her discharged within the next 24- 48 hours. Today she's not feeling so well. Feels more short of breath. Her chest x-rays improved. Labs reveal a white count 11.7, hemoglobin 13.6, hematocrit 43.0 and platelet count 280,000. Sodium is 135 potassium 4.9 chloride 98 CO2 30 anion gap 7 BUN and creatinine were 41 and 0.1. Chest x-ray shows some improvement in the opacification that was noted previously in the right chest cavity. Time with Patient: Less than 30
--- NOTE | 2017-12-18 13:56 | OP ---
OPERATIVE REPORT DATE OF OPERATION: 12/17/2017 Date of dictation the same. PREOPERATIVE DIAGNOSIS: Recurrent right malignant pleural effusion. POSTOPERATIVE DIAGNOSIS: Recurrent right malignant pleural effusion. OPERATIVE PROCEDURE: Right PleurX catheter placement with fluoroscopic guidance. SURGEON: Dr. Miguel Ángel Bustamante. ANESTHESIA: Local IV sedation. INDICATIONS: The patient is a 77-year-old female with metastatic lung cancer with pulmonary and pleural metastasis. She has had 2 previous right-sided thoracenteses for malignant effusion. She presents at this time with whiteout of the right chest and shortness of breath. She was seen in the emergency department on the evening of 12/15, and admitted to the hospital. She was on Eliquis for atrial fibrillation and this was ordered by the emergency department and dosed on the morning of 12/16. She was seen by Dr. Keller on the morning of 12/16 and consultation with thoracic surgery for PleurX catheter was requested. I came and saw the patient and felt PleurX catheter was reasonable but was hesitant to perform it on 12/16 due to having had her Eliquis that morning. We held the Eliquis and scheduled her for the next day. OPERATIVE PROCEDURE: Patient was brought to the operating room, placed supine on the operating fluoro table. The head was turned to the left and the right chest sterilely prepped and draped. The patient was supine. Skin overlying the 7th interspace was injected with a small amount of 1% lidocaine in the anterior axillary line. The needle was then extended into the pleural space and clear serous fluid was identified. The tract was then injected with further lidocaine. An 18-gauge needle was used to puncture through the same tract and a guidewire was threaded into the right pleural space under fluoroscopic guidance. We then used the lidocaine to anesthetize the skin in the right upper quadrant near the guidewire site. The guidewire site was then incised and extended to an incision of about a cm with a counter incision in the right upper quadrant at the site of the instillation of the lidocaine of about 3/4 of a centimeter. PleurX catheter was now tunneled from the abdominal site to the chest site and the cuff of the PleurX catheter was positioned just under the skin at the exit site from the abdomen. Introducer and dilator were placed over the wire under fluoroscopic guidance and then the catheter was threaded into the chest through the introducer sheath. The introducer sheath was removed and the catheter's placement in the pleural space was confirmed with fluoroscopy. The catheter was connected to suction. The catheter was secured at the exit site with a 2-0 silk suture ligature and the 1 cm incision in the right chest was closed with layers of Vicryl suture, being careful not to suture the catheter. After the catheter had drained 3 L of fluid, it was decided to connect it to a Pleur-Evac. It was connected to a Pleur-Evac and a dry sterile dressing was applied over the exit site. The small incision on the thorax was dressed with some skin glue. The patient was then transferred to recovery in stable condition. MMODL / IJN: [id number] /
--- NOTE | 2017-12-18 14:41 | XR ---
EXAMINATION TYPE: XR chest 1V portable DATE OF EXAM: 12/18/2017 COMPARISON: 12/17/2017 earlier exam INDICATION: Pneumothorax TECHNIQUE: Single frontal view of the chest is obtained. FINDINGS: The heart size is mildly prominent. The pulmonary vasculature is normal. There is diffuse increased infiltrate to the right lung. Previous right apical pneumothorax has dimin ished. Minimal residual remains. Right-sided chest tube remains in position. There is advanced degenerative changes through the bilateral shoulders. IMPRESSION: 1. Near complete resolution previous right apical pneumothorax. 2. Infiltrate to the right lung. 3. Right-sided chest tube. 4. Lateral advanced degenerative changes of shoulders
[2017-12-18] MEDS: HYDROcodone/APAP 5-325MG 1 EACH TAB PO PRN ×2 (16:08→22:41)
--- NOTE | 2017-12-18 16:42 | P.PN ---
Subjective Progress Note Date: 12/18/17 Principal diagnosis: Recurrent right malignant pleural effusion, history of stage IV non-small cell lung cancer, status post thoracentesis 2, history of COPD, hypertension, pneumonia, degenerative joint disease and gastroesophageal reflux disease. POD #1 placement right Pleurx catheter placement with fluoroscopy guidance. Patient is laying in bed in no acute distress. Patient reports that she does still have some episodes of shortness of breath. Her oxygen saturations are 91 % on 4 L nasal cannula. We will Pleurx catheter remains to low continuous wall suction -20 cm H2O. Draining thin serosanguineous drainage. She has had about 1500 mL output since her Pleurx catheter has been placed. She is achieving 500 mL on her incentive spirometry. Objective - Vital Signs Vital signs: Vital Signs Temp 97.7 F 12/18/17 12:00 Pulse 112 H 12/18/17 13:11 Resp 18 12/18/17 12:00 BP 106/68 12/18/17 12:00 Pulse Ox 92 L 12/18/17 12:00 Intake & Output 12/17/17 12/18/17 12/18/17 18:59 06:59 18:59 Intake Total 1190 160 180 Output Total 901 1000 825 Balance 289 -840 -645 Weight 61 kg Intake: IV 1190 Intake, IV Titration 160 Amount Sodium Chloride 0.9% 1, 160 000 ml @ 20 mls/hr IV . Q24H [facility] Rx#:[id number] Oral 180 Output: Chest Tube Drainage 1000 425 Pleural Catheter 1000 425 Urine 600 400 Pleural Fluid 300 Estimated Blood Loss 1 Other: Voiding Method Bedside Commode Bedside Commode Bedpan Bedpan # Voids 1 # Bowel Movements 0 - Constitutional General appearance: Present: cooperative, no acute distress - Respiratory Details: Lung sounds with few scattered rhonchi throughout, diminished bilateral bases right greater than left. Oxygen saturations are 91% on 4 L nasal cannula. She is achieving 500 mL on her incentive spirometry. Pleurx catheter remains in place to low continuous wall suction -20 cm H2O. Draining thin serosanguineous drainage. No air leak is present. 780 mL output in the last 8 hours, 1500 mL output since Pleurx catheter placement. - Cardiovascular Details: Irregular rhythm with a tachycardic rate. S1 and S2 present, negative for S3, gallop or murmur. Remote telemetry showing atrial fibrillation heart rate 101. No edema present. Sequential compression devices in place to bilateral lower extremities. - Gastrointestinal Gastrointestinal Comment(s): Abdomen is soft, nontender and nondistended. Hypoactive bowel sounds all 4 abdominal quadrants. No guarding or rigidity. No organomegaly. - Genitourinary Genitourinary Comment(s): Voiding clear chen urine. - Integumentary Integumentary Comment(s): Skin is warm and dry. No clubbing or cyanosis present. Right chest Pleurx insertion sites clean dry and intact. No drainage or redness present. - Neurologic Neurologic: Present: CNII-XII intact - Musculoskeletal Musculoskeletal: Present: generalized weakness, strength equal bilaterally - Psychiatric Psychiatric: Present: A&O x's 3, appropriate affect, intact judgment & insight - Allied health notes Allied health notes reviewed: nursing - Labs CBC & Chem 7: 12/18/17 06:42 12/18/17 06:42 Labs: Abnormal Lab Results - Last 24 Hours (Table) 12/17/17 12/17/17 12/18/17 Range/Units 16:40 21:08 06:10 WBC (3.8-10.6) k/uL Neutrophils # (1.3-7.7) k/uL Lymphocytes # (1.0-4.8) k/uL Sodium (137-145) mmol/L BUN (7-17) mg/dL Glucose (74-99) mg/dL POC Glucose (mg/dL) 147 H 232 H 139 H (75-99) mg/dL Total Protein (6.3-8.2) g/dL Albumin (3.5-5.0) g/dL 12/18/17 12/18/17 12/18/17 Range/Units 06:42 06:42 12:01 WBC 11.7 H (3.8-10.6) k/uL Neutrophils # 10.7 H (1.3-7.7) k/uL Lymphocytes # 0.5 L (1.0-4.8) k/uL Sodium 135 L (137-145) mmol/L BUN 41 H (7-17) mg/dL Glucose 145 H (74-99) mg/dL POC Glucose (mg/dL) 195 H (75-99) mg/dL Total Protein 5.0 L (6.3-8.2) g/dL Albumin 2.7 L (3.5-5.0) g/dL - Imaging and Cardiology Chest x-ray: report reviewed, image reviewed Assessment and Plan (1) COPD (chronic obstructive pulmonary disease) Current Visit: Yes Status: Acute Code(s): J44.9 - CHRONIC OBSTRUCTIVE PULMONARY DISEASE, UNSPECIFIED SNOMED Code(s): 06724169 (2) Atrial fibrillation Current Visit: Yes Status: Acute Code(s): I48.91 - UNSPECIFIED ATRIAL FIBRILLATION SNOMED Code(s): 99665297 (3) Malignant pleural effusion Current Visit: Yes Status: Acute Code(s): J91.0 - MALIGNANT PLEURAL EFFUSION SNOMED Code(s): 51995342 (4) Non-small cell lung cancer with metastasis Current Visit: Yes Status: Acute Priority: High Code(s): C34.90 - MALIGNANT NEOPLASM OF UNSP PART OF UNSP BRONCHUS OR LUNG SNOMED Code(s): 777558126 (5) COPD (chronic obstructive pulmonary disease) Current Visit: Yes Status: Chronic Code(s): J44.9 - CHRONIC OBSTRUCTIVE PULMONARY DISEASE, UNSPECIFIED SNOMED Code(s): 16005883 (6) GERD (gastroesophageal reflux disease) Current Visit: Yes Status: Chronic Code(s): K21.9 - GASTRO-ESOPHAGEAL REFLUX DISEASE WITHOUT ESOPHAGITIS SNOMED Code(s): 336207492 (7) Hypertension Current Visit: Yes Status: Chronic Code(s): I10 - ESSENTIAL (PRIMARY) HYPERTENSION SNOMED Code(s): 68794363 (8) Primary lung adenocarcinoma Current Visit: Yes Status: Chronic Priority: High Code(s): C34.90 - MALIGNANT NEOPLASM OF UNSP PART OF UNSP BRONCHUS OR LUNG SNOMED Code(s): 307815625 (9) History of osteoarthritis Current Visit: No Status: Acute Code(s): Z87.39 - PERSONAL HISTORY OF DISEASES OF THE MS SYS AND CONN TISS SNOMED Code(s): 946828591 (10) History of pneumonia Current Visit: No Status: Acute Code(s): Z87.01 - PERSONAL HISTORY OF PNEUMONIA (RECURRENT) SNOMED Code(s): 021797582 Plan: 1. Keep Pleurx catheter connected to Pleur-evac drainage system for at least another 24 hours. We will continue monitor the drainage output. 2. Incentive spirometry education and encourage use every hour while awake. 3. Pain management per current when necessary orders. 4. Medical management per primary care service. 5. Pulmonary management per Dr. Darnell's recommendations. 6. More recommendations to follow based on patient's clinical course. Time with Patient: Greater than 30
[2017-12-18 16:43] LABS: Glucose,Whole Blood 147 mg/dL (75-99)
[2017-12-18 20:44] LABS: Glucose,Whole Blood 146 mg/dL (75-99)
[2017-12-19] MEDS: IPRATROPIUM-ALBUTEROL 3 ML NEB INHALATION SCH ×6 (05:32→23:37)
[2017-12-19 05:43] LABS: Glucose,Whole Blood 139 mg/dL (75-99)
[2017-12-19 06:48] LABS: Basophils % (A) 0 %; Eosinophils % (A) 0 %; HCT 41.2 % (34.0-46.0); HGB 13.4 gm/dL (11.4-16.0); Lymphocytes # (A) 0.5 k/uL (1.0-4.8); Lymphocytes % (A) 4 %; MCH 30.4 pg (25.0-35.0); MCHC 32.5 g/dL (31.0-37.0); MCV 93.6 fL (80.0-100.0); Monocytes # (A) 0.5 k/uL (0-1.0); Monocytes % (A) 4 %; Neutrophils # (A) 11.7 k/uL (1.3-7.7); Neutrophils % (A) 92 %; Platelet Count 292 k/uL (150-450); RDW 15.2 % (11.5-15.5); WBC 12.8 k/uL (3.8-10.6)
[2017-12-19] MEDS: methylPREDNISolone SOD SUCCI 125 MG/2 ML VIAL IV SCH ×4 (06:59→23:26)
[2017-12-19] MEDS: NICOTINE 14MG/24HR PATCH TRANSDERM SCH (06:59)
[2017-12-19 07:06] LABS: Albumin 2.9 g/dL (3.5-5.0); Calcium 9.4 mg/dL (8.4-10.2); Potassium 4.8 mmol/L (3.5-5.1); Total Protein 5.2 g/dL (6.3-8.2)
[2017-12-19] MEDS: FUROSEMIDE 20 MG TAB PO SCH ×2 (08:49→21:29)
[2017-12-19] MEDS: DILTIAZEM CD 180 MG CAP.ER.24H PO SCH (08:49)
[2017-12-19] MEDS: ENOXAPARIN 40 MG/0.4 ML SYRINGE SQ SCH (08:49)
[2017-12-19] MEDS: HYDROcodone/APAP 5-325MG 1 EACH TAB PO PRN ×3 (08:49→23:22)
[2017-12-19] MEDS: PANTOPRAZOLE 40 MG TABLET PO SCH (08:49)
--- NOTE | 2017-12-19 10:39 | P.PN ---
Subjective Progress Note Date: 12/19/17 This is a 77-year-old female patient of Dr. Baptiste. Patient presented to the emergency room with complaints of increase difficulty in breathing. Patient is maintained at 3 L home O2. Patient states that over the past 3 days or shortness of breath has significantly increased. Patient also noted to have increased peripheral edema. Patient was recently started on Lasix twice a day for peripheral edema has decreased slightly. Patient had a recent diagnosis of stage IV non-small cell lung adenocarcinoma. Recently admitted and underwent right-sided thoracentesis with pulmonary services removing 1 L of fluid. 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 Patient currently residing at [facility] for physical therapy posthospitalization. Patient has not started any treatment for the cancer as of yet. Additional medical history includes nicotine dependence greater than 60 years, asthma, paroxysmal atrial fibrillation in which she takes eliquis, essential hypertension, GERD, osteoarthritis and COPD. Chest x-ray completed showing interval whiteout of the right hemithorax. CT completed showing interval development of right hemithorax white out, with right mainstem bronchus. Dr. Darnell for pulmonary service is consulted. Oncology service consulted. Patient received DuoNeb breathing treatments in emergency department IV Solu-Medrol. Patient states she is feeling slightly improved. At this time patient denies chest pain. Patient denies nausea vomiting or diarrhea. Patient denies any urinary burning or frequency. On 12/17/2017 patient is currently resting comfortably in bed. Patient is alert and oriented 3. Patient states slight improvement with shortness of breath. Discussed case with Diann hope NP per cardiothoracic surgery. Planning to place Pleurx catheter today. Patient's eliquis currently on hold and vitamin K was given yesterday to reverse. At this time patient denies chest pain. Patient denies nausea vomiting or diarrhea. Patient denies any urinary burning or frequency On 12/18/2017 patient is currently sleeping and resting comfortably in bed. Patient is arousable but states she is been pretty sleepy since procedure yesterday. Patient states some improvement with her shortness of breath. Patient denies chest pain denies nausea vomiting or diarrhea. Patient denies any urinary burning or frequency. Discussed case with Jesse MUNSON per cardiothoracic surgery. Recommended keeping eliquis DC'd at this time. Patient does have Pleurx cath to chest tube in place that is draining. Recommending from thoracic surgery to keep patient in continue watching drainage output. On 12/19/2017 patient was seen and examined on the third telemetry floor she is alert and oriented 3, patient had Pleurx catheter placed yesterday, still connected to the pleur-vac drainage system. Patient is complaining of mild pain around the tube site and in the epigastric area otherwise she denies any complaints, shortness of breath has improved, there is no fever or chills no headache or dizziness, no cough no nausea or vomiting no diarrhea and no urinary symptoms Objective - Vital Signs Vital signs: Vital Signs Temp 97.4 F L 12/19/17 08:45 Pulse 112 H 12/19/17 09:09 Resp 18 12/19/17 08:59 BP 99/61 12/19/17 08:45 Pulse Ox 88 L 12/19/17 08:45 Intake & Output 12/18/17 12/19/17 12/19/17 18:59 06:59 18:59 Intake Total 180 100 Output Total 825 690 400 Balance -645 -690 -300 Weight 60.5 kg Intake: Oral 180 100 Output: Chest Tube Drainage 425 Pleural Catheter 425 Drainage 290 Right Anterior Chest 290 Urine 400 400 400 Other: Voiding Method Bedside Commode Bedside Commode Bedside Commode # Voids 1 1 - Exam Head normocephalic and atraumatic Neck supple no JVD no goiter Lungs diminished breath sounds on right. Wheezing noted Heart regular rate and rhythm S1-S2, no rub or gallop Abdomen is soft nontender nondistended positive bowel sounds no hepatosplenomegaly Extremities no edema no cyanosis or clubbing Neuro alert and orientated to 3 - Labs CBC & Chem 7: 12/19/17 06:09 12/19/17 06:09 Labs: Abnormal Lab Results - Last 24 Hours (Table) 12/18/17 12/18/17 12/18/17 Range/Units 12:01 16:41 20:41 WBC (3.8-10.6) k/uL Neutrophils # (1.3-7.7) k/uL Lymphocytes # (1.0-4.8) k/uL Sodium (137-145) mmol/L BUN (7-17) mg/dL Glucose (74-99) mg/dL POC Glucose (mg/dL) 195 H 147 H 146 H (75-99) mg/dL Total Protein (6.3-8.2) g/dL Albumin (3.5-5.0) g/dL 12/19/17 12/19/17 12/19/17 Range/Units 05:40 06:09 06:09 WBC 12.8 H (3.8-10.6) k/uL Neutrophils # 11.7 H (1.3-7.7) k/uL Lymphocytes # 0.5 L (1.0-4.8) k/uL Sodium 135 L (137-145) mmol/L BUN 51 H (7-17) mg/dL Glucose 138 H (74-99) mg/dL POC Glucose (mg/dL) 139 H (75-99) mg/dL Total Protein 5.2 L (6.3-8.2) g/dL Albumin 2.9 L (3.5-5.0) g/dL Assessment and Plan Plan: 1. Dyspnea related to recurring malignant pleural effusion. Patient recently underwent thoracentesis 2. CT of chest completed showing interval development of right hemothorax white out, right mainstem bronchus. Patient started on Solu -Medrol and bronchodilators. Patient maintained on Lasix by mouth twice a day. Discussed case with Diann hope NP per cardiothoracic surgery. Planning Pleurx catheter placement today. Pulmonary services continue bronchodilators. Discussed with Jesse MUNSON per cardiothoracic surgery. Patient's Pleurx drain currently has 2 chest tube suction. We'll continue due to increased output. 2. Stage IV non-small cell lung adenocarcinoma. 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 3. Nicotine dependence. Patient 60 + year smoking history. Nicotine patch has been ordered 4. History of asthma 5. History of proximal atrial fibrillation. Patient maintained on eliquis. Eliquis currently on hold per third cardiothoracic surgery for Pleurx catheter placement today. Vitamin K given for reversal. Discussed case with Jesse MUNSON per cardiothoracic surgery recommending to keep up with on hold at this time 6. History of essential hypertension 7. History of GERD 8. History of osteoarthritis 9. History of COPD DVT prophylaxiix SCD eliquis currently on hold for pleurex catheter placement. GI prophylaxis Protonix Continue with current management at this time, Possible discharge to home on Thursday Prognosis is poor
[2017-12-19 12:04] LABS: Glucose,Whole Blood 140 mg/dL (75-99)
--- NOTE | 2017-12-19 12:07 | P.PN ---
Subjective Progress Note Date: 12/19/17 Principal diagnosis: Recurrent right malignant pleural effusion, history of stage IV non-small cell lung cancer, status post thoracentesis 2, history of COPD, hypertension, pneumonia, degenerative joint disease, and GERD. POD #2 a stent of right Pleurx catheter with fluoroscopy guidance. The patient is currently laying in bed in no acute distress. She is somewhat short of breath and remains on 4 L nasal cannula. Pleurx catheter remained connected to atrium to waterseal, draining serous drainage. She does complain of some pain at the chest tube site. No other new complaints. Objective - Vital Signs Vital signs: Vital Signs Temp 97.4 F L 12/19/17 08:45 Pulse 112 H 12/19/17 09:09 Resp 18 12/19/17 08:59 BP 99/61 12/19/17 08:45 Pulse Ox 87 L 12/19/17 08:45 Intake & Output 12/18/17 12/19/17 12/19/17 18:59 06:59 18:59 Intake Total 180 100 Output Total 825 690 400 Balance -645 -690 -300 Weight 60.5 kg Intake: Oral 180 100 Output: Chest Tube Drainage 425 Pleural Catheter 425 Drainage 290 Right Anterior Chest 290 Urine 400 400 400 Other: Voiding Method Bedside Commode Bedside Commode Bedside Commode # Voids 1 1 - Constitutional General appearance: Present: cooperative, no acute distress - Respiratory Details: Lungs sounds diminished bilaterally, right greater than left. Respirations even but slightly labored. Currently on 4 L nasal cannula with oxygen saturation 88%. She is achieving 500 mL on her incentive spirometry. Right- sided Pleurx catheter connected to atrium, drained 170 mL serous drainage overnight, 700 mL the last 24 hours. - Cardiovascular Details: S1, S2 present. Irregular rhythm, atrial fibrillation on telemetry. Palpable peripheral pulses bilaterally. No edema present. No calf pain or tenderness noted. SCDs present. - Gastrointestinal Gastrointestinal Comment(s): Abdomen soft, nontender, nondistended. Active bowel sounds 4 quadrants. Tolerating diet. - Genitourinary Genitourinary Comment(s): Continues to void. - Integumentary Integumentary Comment(s): Skin is warm and dry with evidence of good perfusion. Right Pleurx catheter site without redness or drainage. - Neurologic Neurologic: Present: CNII-XII intact - Musculoskeletal Musculoskeletal: Present: strength equal bilaterally - Psychiatric Psychiatric: Present: A&O x's 3, appropriate affect, intact judgment & insight - Allied health notes Allied health notes reviewed: nursing - Labs CBC & Chem 7: 12/19/17 06:09 12/19/17 06:09 Labs: Abnormal Lab Results - Last 24 Hours (Table) 12/18/17 12/18/17 12/18/17 Range/Units 12:01 16:41 20:41 WBC (3.8-10.6) k/uL Neutrophils # (1.3-7.7) k/uL Lymphocytes # (1.0-4.8) k/uL Sodium (137-145) mmol/L BUN (7-17) mg/dL Glucose (74-99) mg/dL POC Glucose (mg/dL) 195 H 147 H 146 H (75-99) mg/dL Total Protein (6.3-8.2) g/dL Albumin (3.5-5.0) g/dL 12/19/17 12/19/17 12/19/17 Range/Units 05:40 06:09 06:09 WBC 12.8 H (3.8-10.6) k/uL Neutrophils # 11.7 H (1.3-7.7) k/uL Lymphocytes # 0.5 L (1.0-4.8) k/uL Sodium 135 L (137-145) mmol/L BUN 51 H (7-17) mg/dL Glucose 138 H (74-99) mg/dL POC Glucose (mg/dL) 139 H (75-99) mg/dL Total Protein 5.2 L (6.3-8.2) g/dL Albumin 2.9 L (3.5-5.0) g/dL Assessment and Plan (1) Acute exacerbation of chronic obstructive airways disease Current Visit: Yes Status: Acute Code(s): J44.1 - CHRONIC OBSTRUCTIVE PULMONARY DISEASE W (ACUTE) EXACERBATION SNOMED Code(s): 245689462 (2) Adult respiratory distress syndrome Current Visit: Yes Status: Acute Code(s): J80 - ACUTE RESPIRATORY DISTRESS SYNDROME SNOMED Code(s): 98044714 (3) Difficulty breathing Current Visit: Yes Status: Acute Priority: High Code(s): R06.89 - OTHER ABNORMALITIES OF BREATHING SNOMED Code(s): 982487664 (4) COPD (chronic obstructive pulmonary disease) Current Visit: Yes Status: Chronic Code(s): J44.9 - CHRONIC OBSTRUCTIVE PULMONARY DISEASE, UNSPECIFIED SNOMED Code(s): 04239299 (5) GERD (gastroesophageal reflux disease) Current Visit: Yes Status: Chronic Code(s): K21.9 - GASTRO-ESOPHAGEAL REFLUX DISEASE WITHOUT ESOPHAGITIS SNOMED Code(s): 995829943 (6) Hypertension Current Visit: Yes Status: Chronic Code(s): I10 - ESSENTIAL (PRIMARY) HYPERTENSION SNOMED Code(s): 79136859 (7) Malignant pleural effusion Current Visit: Yes Status: Acute Priority: High Code(s): J91.0 - MALIGNANT PLEURAL EFFUSION SNOMED Code(s): 03019652 (8) Primary lung adenocarcinoma Current Visit: Yes Status: Chronic Priority: High Code(s): C34.90 - MALIGNANT NEOPLASM OF UNSP PART OF UNSP BRONCHUS OR LUNG SNOMED Code(s): 537074659 (9) Tobacco dependence Current Visit: Yes Status: Chronic Code(s): F17.200 - NICOTINE DEPENDENCE, UNSPECIFIED, UNCOMPLICATED SNOMED Code(s): 00461499 Plan: 1. Atrium discontinued, Pleurx catheter capped after teaching completed with the patient's family. 2. Will drain Pleurx again tomorrow and continue teaching with the patient's family. 3. Encourage incentive spirometry 10 times every hour while awake. 4. Pain control per current medication regimen. 5. Medical management per primary care service, pulmonology. 6. Patient may be discharged to home with home care versus rehab from our standpoint whenever okay with other services. If she goes to rehab, it needs to be a place that is familiar with Pleurx catheter drainage. Time with Patient: Greater than 30
--- NOTE | 2017-12-19 13:50 | P.PN ---
Subjective Progress Note Date: 12/19/17 Principal diagnosis: Shortness of breath, malignant pleural effusion Progress note dated 12/18/2017 77-year-old female with a history of stage IV non-small cell lung cancer, status post thoracentesis 2 on the right side for malignant pleural effusion. On this admission, the patient came back into the hospital with complaints of shortness of breath. She had complete we'll write out of the right hemithorax. Rather than do another thoracentesis, were able to have a thoracic colleagues do a Pleurx catheter on her. Today she states she's not feeling very well. She is not very specific in terms of how she feels. She does mention that she is a bit short of breath with her chest x-ray has improved. In addition, she has a history of COPD, GERD, hypertension, pneumonia, and DJD. When she was here last, she was discharged one of the nursing homes. She developed severe shortness of breath or and was noted to have a large right-sided effusion which is malignant in nature. Progress note dated 12/19/2017 77-year-old female with history of stage IV non-small cell lung cancer, status post thoracentesis 2 and then more recently, placement of a Pleurx catheter on the right side for malignant pleural effusion. She's doing relatively well. The patient plans on getting discharged back to the residential in the near future. She is hoping to go to [facility] this time. She came in for shortness of breath because a large right-sided pleural effusion. Rather than do another thoracentesis, heart thoracic colleagues agreed to place a Pleurx catheter. She has a history of COPD, GERD, hypertension, pneumonia and DJD. Since she was diagnosed with advanced lung cancer, non-small cell type, the patient has not received any chemotherapy. 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 The patient denies any chest pain or chest discomfort. She also denies any fever or chills. Objective - Vital Signs Vital signs: Vital Signs Temp 97.4 F L 12/19/17 08:45 Pulse 100 12/19/17 12:17 Resp 18 12/19/17 12:07 BP 102/64 12/19/17 12:00 Pulse Ox 88 L 12/19/17 12:00 Intake & Output 12/18/17 12/19/17 12/19/17 18:59 06:59 18:59 Intake Total 180 100 Output Total 825 690 400 Balance -645 -690 -300 Weight 60.5 kg Intake: Oral 180 100 Output: Chest Tube Drainage 425 Pleural Catheter 425 Drainage 290 Right Anterior Chest 290 Urine 400 400 400 Other: Voiding Method Bedside Commode Bedside Commode Bedside Commode # Voids 1 1 - Exam No acute distress, oriented 3. Nasal O2 in place HEENT examination is grossly unremarkable. Mucous membranes are moist. No oral lesions. Neck supple. Full range of motion. No adenopathy thyromegaly or neck vein distention. Cardiovascular examination reveals regular rhythm rate. S1-S2 normal. No S3 or S4. No discernible murmur noted. Heart sounds are distant. Lungs reveal severely diminished breath sounds on the right side. Some inspiratory and expiratory crackles and rhonchi are noted in the right chest area. Breath sounds on the left relatively clear. The Pleurx catheter was noted on the right chest area. Abdomen soft bowel sounds are heard. No masses or tenderness. Extremities are intact. No cyanosis clubbing or edema. Skin is without rash or lesion. Neurologic examination is brief but nonfocal. - Labs CBC & Chem 7: 12/19/17 06:09 12/19/17 06:09 Labs: Abnormal Lab Results - Last 24 Hours (Table) 12/18/17 12/18/17 12/19/17 Range/Units 16:41 20:41 05:40 WBC (3.8-10.6) k/uL Neutrophils # (1.3-7.7) k/uL Lymphocytes # (1.0-4.8) k/uL Sodium (137-145) mmol/L BUN (7-17) mg/dL Glucose (74-99) mg/dL POC Glucose (mg/dL) 147 H 146 H 139 H (75-99) mg/dL Total Protein (6.3-8.2) g/dL Albumin (3.5-5.0) g/dL 12/19/17 12/19/17 12/19/17 Range/Units 06:09 06:09 11:55 WBC 12.8 H (3.8-10.6) k/uL Neutrophils # 11.7 H (1.3-7.7) k/uL Lymphocytes # 0.5 L (1.0-4.8) k/uL Sodium 135 L (137-145) mmol/L BUN 51 H (7-17) mg/dL Glucose 138 H (74-99) mg/dL POC Glucose (mg/dL) 140 H (75-99) mg/dL Total Protein 5.2 L (6.3-8.2) g/dL Albumin 2.9 L (3.5-5.0) g/dL Assessment and Plan Assessment: Assessment Stage IV, non-small cell lung cancer/adenocarcinoma, with recurrent right-sided malignant pleural effusion, status post thoracentesis 2 Status post Pleurx catheter placement, postop day #2, with 3 L of fluid removed. PD-L1 positive NSCLC History of COPD History of GERD History of hypertension Previous history of pneumonia History of osteoarthritis Plan: Plan dated 12/16/2017. The patient's blood thinner was held. We did do a consultation to cardiothoracic surgery for possible Pleurx catheter placement. In the meantime , the patient's on appropriate medications including bronchodilators oxygen, etc. We will continue to follow. We did find out from oncology the patient did test positive for a genetic marker, making her a candidate for targeted immunotherapy. Her overall prognosis is poor. She was with her son today. This was all explained to her and her son today. We'll continue to follow. Plan dated 12/18/2017 The patient has a Pleurx catheter in her right chest cavity. It was placed by cardiothoracic surgery. 3 L of fluid was removed. She was given a Pleurx catheter instructions. Hopefully we will get her discharged within the next 24- 48 hours. Today she's not feeling so well. Feels more short of breath. Her chest x-rays improved. Labs reveal a white count 11.7, hemoglobin 13.6, hematocrit 43.0 and platelet count 280,000. Sodium is 135 potassium 4.9 chloride 98 CO2 30 anion gap 7 BUN and creatinine were 41 and 0.1. Chest x-ray shows some improvement in the opacification that was noted previously in the right chest cavity. Plan dated 12/19/2017 The patient seems be feeling a bit better today. Yesterday she wasn't feeling so well. She'll be instructed on the proper care of the Pleurx catheter. She is hoping to be discharged to residential. She would prefer to go to [facility]. On her last visit, she was discharged to [facility]. She states that she did not like that residential. White count is 12.8, hemoglobin 13.4, hematocrit 41.2 and platelet count is normal. Sodium 135, potassium 4.8, chloride 98, CO2 28, anion gap is normal and BUN is 51 with a creatinine of 1.03. We will continue to follow. Medications are reviewed. X- rays from yesterday are reviewed. Prognosis is very guarded. Time with Patient: Less than 30
[2017-12-19 16:37] LABS: Glucose,Whole Blood 170 mg/dL (75-99)
[2017-12-19 20:43] LABS: Glucose,Whole Blood 274 mg/dL (75-99)
[2017-12-20] MEDS: IPRATROPIUM-ALBUTEROL 3 ML NEB INHALATION SCH ×5 (03:54→20:51)
[2017-12-20 06:22] LABS: Glucose,Whole Blood 128 mg/dL (75-99)
[2017-12-20 06:27] LABS: Basophils % (A) 0 %; Eosinophils # (A) 0.1 k/uL (0-0.7); Eosinophils % (A) 1 %; HCT 39.6 % (34.0-46.0); HGB 12.9 gm/dL (11.4-16.0); Lymphocytes # (A) 0.3 k/uL (1.0-4.8); Lymphocytes % (A) 2 %; MCH 30.5 pg (25.0-35.0); MCHC 32.5 g/dL (31.0-37.0); MCV 94.1 fL (80.0-100.0); Mean Platelet Volume 7.2; Monocytes # (A) 0.5 k/uL (0-1.0); Monocytes % (A) 4 %; Neutrophils # (A) 11.2 k/uL (1.3-7.7); Neutrophils % (A) 91 %; Platelet Count 265 k/uL (150-450); RBC 4.21 m/uL (3.80-5.40); RDW 15.2 % (11.5-15.5); WBC 12.2 k/uL (3.8-10.6)
[2017-12-20 06:42] LABS: ALT 62 U/L (9-52); AST 39 U/L (14-36); Albumin 2.8 g/dL (3.5-5.0); Alkaline Phosphatase 52 U/L (38-126); Anion Gap 6 mmol/L; Blood Urea Nitrogen 55 mg/dL (7-17); Calcium 9.2 mg/dL (8.4-10.2); Carbon Dioxide 31 mmol/L (22-30); Chloride 97 mmol/L (98-107); Glucose 131 mg/dL (74-99); Potassium 4.2 mmol/L (3.5-5.1); Sodium 134 mmol/L (137-145); Total Bilirubin 1.1 mg/dL (0.2-1.3); Total Protein 5.1 g/dL (6.3-8.2)
[2017-12-20] MEDS: methylPREDNISolone SOD SUCCI 125 MG/2 ML VIAL IV SCH ×4 (07:04→23:34)
[2017-12-20] MEDS: PANTOPRAZOLE 40 MG TABLET PO SCH (07:05)
[2017-12-20] MEDS: DILTIAZEM CD 180 MG CAP.ER.24H PO SCH (08:07)
[2017-12-20] MEDS: NICOTINE 14MG/24HR PATCH TRANSDERM SCH (08:07)
[2017-12-20] MEDS: HYDROcodone/APAP 5-325MG 1 EACH TAB PO PRN ×4 (08:07→23:03)
[2017-12-20] MEDS: ENOXAPARIN 40 MG/0.4 ML SYRINGE SQ SCH (08:07)
[2017-12-20] MEDS: FUROSEMIDE 20 MG TAB PO SCH ×2 (08:08→20:34)
--- NOTE | 2017-12-20 10:59 | P.PN ---
Subjective Progress Note Date: 12/20/17 This is a 77-year-old female patient of Dr. Baptiste. Patient presented to the emergency room with complaints of increase difficulty in breathing. Patient is maintained at 3 L home O2. Patient states that over the past 3 days or shortness of breath has significantly increased. Patient also noted to have increased peripheral edema. Patient was recently started on Lasix twice a day for peripheral edema has decreased slightly. Patient had a recent diagnosis of stage IV non-small cell lung adenocarcinoma. Recently admitted and underwent right-sided thoracentesis with pulmonary services removing 1 L of fluid. 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 Patient currently residing at [facility] for physical therapy posthospitalization. Patient has not started any treatment for the cancer as of yet. Additional medical history includes nicotine dependence greater than 60 years, asthma, paroxysmal atrial fibrillation in which she takes eliquis, essential hypertension, GERD, osteoarthritis and COPD. Chest x-ray completed showing interval whiteout of the right hemithorax. CT completed showing interval development of right hemithorax white out, with right mainstem bronchus. Dr. Darnell for pulmonary service is consulted. Oncology service consulted. Patient received DuoNeb breathing treatments in emergency department IV Solu-Medrol. Patient states she is feeling slightly improved. At this time patient denies chest pain. Patient denies nausea vomiting or diarrhea. Patient denies any urinary burning or frequency. On 12/17/2017 patient is currently resting comfortably in bed. Patient is alert and oriented 3. Patient states slight improvement with shortness of breath. Discussed case with Diann hope NP per cardiothoracic surgery. Planning to place Pleurx catheter today. Patient's eliquis currently on hold and vitamin K was given yesterday to reverse. At this time patient denies chest pain. Patient denies nausea vomiting or diarrhea. Patient denies any urinary burning or frequency On 12/18/2017 patient is currently sleeping and resting comfortably in bed. Patient is arousable but states she is been pretty sleepy since procedure yesterday. Patient states some improvement with her shortness of breath. Patient denies chest pain denies nausea vomiting or diarrhea. Patient denies any urinary burning or frequency. Discussed case with Jesse MUNSON per cardiothoracic surgery. Recommended keeping eliquis DC'd at this time. Patient does have Pleurx cath to chest tube in place that is draining. Recommending from thoracic surgery to keep patient in continue watching drainage output. On 12/19/2017 patient was seen and examined on the third telemetry floor she is alert and oriented 3, patient had Pleurx catheter placed yesterday, still connected to the pleur-vac drainage system. Patient is complaining of mild pain around the tube site and in the epigastric area otherwise she denies any complaints, shortness of breath has improved, there is no fever or chills no headache or dizziness, no cough no nausea or vomiting no diarrhea and no urinary symptoms On 12/20/2017 patient currently resting comfortably in bed. Patient is alert and oriented 3. Discussed case with Diann MUNSON with cardiac thoracic surgery. Drain 400 out of Pleurx casted p.m. and well drainage in this afternoon to them and straight for family. At this time patient denies chest pain. Patient is still complaining some shortness of breath. Patient denies chest pain. Patient denies nausea vomiting or diarrhea. Patient denies any urinary burning or frequency. Objective - Vital Signs Vital signs: Vital Signs Temp 97.5 F L 12/20/17 08:10 Pulse 102 H 12/20/17 08:33 Resp 20 12/20/17 08:35 BP 124/62 12/20/17 08:10 Pulse Ox 76 L 12/20/17 08:35 Intake & Output 12/19/17 12/20/17 12/20/17 18:59 06:59 18:59 Intake Total 100 0 Output Total 550 150 200 Balance -450 -150 -200 Weight 61.5 kg Intake: Oral 100 0 Output: Urine 550 150 200 Other: Voiding Method Bedside Commode Bedside Commode Bedside Commode # Voids 1 - Exam Head normocephalic Neck supple Lungs diminished breath sounds on right. Wheezing noted Heart regular rate and rhythm S1-S2, no rub or gallop Abdomen is soft nontender nondistended positive bowel sounds no hepatosplenomegaly Extremities no edema Neuro alert and orientated to 3 - Labs CBC & Chem 7: 12/20/17 05:53 12/20/17 05:53 Labs: Abnormal Lab Results - Last 24 Hours (Table) 12/19/17 12/19/17 12/19/17 Range/Units 11:55 16:35 20:41 WBC (3.8-10.6) k/uL Neutrophils # (1.3-7.7) k/uL Lymphocytes # (1.0-4.8) k/uL Sodium (137-145) mmol/L Chloride (98-107) mmol/L Carbon Dioxide (22-30) mmol/L BUN (7-17) mg/dL Glucose (74-99) mg/dL POC Glucose (mg/dL) 140 H 170 H 274 H (75-99) mg/dL AST (14-36) U/L ALT (9-52) U/L Total Protein (6.3-8.2) g/dL Albumin (3.5-5.0) g/dL 12/20/17 12/20/17 12/20/17 Range/Units 05:53 05:53 06:16 WBC 12.2 H (3.8-10.6) k/uL Neutrophils # 11.2 H (1.3-7.7) k/uL Lymphocytes # 0.3 L (1.0-4.8) k/uL Sodium 134 L (137-145) mmol/L Chloride 97 L (98-107) mmol/L Carbon Dioxide 31 H (22-30) mmol/L BUN 55 H (7-17) mg/dL Glucose 131 H (74-99) mg/dL POC Glucose (mg/dL) 128 H (75-99) mg/dL AST 39 H (14-36) U/L ALT 62 H (9-52) U/L Total Protein 5.1 L (6.3-8.2) g/dL Albumin 2.8 L (3.5-5.0) g/dL Assessment and Plan Assessment: 1. Dyspnea related to recurring malignant pleural effusion. Patient recently underwent thoracentesis 2. CT of chest completed showing interval development of right hemothorax white out, right mainstem bronchus. Patient started on Solu -Medrol and bronchodilators. Patient maintained on Lasix by mouth twice a day. Discussed case with Diann hope [employer] per cardiothoracic surgery. Planning Pleurx catheter placement today. Pulmonary services continue bronchodilators. Discussed with Jesse [employer] per cardiothoracic surgery. Patient got 400 mL of drainage out of Pleurx cath exam per cardiothoracic surgery 2. Stage IV non-small cell lung adenocarcinoma. 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 3. Nicotine dependence. Patient 60 + year smoking history. Nicotine patch has been ordered 4. History of asthma 5. History of proximal atrial fibrillation. Patient maintained on eliquis. Eliquis currently on hold per third cardiothoracic surgery for Pleurx catheter placement today. Vitamin K given for reversal. Discussed case with Jesse MUNSON per cardiothoracic surgery recommending to keep up with on hold at this time 6. History of essential hypertension 7. History of GERD 8. History of osteoarthritis 9. History of COPD DVT prophylaxiix heparin. GI prophylaxis Protonix PT has been consulted for increased weakness. Social work consulted for discharge planning. At this time patient is planning to return to [facility] I performed an examination of the patient and discussed their management with the Nurse Practitioner. I have reviewed the Nurse Practitioner's notes and agree with the documented findings and plan of care
[2017-12-20 11:40] LABS: Glucose,Whole Blood 102 mg/dL (75-99)
--- NOTE | 2017-12-20 11:57 | XR ---
EXAMINATION TYPE: XR chest 1V portable DATE OF EXAM: 12/20/2017 HISTORY: increase shortness of breath. REFERENCE: Previous study dated 12/18/2017. FINDINGS: There continues to be a left apical pneumothorax which appears to increased very slightly f rom the previous. There is worsening opacity of the right lung. There are bilateral effusions, greate r on the right than the left. Heart size is obscured. There is developing opacity at the left lung ba se. IMPRESSION: 1. WORSENING BILATERAL INFILTRATES, WORSE ON THE RIGHT THAN THE LEFT. 2. BILATERAL EFFUSIONS, WORSE ON THE RIGHT THAN THE LEFT. 3. SMALL, APICAL PNEUMOTHORAX ON THE RIGHT MEASURING 5-10% BY VOLUME.
--- NOTE | 2017-12-20 13:06 | P.PN ---
Progress Note - Text Progress Note Date: 12/20/17 Family meeting on 12/20/2017 at 12:30 PM Today I saw and examined patient Leeann franklin in the presence of her granddaughter She is having worsening shortness of breath and decreased O2 sat duration Subsequently, her son Tobin came in, and we had a detailed family meeting with the son Tobin Different modalities of treatment including aggressive cancer management, palliative care, cough first care and hospice care were discussed in details. At this time patient's son has more questions for oncologist to make a decision Will arrange an appointment with Dr. Wong in the presence of patient's son Tobin to answer questions to help make a decision in regard to future care
--- NOTE | 2017-12-20 15:05 | P.PN ---
Subjective Progress Note Date: 12/20/17 Principal diagnosis: Shortness of breath, malignant pleural effusion Progress note dated 12/18/2017 77-year-old female with a history of stage IV non-small cell lung cancer, status post thoracentesis 2 on the right side for malignant pleural effusion. On this admission, the patient came back into the hospital with complaints of shortness of breath. She had complete we'll write out of the right hemithorax. Rather than do another thoracentesis, were able to have a thoracic colleagues do a Pleurx catheter on her. Today she states she's not feeling very well. She is not very specific in terms of how she feels. She does mention that she is a bit short of breath with her chest x-ray has improved. In addition, she has a history of COPD, GERD, hypertension, pneumonia, and DJD. When she was here last, she was discharged one of the nursing homes. She developed severe shortness of breath or and was noted to have a large right-sided effusion which is malignant in nature. Progress note dated 12/19/2017 77-year-old female with history of stage IV non-small cell lung cancer, status post thoracentesis 2 and then more recently, placement of a Pleurx catheter on the right side for malignant pleural effusion. She's doing relatively well. The patient plans on getting discharged back to the retirement in the near future. She is hoping to go to [facility] this time. She came in for shortness of breath because a large right-sided pleural effusion. Rather than do another thoracentesis, heart thoracic colleagues agreed to place a Pleurx catheter. She has a history of COPD, GERD, hypertension, pneumonia and DJD. Since she was diagnosed with advanced lung cancer, non-small cell type, the patient has not received any chemotherapy. 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 The patient denies any chest pain or chest discomfort. She also denies any fever or chills. Progress note dated 12/20/2017 77-year-old female with history of stage IV non-small cell lung cancer, with previous thoracentesis 2 in the more recently, placement of a Pleurx catheter in the right pleural space for recurrent malignant pleural effusion. Today, she is a bit more short of breath and her chest x-ray has worsened. The primary service is apparently talking to the family about a hospice consultation or palliative care consultation. The patient is hoping to get discharged back to retirement in the near future. She would like to go to [facility] on the leg retirement possible. The patient has a history of COPD, GERD, hypertension, pneumonia, and DJD. She has not received any chemotherapy or any treatment whatsoever since her diagnosis. She apparently did test positive for PD-L1 mutation and might be a candidate for Keytruda. I believe she is getting very depressed and bilateral situation and is close to just giving up. She is profoundly short of breath even at rest at this time more so , when she exerts herself. Objective - Vital Signs Vital signs: Vital Signs Temp 97.5 F L 12/20/17 08:10 Pulse 100 12/20/17 11:54 Resp 20 12/20/17 11:20 BP 96/61 12/20/17 11:20 Pulse Ox 72 L 12/20/17 11:20 Intake & Output 12/19/17 12/20/17 12/20/17 18:59 06:59 18:59 Intake Total 100 0 Output Total 550 150 200 Balance -450 -150 -200 Weight 61.5 kg Intake: Oral 100 0 Output: Urine 550 150 200 Other: Voiding Method Bedside Commode Bedside Commode Bedside Commode # Voids 1 1 - Exam Oriented 3. Nasal O2 in place. Right Pleurx catheter has been placed. The patient is mildly dyspneic and tachypneic. HEENT examination is grossly unremarkable. Mucous membranes are moist. No oral lesions. Neck supple. Full range of motion. No adenopathy thyromegaly or neck vein distention. Cardiovascular examination reveals regular rhythm rate. S1-S2 normal. No S3 or S4. No discernible murmur noted. Heart sounds are distant. Lungs reveal severely diminished breath sounds throughout on the right than on the left side. There is diffuse coarse inspiratory and expiratory rhonchi bilaterally. Dullness at the right base. No wheezes. There are some diffuse crackles particularly at the bases. Abdomen soft bowel sounds are heard. No masses or tenderness. Extremities are intact. No cyanosis clubbing or edema. Skin is without rash or lesion. Neurologic examination is brief but nonfocal. - Labs CBC & Chem 7: 11/11/18 05:53 12/20/17 05:53 Labs: Abnormal Lab Results - Last 24 Hours (Table) 12/19/17 12/19/17 12/20/17 Range/Units 16:35 20:41 05:53 WBC 12.2 H (3.8-10.6) k/uL Neutrophils # 11.2 H (1.3-7.7) k/uL Lymphocytes # 0.3 L (1.0-4.8) k/uL Sodium (137-145) mmol/L Chloride (98-107) mmol/L Carbon Dioxide (22-30) mmol/L BUN (7-17) mg/dL Glucose (74-99) mg/dL POC Glucose (mg/dL) 170 H 274 H (75-99) mg/dL AST (14-36) U/L ALT (9-52) U/L Total Protein (6.3-8.2) g/dL Albumin (3.5-5.0) g/dL 12/20/17 12/20/17 12/20/17 Range/Units 05:53 06:16 11:38 WBC (3.8-10.6) k/uL Neutrophils # (1.3-7.7) k/uL Lymphocytes # (1.0-4.8) k/uL Sodium 134 L (137-145) mmol/L Chloride 97 L (98-107) mmol/L Carbon Dioxide 31 H (22-30) mmol/L BUN 55 H (7-17) mg/dL Glucose 131 H (74-99) mg/dL POC Glucose (mg/dL) 128 H 102 H (75-99) mg/dL AST 39 H (14-36) U/L ALT 62 H (9-52) U/L Total Protein 5.1 L (6.3-8.2) g/dL Albumin 2.8 L (3.5-5.0) g/dL Assessment and Plan Assessment: Assessment Stage IV, non-small cell lung cancer/adenocarcinoma, with recurrent right-sided malignant pleural effusion, status post thoracentesis 2 Status post Pleurx catheter placement, postop day #3, with 3 L of fluid removed. PD-L1 positive NSCLC History of COPD History of GERD History of hypertension Previous history of pneumonia History of osteoarthritis Plan: Plan dated 12/16/2017. The patient's blood thinner was held. We did do a consultation to cardiothoracic surgery for possible Pleurx catheter placement. In the meantime , the patient's on appropriate medications including bronchodilators oxygen, etc. We will continue to follow. We did find out from oncology the patient did test positive for a genetic marker, making her a candidate for targeted immunotherapy. Her overall prognosis is poor. She was with her son today. This was all explained to her and her son today. We'll continue to follow. Plan dated 12/18/2017 The patient has a Pleurx catheter in her right chest cavity. It was placed by cardiothoracic surgery. 3 L of fluid was removed. She was given a Pleurx catheter instructions. Hopefully we will get her discharged within the next 24- 48 hours. Today she's not feeling so well. Feels more short of breath. Her chest x-rays improved. Labs reveal a white count 11.7, hemoglobin 13.6, hematocrit 43.0 and platelet count 280,000. Sodium is 135 potassium 4.9 chloride 98 CO2 30 anion gap 7 BUN and creatinine were 41 and 0.1. Chest x-ray shows some improvement in the opacification that was noted previously in the right chest cavity. Plan dated 12/19/2017 The patient seems be feeling a bit better today. Yesterday she wasn't feeling so well. She'll be instructed on the proper care of the Pleurx catheter. She is hoping to be discharged to retirement. She would prefer to go to [facility]. On her last visit, she was discharged to [facility]. She states that she did not like that retirement. White count is 12.8, hemoglobin 13.4, hematocrit 41.2 and platelet count is normal. Sodium 135, potassium 4.8, chloride 98, CO2 28, anion gap is normal and BUN is 51 with a creatinine of 1.03. We will continue to follow. Medications are reviewed. X- rays from yesterday are reviewed. Prognosis is very guarded. Plan dated 12/20/2017 The patient is feeling worse today. She is more short of breath. Her chest x- ray looks worse with diffuse bilateral infiltrates and bilateral effusions. The Pleurx catheter continues to drain. I believe the patient is becoming more more depressed and is likely to develop soon. Today's CBC shows a white count of 12.2 hemoglobin 12.9 hematocrit 39.6 and a normal platelet count. Sodium 134 potassium 4.2 chloride 97 CO2 31 anion gap is normal BUN 55 and creatinine 0.73. Her medications are reviewed. She does have adequate pain control. Prognosis is poor. We will continue to follow. Time with Patient: Less than 30
[2017-12-20 16:33] LABS: Glucose,Whole Blood 106 mg/dL (75-99)
[2017-12-20] MEDS: SODIUM CHLORIDE 0.9% 1,000 ML IV SCH (16:42)
[2017-12-20 20:37] LABS: Glucose,Whole Blood 137 mg/dL (75-99)
[2017-12-21] MEDS: IPRATROPIUM-ALBUTEROL 3 ML NEB INHALATION SCH ×5 (00:21→17:42)
[2017-12-21] MEDS: methylPREDNISolone SOD SUCCI 125 MG/2 ML VIAL IV SCH ×3 (06:05→17:25)
[2017-12-21] MEDS: PANTOPRAZOLE 40 MG TABLET PO SCH (06:05)
[2017-12-21 06:36] LABS: Glucose,Whole Blood 136 mg/dL (75-99)
[2017-12-21 07:27] LABS: Basophils % (A) 0 %; Eosinophils % (A) 0 %; HCT 41.9 % (34.0-46.0); HGB 13.4 gm/dL (11.4-16.0); Lymphocytes # (A) 0.4 k/uL (1.0-4.8); Lymphocytes % (A) 3 %; MCH 30.3 pg (25.0-35.0); MCV 94.7 fL (80.0-100.0); Mean Platelet Volume 7.4; Monocytes # (A) 0.5 k/uL (0-1.0); Monocytes % (A) 4 %; Neutrophils # (A) 12.3 k/uL (1.3-7.7); Neutrophils % (A) 93 %; Platelet Count 212 k/uL (150-450); RBC 4.43 m/uL (3.80-5.40); RDW 14.6 % (11.5-15.5); WBC 13.2 k/uL (3.8-10.6)
[2017-12-21 07:40] LABS: ALT 69 U/L (9-52); AST 42 U/L (14-36); Albumin 2.8 g/dL (3.5-5.0); Alkaline Phosphatase 52 U/L (38-126); Anion Gap 10 mmol/L; Blood Urea Nitrogen 54 mg/dL (7-17); Calcium 9.5 mg/dL (8.4-10.2); Carbon Dioxide 27 mmol/L (22-30); Chloride 97 mmol/L (98-107); Glucose 124 mg/dL (74-99); Potassium 4.1 mmol/L (3.5-5.1); Sodium 134 mmol/L (137-145); Total Bilirubin 1.3 mg/dL (0.2-1.3); Total Protein 5.2 g/dL (6.3-8.2)
[2017-12-21] MEDS: NICOTINE 14MG/24HR PATCH TRANSDERM SCH (07:54)
[2017-12-21] MEDS: FUROSEMIDE 20 MG TAB PO SCH (07:55)
[2017-12-21] MEDS: DILTIAZEM CD 180 MG CAP.ER.24H PO SCH (07:55)
[2017-12-21] MEDS: ENOXAPARIN 40 MG/0.4 ML SYRINGE SQ SCH (07:55)
[2017-12-21] MEDS: HYDROcodone/APAP 5-325MG 1 EACH TAB PO PRN ×3 (07:55→16:35)
[2017-12-21 08:06] VITALS: RESP 26; TEMP 97.4
[2017-12-21] MEDS: SODIUM CHLORIDE 0.9% 1,000 ML IV SCH (08:08)
[2017-12-21 11:24] VITALS: BP 99/62
[2017-12-21] MEDS ORDERED: HYDROmorphone 1 MG/ML 1 ML SYRINGE IVP PRN (11:49)
--- NOTE | 2017-12-21 12:31 | P.PN ---
Subjective Progress Note Date: 12/21/17 This is a 77-year-old female patient of Dr. Baptiste. Patient presented to the emergency room with complaints of increase difficulty in breathing. Patient is maintained at 3 L home O2. Patient states that over the past 3 days or shortness of breath has significantly increased. Patient also noted to have increased peripheral edema. Patient was recently started on Lasix twice a day for peripheral edema has decreased slightly. Patient had a recent diagnosis of stage IV non-small cell lung adenocarcinoma. Recently admitted and underwent right-sided thoracentesis with pulmonary services removing 1 L of fluid. 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 Patient currently residing at [facility] for physical therapy posthospitalization. Patient has not started any treatment for the cancer as of yet. Additional medical history includes nicotine dependence greater than 60 years, asthma, paroxysmal atrial fibrillation in which she takes eliquis, essential hypertension, GERD, osteoarthritis and COPD. Chest x-ray completed showing interval whiteout of the right hemithorax. CT completed showing interval development of right hemithorax white out, with right mainstem bronchus. Dr. Darnell for pulmonary service is consulted. Oncology service consulted. Patient received DuoNeb breathing treatments in emergency department IV Solu-Medrol. Patient states she is feeling slightly improved. At this time patient denies chest pain. Patient denies nausea vomiting or diarrhea. Patient denies any urinary burning or frequency. On 12/17/2017 patient is currently resting comfortably in bed. Patient is alert and oriented 3. Patient states slight improvement with shortness of breath. Discussed case with Diann hope NP per cardiothoracic surgery. Planning to place Pleurx catheter today. Patient's eliquis currently on hold and vitamin K was given yesterday to reverse. At this time patient denies chest pain. Patient denies nausea vomiting or diarrhea. Patient denies any urinary burning or frequency On 12/18/2017 patient is currently sleeping and resting comfortably in bed. Patient is arousable but states she is been pretty sleepy since procedure yesterday. Patient states some improvement with her shortness of breath. Patient denies chest pain denies nausea vomiting or diarrhea. Patient denies any urinary burning or frequency. Discussed case with Jesse MUNSON per cardiothoracic surgery. Recommended keeping eliquis DC'd at this time. Patient does have Pleurx cath to chest tube in place that is draining. Recommending from thoracic surgery to keep patient in continue watching drainage output. On 12/19/2017 patient was seen and examined on the third telemetry floor she is alert and oriented 3, patient had Pleurx catheter placed yesterday, still connected to the pleur-vac drainage system. Patient is complaining of mild pain around the tube site and in the epigastric area otherwise she denies any complaints, shortness of breath has improved, there is no fever or chills no headache or dizziness, no cough no nausea or vomiting no diarrhea and no urinary symptoms On 12/20/2017 patient currently resting comfortably in bed. Patient is alert and oriented 3. Discussed case with Diann MUNSON with cardiac thoracic surgery. Drain 400 out of Pleurx casted p.m. and well drainage in this afternoon to them and straight for family. At this time patient denies chest pain. Patient is still complaining some shortness of breath. Patient denies chest pain. Patient denies nausea vomiting or diarrhea. Patient denies any urinary burning or frequency. On 12/21/2017 patient is currently resting in bed. Patient has increased shortness of breath. Per nursing staff patient has been descending to the 70s 80s on 10 L high flow nasal cannula. Patient reports that she is tired. Family meeting will be held today with June SOFTWARE APPLICATION TESTER per oncology services. Patient at this time expressing that she will likely want hospice Objective - Vital Signs Vital signs: Vital Signs Temp 97.4 F L 12/21/17 07:55 Pulse 110 H 12/21/17 11:23 Resp 26 H 12/21/17 11:23 BP 99/62 12/21/17 11:23 Pulse Ox 77 L 12/21/17 11:23 Intake & Output 12/20/17 12/21/17 12/21/17 18:59 06:59 18:59 Intake Total 0 240 Output Total 200 200 Balance -200 -200 240 Weight 56 kg Intake: Oral 0 240 Output: Urine 200 200 Other: Voiding Method Bedside Commode Bedpan Bedpan # Voids 1 1 - Exam Head normocephalic Neck supple Lungs diminished breath sounds on right. Wheezing noted Heart regular rate and rhythm S1-S2, no rub or gallop Abdomen is soft nontender nondistended positive bowel sounds no hepatosplenomegaly Extremities no edema Neuro alert and orientated to 3 - Labs CBC & Chem 7: 12/21/17 06:41 12/21/17 06:41 Labs: Abnormal Lab Results - Last 24 Hours (Table) 12/20/17 12/20/17 12/21/17 Range/Units 16:32 20:31 06:19 WBC (3.8-10.6) k/uL Neutrophils # (1.3-7.7) k/uL Lymphocytes # (1.0-4.8) k/uL Sodium (137-145) mmol/L Chloride (98-107) mmol/L BUN (7-17) mg/dL Glucose (74-99) mg/dL POC Glucose (mg/dL) 106 H 137 H 136 H (75-99) mg/dL AST (14-36) U/L ALT (9-52) U/L Total Protein (6.3-8.2) g/dL Albumin (3.5-5.0) g/dL 12/21/17 12/21/17 Range/Units 06:41 06:41 WBC 13.2 H (3.8-10.6) k/uL Neutrophils # 12.3 H (1.3-7.7) k/uL Lymphocytes # 0.4 L (1.0-4.8) k/uL Sodium 134 L (137-145) mmol/L Chloride 97 L (98-107) mmol/L BUN 54 H (7-17) mg/dL Glucose 124 H (74-99) mg/dL POC Glucose (mg/dL) (75-99) mg/dL AST 42 H (14-36) U/L ALT 69 H (9-52) U/L Total Protein 5.2 L (6.3-8.2) g/dL Albumin 2.8 L (3.5-5.0) g/dL Assessment and Plan Assessment: 1. Dyspnea related to recurring malignant pleural effusion. Patient recently underwent thoracentesis 2. CT of chest completed showing interval development of right hemothorax white out, right mainstem bronchus. Patient started on Solu -Medrol and bronchodilators. Patient maintained on Lasix by mouth twice a day. Discussed case with Diann hope SOFTWARE APPLICATION TESTER per cardiothoracic surgery. Planning Pleurx catheter placement today. Pulmonary services continue bronchodilators. Discussed with Jesse SOFTWARE APPLICATION TESTER per cardiothoracic surgery. Patient got 400 mL of drainage out of Pleurx cath exam per cardiothoracic surgery. Patient has been drained multiple times per cardiothoracic team. Patient is having increased dyspnea with oxygen saturation in the 70s 80s. Family meeting to be held with oncology services today. Discussed case with pulmonary services no further intervention at this time 2. Stage IV non-small cell lung adenocarcinoma. 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 3. Nicotine dependence. Patient 60 + year smoking history. Nicotine patch has been ordered 4. History of asthma 5. History of proximal atrial fibrillation. Patient maintained on eliquis. Eliquis currently on hold per third cardiothoracic surgery for Pleurx catheter placement today. Vitamin K given for reversal. Discussed case with Don SOFTWARE APPLICATION TESTER per cardiothoracic surgery recommending to keep up with on hold at this time 6. History of essential hypertension 7. History of GERD 8. History of osteoarthritis 9. History of COPD DVT prophylaxiix heparin. GI prophylaxis Protonix PT has been consulted for increased weakness. Social work consulted for discharge planning. I performed an examination of the patient and discussed their management with the Nurse Practitioner. I have reviewed the Nurse Practitioner's notes and agree with the documented findings and plan of care
--- NOTE | 2017-12-21 12:33 | P.PN ---
Progress Note - Text Progress Note Date: 12/21/17 Family meeting held with patient and multiple family members including sons. June HEDIS SPECIALIST with oncology services present. All optionst discussed. Per family and patient expressed wishes to move forward with hospice care at this time. We 'll consult hospice care discussed case with case management and social work.
[2017-12-21] MEDS ORDERED: MORPHINE SULFATE 4 MG/ML SYRINGE IVP PRN (13:06)
--- NOTE | 2017-12-21 13:41 | P.PN ---
Subjective Progress Note Date: 12/21/17 Principal diagnosis: metastatic NSCLC Pt seen today with family for discussion about diagnosis, prognosis and treatment options for metastatic lung cancer. Pt is on O2, she has cough but breathing is comfortable at rest, her left leg/ back is uncomfortable, she is very weak. Objective - Vital Signs Vital signs: Vital Signs Temp 97.4 F L 12/21/17 07:55 Pulse 118 H 12/21/17 12:55 Resp 26 H 12/21/17 11:23 BP 99/62 12/21/17 11:23 Pulse Ox 77 L 12/21/17 11:23 Intake & Output 12/20/17 12/21/17 12/21/17 18:59 06:59 18:59 Intake Total 0 240 Output Total 200 200 Balance -200 -200 240 Weight 56 kg Intake: Oral 0 240 Output: Urine 200 200 Other: Voiding Method Bedside Commode Bedpan Bedpan # Voids 1 1 - Exam WD, thinning, frail, A&O x 4, mild distress, tachypneic, mild distress, no overt s/s pain - Labs CBC & Chem 7: 12/21/17 06:41 12/21/17 06:41 Labs: Abnormal Lab Results - Last 24 Hours (Table) 12/20/17 12/20/17 12/21/17 Range/Units 16:32 20:31 06:19 WBC (3.8-10.6) k/uL Neutrophils # (1.3-7.7) k/uL Lymphocytes # (1.0-4.8) k/uL Sodium (137-145) mmol/L Chloride (98-107) mmol/L BUN (7-17) mg/dL Glucose (74-99) mg/dL POC Glucose (mg/dL) 106 H 137 H 136 H (75-99) mg/dL AST (14-36) U/L ALT (9-52) U/L Total Protein (6.3-8.2) g/dL Albumin (3.5-5.0) g/dL 12/21/17 12/21/17 Range/Units 06:41 06:41 WBC 13.2 H (3.8-10.6) k/uL Neutrophils # 12.3 H (1.3-7.7) k/uL Lymphocytes # 0.4 L (1.0-4.8) k/uL Sodium 134 L (137-145) mmol/L Chloride 97 L (98-107) mmol/L BUN 54 H (7-17) mg/dL Glucose 124 H (74-99) mg/dL POC Glucose (mg/dL) (75-99) mg/dL AST 42 H (14-36) U/L ALT 69 H (9-52) U/L Total Protein 5.2 L (6.3-8.2) g/dL Albumin 2.8 L (3.5-5.0) g/dL Assessment and Plan (1) Non-small cell lung cancer with metastasis Current Visit: Yes Status: Acute Priority: High Code(s): C34.90 - MALIGNANT NEOPLASM OF UNSP PART OF UNSP BRONCHUS OR LUNG SNOMED Code(s): 501127641 (2) Difficulty breathing Current Visit: Yes Status: Acute Priority: High Code(s): R06.89 - OTHER ABNORMALITIES OF BREATHING SNOMED Code(s): 142730711 Plan: Case discussed with Attending who did speak with Pulmonary services. Pt progressive respiratory decline not felt to be completely infectious related. Respiratory status did not improve as it has in the past with throacentesis. Pleurex is draining fluid but, no great improvement in resp status. We discussed options of chemo, immunotherapy, risks and benefits of treatment, intent of treatment being palliation, prognosis with and without treatment and we reviewed that option of comfort treatments only. Pt had already made her decision that she does not want any treatment she wants to be kept comfortable. Family agrees with her decision Attending is consulting hospice and Social Work to handle the details. We available for any other questions or concerns. Time with Patient: Greater than 30 (35 min spent, >50% counseling and coordinating care)
--- NOTE | 2017-12-21 14:45 | P.DS ---
Providers Date of admission: 12/15/17 18:53 Expected date of discharge: 12/21/17 Attending physician: Bipin Quintana Consults: 12/15/17 18:53 Consult Physician Routine Consulting Provider: Garry Darnell Consult Reason/Comments: Right lung cancer, opacified right lung field Do you want consulting provider notified?: Yes Consult Physician Routine Consulting Provider: Niesha Arellano Consult Reason/Comments: Right lung cancer Do you want consulting provider notified?: Yes 12/16/17 11:54 Consult Physician Routine Consulting Provider: Miguel Ángel Bustamante Consult Reason/Comments: recurrent right pleural effusion, Pleurix cath placement Do you want consulting provider notified?: Yes Primary care physician: Rekha Baptiste Hospital Course: Discharge diagnosis Terminal diagnosis stage IV non-small cell lung adenocarcinoma 1. Dyspnea related to recurring malignant pleural effusion. Patient recently underwent thoracentesis 2. CT of chest completed showing interval development of right hemothorax white out, right mainstem bronchus. Patient started on Solu -Medrol and bronchodilators. Patient maintained on Lasix by mouth twice a day. Discussed case with Diann hope STRAND AND BINDER CONTROLLER per cardiothoracic surgery. Planning Pleurx catheter placement today. Pulmonary services continue bronchodilators. Discussed with Jesse STRAND AND BINDER CONTROLLER per cardiothoracic surgery. Patient got 400 mL of drainage out of Pleurx cath exam per cardiothoracic surgery. Patient has been drained multiple times per cardiothoracic team. Patient is having increased dyspnea with oxygen saturation in the 70s 80s. Family meeting to be held with oncology services today. Discussed case with pulmonary services no further intervention at this time 2. Stage IV non-small cell lung adenocarcinoma. 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 3. Nicotine dependence. Patient 60 + year smoking history. Nicotine patch has been ordered 4. History of asthma 5. History of proximal atrial fibrillation. Patient maintained on eliquis. Eliquis currently on hold per third cardiothoracic surgery for Pleurx catheter placement today. Vitamin K given for reversal. Discussed case with Jesse STRAND AND BINDER CONTROLLER per cardiothoracic surgery recommending to keep up with on hold at this time 6. History of essential hypertension 7. History of GERD 8. History of osteoarthritis 9. History of COPD Hospital course This is a 77-year-old female patient of Dr. Baptiste. Patient presented to the emergency room with complaints of increase difficulty in breathing. Patient is maintained at 3 L home O2. Patient states that over the past 3 days or shortness of breath has significantly increased. Patient also noted to have increased peripheral edema. Patient was recently started on Lasix twice a day for peripheral edema has decreased slightly. Patient had a recent diagnosis of stage IV non-small cell lung adenocarcinoma. Recently admitted and underwent right-sided thoracentesis with pulmonary services removing 1 L of fluid. 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 Patient currently residing at [facility] for physical therapy posthospitalization. Patient has not started any treatment for the cancer as of yet. Additional medical history includes nicotine dependence greater than 60 years, asthma, paroxysmal atrial fibrillation in which she takes eliquis, essential hypertension, GERD, osteoarthritis and COPD. Chest x-ray completed showing interval whiteout of the right hemithorax. CT completed showing interval development of right hemithorax white out, with right mainstem bronchus. Dr. Darnell for pulmonary service is consulted. Oncology service consulted. Patient received DuoNeb breathing treatments in emergency department IV Solu-Medrol. Patient states she is feeling slightly improved. At this time patient denies chest pain. Patient denies nausea vomiting or diarrhea. Patient denies any urinary burning or frequency. On 12/17/2017 patient is currently resting comfortably in bed. Patient is alert and oriented 3. Patient states slight improvement with shortness of breath. Discussed case with Diann hope NP per cardiothoracic surgery. Planning to place Pleurx catheter today. Patient's eliquis currently on hold and vitamin K was given yesterday to reverse. At this time patient denies chest pain. Patient denies nausea vomiting or diarrhea. Patient denies any urinary burning or frequency On 12/18/2017 patient is currently sleeping and resting comfortably in bed. Patient is arousable but states she is been pretty sleepy since procedure yesterday. Patient states some improvement with her shortness of breath. Patient denies chest pain denies nausea vomiting or diarrhea. Patient denies any urinary burning or frequency. Discussed case with Jesse MUNSON per cardiothoracic surgery. Recommended keeping eliquis DC'd at this time. Patient does have Pleurx cath to chest tube in place that is draining. Recommending from thoracic surgery to keep patient in continue watching drainage output. On 12/19/2017 patient was seen and examined on the third telemetry floor she is alert and oriented 3, patient had Pleurx catheter placed yesterday, still connected to the pleur-vac drainage system. Patient is complaining of mild pain around the tube site and in the epigastric area otherwise she denies any complaints, shortness of breath has improved, there is no fever or chills no headache or dizziness, no cough no nausea or vomiting no diarrhea and no urinary symptoms On 12/20/2017 patient currently resting comfortably in bed. Patient is alert and oriented 3. Discussed case with Diann MUNSON with cardiac thoracic surgery. Drain 400 out of Pleurx casted p.m. and well drainage in this afternoon to them and straight for family. At this time patient denies chest pain. Patient is still complaining some shortness of breath. Patient denies chest pain. Patient denies nausea vomiting or diarrhea. Patient denies any urinary burning or frequency. On 12/21/2017 patient is currently resting in bed. Patient has increased shortness of breath. Per nursing staff patient has been descending to the 70s 80s on 10 L high flow nasal cannula. Patient reports that she is tired. Family meeting will be held today with June STRAND AND BINDER CONTROLLER per oncology services. Patient at this time expressing that she will likely want hospice Family meeting held today with patient family and oncology. Family and patient made decision to move forward [facility] at this time. Plan to make patient inpatient care due to family's concern of patient surviving travel to [facility]. Discussed case with [facility] care. I performed an examination of the patient and discussed their management with the Nurse Practitioner. I have reviewed the Nurse Practitioner's notes and agree with the documented findings and plan of care Patient Condition at Discharge: Poor Plan - Discharge Summary Discharge Rx Participant: No New Discharge Prescriptions: No Action Omeprazole [PriLOSEC] 20 mg PO AC-BRKFST Acetaminophen Tab [Tylenol] 650 mg PO Q6H PRN PRN Reason: Pain Albuterol Inhaler [Ventolin Hfa Inhaler] 1 puff INHALATION RT-QID PRN PRN Reason: Shortness Of Breath Diltiazem Cd [Cardizem CD] 180 mg PO DAILY #30 cap.er.24h Albuterol Nebulized [Ventolin Nebulized] 2.5 mg INHALATION RT-Q6H Apixaban [Eliquis] 5 mg PO BID #60 tab Nicotine 14Mg/24Hr Patch [Habitrol] 1 patch TRANSDERM DAILY #30 patch Furosemide [Lasix] 20 mg PO BID Discharge Medication List Omeprazole [PriLOSEC] 20 mg PO AC-BRKFST 12/17/13 [History] Acetaminophen Tab [Tylenol] 650 mg PO Q6H PRN 10/01/17 [History] Albuterol Inhaler [Ventolin Hfa Inhaler] 1 puff INHALATION RT-QID PRN 11/05/17 [ History] Diltiazem Cd [Cardizem CD] 180 mg PO DAILY #30 cap.er.24h 11/17/17 [Rx] Albuterol Nebulized [Ventolin Nebulized] 2.5 mg INHALATION RT-Q6H 11/23/17 [ History] Apixaban [Eliquis] 5 mg PO BID #60 tab 11/27/17 [Rx] Nicotine 14Mg/24Hr Patch [Habitrol] 1 patch TRANSDERM DAILY #30 patch 11/27/17 [ Rx] Furosemide [Lasix] 20 mg PO BID 12/15/17 [History] Follow up Appointment(s)/Referral(s): Rekha Baptiste MD [Primary Care Provider] - 1-2 days Garry Darnell DO [Doctor of Osteopathic Medicine] - 1 Week [facility] Visiting Nurse, [NON-STAFF] - Patient Instructions/Handouts: How to Care for Your Chest or Abdominal Catheter (ED) Activity/Diet/Wound Care/Special Instructions: Pleurx catheter instructions: 1. Patient to drain every day up to 1 L, do not drain more than 1 L per 24 hours. May space drainage out to every other day as drainage amount decreases. 2. Call surgery office weekly with drainage amounts at [phone] or fax amounts weekly at [phone]. 3. Patient may shower with dressing on. 4. Call surgeon/STRAND AND BINDER CONTROLLER with fever greater than 10 1F or purulent drainage from surgical site. 5. Please call JEIMY Tidwell with anything that concerned you. [phone]
[2017-12-21 17:44] VITALS: PULSE 116
== END 2017-12-21 19:52 | disposition hospice, inpatient (51) | DRG 180 ==
LOC: EC 15:54 → 3SCARD 18:53
PROVIDERS: ADMIT Internal Medicine; ATTEND Internal Medicine
PROC: 0WH933Z Insertion of Infusion Device into Right Pleural Cavity, Percutaneous Approach (ICD-10-PCS; principal; 2017-12-15)
DX: C34.91 Malignant neoplasm of unspecified part of right bronchus or lung (principal); J80 Acute respiratory distress syndrome; J91.0 Malignant pleural effusion; C79.9 Secondary malignant neoplasm of unspecified site; J44.1 Chronic obstructive pulmonary disease with (acute) exacerbation; J98.11 Atelectasis; I10 Essential (primary) hypertension; I48.0 Paroxysmal atrial fibrillation; K21.9 Gastro-esophageal reflux disease without esophagitis; R59.9 Enlarged lymph nodes, unspecified; R77.9 Abnormality of plasma protein, unspecified; K57.90 Diverticulosis of intestine, part unspecified, without perforation or abscess without bleeding; M19.90 Unspecified osteoarthritis, unspecified site; K64.9 Unspecified hemorrhoids; N39.3 Stress incontinence (female) (male); Z51.5 Encounter for palliative care; Z79.01 Long term (current) use of anticoagulants; Z79.899 Other long term (current) drug therapy; Z87.891 Personal history of nicotine dependence; Z88.0 Allergy status to penicillin; Z87.01 Personal history of pneumonia (recurrent); Z90.49 Acquired absence of other specified parts of digestive tract; Z90.721 Acquired absence of ovaries, unilateral; Z98.42 Cataract extraction status, left eye; Z98.41 Cataract extraction status, right eye; Z96.1 Presence of intraocular lens; Z82.49 Family history of ischemic heart disease and other diseases of the circulatory system
CPT/HCPCS: 36415; 71045; 71046; 71260; 80053; 82550; 82553; 83036; 83735; 83880; 84484; 85025; 85610; 85730; 93005; 94640; 94760; 96365; 96375; 99291